=== PATIENT | male | born 1960 | race Caucasian/White ===

== ENCOUNTER 2016-06-24 17:09 | Emergency (ER) | payer MEDICARE ==
[2016-06-24 17:17] VITALS: RESP 18
[2016-06-24] MEDS ORDERED: cloNIDine HCL 0.2 MG TAB PO STA (17:20)
[2016-06-24] MEDS ORDERED: LISINOPRIL 10 MG TAB PO STA ×2 (17:20→17:54)
[2016-06-24] MEDS ORDERED: METOPROLOL TARTRATE 50 MG TAB PO STA (17:33)
[2016-06-24 18:19] LABS: Basophils % (A) 0 %; CH 30.4; CHCM 34.5; Eosinophils # (A) 0.1 k/uL (0-0.7); Eosinophils % (A) 1 %; HCT 41.1 % (39.0-53.0); HDW 2.84; HGB 14.2 gm/dL (13.0-17.5); Luc # (Auto) 0.14; Luc % (Auto) 2; Lymphocytes # (A) 1.2 k/uL (1.0-4.8); Lymphocytes % (A) 13 %; MCH 30.5 pg (25.0-35.0); MCHC 34.5 g/dL (31.0-37.0); MCV 88.6 fL (80.0-100.0); Mean Platelet Volume 7.1; Monocytes # (A) 0.6 k/uL (0-1.0); Monocytes % (A) 7 %; Neutrophils # (A) 7.4 k/uL (1.3-7.7); Neutrophils % (A) 78 %; RBC 4.64 m/uL (4.30-5.90); RDW 13.6 % (11.5-15.5); WBC 9.4 k/uL (3.8-10.6); WBC (Perox) 9.45
[2016-06-24 18:38] LABS: Anion Gap 10 mmol/L; Blood Urea Nitrogen 15 mg/dL (9-20); Calcium 9.8 mg/dL (8.4-10.2); Carbon Dioxide 28 mmol/L (22-30); Chloride 98 mmol/L (98-107); Glucose 95 mg/dL (74-99); Non-African American GFR(MDRD) >60 (>60 ml/min/1.73 sqM); Potassium 4.6 mmol/L (3.5-5.1); Sodium 136 mmol/L (137-145)
[2016-06-24] MEDS ORDERED: ENALAPRILAT 1.25 MG/ML 1 ML VIAL IVP STA (19:04)
[2016-06-24 20:36] VITALS: PULSE 41
--- NOTE | 2016-06-24 20:39 | ED ---
General Adult HPI - General Chief complaint: Recheck/Abnormal Lab/Rx Stated complaint: high blood pressure-sent by Time Seen by Provider: 06/24/16 17:20 Source: patient Mode of arrival: ambulatory Limitations: no limitations - History of Present Illness Initial comments: This patient is a 55-year-old man who comes over from Dr. Umaña's office. He was seen there today for an office visit and it was found that his blood pressure was quite elevated. The patient states that his blood pressure had been trending high. He is denying any symptoms related to this. He states that he feels well. Patient denies headache, neurologic symptoms, chest pain, dyspnea, diaphoresis. He has not had abdominal pain. The patient does take antihypertensives and states that he has for the most part been compliant with his dosing. -: hour(s) Associated Symptoms: denies other symptoms - Related Data Home Medications Medication Instructions Recorded Confirmed Aspirin EC [Ecotrin Low Dose] 81 mg PO DAILY 06/24/16 06/28/16 Levothyroxine Sodium [Synthroid] 50 mcg PO QAM 06/24/16 06/28/16 Metoprolol Tartrate [Lopressor] 100 mg PO QAM 06/24/16 06/28/16 Pravastatin Sodium [Pravachol] 10 mg PO HS 06/24/16 06/28/16 Benazepril [Lotensin] 10 mg PO QAM 06/28/16 06/28/16 Previous Rx's Medication Instructions Recorded amLODIPine BESYLATE/BENAZEPRIL 1 cap PO DAILY #7 cap 06/28/16 [Lotrel 5-40 mg Capsule] Allergies Allergy/AdvReac Type Severity Reaction Status Date / Time No Known Allergies Allergy Verified 06/28/16 17:02 Review of Systems ROS Statement: Those systems with pertinent positive or pertinent negative responses have been documented in the HPI. ROS Other: All systems not noted in ROS Statement are negative. Constitutional: Denies: fever Eyes: Denies: vision change Respiratory: Denies: cough, dyspnea Cardiovascular: Denies: chest pain, palpitations, edema Gastrointestinal: Denies: abdominal pain, vomiting, diarrhea Musculoskeletal: Denies: back pain Neurological: Denies: headache, weakness, numbness, paresthesias Past Medical History Past Medical History: Cancer, Hypertension, Thyroid Disorder Additional Past Medical History / Comment(s): neck ca History of Any Multi-Drug Resistant Organisms: None Reported Past Surgical History: Orthopedic Surgery Additional Past Surgical History / Comment(s): neck Past Psychological History: No Psychological Hx Reported Smoking Status: Current every day smoker Past Alcohol Use History: None Reported Past Drug Use History: Marijuana General Exam Limitations: no limitations General appearance: alert, in no apparent distress Eye exam: Present: normal appearance ENT exam: Present: normal oropharynx Respiratory exam: Present: normal lung sounds bilaterally. Absent: respiratory distress, wheezes, rales, rhonchi, stridor Cardiovascular Exam: Present: regular rate, normal rhythm, normal heart sounds. Absent: systolic murmur, diastolic murmur, rubs, gallop GI/Abdominal exam: Present: soft. Absent: distended, tenderness, guarding, rebound, rigid Extremities exam: Present: normal inspection, normal capillary refill. Absent: pedal edema, calf tenderness Neurological exam: Present: alert, normal gait Skin exam: Present: warm, dry, intact, normal color. Absent: rash Course Vital Signs 06/24/16 06/24/16 06/24/16 17:13 17:48 19:04 Temperature 97.2 F L Pulse Rate 52 L 48 L 51 L Respiratory 18 18 18 Rate Blood Pressure 256/131 231/115 241/116 O2 Sat by Pulse 100 98 94 L Oximetry 06/24/16 06/24/16 06/24/16 19:14 19:21 19:24 Temperature Pulse Rate 52 L 47 L 47 L Respiratory 18 18 18 Rate Blood Pressure 223/109 190/100 187/101 O2 Sat by Pulse 98 99 Oximetry 06/24/16 06/24/16 06/24/16 20:11 20:28 20:35 Temperature Pulse Rate 52 L 43 L 41 L Respiratory 18 18 18 Rate Blood Pressure 201/102 168/86 145/82 O2 Sat by Pulse 99 Oximetry 06/24/16 20:49 Temperature 98.0 F Pulse Rate 41 L Respiratory 18 Rate Blood Pressure 112/62 O2 Sat by Pulse 98 Oximetry EKG Findings - EKG Comments: EKG Findings:: There is possible left atrial enlargement. - EKG Results: EKG: interpreted by ABBYD, sinus rhythm (Rate 50 bpm), normal axis, normal QRS, normal ST/T Medical Decision Making - Medical Decision Making Patient is 55-year-old man presenting with hypertension. He is asymptomatic. His blood pressure did decrease following administration of oral antihypertensives here and he remains asymptomatic. Patient will follow-up with his physician. Will be given prescription for additional oral antihypertensive. - Lab Data Result diagrams: 06/24/16 18:02 06/24/16 18:02 Lab Results 06/24/16 06/24/16 Range/Units 18:02 18:02 WBC 9.4 (3.8-10.6) k/uL RBC 4.64 (4.30-5.90) m/uL Hgb 14.2 (13.0-17.5) gm/dL Hct 41.1 (39.0-53.0) % MCV 88.6 (80.0-100.0) fL MCH 30.5 (25.0-35.0) pg MCHC 34.5 (31.0-37.0) g/dL RDW 13.6 (11.5-15.5) % Plt Count 361 (150-450) k/uL Neutrophils % 78 % Lymphocytes % 13 % Monocytes % 7 % Eosinophils % 1 % Basophils % 0 % Neutrophils # 7.4 (1.3-7.7) k/uL Lymphocytes # 1.2 (1.0-4.8) k/uL Monocytes # 0.6 (0-1.0) k/uL Eosinophils # 0.1 (0-0.7) k/uL Basophils # 0.0 (0-0.2) k/uL Sodium 136 L (137-145) mmol/L Potassium 4.6 (3.5-5.1) mmol/L Chloride 98 (98-107) mmol/L Carbon Dioxide 28 (22-30) mmol/L Anion Gap 10 mmol/L BUN 15 (9-20) mg/dL Creatinine 1.00 (0.66-1.25) mg/dL Est GFR (MDRD) Af Amer >60 (>60 ml/min/1.73 sqM) Est GFR (MDRD) Non-Af >60 (>60 ml/min/1.73 sqM) Glucose 95 (74-99) mg/dL Calcium 9.8 (8.4-10.2) mg/dL TSH 5.420 H (0.465-4.680) mIU/L Free T4 1.18 (0.78-2.19) ng/dL Disposition Clinical Impression: Hypertension Disposition: HOME SELF-CARE Condition: Fair Instructions: Hypertension (ED) Referrals: Quique Umaña MD [Primary Care Provider] - 1-2 days
[2016-06-24 20:51] VITALS: BP 112/62; TEMP 98
== END 2016-06-24 20:56 | disposition home or self-care (01) ==
LOC: EC 17:09
DX: I10 Essential (primary) hypertension (principal); E07.9 Disorder of thyroid, unspecified; F17.200 Nicotine dependence, unspecified, uncomplicated; Z85.89 Personal history of malignant neoplasm of other organs and systems; Z79.82 Long term (current) use of aspirin; Z79.899 Other long term (current) drug therapy
CPT/HCPCS: 36415; 80048; 84439; 84443; 85025; 93005; 96374; 99283

== ENCOUNTER 2016-06-28 16:33 | Emergency (ER) | payer MEDICARE ==
[2016-06-28] MEDS ORDERED: ASPIRIN 81 MG CHEW PO STA (17:05)
[2016-06-28] MEDS ORDERED: NITROGLYCERIN SL TABS 0.4 MG TAB SUBLINGUAL STA (17:05)
[2016-06-28] MEDS ORDERED: MORPHINE SULFATE 2 MG/ML SYRINGE IVP STA (17:05)
[2016-06-28] MEDS ORDERED: SODIUM CHLORIDE 0.9% 500 ML IV STA (17:05)
--- NOTE | 2016-06-28 17:14 | ED ---
Headache HPI - General Source: RN notes reviewed Mode of arrival: ambulatory Limitations: no limitations <Amanda Mcgowan - Last Filed: 06/28/16 17:33> <Bashir Tillman - Last Filed: 06/28/16 23:12> - General Chief Complaint: Headache Stated Complaint: HBP Time Seen by Provider: 06/28/16 17:00 - History of Present Illness Initial Comments: 55 yo male presents to the ER with cc of hypertension. Patient states that he is having high blood pressure. Patient states he does have a history of high blood pressure. Patient states that he has noticed this over the last few weeks however today became increasingly high that he started to develop a headache. Patient states he did take his medications for high blood pressure. Patient states he hasn't had any fever chills cough cold runny nose. Patient did have shortness of breath earlier but he states he has no more shortness of breath. Patient states that he was concerned due to his continued blood pressures headaches. She is reevaluated. Patient denies any history of LA. Patient denies any recent fever, chills, chest pain, back pain, abdominal pain, nausea vomiting, numbness or tingling, dysuria or hematuria, constipation or diarrhea, headaches or visual changes, or any other current symptoms. (Amanda Mcgowan) - Related Data Home Medications Medication Instructions Recorded Confirmed Aspirin EC [Ecotrin Low Dose] 81 mg PO DAILY 06/24/16 06/28/16 Levothyroxine Sodium [Synthroid] 50 mcg PO QAM 06/24/16 06/28/16 Metoprolol Tartrate [Lopressor] 100 mg PO QAM 06/24/16 06/28/16 Pravastatin Sodium [Pravachol] 10 mg PO HS 06/24/16 06/28/16 Benazepril [Lotensin] 10 mg PO QAM 06/28/16 06/28/16 Previous Rx's Medication Instructions Recorded amLODIPine BESYLATE/BENAZEPRIL 1 cap PO DAILY #7 cap 06/28/16 [Lotrel 5-40 mg Capsule] Allergies Allergy/AdvReac Type Severity Reaction Status Date / Time No Known Allergies Allergy Verified 06/28/16 17:02 Review of Systems ROS Other: All systems not noted in ROS Statement are negative. <Amanda Mcgowan - Last Filed: 06/28/16 17:33> ROS Other: All systems not noted in ROS Statement are negative. <Bashir Tillman - Last Filed: 06/28/16 23:12> ROS Statement: Those systems with pertinent positive or pertinent negative responses have been documented in the HPI. Past Medical History Past Medical History: Cancer, Hypertension, Thyroid Disorder Additional Past Medical History / Comment(s): neck ca History of Any Multi-Drug Resistant Organisms: None Reported Past Surgical History: Orthopedic Surgery Additional Past Surgical History / Comment(s): neck Past Psychological History: No Psychological Hx Reported Smoking Status: Current every day smoker Past Alcohol Use History: None Reported Past Drug Use History: Marijuana <Amanda Mcgowan - Last Filed: 06/28/16 17:33> General Exam Limitations: no limitations <Amanda Mcgowan - Last Filed: 06/28/16 17:33> <Bashir Tillman - Last Filed: 06/28/16 23:12> - General Exam Comments Initial Comments: General: The patient is awake and alert, in no distress, and does not appear acutely ill. Eye: Pupils are equal, round and reactive to light, extra-ocular movements are intact; there is normal conjunctiva bilaterally. No signs of icterus. Ears, nose, mouth and throat: There are moist mucous membranes. Neck: The neck is supple, there is no tenderness. Cardiovascular: There is a regular rate and rhythm. No murmur, rub or gallop is appreciated. Respiratory: Lungs are clear to auscultation, respirations are non-labored, breath sounds are equal. No wheezes, stridor, rales, or rhonchi. Gastrointestinal: Soft, non-distended, non-tender abdomen without masses or organomegaly noted. There is no rebound or guarding present. No CVA tenderness. Bowel sounds are unremarkable. Back: There is no tenderness to palpation in the midline. There is no obvious deformity. No rashes noted. Musculoskeletal: Normal ROM, no tenderness, There is no pedal edema. There is no calf tenderness or swelling. Sensation intact. Pulses equal bilaterally 2+. Neurological: CN II-XII intact, There are no obvious motor or sensory deficits. Coordination appears grossly intact. Speech is normal. Skin: Skin is warm and dry and no rashes or lesions are noted. Psychiatric: Cooperative, appropriate mood & affect, normal judgment. (Amanda Mcgowan) Course <Amanda Mcgowan - Last Filed: 06/28/16 17:33> <Bashir Tillman - Last Filed: 06/28/16 23:12> Vital Signs 06/28/16 06/28/16 06/28/16 16:36 16:58 17:25 Temperature 98.1 F Pulse Rate 71 60 Pulse Rate [ 56 L Bilateral Sitting Radial] Respiratory 20 18 Rate Blood Pressure 245/115 257/125 O2 Sat by Pulse 98 99 Oximetry 06/28/16 06/28/16 06/28/16 17:33 17:50 18:55 Temperature 98.3 F Pulse Rate 56 L 55 L 53 L Pulse Rate [ Bilateral Sitting Radial] Respiratory 16 18 Rate Blood Pressure 131/75 249/129 217/114 O2 Sat by Pulse 98 100 Oximetry 06/28/16 06/28/16 06/28/16 19:41 20:27 22:49 Temperature Pulse Rate 52 L 50 L 52 L Pulse Rate [ Bilateral Sitting Radial] Respiratory 16 16 16 Rate Blood Pressure 202/106 177/92 182/96 O2 Sat by Pulse 98 98 100 Oximetry - Reevaluation(s) Reevaluation #1: 06/28/16 17:33 This case will be signed out to Dr. Tillman. (Amanda Mcgowan) 06/28/16 19:13 Case was discussed with Dr. Umaña including symptoms and lab results, specifically EKG and troponin. Blood pressure at this time was 183/98. He states patient can be discharged unless blood pressure goes up again. He requests Lotrel 5/40 prescription instead of just Benzapril and follow-up Thursday. 06/28/16 23:10 Case again discussed with Dr. Umaña who still does want patient discharged. Blood pressure has improved. Patient reexamined and updated. Patient is comfortable with discharge. Patient still denies ever having chest discomfort. (Bashir Tillman) Medical Decision Making - Lab Data Result diagrams: 06/28/16 17:12 <Amanda Mcgowan - Last Filed: 06/28/16 17:33> - Lab Data Result diagrams: 06/28/16 17:12 06/28/16 17:12 <Bashir Tillman - Last Filed: 06/28/16 23:12> - Medical Decision Making 55-year-old male presents to the emergency department with a chief complaint of headache and hypertension. (Amanda Mcgowan) - Lab Data Lab Results 06/28/16 06/28/16 06/28/16 Range/Units 17:12 17:12 17:12 WBC 13.1 H (3.8-10.6) k/uL RBC 4.93 (4.30-5.90) m/uL Hgb 14.9 (13.0-17.5) gm/dL Hct 44.0 (39.0-53.0) % MCV 89.3 (80.0-100.0) fL MCH 30.3 (25.0-35.0) pg MCHC 33.9 (31.0-37.0) g/dL RDW 13.9 (11.5-15.5) % Plt Count 378 (150-450) k/uL Neutrophils % 86 % Lymphocytes % 8 % Monocytes % 4 % Eosinophils % 1 % Basophils % 1 % Neutrophils # 11.2 H (1.3-7.7) k/uL Lymphocytes # 1.1 (1.0-4.8) k/uL Monocytes # 0.5 (0-1.0) k/uL Eosinophils # 0.1 (0-0.7) k/uL Basophils # 0.1 (0-0.2) k/uL PT (9.0-12.0) sec INR (<1.1) APTT (22.0-30.0) sec Sodium 137 (137-145) mmol/L Potassium 4.9 (3.5-5.1) mmol/L Chloride 98 (98-107) mmol/L Carbon Dioxide 28 (22-30) mmol/L Anion Gap 11 mmol/L BUN 16 (9-20) mg/dL Creatinine 0.90 (0.66-1.25) mg/dL Est GFR (MDRD) Af Amer >60 (>60 ml/min/1.73 sqM) Est GFR (MDRD) Non-Af >60 (>60 ml/min/1.73 sqM) Glucose 122 H (74-99) mg/dL Calcium 10.3 H (8.4-10.2) mg/dL Magnesium 2.3 (1.6-2.3) mg/dL Total Bilirubin 0.7 (0.2-1.3) mg/dL AST 37 (17-59) U/L ALT 24 (21-72) U/L Alkaline Phosphatase 75 (38-126) U/L Total Creatine Kinase 109 (55-170) U/L CK-MB (CK-2) 9.7 H* (0.0-2.4) ng/mL CK-MB (CK-2) Rel Index 8.9 Troponin I 0.066 H* (0.000-0.034) ng/mL Total Protein 8.5 H (6.3-8.2) g/dL Albumin 4.8 (3.5-5.0) g/dL Amylase 59 (30-110) U/L Lipase 136 (23-300) U/L 06/28/16 Range/Units 17:12 WBC (3.8-10.6) k/uL RBC (4.30-5.90) m/uL Hgb (13.0-17.5) gm/dL Hct (39.0-53.0) % MCV (80.0-100.0) fL MCH (25.0-35.0) pg MCHC (31.0-37.0) g/dL RDW (11.5-15.5) % Plt Count (150-450) k/uL Neutrophils % % Lymphocytes % % Monocytes % % Eosinophils % % Basophils % % Neutrophils # (1.3-7.7) k/uL Lymphocytes # (1.0-4.8) k/uL Monocytes # (0-1.0) k/uL Eosinophils # (0-0.7) k/uL Basophils # (0-0.2) k/uL PT 10.9 (9.0-12.0) sec INR 1.1 (<1.1) APTT 29.7 (22.0-30.0) sec Sodium (137-145) mmol/L Potassium (3.5-5.1) mmol/L Chloride (98-107) mmol/L Carbon Dioxide (22-30) mmol/L Anion Gap mmol/L BUN (9-20) mg/dL Creatinine (0.66-1.25) mg/dL Est GFR (MDRD) Af Amer (>60 ml/min/1.73 sqM) Est GFR (MDRD) Non-Af (>60 ml/min/1.73 sqM) Glucose (74-99) mg/dL Calcium (8.4-10.2) mg/dL Magnesium (1.6-2.3) mg/dL Total Bilirubin (0.2-1.3) mg/dL AST (17-59) U/L ALT (21-72) U/L Alkaline Phosphatase (38-126) U/L Total Creatine Kinase (55-170) U/L CK-MB (CK-2) (0.0-2.4) ng/mL CK-MB (CK-2) Rel Index Troponin I (0.000-0.034) ng/mL Total Protein (6.3-8.2) g/dL Albumin (3.5-5.0) g/dL Amylase (30-110) U/L Lipase (23-300) U/L 06/28/16 17:13 Sinus bradycardia, possible left atrial enlargement, left ventricular hypertrophy, patient does appear to have changes to V2 with minimal elevation that is new compared to previous EKG from 28 Oct 2015 (Amanda Mcgowan) Critical Care Time Critical Care Time: Yes Total Critical Care Time: 33 <Bashir Tillman - Last Filed: 06/28/16 23:12> Disposition <Amanda Mcgowan - Last Filed: 06/28/16 17:33> <Bashir Tillman - Last Filed: 06/28/16 23:12> Clinical Impression: Hypertensive urgency Disposition: HOME SELF-CARE Instructions: Hypertension (ED), Hypertensive Crisis (ED) Additional Instructions: Please follow-up Thursday morning with Dr. Umaña. Return for chest pain or difficulty in breathing, weakness or confusion, uncontrolled blood pressure, worsening symptoms or any other concerns. Prescriptions: amLODIPine BESYLATE/BENAZEPRIL [Lotrel 5-40 mg Capsule] 1 cap PO DAILY #7 cap Referrals: Quique Umaña MD [Primary Care Provider] - 1-2 days
[2016-06-28 17:21] LABS: Basophils # (A) 0.1 k/uL (0-0.2); Basophils % (A) 1 %; CH 30.3; CHCM 34.1; Eosinophils # (A) 0.1 k/uL (0-0.7); Eosinophils % (A) 1 %; HDW 2.67; HGB 14.9 gm/dL (13.0-17.5); Luc # (Auto) 0.12; Luc % (Auto) 1; Lymphocytes # (A) 1.1 k/uL (1.0-4.8); Lymphocytes % (A) 8 %; MCH 30.3 pg (25.0-35.0); MCHC 33.9 g/dL (31.0-37.0); MCV 89.3 fL (80.0-100.0); Mean Platelet Volume 6.4; Monocytes # (A) 0.5 k/uL (0-1.0); Monocytes % (A) 4 %; Neutrophils # (A) 11.2 k/uL (1.3-7.7); Neutrophils % (A) 86 %; RBC 4.93 m/uL (4.30-5.90); RDW 13.9 % (11.5-15.5); WBC 13.1 k/uL (3.8-10.6); WBC (Perox) 13.09
[2016-06-28] MEDS: ENALAPRILAT 1.25 MG/ML 1 ML VIAL IVP STA ×2 (17:24→18:23)
[2016-06-28 17:31] LABS: INR 1.1 (<1.1); Partial Thromboplastin Time 29.7 sec (22.0-30.0); Prothrombin Time 10.9 sec (9.0-12.0)
[2016-06-28 17:36] LABS: ALT 24 U/L (21-72); AST 37 U/L (17-59); Alkaline Phosphatase 75 U/L (38-126); Amylase 59 U/L (30-110); Anion Gap 11 mmol/L; Blood Urea Nitrogen 16 mg/dL (9-20); Calcium 10.3 mg/dL (8.4-10.2); Carbon Dioxide 28 mmol/L (22-30); Chloride 98 mmol/L (98-107); Glucose 122 mg/dL (74-99); Magnesium 2.3 mg/dL (1.6-2.3); Non-African American GFR(MDRD) >60 (>60 ml/min/1.73 sqM); Potassium 4.9 mmol/L (3.5-5.1); Sodium 137 mmol/L (137-145); Total Bilirubin 0.7 mg/dL (0.2-1.3); Total Protein 8.5 g/dL (6.3-8.2)
[2016-06-28 17:58] LABS: Creatine Kinase MB 9.7 ng/mL (0.0-2.4); Troponin I 0.066 ng/mL (0.000-0.034)
--- NOTE | 2016-06-28 18:07 | XR ---
EXAMINATION TYPE: XR chest 2V DATE OF EXAM: 06/28/2016 5:50 PM COMPARISON: Prior chest x-ray October 28, 2015 HISTORY: Chest pain. TECHNIQUE: Frontal and lateral views of the chest are obtained. FINDINGS: There is no focal air space opacity, pleural effusion, or pneumothorax seen. The cardiac silhouette size is within normal limits. The osseous structures are intact. IMPRESSION: No acute cardiopulmonary process currently.
--- NOTE | 2016-06-28 18:08 | CT ---
EXAMINATION TYPE: CT brain wo con DATE OF EXAM: 06/28/2016 5:50 PM HISTORY: Headache and dizziness. CT DLP: 1054.2 mGycm. Automated Exposure Control for Dose Reduction was Utilized. TECHNIQUE: CT scan of the head is performed without contrast. COMPARISON: None. FINDINGS: There is no acute intracranial hemorrhage or midline shift identified. Ventricles and sul ci are within normal limits in size. 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 There is some lobulated mucosal polyps or retention cysts in the right maxillary sinus posterior lateral a spect otherwise paranasal sinuses are clear. The globes are intact bilaterally. IMPRESSION: No acute intracranial hemorrhage or midline shift.
[2016-06-28 18:57] VITALS: TEMP 98.3
[2016-06-28] MEDS ORDERED: amLODIPine 5 MG TAB PO STA (19:13)
[2016-06-28] MEDS ORDERED: LISINOPRIL 20 MG TAB PO STA (19:16)
[2016-06-28 19:46] VITALS: RESP 16
[2016-06-28 23:34] VITALS: BP 184/96; PULSE 53
== END 2016-06-28 23:32 | disposition home or self-care (01) ==
LOC: EC 16:33
DX: I16.0 Hypertensive urgency (principal); R00.1 Bradycardia, unspecified; F17.200 Nicotine dependence, unspecified, uncomplicated; I10 Essential (primary) hypertension; E07.9 Disorder of thyroid, unspecified; Z79.899 Other long term (current) drug therapy; Z79.82 Long term (current) use of aspirin; Z85.89 Personal history of malignant neoplasm of other organs and systems; Z98.890 Other specified postprocedural states
CPT/HCPCS: 36415; 80053; 93005; 82150; 82550; 82553; 83690; 83735; 84484; 85025; 85610; 85730; 71020; 70450; 99285; 96374; 96376; 96375; 96361; J2270

== ENCOUNTER → 2016-07-21 | Outpatient (CLI) | payer MEDICARE ==
--- NOTE | 2016-07-25 16:31 | US ---
EXAMINATION TYPE: US kidneys/renal and bladder DATE OF EXAM: 07/21/2016 4:32 PM COMPARISON: NONE CLINICAL HISTORY: I10 hypertension. HTN, pt has no other complaints at this time EXAM MEASUREMENTS: Right Kidney: 10.4 x 3.7 x 4.8 cm Left Kidney: 9.8 x 4.6 x 4.9 cm Right Kidney: Cyst upper pole= 1.3 x 1.1 x 1.4 cm/ No evidence of hydro Left Kidney: wnl Bladder: wnl Bilateral Jets seen: Yes There is no evidence for hydronephrosis at this point in time. No nephrolithiasis is seen. No zuleyma s are identified. The urinary bladder is anechoic. Bilateral ureteral jets are seen. IMPRESSION: Simple cyst upper pole right kidney.
== END | disposition home or self-care (01) ==
LOC: RADUSWWP 16:12
PROVIDERS: ATTEND Family Medicine
DX: Z53.9 Procedure and treatment not carried out, unspecified reason (principal)
CPT/HCPCS: 76770

== ENCOUNTER → 2016-08-07 | Outpatient (CLI) | payer MEDICARE ==
--- NOTE | 2016-08-07 11:02 | US ---
EXAMINATION TYPE: US renal artery duplex complete DATE OF EXAM: 08/07/2016 COMPARISON: Prior renal ultrasound July 21, 2016 CLINICAL HISTORY: I10 hypertension. Controlled HTN MEASUREMENTS: RENAL SIZE: Rt Kidney: 10.1 x 3.9 x 5.2cm Lt Kidney: 10.3 x 4.9 x 4.5cm RESISTANCE INDEX Right: 2.1 Left: 2.2 RA/AO RATIO (< 3.5 ) Right: 0.63 Left: 0.66 RA VELOCITY ( < 180 cm/s) Right: 137.3 cm/s Left: 140.9 cm/s Cystic area upper pole right kidney = 1.0 x 1.2 x 0.9cm. Cystic area lower pole left kidney = 0.9 x 0 .7 x 0.9cm. No evidence of renal artery stenosis at this time. Low resistive waveforms noted througho ut. There is diffuse septal defect change and visualized abdominal aorta. A few simple appearing cysts re demonstrated scattered throughout both kidneys. Renal artery measurements show satisfactory phasicity without abnormal suspicious increased velocities bilaterally. IMPRESSION: No convincing ultrasound evidence for focal renal artery stenosis.
== END | disposition home or self-care (01) ==
LOC: RADUSMAIN 08:53
PROVIDERS: ATTEND Family Medicine
DX: I10 Essential (primary) hypertension (principal)
CPT/HCPCS: 93975

== ENCOUNTER 2020-03-02 13:08 | Emergency (ER) | payer MEDICARE ==
[2020-03-02 13:14] VITALS: TEMP 98.4
[2020-03-02] MEDS: cloNIDine HCL 0.1 MG TAB PO STA (13:39)
--- NOTE | 2020-03-02 13:45 | ED ---
General Adult HPI - General Chief complaint: Skin/Abscess/Foreign Body Stated complaint: Left ear cyst Time Seen by Provider: 03/02/20 13:17 Source: patient, RN notes reviewed, old records reviewed Mode of arrival: ambulatory Limitations: no limitations - History of Present Illness Initial comments: 59-year-old presenting for evaluation of pain and swelling behind his left year. Patient had a previous sebaceous cyst which has been present for greater than 10 years. He has remote history of head and neck cancer, he does follow with his oncologist who has evaluated this cyst in the past and was not felt to be cancerous. Denies fever or constitutional symptoms. He has a history of hypertension and he is on amlodipine and clonidine. Triage heart rate and blood pressure are significantly elevated. - Related Data Home Medications Medication Instructions Recorded Confirmed Aspirin EC [Ecotrin Low Dose] 81 mg PO DAILY 06/24/16 06/28/16 Levothyroxine Sodium [Synthroid] 50 mcg PO QAM 06/24/16 06/28/16 Metoprolol Tartrate [Lopressor] 100 mg PO QAM 06/24/16 06/28/16 Pravastatin Sodium [Pravachol] 10 mg PO HS 06/24/16 06/28/16 Benazepril [Lotensin] 10 mg PO QAM 06/28/16 06/28/16 Previous Rx's Medication Instructions Recorded amLODIPine BESYLATE/BENAZEPRIL 1 cap PO DAILY #7 cap 06/28/16 [Lotrel 5-40 mg Capsule] Cephalexin [Keflex] 500 mg PO Q6HR 10 Days #40 cap 03/02/20 Sulfamethox-Tmp 800-160Mg [Bactrim 1 tab PO Q12HR #28 tab 03/02/20 DS 800-160 mg] Allergies Allergy/AdvReac Type Severity Reaction Status Date / Time No Known Allergies Allergy Verified 03/02/20 13:14 Review of Systems ROS Statement: Those systems with pertinent positive or pertinent negative responses have been documented in the HPI. ROS Other: All systems not noted in ROS Statement are negative. Past Medical History Past Medical History: Cancer, Hypertension, Thyroid Disorder Additional Past Medical History / Comment(s): neck ca History of Any Multi-Drug Resistant Organisms: None Reported Past Surgical History: Orthopedic Surgery Additional Past Surgical History / Comment(s): neck Past Psychological History: No Psychological Hx Reported Smoking Status: Current every day smoker Past Alcohol Use History: None Reported Past Drug Use History: Marijuana General Exam Limitations: no limitations General appearance: alert, in no apparent distress Head exam: Present: atraumatic, normocephalic Eye exam: Present: normal appearance, PERRL ENT exam: Present: mucous membranes moist, other ( has what appears to be an infected sebaceous cyst just behind the left earlobe with some cellulitis progressing onto the parotid. There is central fluctuance and site of previous drainage.) Neck exam: Present: other (woody indurated neck. ) Respiratory exam: Present: decreased breath sounds. Absent: respiratory distress Cardiovascular Exam: Present: normal rhythm, tachycardia GI/Abdominal exam: Present: soft. Absent: distended, tenderness Neurological exam: Present: alert, oriented X3. Absent: motor sensory deficit Course Vital Signs 03/02/20 03/02/20 13:10 14:02 Temperature 98.4 F Pulse Rate 125 H 64 Respiratory 20 18 Rate Blood Pressure 215/137 176/113 O2 Sat by Pulse 96 100 Oximetry - Reevaluation(s) Reevaluation #1: 03/02/20 13:35 Patient is on amlodipine 10 mg and clonidine patch history of hypertension and states his blood pressure has been trending up over the past weeks. He does admit to daily smoking. Reevaluation #2: 03/02/20 14:05 Blood pressure significantly improved with 1 dose of oral clonidine. Procedures - Incision & Drainage Consent Obtained: verbal consent Site: face I&D Cleaning Method: Chloroprep Sterile Field Used?: Yes Scalpel Used: #11 Needle Aspiration Performed?: Yes Irrigation Performed?: No I&D Drainage Obtained: Pus, Blood Culture Obtained?: Yes Patient Tolerated Procedure: well Medical Decision Making - Medical Decision Making 59-year-old male with pain and swelling behind the left earlobe previous sebaceous cyst, likely infected sebaceous cyst, there is purulence and some surrounding cellulitis. I was able to incise the cyst and obtained approximately 3 mL appear ill material which was sent for culture. Regarding the patient's uncontrolled hypertension, he states that his blood pressure does go up when he is in a medical environment. I discussed this with his primary care physician Dr. Umaña who will evaluate the patient within the next 48 hours for both his elevated blood pressure as well as this infection given his previous history. Disposition Clinical Impression: Sebaceous cyst of ear, Infected sebaceous cyst, Hypertension Disposition: HOME SELF-CARE Condition: Fair Instructions (If sedation given, give patient instructions): Cellulitis (ED), Hypertension (ED), Cyst (ED), Abscess Incision and Drainage (DC) Prescriptions: Sulfamethox-Tmp 800-160Mg [Bactrim DS 800-160 mg] 1 tab PO Q12HR #28 tab Cephalexin [Keflex] 500 mg PO Q6HR 10 Days #40 cap Is patient prescribed a controlled substance at d/c from ED?: No Referrals: Quique Umaña MD [Primary Care Provider] - 1-2 days Time of Disposition: 13:44
[2020-03-02 14:05] VITALS: BP 176/113; PULSE 64; RESP 18
== END 2020-03-02 14:09 | disposition home or self-care (01) ==
LOC: EC 13:08
DX: L72.3 Sebaceous cyst (principal); L08.9 Local infection of the skin and subcutaneous tissue, unspecified; R00.0 Tachycardia, unspecified; I10 Essential (primary) hypertension; E07.9 Disorder of thyroid, unspecified; F17.200 Nicotine dependence, unspecified, uncomplicated; Z79.890 Hormone replacement therapy; Z79.899 Other long term (current) drug therapy; Z85.828 Personal history of other malignant neoplasm of skin
CPT/HCPCS: 10060; 87070; 87205; 99284

== ENCOUNTER 2021-05-07 17:50 | Inpatient (IN) | payer MEDICARE ==
[2021-05-07] MEDS ORDERED: SODIUM CHLORIDE 0.9% 1,000 ML IV STA (22:03)
[2021-05-07] MEDS ORDERED: DEXAMETHASONE SOD PHOSPHATE 10 MG/ML 1 ML VIAL IV STA (22:04)
[2021-05-07] MEDS ORDERED: IPRATROPIUM-ALBUTEROL 3 ML NEB INHALATION STA (22:04)
--- NOTE | 2021-05-07 22:06 | ED ---
General Adult HPI - General Chief complaint: Upper Respiratory Infection Stated complaint: Chest Pain,Cough Time Seen by Provider: 05/07/21 21:49 Source: patient Mode of arrival: ambulatory Limitations: no limitations - History of Present Illness Initial comments: Dictation was produced using [employer] dictation software. please excuse any grammatical, word or spelling errors. Chief Complaint: 60-year-old male presents to the emergency department for 2 weeks of cough History of Present Illness: Is a 60-year-old male who has past medical history of neck cancer, hypertension and thyroid disease. Presents to the emergency department for 2 weeks of cough. Patient states his cough is productive of green sputum. He does also have left anterior chest pain is worse with deep inspiration. States when he takes deep breath it feels dull and rated status left arm. Patient is from a shortness of breath. He hasn't been formally diag nosed with COPD however he is a one pack-a-day smoker for several years. She denies any constitutional symptoms. The ROS documented in this emergency department record has been reviewed and confirmed by me. Those systems with pertinent positive or negative responses have been documented in the HPI. All other systems are other negative and/or noncontributory. PHYSICAL EXAM: General Impression: Alert and oriented x3, not in acute distress, coughing HEENT: Normocephalic atraumatic, extra-ocular movements intact, pupils equal and reactive to light bilaterally, mucous membranes moist. Cardiovascular: Heart regular rate and rhythm Chest: Able to complete full sentences, no retractions, no tachypnea, diffuse lung rhonchi Abdomen: abdomen soft, non-tender, non-distended, no organomegaly Musculoskeletal: Pulses present and equal in all extremities, no peripheral edema Motor: no focal deficits noted Neurological: CN II-XII grossly intact, no focal motor or sensory deficits noted Skin: Intact with no visualized rashes Psych: Normal affect and mood ED course: 60-year-old male presents emergency department for cough. He has associated chest pain. Patient is high risk given his extensive smoking history. Vital signs upon arrival are within acceptable limits. Chest x-ray shows left lower lobe pneumonia. This appears to be new compared to an old exam.Lab evaluation obtained. No leukocytosis. Metabolic panel shows hyponatremia with 08/30/1929. Rest metabolic panel unremarkable. For panel viral PCR is negative. Given degree of his symptoms and lack of improvement over the last several days believe patient would benefit from short hospital admission. Patient be admitted for COPD exacerbation with [facility] pneumonia. Patient given azithromycin and ceftriaxone. Patient is agreeable to plan. EKG interpretation: Ventricular rate 84, sinus rhythm, FL interval 184, first 91, QTc 387. No FL prolongation, no QTC prolongation, no ST or T-wave changes noted. EKG compared to 06/28/2016 showing no changes. Overall, this EKG is unremarkable - Related Data Home Medications Medication Instructions Recorded Confirmed Lansoprazole [Prevacid] 30 mg PO DAILY PRN 05/07/21 05/07/21 Levothyroxine Sodium [Synthroid] 75 mcg PO DAILY 05/07/21 05/07/21 amLODIPine [Norvasc] 10 mg PO HS 05/07/21 05/07/21 cloNIDine 0.3 MG/24HR PATCH 1 patch TRANSDERM CAMERON 05/07/21 05/07/21 [Catapres-Tts 0.3MG Patch] Allergies Allergy/AdvReac Type Severity Reaction Status Date / Time No Known Allergies Allergy Verified 05/07/21 22:56 Review of Systems ROS Statement: Those systems with pertinent positive or pertinent negative responses have been documented in the HPI. ROS Other: All systems not noted in ROS Statement are negative. Past Medical History Past Medical History: Cancer, Hypertension, Thyroid Disorder Additional Past Medical History / Comment(s): neck ca History of Any Multi-Drug Resistant Organisms: None Reported Past Surgical History: Orthopedic Surgery Additional Past Surgical History / Comment(s): neck Past Psychological History: No Psychological Hx Reported Smoking Status: Current every day smoker Past Alcohol Use History: None Reported Past Drug Use History: Marijuana General Exam Limitations: no limitations Course Vital Signs 05/07/21 05/07/21 05/07/21 18:35 23:09 23:19 Temperature 97.9 F Pulse Rate 81 64 62 Respiratory 18 Rate Blood Pressure 123/88 O2 Sat by Pulse 95 Oximetry 05/08/21 01:00 Temperature Pulse Rate 72 Respiratory 18 Rate Blood Pressure 139/87 O2 Sat by Pulse 94 L Oximetry Medical Decision Making - Lab Data Result diagrams: 05/09/21 10:45 05/09/21 10:45 Lab Results 05/07/21 05/07/21 05/07/21 Range/Units 22:19 22:19 22:19 WBC 7.8 (3.8-10.6) k/uL RBC 4.72 (4.30-5.90) m/uL Hgb 12.7 L (13.0-17.5) gm/dL Hct 39.8 (39.0-53.0) % MCV 84.2 (80.0-100.0) fL MCH 27.0 (25.0-35.0) pg MCHC 32.0 (31.0-37.0) g/dL RDW 15.8 H (11.5-15.5) % Plt Count 563 H (150-450) k/uL MPV 7.1 Neutrophils % 81 % Lymphocytes % 11 % Monocytes % 6 % Eosinophils % 0 % Basophils % 0 % Neutrophils # 6.4 (1.3-7.7) k/uL Lymphocytes # 0.8 L (1.0-4.8) k/uL Monocytes # 0.5 (0-1.0) k/uL Eosinophils # 0.0 (0-0.7) k/uL Basophils # 0.0 (0-0.2) k/uL Sodium 130 L (137-145) mmol/L Potassium 4.4 (3.5-5.1) mmol/L Chloride 94 L (98-107) mmol/L Carbon Dioxide 28 (22-30) mmol/L Anion Gap 8 mmol/L BUN 11 (9-20) mg/dL Creatinine 0.77 (0.66-1.25) mg/dL Est GFR (CKD-EPI)AfAm >90 (>60 ml/min/1.73 sqM) Est GFR (CKD-EPI)NonAf >90 (>60 ml/min/1.73 sqM) Glucose 110 H (74-99) mg/dL Plasma Lactic Acid Amador (0.7-2.0) mmol/L Calcium 9.1 (8.4-10.2) mg/dL Magnesium 2.0 (1.6-2.3) mg/dL Troponin I (0.000-0.034) ng/mL Influenza Type A (PCR) Not Detected (Not Detectd) Influenza Type B (PCR) Not Detected (Not Detectd) RSV (PCR) Not Detected (Not Detectd) SARS-CoV-2 (PCR) Not Detected (Not Detectd) 05/07/21 05/07/21 05/09/21 Range/Units 22:19 22:19 10:45 WBC 7.6 (3.8-10.6) k/uL RBC 4.78 (4.30-5.90) m/uL Hgb 12.8 L (13.0-17.5) gm/dL Hct 39.9 (39.0-53.0) % MCV 83.5 (80.0-100.0) fL MCH 26.8 (25.0-35.0) pg MCHC 32.1 (31.0-37.0) g/dL RDW 15.8 H (11.5-15.5) % Plt Count 606 H (150-450) k/uL MPV 7.0 Neutrophils % % Lymphocytes % % Monocytes % % Eosinophils % % Basophils % % Neutrophils # (1.3-7.7) k/uL Lymphocytes # (1.0-4.8) k/uL Monocytes # (0-1.0) k/uL Eosinophils # (0-0.7) k/uL Basophils # (0-0.2) k/uL Sodium (137-145) mmol/L Potassium (3.5-5.1) mmol/L Chloride (98-107) mmol/L Carbon Dioxide (22-30) mmol/L Anion Gap mmol/L BUN (9-20) mg/dL Creatinine (0.66-1.25) mg/dL Est GFR (CKD-EPI)AfAm (>60 ml/min/1.73 sqM) Est GFR (CKD-EPI)NonAf (>60 ml/min/1.73 sqM) Glucose (74-99) mg/dL Plasma Lactic Acid Amador 0.9 (0.7-2.0) mmol/L Calcium (8.4-10.2) mg/dL Magnesium (1.6-2.3) mg/dL Troponin I <0.012 (0.000-0.034) ng/mL Influenza Type A (PCR) (Not Detectd) Influenza Type B (PCR) (Not Detectd) RSV (PCR) (Not Detectd) SARS-CoV-2 (PCR) (Not Detectd) 05/09/21 Range/Units 10:45 WBC (3.8-10.6) k/uL RBC (4.30-5.90) m/uL Hgb (13.0-17.5) gm/dL Hct (39.0-53.0) % MCV (80.0-100.0) fL MCH (25.0-35.0) pg MCHC (31.0-37.0) g/dL RDW (11.5-15.5) % Plt Count (150-450) k/uL MPV Neutrophils % % Lymphocytes % % Monocytes % % Eosinophils % % Basophils % % Neutrophils # (1.3-7.7) k/uL Lymphocytes # (1.0-4.8) k/uL Monocytes # (0-1.0) k/uL Eosinophils # (0-0.7) k/uL Basophils # (0-0.2) k/uL Sodium 131 L (137-145) mmol/L Potassium 4.9 (3.5-5.1) mmol/L Chloride 90 L (98-107) mmol/L Carbon Dioxide 33 H (22-30) mmol/L Anion Gap 8 mmol/L BUN 17 (9-20) mg/dL Creatinine 0.79 (0.66-1.25) mg/dL Est GFR (CKD-EPI)AfAm >90 (>60 ml/min/1.73 sqM) Est GFR (CKD-EPI)NonAf >90 (>60 ml/min/1.73 sqM) Glucose 73 L (74-99) mg/dL Plasma Lactic Acid Amador (0.7-2.0) mmol/L Calcium 9.3 (8.4-10.2) mg/dL Magnesium (1.6-2.3) mg/dL Troponin I (0.000-0.034) ng/mL Influenza Type A (PCR) (Not Detectd) Influenza Type B (PCR) (Not Detectd) RSV (PCR) (Not Detectd) SARS-CoV-2 (PCR) (Not Detectd) Disposition Clinical Impression: Pneumonia, COPD exacerbation Disposition: ADMITTED IP TO THIS HOSP Condition: Fair
--- NOTE | 2021-05-07 22:48 | XR ---
EXAMINATION TYPE: XR chest 2V DATE OF EXAM: 05/07/2021 COMPARISON: 06/28/2016 HISTORY: Cough TECHNIQUE: 2 views FINDINGS: There is some patchy airspace consolidation left lower lobe. The other lung gomez are fair ly clear. Heart size is normal. There is no pleural effusion. Bony thorax is intact. IMPRESSION: Left lower lobe pneumonia. This appears essentially new compared to old exam. Normal hear t.
[2021-05-07 22:50] LABS: African American GFR (CKD) >90 (>60 ml/min/1.73 sqM); Anion Gap 8 mmol/L; Blood Urea Nitrogen 11 mg/dL (9-20); Calcium 9.1 mg/dL (8.4-10.2); Carbon Dioxide 28 mmol/L (22-30); Chloride 94 mmol/L (98-107); Glucose 110 mg/dL (74-99); Non-African American GFR(CKD) >90 (>60 ml/min/1.73 sqM); Potassium 4.4 mmol/L (3.5-5.1); Sodium 130 mmol/L (137-145)
[2021-05-07 22:52] LABS: Basophils % (A) 0 %; Eosinophils % (A) 0 %; HCT 39.8 % (39.0-53.0); HGB 12.7 gm/dL (13.0-17.5); Lymphocytes # (A) 0.8 k/uL (1.0-4.8); Lymphocytes % (A) 11 %; MCV 84.2 fL (80.0-100.0); Mean Platelet Volume 7.1; Monocytes # (A) 0.5 k/uL (0-1.0); Monocytes % (A) 6 %; Neutrophils # (A) 6.4 k/uL (1.3-7.7); Neutrophils % (A) 81 %; Platelet Count 563 k/uL (150-450); RBC 4.72 m/uL (4.30-5.90); RDW 15.8 % (11.5-15.5); WBC 7.8 k/uL (3.8-10.6)
[2021-05-07] MEDS ORDERED: cefTRIAXone IN SWFI 1,000 MG/10 ML SYRINGE IVP STA (22:52)
[2021-05-07] MEDS: AZITHROMYCIN 500 MG TAB PO SCH (23:46)
[2021-05-08] MEDS ORDERED: amLODIPine 10 MG TAB PO STA (01:00)
[2021-05-08 01:05] LABS: Influenza A Not Detected (Not Detectd); Influenza B Not Detected (Not Detectd)
[2021-05-08] MEDS ORDERED: PANTOPRAZOLE 40 MG TABLET PO PRN (03:12)
[2021-05-08] MEDS: traMADol 50 MG TAB PO PRN ×3 (03:26→20:05)
[2021-05-08] MEDS: LEVOTHYROXINE 75 MCG TAB PO SCH (06:13)
[2021-05-08] MEDS: IPRATROPIUM-ALBUTEROL 3 ML NEB INHALATION SCH ×4 (07:30→20:36)
[2021-05-08] MEDS ORDERED: IPRATROPIUM-ALBUTEROL 3 ML NEB INHALATION PRN (07:55)
[2021-05-08] MEDS: AZITHROMYCIN 500 MG TAB PO SCH (10:12)
[2021-05-08] MEDS: SYMBICORT 80-4.5 MCG INHALER INHALATION SCH ×2 (11:15→20:36)
--- NOTE | 2021-05-08 12:26 | P.CNPUL ---
History of Present Illness Consult date: 05/08/21 Requesting physician: Quique Umaña Reason for consult: dyspnea, abnormal CXR/CT Chief complaint: Shortness of breath, cough, congestion History of present illness: This is a pleasant 60-year-old male patient who appears older than stated age. He follows with Dr. Umaña as his primary care provider. He has a history of neck cancer, hypertension, gastroesophageal reflux disease, hypothyroidism. He also has a history of chronic and ongoing tobacco dependence of greater than 30 years, occasional marijuana use. He had not been on inhalers in the past. He has not been on home oxygen. He had not been diagnosed with COPD. He presented to the emergency room yesterday with complaints of redness of breath, cough, congestion. He's had a productive cough with yellow sputum. Currently denies any fever, chills or night sweats. His chest x-ray does reveal some left midlung infiltrate. He's had some left-sided posterior chest wall pain as well. CoVID screen was negative. He's not vaccinated. White count 7.8. Hemoglobin 12.7. Platelets 563. Sodium 1:30. Potassium 4.4. Bicarb 28. A BUN 11. Creatinine 0.77. Lactic acid 0.9. Troponin negative 1. Influenza screen, RSV and CoVID by PCR all negative. He's been initiated on ceftriaxone and azithromycin along with Symbicort and DuoNeb inhalations. He is currently seen in consultation on the regular medical floor. He sitting in bed. Awake and alert in no acute distress. Continues with a productive cough. He's been afebrile. Hemodynamically stable. Review of Systems REVIEW OF SYSTEMS: CONSTITUTIONAL: Denies any recent significant weight loss or weight gain. EYES: Denies change in vision. EARS, NOSE, MOUTH, THROAT: Denies headaches, denies sore throat. CARDIOVASCULAR: Left-sided posterior chest wall pain, no palpitations or syncopal episodes. RESPIRATORY: Positive for shortness of breath, cough, congestion no hemoptysis. GASTROINTESTINAL: Denies change in appetite, denies abdominal pain GENITOURINARY: Denies hematuria, denies infections. MUSKULOSKELETAL: Denies pain, denies swelling. INTEGUMENTARY: Denies rash, denies eczema. NEUROLOGICAL: Denies recent memory loss, no recent seizure activity. PSYCHIATRIC: Denies anxiety, denies depression. HEMATOLOGIC/LYMPHATIC: Denies anemia, denies enlarged lymph nodes. Past Medical History Past Medical History: Cancer, Hypertension, Thyroid Disorder Additional Past Medical History / Comment(s): neck ca History of Any Multi-Drug Resistant Organisms: None Reported Past Surgical History: Orthopedic Surgery Additional Past Surgical History / Comment(s): neck Past Psychological History: No Psychological Hx Reported Smoking Status: Current every day smoker Past Alcohol Use History: None Reported Past Drug Use History: Marijuana Medications and Allergies Home Medications Medication Instructions Recorded Confirmed Type Lansoprazole [Prevacid] 30 mg PO DAILY PRN 05/07/21 05/07/21 History Levothyroxine Sodium [Synthroid] 75 mcg PO DAILY 05/07/21 05/07/21 History amLODIPine [Norvasc] 10 mg PO HS 05/07/21 05/07/21 History cloNIDine 0.3 MG/24HR PATCH 1 patch TRANSDERM CAMERON 05/07/21 05/07/21 History [Catapres-Tts 0.3MG Patch] Allergies Allergy/AdvReac Type Severity Reaction Status Date / Time No Known Allergies Allergy Verified 05/07/21 22:56 Physical Exam Vitals: Vital Signs Temp Pulse Pulse Resp BP BP BP 05/08/21 11:27 68 05/08/21 11:15 68 05/08/21 10:03 18 05/08/21 07:45 67 05/08/21 07:30 66 05/08/21 07:00 97.4 F L 83 18 153/77 05/08/21 02:19 97.9 F 65 18 149/98 05/08/21 01:35 97.2 F L 80 18 140/87 05/08/21 01:00 72 18 139/87 05/07/21 23:19 62 05/07/21 23:09 64 05/07/21 18:35 97.9 F 81 18 123/88 Pulse Ox 05/08/21 11:27 05/08/21 11:15 05/08/21 10:03 05/08/21 07:45 05/08/21 07:30 05/08/21 07:00 99 05/08/21 02:19 95 05/08/21 01:35 05/08/21 01:00 94 L 05/07/21 23:19 05/07/21 23:09 05/07/21 18:35 95 Intake and Output 05/07/21 05/08/21 05/08/21 22:59 06:59 14:59 Intake Total 60 118 Balance 60 118 Intake: Oral 60 118 Other: Voiding Method Urinal # Voids 0 Weight 54.885 kg 54.885 kg GENERAL EXAM: Alert, pleasant 60-year-old male patient, appears older than stated age, on room air, comfortable in no apparent distress. HEAD: Normocephalic. EYES: Normal reaction of pupils, equal size. NOSE: Clear with pink turbinates. THROAT: Edentulous. No erythema or exudates. NECK: No masses, no JVD. CHEST: No chest wall deformity. LUNGS: Equal air entry with scattered rhonchi in the left lung. CVS: S1 and S2 normal with no audible murmur, regular rhythm. ABDOMEN: No hepatosplenomegaly, normal bowel sounds, no guarding or rigidity. SPINE: No scoliosis or deformity SKIN: No rashes CENTRAL NERVOUS SYSTEM: No focal deficits, tone is normal in all 4 extremities. EXTREMITIES: There is no peripheral edema. No clubbing, no cyanosis. Peripheral pulses are intact. Results - Laboratory Findings CBC and BMP: 05/07/21 22:19 05/07/21 22:19 Abnormal lab findings: Abnormal Labs 05/07/21 05/07/21 22:19 22:19 Hgb 12.7 L RDW 15.8 H Plt Count 563 H Lymphocytes # 0.8 L Sodium 130 L Chloride 94 L Glucose 110 H - Diagnostic Findings Chest x-ray: image reviewed Assessment and Plan Assessment: 1 Acute community-acquired pneumonia the left mid lung, lower lobe. Influenza screen, CoVID screen, RSV screen all negative. Initiated on ceftriaxone and azithromycin 2 Chronic and ongoing tobacco dependence of greater than 30 years 3 Hypothyroidism 4 Gastroesophageal reflux disease 5 Hypertension 6 Marijuana use. Plan: The patient was seen and evaluated Chest x-ray and labs reviewed Continue antibiotics Continue bronchodilators Follow-up chest x-ray in the a.m. Educated regarding the importance of complete smoking cessation NicoDerm patch will be offered We will continue to follow and make further recommendations based on his clinical status I have personally seen and examined the patient, performed the documentation and the assessment and plan as written. Number of minutes spent on the visit: 20.
--- NOTE | 2021-05-08 14:23 | P.HPIM ---
History of Present Illness H&P Date: 05/08/21 Chief Complaint: Persistent productive cough, shortness of breath This is 60-year-old gentleman with past medical history of COPD, ongoing nicotine dependence, marijuana use, neck cancer, hypertension, hypothyroidism, admitted with persistent productive cough, green sputum, shortness of breath of 2 weeks. Afebrile, normal WBC, hemoglobin 12.7, platelets 563, sodium 1:30, potassium 4.4, chloride 94, bicarb 28, BUN 11, creatinine 0.77, lactic acid 0.9.Influenza A, B, RSV,Covid not detected. EKG reporting sinus rhythm, troponins negative 1.Chest x-ray reporting left low er lobe pneumonia. Maintaining O2 sats in the 90s on room air. Sputum and blood cultures obtained. Nebulized bronchodilators and IV antibiotics of Rocephin and Zithromax initiated in the ER. Pulmonary consulted. Review of Systems ROS Statement: Those systems with pertinent positive or pertinent negative responses have been documented in the HPI. ROS Other: All systems not noted in ROS Statement are negative. Past Medical History Past Medical History: Cancer, Hypertension, Thyroid Disorder Additional Past Medical History / Comment(s): neck ca History of Any Multi-Drug Resistant Organisms: None Reported Past Surgical History: Orthopedic Surgery Additional Past Surgical History / Comment(s): neck Past Psychological History: No Psychological Hx Reported Smoking Status: Current every day smoker Past Alcohol Use History: None Reported Past Drug Use History: Marijuana Medications and Allergies Home Medications Medication Instructions Recorded Confirmed Type Lansoprazole [Prevacid] 30 mg PO DAILY PRN 05/07/21 05/07/21 History Levothyroxine Sodium [Synthroid] 75 mcg PO DAILY 05/07/21 05/07/21 History amLODIPine [Norvasc] 10 mg PO HS 05/07/21 05/07/21 History cloNIDine 0.3 MG/24HR PATCH 1 patch TRANSDERM CAMERON 05/07/21 05/07/21 History [Catapres-Tts 0.3MG Patch] Allergies Allergy/AdvReac Type Severity Reaction Status Date / Time No Known Allergies Allergy Verified 05/07/21 22:56 Physical Exam Vitals: Vital Signs Temp Pulse Pulse Resp BP BP BP 05/08/21 07:45 67 05/08/21 07:30 66 05/08/21 07:00 97.4 F L 83 18 153/77 05/08/21 02:19 97.9 F 65 18 149/98 05/08/21 01:35 97.2 F L 80 18 140/87 05/08/21 01:00 72 18 139/87 05/07/21 23:19 62 05/07/21 23:09 64 05/07/21 18:35 97.9 F 81 18 123/88 Pulse Ox 05/08/21 07:45 05/08/21 07:30 05/08/21 07:00 99 05/08/21 02:19 95 05/08/21 01:35 05/08/21 01:00 94 L 05/07/21 23:19 05/07/21 23:09 05/07/21 18:35 95 Intake and Output 05/07/21 05/08/21 05/08/21 22:59 06:59 14:59 Intake Total 60 118 Balance 60 118 Intake: Oral 60 118 Other: # Voids 0 Weight 54.885 kg 54.885 kg PHYSICAL EXAM: VITAL SIGNS: As above GENERAL: Cachexic,Sitting up in bed, no acute distress HEENT: Conjunctivae normal. eyes normal. NECK: No JVD. No thyroid enlargement. No LNs CARDIOVASCULAR: S1, S2 regular. No murmur RESPIRATION: Breath sounds diminished in the bases. ABDOMEN: Soft, nontender . No guarding. no masses palpable. No ascites, No hepatosplenomegaly.Bowel sounds heard. LEGS: No edema. no swelling PSYCHIATRY: Alert and oriented X3, mood and affect normal. NERVOUS SYSTEM: Cranial N 2-12 grossly normal. No focal deficits. Strength and sensation grossly intact. Skin: Warm and dry, no rash Results CBC & Chem 7: 05/07/21 22:19 05/07/21 22:19 Labs: Abnormal Lab Results - Last 24 Hours (Table) 05/07/21 05/07/21 Range/Units 22:19 22:19 Hgb 12.7 L (13.0-17.5) gm/dL RDW 15.8 H (11.5-15.5) % Plt Count 563 H (150-450) k/uL Lymphocytes # 0.8 L (1.0-4.8) k/uL Sodium 130 L (137-145) mmol/L Chloride 94 L (98-107) mmol/L Glucose 110 H (74-99) mg/dL Thrombosis Risk Factor Assmnt - Choose All That Apply Each Factor Represents 1 point: Abnormal pulmonary function (COPD), Age 41-60 years Thrombosis Risk Factor Assessment Total Risk Factor Score: 2 Thrombosis Risk Factor Assessment Level: Low Risk Assessment and Plan Assessment: Acute left mid and lower lobe pneumonia, community-acquired COPD Hyponatremia, mild Hypertension Hypothyroidism Neck cancer, history of Ongoing nicotine dependence Marijuana use Plan: Continue on current medication regime, monitoring and symptomatic treatment. Nebulized bronchodilators, antibiotics, Symbicort and symptomatic regimen. PPI for GI prophylaxis. Smoking cessation reinforced. Pulmonary consult in place, recommendations pending. The impression and plan of care has been dictated as directed. : I performed a history and examination of this patient, discussed the same with the dictator. I agree with the dictator's note ,documented as a scribe. Any additional findings or plans will be noted.
[2021-05-08 14:47] VITALS: BMI 16.9
[2021-05-08] MEDS: amLODIPine 10 MG TAB PO SCH (20:05)
[2021-05-09] MEDS: traMADol 50 MG TAB PO PRN ×3 (05:34→19:48)
[2021-05-09] MEDS: LEVOTHYROXINE 75 MCG TAB PO SCH (05:35)
[2021-05-09] MEDS: AZITHROMYCIN 500 MG TAB PO SCH (07:44)
--- NOTE | 2021-05-09 08:23 | XR ---
EXAMINATION TYPE: XR chest 1V portable DATE OF EXAM: 05/09/2021 COMPARISON: Chest x-ray 05/07/2021 HISTORY: Left lower lobe pneumonia TECHNIQUE: Single frontal view of the chest is obtained. FINDINGS: Prominent lung volumes suggest underlying COPD. There is retrocardiac density again noted. There is no evident pneumothorax. Difficult to exclude small effusion. Cardiac mediastinal silhouett e is unchanged. IMPRESSION: Findings consistent with left lower lobe pneumonia, follow-up to resolution.
[2021-05-09] MEDS: SYMBICORT 80-4.5 MCG INHALER INHALATION SCH ×3 (08:43→21:21)
[2021-05-09] MEDS: IPRATROPIUM-ALBUTEROL 3 ML NEB INHALATION SCH ×4 (08:43→21:21)
[2021-05-09] MEDS ORDERED: ONDANSETRON 4 MG/2 ML VIAL IVP PRN (10:50)
[2021-05-09 11:15] LABS: HCT 39.9 % (39.0-53.0); HGB 12.8 gm/dL (13.0-17.5); MCH 26.8 pg (25.0-35.0); MCHC 32.1 g/dL (31.0-37.0); MCV 83.5 fL (80.0-100.0); Platelet Count 606 k/uL (150-450); RBC 4.78 m/uL (4.30-5.90); RDW 15.8 % (11.5-15.5); WBC 7.6 k/uL (3.8-10.6)
[2021-05-09 11:23] LABS: African American GFR (CKD) >90 (>60 ml/min/1.73 sqM); Anion Gap 8 mmol/L; Blood Urea Nitrogen 17 mg/dL (9-20); Calcium 9.3 mg/dL (8.4-10.2); Carbon Dioxide 33 mmol/L (22-30); Chloride 90 mmol/L (98-107); Glucose 73 mg/dL (74-99); Non-African American GFR(CKD) >90 (>60 ml/min/1.73 sqM); Potassium 4.9 mmol/L (3.5-5.1); Sodium 131 mmol/L (137-145)
[2021-05-09] MEDS: PIPERACILLIN-TAZOBACTAM 3.375 GM in SODIUM CHLORIDE 0.9% 100 ML IVPB SCH ×2 (11:28→19:49)
--- NOTE | 2021-05-09 12:04 | P.PN ---
Subjective Progress Note Date: 05/09/21 This is a pleasant 60-year-old male patient who appears older than stated age. He follows with Dr. Umaña as his primary care provider. He has a history of neck cancer, hypertension, gastroesophageal reflux disease, hypothyroidism. He also has a history of chronic and ongoing tobacco dependence of greater than 30 years, occasional marijuana use. He had not been on inhalers in the past. He has not been on home oxygen. He had not been diagnosed with COPD. He presented to the emergency room yesterday with complaints of redness of breath, cough, congestion. He's had a productive cough with yellow sputum. Currently denies any fever, chills or night sweats. His chest x-ray does reveal some left midlung infiltrate. He's had some left-sided posterior chest wall pain as well. CoVID screen was negative. He's not vaccinated. White count 7.8. Hemoglobin 12.7. Platelets 563. Sodium 1:30. Potassium 4.4. Bicarb 28. A BUN 11. Creatinine 0.77. Lactic acid 0.9. Troponin negative 1. Influenza screen, RSV and CoVID by PCR all negative. He's been initiated on ceftriaxone and azithr omycin along with Symbicort and DuoNeb inhalations. He is currently seen in consultation on the regular medical floor. He sitting in bed. Awake and alert in no acute distress. Continues with a productive cough. He's been afebrile. Hemodynamically stable. The patient is seen today 05/09/2021 in follow-up on the regular medical floor. He is currently resting comfortably in bed. Awake and alert in no acute distress. Chest x-ray shows consistent left lower lobe pneumonia. He denies any worsening shortness of breath. He continues to have a significant amount of yellow sputum. He is also having possible aspiration and possible esophageal strictures. The plan was for EGD and dilatation however the patient's history of radiation therapy may require him to be seen back at [facility]. He is maintaining good O2 saturations in the 90s on room air. He's been afebrile. Hemodynamically stable. Blood cultures reveal no growth to date. Sputum culture is pending. White count 7.6. Hemoglobin 12.8. Platelets 606. Sodium 131. Potassium 4.9. BUN 17. Creatinine 0.79. He remains on Zosyn and bronchodilators. Objective - Vital Signs Vital signs: Vital Signs Temp 97.5 F L 05/09/21 07:00 Pulse 72 05/09/21 11:31 Resp 17 05/09/21 08:00 BP 157/82 05/09/21 07:00 Pulse Ox 97 05/09/21 07:00 Intake & Output 05/08/21 05/09/21 05/09/21 18:59 06:59 18:59 Intake Total 651 300 Output Total 100 670 Balance 551 -670 300 Weight 54.885 kg Intake: Oral 651 300 Output: Urine 100 670 Other: Voiding Method Urinal Urinal Urinal - Exam GENERAL EXAM: Alert, pleasant 60-year-old male patient, appears older than stated age, on room air, comfortable in no apparent distress. HEAD: Normocephalic. EYES: Normal reaction of pupils, equal size. NOSE: Clear with pink turbinates. THROAT: Edentulous. No erythema or exudates. NECK: No masses, no JVD. CHEST: No chest wall deformity. LUNGS: Equal air entry with scattered rhonchi in the left lung. CVS: S1 and S2 normal with no audible murmur, regular rhythm. ABDOMEN: No hepatosplenomegaly, normal bowel sounds, no guarding or rigidity. SPINE: No scoliosis or deformity SKIN: No rashes CENTRAL NERVOUS SYSTEM: No focal deficits, tone is normal in all 4 extremities. EXTREMITIES: There is no peripheral edema. No clubbing, no cyanosis. Peripheral pulses are intact. - Labs CBC & Chem 7: 05/09/21 10:45 05/09/21 10:45 Labs: Abnormal Lab Results - Last 24 Hours (Table) 05/09/21 05/09/21 Range/Units 10:45 10:45 Hgb 12.8 L (13.0-17.5) gm/dL RDW 15.8 H (11.5-15.5) % Plt Count 606 H (150-450) k/uL Sodium 131 L (137-145) mmol/L Chloride 90 L (98-107) mmol/L Carbon Dioxide 33 H (22-30) mmol/L Glucose 73 L (74-99) mg/dL Microbiology - Last 24 Hours (Table) 05/07/21 23:23 Gram Stain - Preliminary Sputum Sputum Culture - Preliminary 05/07/21 23:30 Blood Culture - Preliminary Blood No Growth after 24 hours 05/07/21 23:15 Blood Culture - Preliminary Blood No Growth after 24 hours Assessment and Plan Assessment: 1 Acute community-acquired pneumonia the left mid lung, lower lobe. Influenza screen, CoVID screen, RSV screen all negative. Initiated on ceftriaxone and azithromycin 2 Chronic and ongoing tobacco dependence of greater than 30 years 3 Hypothyroidism 4 Gastroesophageal reflux disease 5 Hypertension 6 Marijuana use. 7 History of neck cancer 8 History of esophageal strictures with pending esophageal dilatation, reportedly to be planned at [facility]. Plan: The patient was seen and evaluated Chest x-ray and labs reviewed Continue antibiotics Continue bronchodilators Stable and on room air The plan may be for transfer to [facility] for possible esophageal dilatation I have personally seen and examined the patient, performed the documentation and the assessment and plan as written. Number of minutes spent on the visit: 10.
--- NOTE | 2021-05-09 13:03 | P.PN ---
Subjective Progress Note Date: 05/09/21 This is 60-year-old gentleman with past medical history of COPD, ongoing nicotine dependence, marijuana use, neck cancer, hypertension, hypothyroidism, admitted with persistent productive cough, green sputum, shortness of breath of 2 weeks. Afebrile, normal WBC, hemoglobin 12.7, platelets 563, sodium 1:30, potassium 4.4, chloride 94, bicarb 28, BUN 11, creatinine 0.77, lactic acid 0.9.Influenza A, B, RSV,Covid not detected. EKG reporting sinus rhythm, troponins negative 1.Chest x-ray reporting left l ower lobe pneumonia. Maintaining O2 sats in the 90s on room air. Sputum and blood cultures obtained. Nebulized bronchodilators and IV antibiotics of Rocephin and Zithromax initiated in the ER. Pulmonary consulted. Patient also disclosed that he is pending an esophageal dilation at [facility]. Procedure actually was delayed over the last couple years secondary to Covid. Evaluated by Speech therapy, recommending an esophageal dilation prior to proceeding with [facility]. No GI services at this site this week. Patient is scheduled for EGD and dilatation with general surgery tomorrow. Afebrile, sputum culture pending, preliminary blood cultures report no growth. Continues to have significant pale green/yellow sputum.Antibiotics converted to Zosyn secondary to suspected silent aspiration. Patient has been changed to nothing by mouth with the exception of water. Maintaining O2 sats in the 90s on room air. Sodium 131, renal function stable. Objective - Vital Signs Vital signs: Vital Signs Temp 97.5 F L 05/09/21 07:00 Pulse 57 L 05/09/21 07:00 Resp 17 05/09/21 07:00 BP 157/82 05/09/21 07:00 Pulse Ox 97 05/09/21 07:00 Intake & Output 05/08/21 05/09/21 05/09/21 18:59 06:59 18:59 Intake Total 651 300 Output Total 100 670 Balance 551 -670 300 Weight 54.885 kg Intake: Oral 651 300 Output: Urine 100 670 Other: Voiding Method Urinal Urinal - Exam PHYSICAL EXAM: VITAL SIGNS: As above GENERAL: Alert and oriented 3 ,Cachexic,emaciated,sitting up in bed, tired appearing ,no acute distress HEENT: Conjunctivae normal. eyes normal.poor dentition. NECK: No JVD. No thyroid enlargement. No LNs CARDIOVASCULAR: S1, S2 regular. No murmur RESPIRATION: Breath sounds diminished in the bases. Scattered rhonchi. ABDOMEN: Soft, nontender . No guarding. no masses palpable. No hepatosplenomegaly.Bowel sounds heard. LEGS: No edema. no swelling PSYCHIATRY: Alert and oriented X3, mood and affect normal. NERVOUS SYSTEM: Cranial N 2-12 grossly normal. No focal deficits. Strength and sensation grossly intact. Skin: Warm and dry, no rash - Labs CBC & Chem 7: 05/09/21 10:45 05/09/21 10:45 Labs: Microbiology - Last 24 Hours (Table) 05/07/21 23:23 Gram Stain - Preliminary Sputum Sputum Culture - Preliminary 05/07/21 23:30 Blood Culture - Preliminary Blood No Growth after 24 hours 05/07/21 23:15 Blood Culture - Preliminary Blood No Growth after 24 hours Assessment and Plan Assessment: Acute left mid and lower lobe pneumonia, community-acquired, suspect silent aspiration Neck cancer, history of with esophageal strictures, pending an esophageal dilation at [facility]. Procedure actually was delayed over the last couple years secondary to Covid. COPD Hyponatremia, mild Hypertension Hypothyroidism Ongoing nicotine dependence Marijuana use Moderate protein calorie malnutrition, BMI 16.9 Plan: Continue on current medication regime, monitoring and symptomatic treatment. EGD/dilation with general surgery tomorrow.maintain aggressive pulmonary toileting with Nebulized bronchodilators, antibiotics, Symbicort, Incentive spirometer ordered. The impression and plan of care has been dictated as directed. : I performed a history and examination of this patient, discussed the same with the dictator. I agree with the dictator's note ,documented as a scribe. Any additional findings or plans will be noted.
--- NOTE | 2021-05-09 14:26 | P.GSCN ---
<Elmira Jarrett - Last Filed: 05/09/21 14:18> History of Present Illness Consult date: 05/09/21 Reason for Consult: Dysphagia History of present illness: CHIEF COMPLAINT: Cough, chest pain HISTORY OF PRESENT ILLNESS: This is 60-year-old male who had presented to the emergency department with complaints of 2 weeks of cough. 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 He underwent radiation and chemotherapy 199902/01/2013. Since his radiation therapy and surgeries he has had difficulty with swallowing especially solid foods. He is not able to eat solid foods such as chicken or beef however states that he is able to eat meals such as ground beef, spaghetti, potatoes and liquids without any difficulty. He does have a history of stricture related to scar tissue and has been dilated in the past. He states that was approximately 2 years ago. On this admission he was diagnosed with pneumonia. SPEECH pathologist did see patient in about a possible silent aspiration was noted. Gen. surgery was consulted for EGD with possible dilation. PAST MEDICAL HISTORY: See list. PAST SURGICAL HISTORY: See list. MEDICATIONS: See list. ALLERGIES: See list. SOCIAL HISTORY: No illicit drug use. REVIEW OF SYSTEMS: CONSTITUTIONAL: Denies fever or chills. HEENT: Denies blurred vision, vision changes, or eye pain. Denies hemoptysis CARDIOVASCULAR: Denies chest pain or pressure. RESPIRATORY: No shortness of breath. GASTROINTESTINAL: See HPI for pertinent findings HEMATOLOGIC: Denies bleeding disorders. GENITOURINARY: Denies any blood in urine or increased urinary frequency. SKIN: Denies pruitis. Denies rash. PHYSICAL EXAM: VITAL SIGNS: Reviewed GENERAL: Well-developed in no acute distress. HEENT: No sclera icterus. Extraocular movements grossly intact. Moist buccal mucosa. Head is atraumatic, normocephalic. No nasal drainage. ABDOMEN: Soft. Obese. Nondistended. Tenderness with palpation to right lower quadrant. NEUROLOGIC: Alert and oriented. Cranial nerves II through XII grossly intact. LABORATORY DATA: WBC 7.6 hemoglobin 12.8 hematocrit 39 platelet count 606,000 Sodium 131 potassium 4.9 BUN 17 creatinine 0.79 IMAGING: Chest x-ray reports findings consistent with left lower lobe pneumonia, follow- up to resolution ASSESSMENT: 1. Dysphagia 2. Suspected silent aspiration 3. History of head and neck cancer status post surgery and radiation treatment PLAN: 1. Keep nothing by mouth 2. Plan to proceed with EGD with possible biopsy, possible dilation today 3. Protonix GI prophylaxis 4. Continue with recommendations from speech pathology Thank you for this consultation, we will continue to follow. The impression and plan of care has been dictated as directed. Dr. Serna I performed a history and examination of this patient, discussed the same with the dictator. I agree with the dictator's note ,documented as a scribe. Any additional findings or plans will be noted. Past Medical History Past Medical History: Cancer, Hypertension, Thyroid Disorder Additional Past Medical History / Comment(s): neck ca History of Any Multi-Drug Resistant Organisms: None Reported Past Surgical History: Orthopedic Surgery Additional Past Surgical History / Comment(s): neck Past Psychological History: No Psychological Hx Reported Smoking Status: Current every day smoker Past Alcohol Use History: None Reported Past Drug Use History: Marijuana Medications and Allergies Home Medications Medication Instructions Recorded Confirmed Type Lansoprazole [Prevacid] 30 mg PO DAILY PRN 05/07/21 05/07/21 History Levothyroxine Sodium [Synthroid] 75 mcg PO DAILY 05/07/21 05/07/21 History amLODIPine [Norvasc] 10 mg PO HS 05/07/21 05/07/21 History cloNIDine 0.3 MG/24HR PATCH 1 patch TRANSDERM CAMERON 05/07/21 05/07/21 History [Catapres-Tts 0.3MG Patch] Allergies Allergy/AdvReac Type Severity Reaction Status Date / Time No Known Allergies Allergy Verified 05/07/21 22:56 Surgical - Exam Vital Signs Temp Pulse Resp BP Pulse Ox 97.9 F 81 18 123/88 95 05/07/21 18:35 05/07/21 18:35 05/07/21 18:35 05/07/21 18:35 05/07/21 18:35 Results - Labs 05/09/21 10:45 05/09/21 10:45 Abnormal Lab Results - Last 24 Hours (Table) 05/09/21 05/09/21 Range/Units 10:45 10:45 Hgb 12.8 L (13.0-17.5) gm/dL RDW 15.8 H (11.5-15.5) % Plt Count 606 H (150-450) k/uL Sodium 131 L (137-145) mmol/L Chloride 90 L (98-107) mmol/L Carbon Dioxide 33 H (22-30) mmol/L Glucose 73 L (74-99) mg/dL Microbiology - Last 24 Hours (Table) 05/07/21 23:23 Gram Stain - Preliminary Sputum Sputum Culture - Preliminary 05/07/21 23:30 Blood Culture - Preliminary Blood No Growth after 24 hours 05/07/21 23:15 Blood Culture - Preliminary Blood No Growth after 24 hours Diabetes panel 05/09/21 Range/Units 10:45 Sodium 131 L (137-145) mmol/L Potassium 4.9 (3.5-5.1) mmol/L Chloride 90 L (98-107) mmol/L Carbon Dioxide 33 H (22-30) mmol/L BUN 17 (9-20) mg/dL Creatinine 0.79 (0.66-1.25) mg/dL Glucose 73 L (74-99) mg/dL Calcium 9.3 (8.4-10.2) mg/dL Calcium panel 05/09/21 Range/Units 10:45 Calcium 9.3 (8.4-10.2) mg/dL Pituitary panel 05/09/21 Range/Units 10:45 Sodium 131 L (137-145) mmol/L Potassium 4.9 (3.5-5.1) mmol/L Chloride 90 L (98-107) mmol/L Carbon Dioxide 33 H (22-30) mmol/L BUN 17 (9-20) mg/dL Creatinine 0.79 (0.66-1.25) mg/dL Glucose 73 L (74-99) mg/dL Calcium 9.3 (8.4-10.2) mg/dL Adrenal panel 05/09/21 Range/Units 10:45 Sodium 131 L (137-145) mmol/L Potassium 4.9 (3.5-5.1) mmol/L Chloride 90 L (98-107) mmol/L Carbon Dioxide 33 H (22-30) mmol/L BUN 17 (9-20) mg/dL Creatinine 0.79 (0.66-1.25) mg/dL Glucose 73 L (74-99) mg/dL Calcium 9.3 (8.4-10.2) mg/dL <Christian Serna - Last Filed: 05/09/21 17:50> History of Present Illness History of present illness: I have personally seen and examined the patient, reviewed the PROGRAM MANAGER SLP /PAs history, exam and MDM and agree with the assessment and plan as written. Based on total visit time, I have performed more than 50% of the visit. As above: Patient was taken down to the endoscopy suite for an EGD. While the patient and I were talking his blood pressure was noted to be significantly elevated. For that reason anesthesia canceled the case. The patient will be rescheduled for EGD with possible balloon dilation tomorrow. Risks of bleeding and perforation were reviewed. Patient understands and wishes to proceed. Surgical - Exam Vital Signs Temp Pulse Resp BP Pulse Ox 97.9 F 81 18 123/88 95 05/07/21 18:35 05/07/21 18:35 05/07/21 18:35 05/07/21 18:35 05/07/21 18:35 Results - Labs 05/09/21 10:45 05/09/21 10:45 Abnormal Lab Results - Last 24 Hours (Table) 05/09/21 05/09/21 Range/Units 10:45 10:45 Hgb 12.8 L (13.0-17.5) gm/dL RDW 15.8 H (11.5-15.5) % Plt Count 606 H (150-450) k/uL Sodium 131 L (137-145) mmol/L Chloride 90 L (98-107) mmol/L Carbon Dioxide 33 H (22-30) mmol/L Glucose 73 L (74-99) mg/dL Microbiology - Last 24 Hours (Table) 05/07/21 23:23 Gram Stain - Preliminary Sputum Sputum Culture - Preliminary Gram Neg Bacilli 05/07/21 23:30 Blood Culture - Preliminary Blood No Growth after 24 hours 05/07/21 23:15 Blood Culture - Preliminary Blood No Growth after 24 hours Diabetes panel 05/09/21 Range/Units 10:45 Sodium 131 L (137-145) mmol/L Potassium 4.9 (3.5-5.1) mmol/L Chloride 90 L (98-107) mmol/L Carbon Dioxide 33 H (22-30) mmol/L BUN 17 (9-20) mg/dL Creatinine 0.79 (0.66-1.25) mg/dL Glucose 73 L (74-99) mg/dL Calcium 9.3 (8.4-10.2) mg/dL Calcium panel 05/09/21 Range/Units 10:45 Calcium 9.3 (8.4-10.2) mg/dL Pituitary panel 05/09/21 Range/Units 10:45 Sodium 131 L (137-145) mmol/L Potassium 4.9 (3.5-5.1) mmol/L Chloride 90 L (98-107) mmol/L Carbon Dioxide 33 H (22-30) mmol/L BUN 17 (9-20) mg/dL Creatinine 0.79 (0.66-1.25) mg/dL Glucose 73 L (74-99) mg/dL Calcium 9.3 (8.4-10.2) mg/dL Adrenal panel 05/09/21 Range/Units 10:45 Sodium 131 L (137-145) mmol/L Potassium 4.9 (3.5-5.1) mmol/L Chloride 90 L (98-107) mmol/L Carbon Dioxide 33 H (22-30) mmol/L BUN 17 (9-20) mg/dL Creatinine 0.79 (0.66-1.25) mg/dL Glucose 73 L (74-99) mg/dL Calcium 9.3 (8.4-10.2) mg/dL
[2021-05-09] MEDS ORDERED: IV FLUID CONTINUATION 1,000 ML IV ONE (17:35)
[2021-05-09] MEDS: amLODIPine 10 MG TAB PO SCH (19:48)
[2021-05-10] MEDS: PIPERACILLIN-TAZOBACTAM 3.375 GM in SODIUM CHLORIDE 0.9% 100 ML IVPB SCH ×3 (03:27→19:42)
[2021-05-10] MEDS: traMADol 50 MG TAB PO PRN ×2 (05:14→19:42)
[2021-05-10] MEDS: LEVOTHYROXINE 75 MCG TAB PO SCH (05:14)
[2021-05-10] MEDS: SYMBICORT 80-4.5 MCG INHALER INHALATION SCH ×2 (08:31→20:12)
[2021-05-10] MEDS: IPRATROPIUM-ALBUTEROL 3 ML NEB INHALATION SCH ×4 (08:31→20:12)
[2021-05-10 11:50] LABS: Basophils # (A) 0.04 X 10*3/uL (0.00-0.10); Basophils % (A) 0.6 %; Eosinophils # (A) 0.03 X 10*3/uL (0.04-0.35); Eosinophils % (A) 0.4 %; HCT 36.7 % (39.6-50.0); HGB 11.4 g/dL (13.0-17.0); Immature Grans, Automated 0.6 %; Lymphocytes # (A) 1.31 X 10*3/uL (0.90-5.00); Lymphocytes % (A) 19.6 %; MCH 25.7 pg (27.0-32.0); MCHC 31.1 g/dL (32.0-37.0); MCV 82.8 fL (80.0-97.0); Mean Platelet Volume 8.7 fL (9.5-12.2); Monocytes # (A) 0.71 X 10*3/uL (0.20-1.00); Monocytes % (A) 10.6 %; NRBC Per 100 WBC 0 /100 WBCS (0.0-0.0); Neutrophils # (A) 4.54 X 10*3/uL (1.80-7.70); Neutrophils % (A) 68.2 %; Platelet Count 493 X 10*3/uL (140-440); RBC 4.43 X 10*6/uL (4.40-5.60); RDW 15.9 % (11.5-14.5); WBC 6.67 X 10*3/uL (4.50-10.00)
[2021-05-10 12:07] LABS: African American GFR (CKD) 112.5 (60.0-200.0); Anion Gap 11.4 mmol/L (10.00-18.00); BUN/Creat Ratio 15.38 Ratio (12.00-20.00); Blood Urea Nitrogen 12.3 mg/dL (9.0-27.0); Calcium 9.3 mg/dL (8.7-10.3); Carbon Dioxide 27.6 mmol/L (20.0-27.5); Non-African American GFR(CKD) 97.1 (60.0-200.0); Potassium 4.9 mmol/L (3.5-5.5)
--- NOTE | 2021-05-10 12:16 | P.PN ---
Subjective Progress Note Date: 05/10/21 This is a pleasant 60-year-old male patient who appears older than stated age. He follows with Dr. Umaña as his primary care provider. He has a history of neck cancer, hypertension, gastroesophageal reflux disease, hypothyroidism. He also has a history of chronic and ongoing tobacco dependence of greater than 30 years, occasional marijuana use. He had not been on inhalers in the past. He has not been on home oxygen. He had not been diagnosed with COPD. He presented to the emergency room yesterday with complaints of redness of breath, cough, congestion. He's had a productive cough with yellow sputum. Currently denies any fever, chills or night sweats. His chest x-ray does reveal some left midlung infiltrate. He's had some left-sided posterior chest wall pain as well. CoVID screen was negative. He's not vaccinated. White count 7.8. Hemoglobin 12.7. Platelets 563. Sodium 1:30. Potassium 4.4. Bicarb 28. A BUN 11. Creatinine 0.77. Lactic acid 0.9. Troponin negative 1. Influenza screen, RSV and CoVID by PCR all negative. He's been initiated on ceftriaxone and azithr omycin along with Symbicort and DuoNeb inhalations. He is currently seen in consultation on the regular medical floor. He sitting in bed. Awake and alert in no acute distress. Continues with a productive cough. He's been afebrile. Hemodynamically stable. The patient is seen today 05/09/2021 in follow-up on the regular medical floor. He is currently resting comfortably in bed. Awake and alert in no acute distress. Chest x-ray shows consistent left lower lobe pneumonia. He denies any worsening shortness of breath. He continues to have a significant amount of yellow sputum. He is also having possible aspiration and possible esophageal strictures. The plan was for EGD and dilatation however the patient's history of radiation therapy may require him to be seen back at [facility]. He is maintaining good O2 saturations in the 90s on room air. He's been afebrile. Hemodynamically stable. Blood cultures reveal no growth to date. Sputum culture is pending. White count 7.6. Hemoglobin 12.8. Platelets 606. Sodium 131. Potassium 4.9. BUN 17. Creatinine 0.79. He remains on Zosyn and bronchodilators. The patient is seen today 05/10/2021 in follow-up on the regular medical floor. He is currently resting quite comfortably in bed. Awake and alert in no acute distress. Denies any worsening shortness of breath, cough or congestion. He remains on Symbicort, DuoNeb inhalations, antibiotics in the form of Zosyn. He is continuing to have ongoing issues with difficulty in swallowing and possible microaspiration. Especially with solid foods. He had been seen and evaluated by general surgery and the plan is for EGD and possible dilation today. He remains nothing by mouth currently. Sputum culture was positive for Serratia marcescens. Blood culture revealing no growth. White count 6.6. Hemoglobin 11.4. Platelet count 493. Sodium 1:30. Potassium 4.9. BUN 12. Creatinine 0.8. Objective - Vital Signs Vital signs: Vital Signs Temp 97.8 F 05/10/21 07:30 Pulse 72 05/10/21 12:03 Resp 16 05/10/21 08:00 BP 146/78 05/10/21 07:30 Pulse Ox 96 05/10/21 07:30 Intake & Output 05/09/21 05/10/21 05/10/21 18:59 06:59 18:59 Intake Total 300 Output Total 900 200 Balance -600 -200 Intake: IV 0 Oral 300 Output: Urine 900 200 Other: Voiding Method Urinal Urinal Urinal - Exam GENERAL EXAM: Alert, pleasant 60-year-old male patient, appears older than stated age, on room air, comfortable in no apparent distress. HEAD: Normocephalic. EYES: Normal reaction of pupils, equal size. NOSE: Clear with pink turbinates. THROAT: Edentulous. No erythema or exudates. NECK: No masses, no JVD. CHEST: No chest wall deformity. LUNGS: Equal air entry with scattered rhonchi in the left lung. CVS: S1 and S2 normal with no audible murmur, regular rhythm. ABDOMEN: No hepatosplenomegaly, normal bowel sounds, no guarding or rigidity. SPINE: No scoliosis or deformity SKIN: No rashes CENTRAL NERVOUS SYSTEM: No focal deficits, tone is normal in all 4 extremities. EXTREMITIES: There is no peripheral edema. No clubbing, no cyanosis. Peripheral pulses are intact. - Labs CBC & Chem 7: 05/10/21 06:32 05/10/21 06:32 Labs: Abnormal Lab Results - Last 24 Hours (Table) 05/10/21 05/10/21 Range/Units 06:32 06:32 Hgb 11.4 L (13.0-17.0) g/dL Hct 36.7 L (39.6-50.0) % MCH 25.7 L (27.0-32.0) pg MCHC 31.1 L (32.0-37.0) g/dL RDW 15.9 H (11.5-14.5) % Plt Count 493 H (140-440) X 10*3/uL MPV 8.7 L (9.5-12.2) fL Eosinophils # 0.03 L (0.04-0.35) X 10*3/uL Sodium 130 L (135-145) mmol/L Chloride 91 L (96-109) mmol/L Carbon Dioxide 27.6 H (20.0-27.5) mmol/L Microbiology - Last 24 Hours (Table) 05/07/21 23:23 Gram Stain - Final Sputum Sputum Culture - Final Serratia marcescens 05/07/21 23:30 Blood Culture - Preliminary Blood No Growth after 48 hours 05/07/21 23:15 Blood Culture - Preliminary Blood No Growth after 48 hours Assessment and Plan Assessment: 1 Acute community-acquired pneumonia the left mid lung, lower lobe. Influenza screen, CoVID screen, RSV screen all negative. Sputum positive for Serratia marcescens. Continued on Zosyn. 2 Chronic and ongoing tobacco dependence of greater than 30 years 3 Hypothyroidism 4 Gastroesophageal reflux disease 5 Hypertension 6 Marijuana use. 7 History of neck cancer 8 History of esophageal strictures with pending esophageal dilatation today with general surgery. Plan: The patient was seen and evaluated Sputum culture was intubated for Serratia marcescens Continued on Zosyn, bronchodilators Stable and on room air Follow-up chest x-ray in a.m. Plan is for EGD and possible dilatation was general surgery today We will continue to follow I have personally seen and examined the patient, performed the documentation and the assessment and plan as written. Number of minutes spent on the visit: 10.
[2021-05-10] MEDS ORDERED: IV FLUID CONTINUATION 700 ML IV ONE (12:41)
--- NOTE | 2021-05-10 13:07 | P.PCN ---
Date of Procedure: 05/10/21 Procedure(s) Performed: Preoperative Dx: Dysphagia Postoperative Dx: Mild gastritis Procedure: EGD with Bx Anesthesia: Sedation Endoscopist: Dr. Serna Specimens: Antrum Endoscopic Procedure: The patient was on the endoscopy table in the left decubitus position. The Olympus gastroscope was inserted into the oropharynx and passed under direct visualization to the region of the third portion of the duodenum. From that point the scope was slowly withdrawn inspecting all surfaces carefully. There were no neoplastic inflammatory or polypoid lesions throughout the duodenum. The pylorus was widely patent. The stomach was carefully inspected. There was mild gastritis present. A biopsy of the antrum took place to rule out H. pylori. Retroflexion revealed a normal hiatus. The esophagus was then carefully examined. There were no neoplastic inflammatory or polypoid lesions throughout the visualized esophagus. At the pharyngoesophageal junction there did appear to be slight scarring from previous radiation. There was no significant stricture identified at this location and the scope was able to pass through that area without difficulties. No mucosal abnormalities were seen. No dilation took place. The patient was then taken to the recovery room in stable condition per anesthesia guidelines. Recommendations: Begin a dysphagia diet. Follow-up with ENT and speech pathology. No further plans from our point of view. We'll sign off. Please call if needed.
[2021-05-10 13:33] VITALS: RESP 16
--- NOTE | 2021-05-10 14:07 | P.PN ---
Subjective This is 60-year-old gentleman with past medical history of COPD, ongoing nicotine dependence, marijuana use, neck cancer, hypertension, hypothyroidism, admitted with persistent productive cough, green sputum, shortness of breath of 2 weeks. Afebrile, normal WBC, hemoglobin 12.7, platelets 563, sodium 1:30, potassium 4.4, chloride 94, bicarb 28, BUN 11, creatinine 0.77, lactic acid 0.9.Influenza A, B, RSV,Covid not detected. EKG reporting sinus rhythm, troponins negative 1.Chest x-ray reporting left lower lobe pneumonia. Maintaining O2 sats in the 90s on room air. Sputum and blood cultures obtained. Nebulized bronchodilators and IV antibiotics of Rocephin and Zithromax initiated in the ER. Pulmonary consulted. Patient also disclosed that he is pending an esophageal dilation at [facility]. Procedure actually was delayed over the last couple years secondary to Covid. Evaluated by Speech therapy, recommending an esophageal dilation prior to proceeding with MBS. No GI services at this site this week. Patient is scheduled for EGD and dilatation with general surgery tomorrow. Afebrile, sputum culture pending, preliminary blood cultures report no growth. Continues to have significant pale green/yellow sputum.Antibiotics converted to Zosyn secondary to suspected silent aspiration. Patient has been changed to nothing by mouth with the exception of water. Maintaining O2 sats in the 90s on room air. Sodium 131, renal function stable. May 10 2021: patient is in his room pending EGD with Dr. Ramos for the dysphasia. Denies any significant complaints he remains on oxygen All right [facility] powered pressure control. Pulse ox 94% on room air CBC normal Hb 11.4, chemistries with low sodium 130. Sputum + Serratia, Suscepti ble to Zosyn. The patient is on this anabiotic He remains on amlodipine clonidine for hypertension tramadol for pain, pantoprazole for Gerd Zofran for nausea levothyroxine for hypothyroidism, duoneb updrafts and Symbicort for COPD. Objective - Vital Signs Vital signs: Vital Signs Temp 97.8 F 05/10/21 07:30 Pulse 57 L 05/10/21 13:49 Resp 16 05/10/21 13:49 BP 110/65 05/10/21 13:49 Pulse Ox 94 L 05/10/21 13:49 Intake & Output 05/09/21 05/10/21 05/10/21 18:59 06:59 18:59 Intake Total 300 650 Output Total 900 200 Balance -600 -200 650 Weight 54.885 kg Intake: IV 0 650 Oral 300 Output: Urine 900 200 Other: Voiding Method Urinal Urinal Urinal - Exam GENERAL: Alert and oriented 3 ,Cachexic,emaciated,sitting up in bed, tired appearing ,no acute distress NECK: No JVD. No thyroid enlargement. No LNs CARDIOVASCULAR: S1, S2 regular. No murmur RESPIRATION: Breath sounds diminished in the bases. Scattered rhonchi. ABDOMEN: Soft, nontender . No guarding. no masses palpable. No hepatosplenomegaly.Bowel sounds heard. LEGS: No edema. no swelling PSYCHIATRY: Alert and oriented X3, mood and affect normal. NERVOUS SYSTEM: Cranial N 2-12 grossly normal. No focal deficits. Strength and sensation grossly intact. Skin: Warm and dry, no rash - Labs CBC & Chem 7: 05/10/21 06:32 05/10/21 06:32 Labs: Abnormal Lab Results - Last 24 Hours (Table) 05/10/21 05/10/21 Range/Units 06:32 06:32 Hgb 11.4 L (13.0-17.0) g/dL Hct 36.7 L (39.6-50.0) % MCH 25.7 L (27.0-32.0) pg MCHC 31.1 L (32.0-37.0) g/dL RDW 15.9 H (11.5-14.5) % Plt Count 493 H (140-440) X 10*3/uL MPV 8.7 L (9.5-12.2) fL Eosinophils # 0.03 L (0.04-0.35) X 10*3/uL Sodium 130 L (135-145) mmol/L Chloride 91 L (96-109) mmol/L Carbon Dioxide 27.6 H (20.0-27.5) mmol/L Microbiology - Last 24 Hours (Table) 05/07/21 23:23 Gram Stain - Final Sputum Sputum Culture - Final Serratia marcescens 05/07/21 23:30 Blood Culture - Preliminary Blood No Growth after 48 hours 05/07/21 23:15 Blood Culture - Preliminary Blood No Growth after 48 hours Assessment and Plan Plan: Acute left mid and lower lobe pneumonia, community-acquired, suspect silent aspiration Neck cancer, history of with esophageal strictures, pending an esophageal dilation at [facility]. Procedure actually was delayed over the last couple years secondary to Covid. COPD Hyponatremia, mild Hypertension Hypothyroidism Ongoing nicotine dependence Marijuana use Moderate protein calorie malnutrition, BMI 16.9 Plan: Continue on current medication regime, monitoring and symptomatic treatment. EGD/dilation with general surgery tomorrow.maintain aggressive pul monary toileting with Nebulized bronchodilators, antibiotics, Symbicort, Incentive spirometer ordered. wait oin system consultant recommendations repeat labs in am reevaluate in 24 hours
[2021-05-10] MEDS: amLODIPine 10 MG TAB PO SCH (19:42)
[2021-05-11] MEDS: PIPERACILLIN-TAZOBACTAM 3.375 GM in SODIUM CHLORIDE 0.9% 100 ML IVPB SCH (04:09)
[2021-05-11] MEDS: LEVOTHYROXINE 75 MCG TAB PO SCH (05:32)
--- NOTE | 2021-05-11 06:56 | XR ---
EXAMINATION TYPE: XR chest 1V portable DATE OF EXAM: 05/11/2021 COMPARISON: 05/09/2021 HISTORY: Left lower lobe pneumonia TECHNIQUE: Single frontal view of the chest is obtained. FINDINGS: The retrocardiac opacity is unchanged compared to previous. There is hyperinflation of liana gs consistent with COPD. The heart size is normal and the pulmonary vasculature is not congested. There is no pneumothorax or significant pleural effusion although small left excluded. The osseous structures are intact. IMPRESSION: Acute cardiopulmonary disease with a retrocardiac opacity unchanged compared to previous .
[2021-05-11] MEDS: IPRATROPIUM-ALBUTEROL 3 ML NEB INHALATION SCH ×2 (07:19→11:10)
[2021-05-11] MEDS: SYMBICORT 80-4.5 MCG INHALER INHALATION SCH (07:20)
[2021-05-11 07:59] VITALS: BP 159/83; TEMP 97.7
[2021-05-11 08:51] LABS: African American GFR (CKD) 112.5 (60.0-200.0); Anion Gap 9.8 mmol/L (10.00-18.00); BUN/Creat Ratio 13.25 Ratio (12.00-20.00); Blood Urea Nitrogen 10.6 mg/dL (9.0-27.0); Calcium 9.6 mg/dL (8.7-10.3); Carbon Dioxide 28.2 mmol/L (20.0-27.5); Magnesium 2.4 mg/dL (1.5-2.4); Non-African American GFR(CKD) 97.1 (60.0-200.0); Potassium 4.7 mmol/L (3.5-5.5)
--- NOTE | 2021-05-11 11:00 | P.DS ---
Providers Date of admission: 05/09/21 11:38 Expected date of discharge: 05/11/21 Attending physician: Quique Umaña Consults: 05/07/21 22:46 Consult Physician Routine Consulting Provider: Vladimir Murillo Consult Reason/Comments: copd Do you want consulting provider notified?: Yes 05/09/21 11:45 Consult Physician Routine Consulting Provider: Christian Serna Consult Reason/Comments: esoph dilation, s/p radiation & chemo Do you want consulting provider notified?: Yes Primary care physician: [facility] Course: This is 60-year-old gentleman with past medical history of COPD, ongoing nicotine dependence, marijuana use, neck cancer, hypertension, hypothyroidism, admitted with persistent productive cough, green sputum, shortness of breath of 2 weeks. Afebrile, normal WBC, hemoglobin 12.7, platelets 563, sodium 1:30, potassium 4.4, chloride 94, bicarb 28, BUN 11, creatinine 0.77, lactic acid 0.9.Influenza A, B, RSV,Covid not detected. EKG reporting sinus rhythm, troponins negative 1.Chest x-ray reporting left lower lobe pneumonia. Maintaining O2 sats in the 90s on room air. Sputum and blood cultures obtained. Nebulized bronchodilators and IV antibiotics of Rocephin and Zithromax initiated in the ER. Pulmonary consulted. Patient also disclosed that he is pending an esophageal dilation at [facility]. Procedure actually was delayed over the last couple years secondary to Covid. Evaluated by Speech therapy, recommending an esophageal dilation prior to proceeding with MBS. No GI services at this site this week. Patient is scheduled for EGD and dilatation with general surgery tomorrow. Afebrile, sputum culture pending, preliminary blood cultures report no growth. Continues to have significant pale green/yellow sputum.Antibiotics converted to Zosyn secondary to suspected silent aspiration. Patient has been changed to nothing by mouth with the exception of water. Maintaining O2 sats in the 90s on room air. Sodium 131, renal function stable. May 10 2021: patient is in his room pending EGD with Dr. SERNA for the dysphasia. Denies any significant complaints he remains on oxygen All right [employer] powered pressure control. Pulse ox 94% on room air CBC normal Hb 11.4, chemistries with low sodium 130. Sputum + Serratia, Susceptible to Zosyn. The patient is on this anabiotic He remains on amlodipine clonidine for hypertension tramadol for pain, pantoprazole for Gerd Zofran for nausea levothyroxine for hypothyroidism, duoneb updrafts and Symbicort for COPD. 05/11/2021: Patient is stable on room air. His EGD showed minimal scarring in the esophagus but no significant stricture dilatation. He was noted to have some mild gastritis and biopsies pending. Vital signs remained stable on room air. Blood pressure is labile most likely due to his clonidine patch use. He remains slightly hyponatremic at 129 and CO2 slightly elevated at 20.2. Other labs remained stable. Patient is feeling well but complaining neck getting any sleep. Planning on discharging him home with a ENT follow-up, dysphagia diet and trying to arrange for him to see oncology here in [place]. He was previously scheduled evident dilatation back in April 2019, but due to Covid this was rescheduled multiple times. Indicates very difficult for him to get down there and after Dr. Botello evaluated him, he may just need to see the medical oncologist at this time. Patient Condition at Discharge: Fair Plan - Discharge Summary New Discharge Prescriptions: New Umeclidinium Brm/Vilanterol Tr [Anoro Ellipta 62.5-25 Mcg INH] 1 puff INHALATION DAILY 30 Days #1 each Albuterol Sulfate [Albuterol Sulfate Hfa] 2 puff PO Q6H PRN 30 Days #1 dispenser PRN Reason: Shortness Of Breath Or Wheezing guaiFENesin [guaiFENesin Oral Solution] 2 tsp PO Q4HR PRN 7 Days #150 ml PRN Reason: Cough Levofloxacin [Levaquin] 500 mg PO DAILY 5 Days #5 tab Continue Levothyroxine Sodium [Synthroid] 75 mcg PO DAILY Lansoprazole [Prevacid] 30 mg PO DAILY PRN PRN Reason: Gi Upset cloNIDine 0.3 MG/24HR PATCH [Catapres-TTS] 1 patch TRANSDERM CAMERON amLODIPine [Norvasc] 10 mg PO HS Discharge Medication List Lansoprazole [Prevacid] 30 mg PO DAILY PRN 05/07/21 [History] Levothyroxine Sodium [Synthroid] 75 mcg PO DAILY 05/07/21 [History] amLODIPine [Norvasc] 10 mg PO HS 05/07/21 [History] cloNIDine 0.3 MG/24HR PATCH [Catapres-TTS] 1 patch TRANSDERM CAMERON 05/07/21 [History] Albuterol Sulfate [Albuterol Sulfate Hfa] 2 puff PO Q6H PRN 30 Days #1 dispenser 05/11/21 [Rx] Levofloxacin [Levaquin] 500 mg PO DAILY 5 Days #5 tab 05/11/21 [Rx] Umeclidinium Brm/Vilanterol Tr [Anoro Ellipta 62.5-25 Mcg INH] 1 puff INHALATION DAILY 30 Days #1 each 05/11/21 [Rx] guaiFENesin [guaiFENesin Oral Solution] 2 tsp PO Q4HR PRN 7 Days #150 ml 05/11/21 [Rx] Follow up Appointment(s)/Referral(s): Atul Agustin MD [STAFF PHYSICIAN] - 1 Week Quique Umaña MD [Primary Care Provider] - 1 Week () Patient Instructions/Handouts: Level 3 National Dysphagia Diet (GEN) Discharge/Stand Alone Forms: Community Resources, Personal Chief Investigator Discharge Disposition: HOME SELF-CARE
[2021-05-11 11:12] VITALS: PULSE 73
--- NOTE | 2021-05-11 14:11 | P.PN ---
Subjective Progress Note Date: 05/11/21 This is a pleasant 60-year-old male patient who appears older than stated age. He follows with Dr. Umaña as his primary care provider. He has a history of neck cancer, hypertension, gastroesophageal reflux disease, hypothyroidism. He also has a history of chronic and ongoing tobacco dependence of greater than 30 years, occasional marijuana use. He had not been on inhalers in the past. He has not been on home oxygen. He had not been diagnosed with COPD. He presented to the emergency room yesterday with complaints of redness of breath, cough, congestion. He's had a productive cough with yellow sputum. Currently denies any fever, chills or night sweats. His chest x-ray does reveal some left midlung infiltrate. He's had some left-sided posterior chest wall pain as well. CoVID screen was negative. He's not vaccinated. White count 7.8. Hemoglobin 12.7. Platelets 563. Sodium 1:30. Potassium 4.4. Bicarb 28. A BUN 11. Creatinine 0.77. Lactic acid 0.9. Troponin negative 1. Influenza screen, RSV and CoVID by PCR all negative. He's been initiated on ceftriaxone and azithr omycin along with Symbicort and DuoNeb inhalations. He is currently seen in consultation on the regular medical floor. He sitting in bed. Awake and alert in no acute distress. Continues with a productive cough. He's been afebrile. Hemodynamically stable. The patient is seen today 05/09/2021 in follow-up on the regular medical floor. He is currently resting comfortably in bed. Awake and alert in no acute distress. Chest x-ray shows consistent left lower lobe pneumonia. He denies any worsening shortness of breath. He continues to have a significant amount of yellow sputum. He is also having possible aspiration and possible esophageal strictures. The plan was for EGD and dilatation however the patient's history of radiation therapy may require him to be seen back at [facility]. He is maintaining good O2 saturations in the 90s on room air. He's been afebrile. Hemodynamically stable. Blood cultures reveal no growth to date. Sputum culture is pending. White count 7.6. Hemoglobin 12.8. Platelets 606. Sodium 131. Potassium 4.9. BUN 17. Creatinine 0.79. He remains on Zosyn and bronchodilators. The patient is seen today 05/10/2021 in follow-up on the regular medical floor. He is currently resting quite comfortably in bed. Awake and alert in no acute distress. Denies any worsening shortness of breath, cough or congestion. He remains on Symbicort, DuoNeb inhalations, antibiotics in the form of Zosyn. He is continuing to have ongoing issues with difficulty in swallowing and possible microaspiration. Especially with solid foods. He had been seen and evaluated by general surgery and the plan is for EGD and possible dilation today. He remains nothing by mouth currently. Sputum culture was positive for Serratia marcescens. Blood culture revealing no growth. White count 6.6. Hemoglobin 11.4. Platelet count 493. Sodium 1:30. Potassium 4.9. BUN 12. Creatinine 0.8. The patient is seen today May 11 2021 in follow-up on the regular medical f jensen. He's been up ambulating in the room. Awake and alert in no acute distress. He did undergo EGD yesterday but did not require any dilatation. Esophagus was reported as normal findings. Sputum culture was positive for Serratia marcescens. Blood cultures reveal no growth. Sodium 129. Potassium 4.7. BUN 10. Creatinine 0.8. He was continued on antibiotics in the form of Levaquin. Objective - Vital Signs Vital signs: Vital Signs Temp 97.7 F 05/11/21 07:58 Pulse 73 05/11/21 11:24 Resp 16 05/11/21 07:58 BP 159/83 05/11/21 07:58 Pulse Ox 91 L 05/11/21 07:58 Intake & Output 05/10/21 05/11/21 05/11/21 18:59 06:59 18:59 Intake Total 830 592 Output Total 1000 500 Balance -170 -500 592 Weight 54.885 kg Intake: IV 650 Oral 180 592 Output: Urine 1000 500 Other: Voiding Method Urinal Urinal Urinal # Voids 2 - Exam GENERAL EXAM: Alert, pleasant 60-year-old cachectic male patient, appears older than stated age, on room air, comfortable in no apparent distress. HEAD: Normocephalic. EYES: Normal reaction of pupils, equal size. NOSE: Clear with pink turbinates. THROAT: Edentulous. No erythema or exudates. NECK: No masses, no JVD. CHEST: No chest wall deformity. LUNGS: Equal air entry with scattered rhonchi in the left lung. CVS: S1 and S2 normal with no audible murmur, regular rhythm. ABDOMEN: No hepatosplenomegaly, normal bowel sounds, no guarding or rigidity. SPINE: No scoliosis or deformity SKIN: No rashes CENTRAL NERVOUS SYSTEM: No focal deficits, tone is normal in all 4 extremities. EXTREMITIES: There is no peripheral edema. No clubbing, no cyanosis. Peripheral pulses are intact. - Labs CBC & Chem 7: 05/10/21 06:32 05/11/21 06:18 Labs: Abnormal Lab Results - Last 24 Hours (Table) 05/11/21 Range/Units 06:18 Sodium 129 L (135-145) mmol/L Chloride 91 L (96-109) mmol/L Carbon Dioxide 28.2 H (20.0-27.5) mmol/L Anion Gap 9.80 L (10.00-18.00) mmol/L Microbiology - Last 24 Hours (Table) 05/07/21 23:30 Blood Culture - Preliminary Blood No Growth after 72 hours 05/07/21 23:15 Blood Culture - Preliminary Blood No Growth after 72 hours 05/07/21 23:23 Gram Stain - Final Sputum Sputum Culture - Final Serratia marcescens Assessment and Plan Assessment: 1 Acute community-acquired pneumonia the left mid lung, lower lobe. Influenza screen, CoVID screen, RSV screen all negative. Sputum positive for Serratia marcescens. Continued on Zosyn. 2 Chronic and ongoing tobacco dependence of greater than 30 years 3 Hypothyroidism 4 Gastroesophageal reflux disease 5 Hypertension 6 Marijuana use. 7 History of neck cancer 8 History of esophageal strictures with pending esophageal dilatation today with general surgery. Plan: The patient was seen and evaluated Stable and on room air Sputum culture was intubated for Serratia marcescens Cleared for discharge from pulmonary standpoint Discharge home on Levaquin, continue Anoro and albuterol Follow up with Dr. Murillo in the office in 1-2 weeks' I have personally seen and examined the patient, performed the documentation and the assessment and plan as written. Number of minutes spent on the visit: 10.
[2021-05-12] MEDS ORDERED: cloNIDine 0.3 MG/24HR PATCH TRANSDERM SCH (09:00)
== END 2021-05-11 11:50 | disposition home or self-care (01) | DRG 190 ==
LOC: EC 17:50 → 6NMEDSUR 22:31 → OBSVTOIN 05-09 11:38
PROVIDERS: ADMIT Family Medicine; ATTEND Family Medicine
PROC: 0DD78ZX Extraction of Stomach, Pylorus, Via Natural or Artificial Opening Endoscopic, Diagnostic (ICD-10-PCS; principal; 2021-05-10 07:30)
DX: J44.0 Chronic obstructive pulmonary disease with (acute) lower respiratory infection (principal); J15.6 Pneumonia due to other Gram-negative bacteria; J69.0 Pneumonitis due to inhalation of food and vomit; E44.0 Moderate protein-calorie malnutrition; E87.1 Hypo-osmolality and hyponatremia; Z20.822 Contact with and (suspected) exposure to COVID-19; Z68.1 Body mass index [BMI] 19.9 or less, adult; C76.0 Malignant neoplasm of head, face and neck; J44.1 Chronic obstructive pulmonary disease with (acute) exacerbation; K21.9 Gastro-esophageal reflux disease without esophagitis; E03.9 Hypothyroidism, unspecified; Z79.890 Hormone replacement therapy; F17.210 Nicotine dependence, cigarettes, uncomplicated; I10 Essential (primary) hypertension; K29.70 Gastritis, unspecified, without bleeding; R13.10 Dysphagia, unspecified; Z85.89 Personal history of malignant neoplasm of other organs and systems; Z92.3 Personal history of irradiation; Y95 Nosocomial condition
CPT/HCPCS: 36415; 43239; 71045; 71046; 80048; 83605; 83735; 84484; 85025; 85027; 87040; 87070; 87077; 87186; 87205; 87636; 88305; 93005; 94640; 96361; 96374; 96375; 99285

== ENCOUNTER 2021-07-03 13:56 | Emergency (ER) | payer MEDICARE ==
[2021-07-03 14:07] VITALS: TEMP 97.9
--- NOTE | 2021-07-03 14:58 | XR ---
EXAMINATION TYPE: XR chest 2V DATE OF EXAM: 07/03/2021 COMPARISON: 05/11/2021 TECHNIQUE: PA and lateral views submitted. HISTORY: cough FINDINGS: There is left lower lobe infiltrate. Hyperinflation compatible COPD. Atherosclerotic change aorta. He art size normal. No pleural effusion or pneumothorax. Hypertrophic change of the AC joints. Degenerat torres change of the spine. Biapical pleural thickening. IMPRESSION: 1. COPD with left lower lobe infiltrate correlate for pneumonia.
[2021-07-03] MEDS ORDERED: SODIUM CHLORIDE 0.9% 500 ML 500 ML IV STA (15:16)
[2021-07-03] MEDS ORDERED: AZITHROMYCIN 500 MG in SODIUM CHLORIDE 0.9% 250 ML IVPB STA (15:17)
[2021-07-03 15:51] LABS: African American GFR (CKD) >90 (>60 ml/min/1.73 sqM); Anion Gap 8 mmol/L; Blood Urea Nitrogen 16 mg/dL (9-20); Calcium 9.5 mg/dL (8.4-10.2); Carbon Dioxide 29 mmol/L (22-30); Chloride 98 mmol/L (98-107); Glucose 88 mg/dL (74-99); Non-African American GFR(CKD) >90 (>60 ml/min/1.73 sqM); Potassium 4.6 mmol/L (3.5-5.1); Sodium 135 mmol/L (137-145)
[2021-07-03 16:02] LABS: Anisocytosis Slight; Basophils % (A) 0 %; Eosinophils # (A) 0.1 k/uL (0-0.7); Eosinophils % (A) 0 %; HCT 39.4 % (39.0-53.0); HGB 12.9 gm/dL (13.0-17.5); Lymphocytes # (A) 1.4 k/uL (1.0-4.8); Lymphocytes % (A) 12 %; MCH 28.5 pg (25.0-35.0); MCHC 32.6 g/dL (31.0-37.0); MCV 87.4 fL (80.0-100.0); Mean Platelet Volume 6.9; Monocytes # (A) 0.7 k/uL (0-1.0); Monocytes % (A) 6 %; Neutrophils # (A) 9.2 k/uL (1.3-7.7); Neutrophils % (A) 80 %; Platelet Count 486 k/uL (150-450); RBC 4.51 m/uL (4.30-5.90); RDW 17.5 % (11.5-15.5); WBC 11.5 k/uL (3.8-10.6)
[2021-07-03 17:05] VITALS: BP 120/75; PULSE 52; RESP 16
--- NOTE | 2021-07-03 17:35 | ED ---
URI HPI - General Chief Complaint: Upper Respiratory Infection Stated Complaint: Chest Pain SOB Numb Time Seen by Provider: 07/03/21 14:55 Source: patient Mode of arrival: wheelchair Limitations: no limitations - History of Present Illness Initial Comments: Patient complains of a cough. Nothing makes it better or worse. He has no chest pain or belly pain or back pain. He has no nausea or vomiting. He tolerates oral intake. He has no lightheadedness or dizziness. He has no focal weakness. - Related Data Home Medications Medication Instructions Recorded Confirmed Lansoprazole [Prevacid] 30 mg PO DAILY PRN 05/07/21 05/07/21 Levothyroxine Sodium [Synthroid] 75 mcg PO DAILY 05/07/21 05/07/21 amLODIPine [Norvasc] 10 mg PO HS 05/07/21 05/07/21 cloNIDine 0.3 MG/24HR PATCH 1 patch TRANSDERM CAMERON 05/07/21 05/07/21 [Catapres-TTS] Previous Rx's Medication Instructions Recorded Albuterol Sulfate [Albuterol 2 puff PO Q6H PRN 30 Days #1 05/11/21 Sulfate Hfa] dispenser Levofloxacin [Levaquin] 500 mg PO DAILY 5 Days #5 tab 05/11/21 Umeclidinium Brm/Vilanterol Tr 1 puff INHALATION DAILY 30 Days #1 05/11/21 [Anoro Ellipta 62.5-25 Mcg INH] each guaiFENesin [guaiFENesin Oral 2 tsp PO Q4HR PRN 7 Days #150 ml 05/11/21 Solution] Moxifloxacin HCl 400 mg PO DAILY 7 Days #7 tab 07/03/21 Allergies Allergy/AdvReac Type Severity Reaction Status Date / Time No Known Allergies Allergy Verified 07/03/21 14:07 Review of Systems ROS Statement: Those systems with pertinent positive or pertinent negative responses have been documented in the HPI. ROS Other: All systems not noted in ROS Statement are negative. Past Medical History Past Medical History: Cancer, Hypertension, Thyroid Disorder Additional Past Medical History / Comment(s): neck ca History of Any Multi-Drug Resistant Organisms: None Reported Past Surgical History: Orthopedic Surgery Additional Past Surgical History / Comment(s): neck Past Psychological History: No Psychological Hx Reported Smoking Status: Current every day smoker Past Alcohol Use History: None Reported Past Drug Use History: Marijuana General Exam Limitations: no limitations General appearance: alert, in no apparent distress Head exam: Present: atraumatic, normocephalic, normal inspection Eye exam: Present: normal appearance, PERRL, EOMI. Absent: scleral icterus, conjunctival injection, periorbital swelling ENT exam: Present: normal exam, mucous membranes moist Neck exam: Present: normal inspection. Absent: tenderness, meningismus, lymphadenopathy Respiratory exam: Present: normal lung sounds bilaterally, wheezes. Absent: respiratory distress, rales, rhonchi, stridor Cardiovascular Exam: Present: regular rate, normal rhythm, normal heart sounds. Absent: systolic murmur, diastolic murmur, rubs, gallop, clicks GI/Abdominal exam: Present: soft, normal bowel sounds. Absent: distended, tenderness, guarding, rebound, rigid Extremities exam: Present: normal inspection, full ROM, normal capillary refill. Absent: tenderness, pedal edema, joint swelling, calf tenderness Back exam: Present: normal inspection Neurological exam: Present: alert, oriented X3, CN II-XII intact Psychiatric exam: Present: normal affect, normal mood Skin exam: Present: warm, dry, intact, normal color. Absent: rash Course Vital Signs 07/03/21 07/03/21 14:05 17:02 Temperature 97.9 F Pulse Rate 57 L 52 L Respiratory 18 16 Rate Blood Pressure 161/88 120/75 O2 Sat by Pulse 97 97 Oximetry Medical Decision Making - Medical Decision Making Patient has a cough. His laboratory studies are within acceptable limits. He has a small area of pneumonia. I gave him IV antibiotics in the ER. He is tolerating oral intake. He feels much better. I will prescribe him antibiotics to go home on. - Lab Data Result diagrams: 07/03/21 15:23 07/03/21 15:23 Lab Results 07/03/21 07/03/21 07/03/21 Range/Units 14:09 14:09 15:23 WBC 11.5 H (3.8-10.6) k/uL RBC 4.51 (4.30-5.90) m/uL Hgb 12.9 L (13.0-17.5) gm/dL Hct 39.4 (39.0-53.0) % MCV 87.4 (80.0-100.0) fL MCH 28.5 (25.0-35.0) pg MCHC 32.6 (31.0-37.0) g/dL RDW 17.5 H (11.5-15.5) % Plt Count 486 H (150-450) k/uL MPV 6.9 Neutrophils % 80 % Lymphocytes % 12 % Monocytes % 6 % Eosinophils % 0 % Basophils % 0 % Neutrophils # 9.2 H (1.3-7.7) k/uL Lymphocytes # 1.4 (1.0-4.8) k/uL Monocytes # 0.7 (0-1.0) k/uL Eosinophils # 0.1 (0-0.7) k/uL Basophils # 0.0 (0-0.2) k/uL Anisocytosis Slight Sodium (137-145) mmol/L Potassium (3.5-5.1) mmol/L Chloride (98-107) mmol/L Carbon Dioxide (22-30) mmol/L Anion Gap mmol/L BUN (9-20) mg/dL Creatinine (0.66-1.25) mg/dL Est GFR (CKD-EPI)AfAm (>60 ml/min/1.73 sqM) Est GFR (CKD-EPI)NonAf (>60 ml/min/1.73 sqM) Glucose (74-99) mg/dL Plasma Lactic Acid Amador (0.7-2.0) mmol/L Calcium (8.4-10.2) mg/dL Coronavirus (PCR) Not Detected (Not Detectd) Influenza Type A RNA Not Detected (Not Detectd) Influenza Type B (PCR) Not Detected (Not Detectd) 07/03/21 07/03/21 Range/Units 15:23 15:23 WBC (3.8-10.6) k/uL RBC (4.30-5.90) m/uL Hgb (13.0-17.5) gm/dL Hct (39.0-53.0) % MCV (80.0-100.0) fL MCH (25.0-35.0) pg MCHC (31.0-37.0) g/dL RDW (11.5-15.5) % Plt Count (150-450) k/uL MPV Neutrophils % % Lymphocytes % % Monocytes % % Eosinophils % % Basophils % % Neutrophils # (1.3-7.7) k/uL Lymphocytes # (1.0-4.8) k/uL Monocytes # (0-1.0) k/uL Eosinophils # (0-0.7) k/uL Basophils # (0-0.2) k/uL Anisocytosis Sodium 135 L (137-145) mmol/L Potassium 4.6 (3.5-5.1) mmol/L Chloride 98 (98-107) mmol/L Carbon Dioxide 29 (22-30) mmol/L Anion Gap 8 mmol/L BUN 16 (9-20) mg/dL Creatinine 0.74 (0.66-1.25) mg/dL Est GFR (CKD-EPI)AfAm >90 (>60 ml/min/1.73 sqM) Est GFR (CKD-EPI)NonAf >90 (>60 ml/min/1.73 sqM) Glucose 88 (74-99) mg/dL Plasma Lactic Acid Amador 0.6 L (0.7-2.0) mmol/L Calcium 9.5 (8.4-10.2) mg/dL Coronavirus (PCR) (Not Detectd) Influenza Type A RNA (Not Detectd) Influenza Type B (PCR) (Not Detectd) 07/03/21 17:32 Twelve-lead EKG shows ventricular rate 111 bpm, normal TN interval and QRS complexes, no ST elevation or depression, interpreted by me as sinus tach ycardia. Disposition Clinical Impression: Pneumonia Disposition: HOME SELF-CARE Condition: Good Instructions (If sedation given, give patient instructions): Bacterial Pneumonia (DC) Prescriptions: Moxifloxacin HCl 400 mg PO DAILY 7 Days #7 tab Is patient prescribed a controlled substance at d/c from ED?: No Referrals: Quique Umaña MD [Primary Care Provider] - 1-2 days
== END 2021-07-03 17:49 | disposition home or self-care (01) ==
LOC: EC 13:56
DX: J18.9 Pneumonia, unspecified organism (principal); F17.200 Nicotine dependence, unspecified, uncomplicated; I10 Essential (primary) hypertension; E07.9 Disorder of thyroid, unspecified; Z79.899 Other long term (current) drug therapy; Z79.890 Hormone replacement therapy; Z20.822 Contact with and (suspected) exposure to COVID-19
CPT/HCPCS: 36415; 93005; 80048; 83605; 85025; 87040; 87502; 87635; 71046; 99285; 96365; 96367; J0456; J0696

== ENCOUNTER 2021-09-07 16:27 | Emergency (ER) | payer MEDICARE ==
[2021-09-07 16:39] VITALS: TEMP 98.1
--- NOTE | 2021-09-07 16:43 | ED ---
General Adult HPI - General Chief complaint: Upper Respiratory Infection Stated complaint: On a feeding tube, Sore Throat, Fatigue, Congestio Time Seen by Provider: 09/07/21 16:39 Source: patient Mode of arrival: ambulatory Limitations: no limitations - History of Present Illness Initial comments: Patient presents to the ED with his daughter for evaluation. Patient states that he has had a cough, headache, sore throat and congestion since yesterday. Patient states that he is not vaccinated against Covid. Patient also denies influenza vaccination. Patient states that he is uncertain of fever, but he denies chills. Patient states that he has been coughing up yellowish colored phlegm. Patient denies trauma or injury, sudden onset of headache, LOC, neck pain or stiffness, focal numbness/weakness/neuro deficit, visual changes, otalgia, chest pain or pressure, dyspnea, hemoptysis, palpitations, dizziness, abdominal pain, nausea/vomiting/diarrhea, dysuria or urinary symptoms, leg or calf swelling or pain, or any other symptoms or complaints. - Related Data Home Medications Medication Instructions Recorded Confirmed Lansoprazole [Prevacid] 30 mg PO DAILY PRN 05/07/21 09/07/21 Levothyroxine Sodium [Synthroid] 75 mcg PO DAILY 05/07/21 09/07/21 amLODIPine [Norvasc] 10 mg PO HS 05/07/21 09/07/21 cloNIDine 0.3 MG/24HR PATCH 1 patch TRANSDERM CAMERON 05/07/21 09/07/21 [Catapres-TTS] Albuterol Nebulized [Ventolin 2.5 mg INHALATION RT-Q6H PRN 07/03/21 09/07/21 Nebulized] Albuterol Sulfate [Albuterol 2 puff INHALATION RT-Q6H PRN 07/03/21 09/07/21 Sulfate Hfa] Previous Rx's Medication Instructions Recorded Moxifloxacin HCl [Avelox] 400 mg PO DAILY 7 Days #7 tab 07/03/21 HYDROcodone/APAP 5-325MG [[place] 1 tab PO Q6HR PRN 3 Days #10 tab 07/09/21 5-325] Allergies Allergy/AdvReac Type Severity Reaction Status Date / Time No Known Allergies Allergy Verified 09/07/21 17:35 Review of Systems ROS Statement: Those systems with pertinent positive or pertinent negative responses have been documented in the HPI. ROS Other: All systems not noted in ROS Statement are negative. Past Medical History Past Medical History: Cancer, Hypertension, Thyroid Disorder Additional Past Medical History / Comment(s): neck ca History of Any Multi-Drug Resistant Organisms: None Reported Past Surgical History: Tonsillectomy Additional Past Surgical History / Comment(s): lymph node removal and thyroidectomy and radical tonsil dissection 2011 at [facility]. chemo and radiation 2011. Past Anesthesia/Blood Transfusion Reactions: No Reported Reaction Past Psychological History: Anxiety Smoking Status: Former smoker Past Alcohol Use History: None Reported Past Drug Use History: Marijuana - Past Family History Mother Family Medical History: Cancer, Pneumonia Additional Family Medical History / Comment(s): - lung CA and pneumonia Father Family Medical History: Prostate Disorder Additional Family Medical History / Comment(s): prostatectomy r/t CA Sister(s) Family Medical History: Cancer Additional Family Medical History / Comment(s): breast CA General Exam Limitations: no limitations General appearance: alert, in no apparent distress Head exam: Present: atraumatic, normocephalic Eye exam: Present: normal appearance, EOMI ENT exam: Present: normal oropharynx, mucous membranes moist Neck exam: Present: other (Trachea is in midline). Absent: tenderness, meningismus Respiratory exam: Present: normal lung sounds bilaterally. Absent: respiratory distress, wheezes, rales, rhonchi, stridor Cardiovascular Exam: Present: regular rate, normal rhythm, normal heart sounds, other (Normal radial pulses bilaterally) GI/Abdominal exam: Present: soft, other (+ feeding tube). Absent: distended, tenderness, guarding Extremities exam: Absent: tenderness, pedal edema, calf tenderness Neurological exam: Present: alert, oriented X3, CN II-XII intact. Absent: motor sensory deficit Psychiatric exam: Present: normal affect, normal mood Skin exam: Present: warm, dry, intact, normal color Course Vital Signs 09/07/21 16:37 Temperature 98.1 F Pulse Rate 77 Respiratory 20 Rate Blood Pressure 130/93 O2 Sat by Pulse 97 Oximetry - Reevaluation(s) Reevaluation #1: 09/07/21 19:30 Patient denies development of any new symptoms while in the ED. Patient remains alert and breathing comfortably with a normal room air oxygen saturation. Patient and daughter are with the patient's test results, and patient feels comfortable going home with his daughter at this time. Patient was counseled about upper respiratory infections, and he was clearly explained return and follow-up instructions. Patient was instructed to follow up closely with his primary care provider. Patient feels comfortable with this plan. Medical Decision Making - Medical Decision Making Patient is breathing comfortably in the ED with a normal room air oxygen saturation. Patient is afebrile and without leukocytosis. Patient's viral studies are all negative. Patient's chest x-ray is negative for pneumonia or acute cardiopulmonary process. I suspect that the patient's symptoms are likely secondary to a viral upper respiratory infection, and I do not suspect an emergent medical condition at this time. Will discharge patient home with his daughter at this time. - Lab Data Result diagrams: 09/07/21 17:12 09/07/21 17:12 Lab Results 09/07/21 09/07/21 09/07/21 Range/Units 17:12 17:12 17:12 WBC 9.1 (3.8-10.6) k/uL RBC 4.48 (4.30-5.90) m/uL Hgb 13.1 (13.0-17.5) gm/dL Hct 39.9 (39.0-53.0) % MCV 89.0 (80.0-100.0) fL MCH 29.2 (25.0-35.0) pg MCHC 32.8 (31.0-37.0) g/dL RDW 15.9 H (11.5-15.5) % Plt Count 363 (150-450) k/uL MPV 7.4 Neutrophils % 73 % Lymphocytes % 16 % Monocytes % 7 % Eosinophils % 1 % Basophils % 1 % Neutrophils # 6.7 (1.3-7.7) k/uL Lymphocytes # 1.4 (1.0-4.8) k/uL Monocytes # 0.7 (0-1.0) k/uL Eosinophils # 0.1 (0-0.7) k/uL Basophils # 0.1 (0-0.2) k/uL Sodium 136 L (137-145) mmol/L Potassium 4.3 (3.5-5.1) mmol/L Chloride 95 L (98-107) mmol/L Carbon Dioxide 32 H (22-30) mmol/L Anion Gap 9 mmol/L BUN 24 H (9-20) mg/dL Creatinine 0.66 (0.66-1.25) mg/dL Est GFR (CKD-EPI)AfAm >90 (>60 ml/min/1.73 sqM) Est GFR (CKD-EPI)NonAf >90 (>60 ml/min/1.73 sqM) Glucose 92 (74-99) mg/dL Calcium 9.9 (8.4-10.2) mg/dL Total Bilirubin 0.3 (0.2-1.3) mg/dL AST 25 (17-59) U/L ALT 19 (4-49) U/L Alkaline Phosphatase 79 (38-126) U/L Total Protein 8.5 H (6.3-8.2) g/dL Albumin 4.8 (3.5-5.0) g/dL Influenza Type A (PCR) Not Detected (Not Detectd) Influenza Type B (PCR) Not Detected (Not Detectd) RSV (PCR) Not Detected (Not Detectd) SARS-CoV-2 (PCR) Not Detected (Not Detectd) - Radiology Data Chest x-ray: No active cardiopulmonary disease. Normal heart. There is clearing of the left lower lobe pneumonia compared to old exam. Disposition Clinical Impression: Upper respiratory tract infection Disposition: HOME SELF-CARE Condition: Stable Instructions (If sedation given, give patient instructions): Upper Respiratory Infection (ED) Additional Instructions: Return to the ER immediately should you develop new or worsening pain, a high fever, shortness of breath, feeling dizzy or faint, or new or worsening symptoms. Follow up closely with your primary care provider. Is patient prescribed a controlled substance at d/c from ED?: No Referrals: Quique mUaña MD [Primary Care Provider] - 1-2 days Decision Time: 19:42
--- NOTE | 2021-09-07 17:16 | XR ---
EXAMINATION TYPE: XR chest 2V DATE OF EXAM: 09/07/2021 COMPARISON: 07/08/2021 HISTORY: Cough TECHNIQUE: FINDINGS: The heart is normal. Lungs are clear of consolidation. There are no hilar masses. Costophre mikael angles are clear. Bony thorax is intact. IMPRESSION: No active cardiopulmonary disease. Normal heart. There is clearing of the left lower lobe pneumonia compared to old exam.
[2021-09-07 17:30] LABS: Basophils # (A) 0.1 k/uL (0-0.2); Basophils % (A) 1 %; Eosinophils # (A) 0.1 k/uL (0-0.7); Eosinophils % (A) 1 %; HCT 39.9 % (39.0-53.0); HGB 13.1 gm/dL (13.0-17.5); Lymphocytes # (A) 1.4 k/uL (1.0-4.8); Lymphocytes % (A) 16 %; MCH 29.2 pg (25.0-35.0); MCHC 32.8 g/dL (31.0-37.0); Mean Platelet Volume 7.4; Monocytes # (A) 0.7 k/uL (0-1.0); Monocytes % (A) 7 %; Neutrophils # (A) 6.7 k/uL (1.3-7.7); Neutrophils % (A) 73 %; Platelet Count 363 k/uL (150-450); RBC 4.48 m/uL (4.30-5.90); RDW 15.9 % (11.5-15.5); WBC 9.1 k/uL (3.8-10.6)
[2021-09-07 17:46] LABS: ALT 19 U/L (4-49); AST 25 U/L (17-59); African American GFR (CKD) >90 (>60 ml/min/1.73 sqM); Albumin 4.8 g/dL (3.5-5.0); Alkaline Phosphatase 79 U/L (38-126); Anion Gap 9 mmol/L; Blood Urea Nitrogen 24 mg/dL (9-20); Calcium 9.9 mg/dL (8.4-10.2); Carbon Dioxide 32 mmol/L (22-30); Chloride 95 mmol/L (98-107); Glucose 92 mg/dL (74-99); Non-African American GFR(CKD) >90 (>60 ml/min/1.73 sqM); Potassium 4.3 mmol/L (3.5-5.1); Sodium 136 mmol/L (137-145); Total Bilirubin 0.3 mg/dL (0.2-1.3); Total Protein 8.5 g/dL (6.3-8.2)
[2021-09-07 20:42] VITALS: BP 149/109; PULSE 58; RESP 18
== END 2021-09-07 20:44 | disposition home or self-care (01) ==
LOC: EC 16:27
DX: J06.9 Acute upper respiratory infection, unspecified (principal); Z20.822 Contact with and (suspected) exposure to COVID-19; I10 Essential (primary) hypertension; E07.9 Disorder of thyroid, unspecified; F41.9 Anxiety disorder, unspecified; F12.90 Cannabis use, unspecified, uncomplicated; Z87.891 Personal history of nicotine dependence; Z79.890 Hormone replacement therapy; Z79.51 Long term (current) use of inhaled steroids; Z79.899 Other long term (current) drug therapy
CPT/HCPCS: 36415; 71046; 80053; 85025; 87636; 99284

== ENCOUNTER 2021-10-26 20:30 | Emergency (ER) | payer MEDICARE ==
[2021-10-26 20:45] VITALS: TEMP 97.8
[2021-10-26] MEDS ORDERED: ONDANSETRON 4 MG/2 ML VIAL IVP STA (21:18)
[2021-10-26] MEDS ORDERED: SODIUM CHLORIDE 0.9% 500 ML 500 ML IV STA (21:18)
--- NOTE | 2021-10-26 21:25 | ED ---
General Adult HPI - General Chief complaint: ENT Stated complaint: Choking Time Seen by Provider: 10/26/21 21:09 Source: patient Mode of arrival: ambulatory Limitations: no limitations - History of Present Illness Initial comments: Patient is a 61-year-old man presents with complaint that he has had worsening of cough going back for weeks but worse for a number of days. He is having frequent coughing and cannot swallow his own sputum now. Patient states that he was told that he needs to get in for an esophageal dilation with Dr. Escoto but that they were not able to schedule him yet. 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 He had resection, chemotherapy and radiation at that time and there has not been any recurrence or metastases found. Patient states also for the past couple days he's been feeling hot and cold and has body aches. The patient states that he takes most of his nutrition through a gastric tube and that he has actually had weight gain this month no weight loss. -: week(s) Location: neck Quality: aching Consistency: constant Improves with: none Worsens with: none Associated Symptoms: cough, nausea/vomiting - Related Data Home Medications Medication Instructions Recorded Confirmed Lansoprazole [Prevacid] 30 mg PO DAILY PRN 05/07/21 09/07/21 Levothyroxine Sodium [Synthroid] 75 mcg PO DAILY 05/07/21 09/07/21 amLODIPine [Norvasc] 10 mg PO HS 05/07/21 09/07/21 cloNIDine 0.3 MG/24HR PATCH 1 patch TRANSDERM CAMERON 05/07/21 09/07/21 [Catapres-TTS] Albuterol Nebulized [Ventolin 2.5 mg INHALATION RT-Q6H PRN 07/03/21 09/07/21 Nebulized] Albuterol Sulfate [Albuterol 2 puff INHALATION RT-Q6H PRN 07/03/21 09/07/21 Sulfate Hfa] Previous Rx's Medication Instructions Recorded Moxifloxacin HCl [Avelox] 400 mg PO DAILY 7 Days #7 tab 07/03/21 HYDROcodone/APAP 5-325MG [[place] 1 tab PO Q6HR PRN 3 Days #10 tab 07/09/21 5-325] Allergies Allergy/AdvReac Type Severity Reaction Status Date / Time No Known Allergies Allergy Verified 09/07/21 17:35 Review of Systems ROS Statement: Those systems with pertinent positive or pertinent negative responses have been documented in the HPI. ROS Other: All systems not noted in ROS Statement are negative. Constitutional: Reports: as per HPI, fever, chills ENT: Reports: throat pain Respiratory: Reports: cough. Denies: dyspnea, wheezes, hemoptysis Cardiovascular: Denies: chest pain Gastrointestinal: Reports: nausea, vomiting. Denies: abdominal pain, diarrhea, constipation Genitourinary: Denies: dysuria, hematuria Musculoskeletal: Reports: myalgia. Denies: back pain Skin: Denies: rash Neurological: Denies: headache Past Medical History Past Medical History: Cancer, Hypertension, Thyroid Disorder Additional Past Medical History / Comment(s): neck ca History of Any Multi-Drug Resistant Organisms: None Reported Past Surgical History: Tonsillectomy Additional Past Surgical History / Comment(s): lymph node removal and thyroidectomy and radical tonsil dissection 2011 at [facility]. chemo and radiation 2010. Past Anesthesia/Blood Transfusion Reactions: No Reported Reaction Past Psychological History: Anxiety Smoking Status: Former smoker Past Alcohol Use History: None Reported Past Drug Use History: Marijuana - Past Family History Mother Family Medical History: Cancer, Pneumonia Additional Family Medical History / Comment(s): - lung CA and pneumonia Father Family Medical History: Prostate Disorder Additional Family Medical History / Comment(s): prostatectomy r/t CA Sister(s) Family Medical History: Cancer Additional Family Medical History / Comment(s): breast CA General Exam Limitations: no limitations General appearance: alert, in no apparent distress Head exam: Present: atraumatic, normocephalic Eye exam: Present: normal appearance. Absent: scleral icterus, conjunctival injection ENT exam: Present: normal oropharynx Neck exam: Present: other (Chronic postsurgical change). Absent: lymphadenopa thy Respiratory exam: Present: wheezes. Absent: respiratory distress, rales, rhonchi, stridor, accessory muscle use Cardiovascular Exam: Present: normal rhythm, tachycardia, normal heart sounds. Absent: systolic murmur, diastolic murmur, rubs, gallop GI/Abdominal exam: Present: soft. Absent: distended, tenderness, guarding, rebound, rigid, mass Extremities exam: Present: normal inspection, normal capillary refill. Absent: pedal edema, calf tenderness Back exam: Present: normal inspection. Absent: CVA tenderness (R), CVA tenderness (L) Neurological exam: Present: alert Skin exam: Present: warm, dry, intact, normal color. Absent: rash Course Vital Signs 10/26/21 20:42 Temperature 97.8 F Pulse Rate 119 H Respiratory 20 Rate Blood Pressure 184/109 O2 Sat by Pulse 95 Oximetry Medical Decision Making - Lab Data Result diagrams: 10/26/21 21:52 10/26/21 21:52 Lab Results 10/26/21 10/26/21 10/26/21 Range/Units 21:52 21:52 21:52 WBC 15.1 H (3.8-10.6) k/uL RBC 4.40 (4.30-5.90) m/uL Hgb 12.9 L (13.0-17.5) gm/dL Hct 40.0 (39.0-53.0) % MCV 90.8 (80.0-100.0) fL MCH 29.2 (25.0-35.0) pg MCHC 32.2 (31.0-37.0) g/dL RDW 14.1 (11.5-15.5) % Plt Count 299 (150-450) k/uL MPV 8.2 Neutrophils % 89 % Lymphocytes % 2 % Monocytes % 8 % Eosinophils % 0 % Basophils % 1 % Neutrophils # 13.4 H (1.3-7.7) k/uL Lymphocytes # 0.3 L (1.0-4.8) k/uL Monocytes # 1.2 H (0-1.0) k/uL Eosinophils # 0.1 (0-0.7) k/uL Basophils # 0.2 (0-0.2) k/uL Sodium 136 L (137-145) mmol/L Potassium 4.4 (3.5-5.1) mmol/L Chloride 95 L (98-107) mmol/L Carbon Dioxide 25 (22-30) mmol/L Anion Gap 16 mmol/L BUN 22 H (9-20) mg/dL Creatinine 0.80 (0.66-1.25) mg/dL Est GFR (CKD-EPI)AfAm >90 (>60 ml/min/1.73 sqM) Est GFR (CKD-EPI)NonAf >90 (>60 ml/min/1.73 sqM) Glucose 125 H (74-99) mg/dL Calcium 10.0 (8.4-10.2) mg/dL Total Bilirubin 0.3 (0.2-1.3) mg/dL AST 28 (17-59) U/L ALT 17 (4-49) U/L Alkaline Phosphatase 109 (38-126) U/L Total Protein 8.5 H (6.3-8.2) g/dL Albumin 5.0 (3.5-5.0) g/dL Coronavirus (PCR) Detected A (Not Detectd) Disposition Clinical Impression: COVID-19 Disposition: HOME SELF-CARE Condition: Good Instructions (If sedation given, give patient instructions): COVID-19 (Coronavirus Disease 2019) (ED) Is patient prescribed a controlled substance at d/c from ED?: No Referrals: Quique Umaña MD [Primary Care Provider] - 1-2 days
--- NOTE | 2021-10-26 22:24 | XR ---
EXAMINATION TYPE: XR chest 2V DATE OF EXAM: 10/26/2021 COMPARISON: 09/07/2021 HISTORY: Cough TECHNIQUE: FINDINGS: There is no heart failure nor confluent pneumonic infiltrate. The surrounding angles are cl ear. There are no hilar masses. Bony thorax is intact. No pleural effusion. IMPRESSION: No active cardiopulmonary disease. No change.
[2021-10-26 22:36] LABS: Basophils # (A) 0.2 k/uL (0-0.2); Basophils % (A) 1 %; Eosinophils # (A) 0.1 k/uL (0-0.7); Eosinophils % (A) 0 %; HGB 12.9 gm/dL (13.0-17.5); Lymphocytes # (A) 0.3 k/uL (1.0-4.8); Lymphocytes % (A) 2 %; MCH 29.2 pg (25.0-35.0); MCHC 32.2 g/dL (31.0-37.0); MCV 90.8 fL (80.0-100.0); Mean Platelet Volume 8.2; Monocytes # (A) 1.2 k/uL (0-1.0); Monocytes % (A) 8 %; Neutrophils # (A) 13.4 k/uL (1.3-7.7); Neutrophils % (A) 89 %; Platelet Count 299 k/uL (150-450); RDW 14.1 % (11.5-15.5); WBC 15.1 k/uL (3.8-10.6)
[2021-10-26 22:50] LABS: ALT 17 U/L (4-49); AST 28 U/L (17-59); African American GFR (CKD) >90 (>60 ml/min/1.73 sqM); Alkaline Phosphatase 109 U/L (38-126); Anion Gap 16 mmol/L; Blood Urea Nitrogen 22 mg/dL (9-20); Carbon Dioxide 25 mmol/L (22-30); Chloride 95 mmol/L (98-107); Glucose 125 mg/dL (74-99); Non-African American GFR(CKD) >90 (>60 ml/min/1.73 sqM); Potassium 4.4 mmol/L (3.5-5.1); Sodium 136 mmol/L (137-145); Total Bilirubin 0.3 mg/dL (0.2-1.3); Total Protein 8.5 g/dL (6.3-8.2)
[2021-10-26] MEDS ORDERED: FAMOTIDINE 20 MG/2 ML VIAL IV STA (23:06)
[2021-10-26] MEDS ORDERED: HYDROmorphone 0.5 MG/0.5 ML SYRINGE IVP STA (23:06)
[2021-10-26] MEDS ORDERED: SODIUM CHLORIDE 0.9% 1,000 ML IV ONE (23:07)
[2021-10-27 01:33] VITALS: BP 117/72; PULSE 74; RESP 18
== END 2021-10-27 02:51 | disposition home or self-care (01) ==
LOC: EC 20:30
DX: U07.1 COVID-19 (principal); F12.90 Cannabis use, unspecified, uncomplicated; F41.9 Anxiety disorder, unspecified; I10 Essential (primary) hypertension; E07.9 Disorder of thyroid, unspecified; Z79.891 Long term (current) use of opiate analgesic; Z79.890 Hormone replacement therapy
CPT/HCPCS: 99283; 96374; 96375 ×2; 96361 ×3; 36415; 80053; 85025; 87635; 71046; J2405; J1170; 99284

== ENCOUNTER → 2022-02-04 | Outpatient (CLI) | payer MEDICARE ==
--- NOTE | 2022-02-05 07:22 | US ---
EXAMINATION TYPE: US thyroid st tissue head/neck DATE OF EXAM: 02/04/2022 COMPARISON: CT CLINICAL HISTORY: E04.1 Thyroid Nodule. Thyroid nodule per order. Limited history from patient. Fidelia nt states he had thyroid cancer and the entire thyroid gland removed due to cancer in 2010. However, there does appear to be thyroid tissue on today's scan. GLAND SIZE: Right Lobe: 5.3 x 2.0 x 1.6 cm Overall Parenchyma: heterogenous Left Lobe: 4.0 x 1.5 x 1.4 cm Overall Parenchyma: heterogeneous Isthmus Thickness: 0.19 cm NODULES RIGHT: # of nodules measured on right: 0 LEFT: # of nodules measured on left: 1 1. 1.2 X 1.0 x 1.0 cm, mid Prior size: No prior TIRADS Score: 4 TIRADS Category 4: Moderately Suspicious Composition: Solid or almost completely solid (2 points). Echogenicity: Hyperechoic or isoechoic (1 point). Shape: Wider than tall (0 points). Margin: Smooth (0 points). Echogenic foci: Macrocalcifications (1 point) Recommendation: If >1.5cm: FNA; If >1cm: Follow up at 1,3,5 years ISTHMUS: # of nodules measured in the isthmus: 0 Bilateral neck scanned, no evidence of lymphadenopathy. Gland appears to be positioned very anterior within the neck-slightly difficult scan. IMPRESSION: Left thyroid nodule that meet criteria for follow-up. 2017 ACR TI-RADS LEVEL: TR-RADS 4 - Moderately Suspicious: Follow if > 1 cm, FNA if > 1.5 cm *Highest TI-RADS level nodule reported
== END | disposition home or self-care (01) ==
LOC: RADUSWWP 16:13
PROVIDERS: ATTEND Otolaryngology
DX: E04.1 Nontoxic single thyroid nodule (principal); C73 Malignant neoplasm of thyroid gland
CPT/HCPCS: 76536

== ENCOUNTER 2022-03-10 12:45 | Day surgery (SDC) | payer MEDICARE ==
[2022-03-10 13:32] VITALS: TEMP 98.2
[2022-03-10 14:25] VITALS: BP 120/66; PULSE 60; RESP 14
--- NOTE | 2022-03-10 14:54 | US ---
ULTRASOUND GUIDED FNA THYROID BIOPSY: CLINICAL HISTORY: Left thyroid nodule FINDINGS: The procedure was explained to the patient. The risks, complications, benefits and alternatives were discussed and any questions were answered. Informed consent was obtained. Patient was placed supin e on the ultrasound table and prepped and draped in the usual sterile fashion. Utilizing a 25 gauge needle, five passes were made into the requested left thyroid nodule. Patient was stable throughout the procedure. Pathology is pending. All elements of maximal barrier technique were utilized. IMPRESSION: 1. Successful ultrasound guided FNA thyroid biopsy.
== END 2022-03-10 14:20 | disposition home or self-care (01) ==
LOC: RADPROMAIN 12:45
PROVIDERS: ATTEND Otolaryngology
DX: E04.1 Nontoxic single thyroid nodule (principal); Z85.818 Personal history of malignant neoplasm of other sites of lip, oral cavity, and pharynx; Z92.3 Personal history of irradiation; Z92.21 Personal history of antineoplastic chemotherapy
CPT/HCPCS: 10005; 88173; 88305

== ENCOUNTER 2022-07-22 11:44 | Day surgery (SDC) | payer MEDICARE ==
[2022-07-21 09:49] VITALS: BMI 14.9
[~2022-07-22 11:44] MED LIST: LIDOCAINE 1% (10MG/ML) FOR IV START INTRADERMA PRN
[2022-07-22] MEDS: LACTATED RINGERS 1,000 ML IV SCH ×2 (12:27→12:39)
[2022-07-22 12:39] VITALS: RESP 16; TEMP 98.3
[2022-07-22] MEDS ORDERED: LIDOCAINE 2% INJ 20 MG/ML (2 ML VIAL) ONE (12:53)
[2022-07-22] MEDS ORDERED: PROPOFOL 10 MG/ML 20 ML VIAL IV ONE (12:53)
--- NOTE | 2022-07-22 12:59 | P.GSHP ---
History of Present Illness H&P Date: 07/22/22 Chief Complaint: Dysphagia, malnutrition 62-year-old male here for PEG tube replacement. Catheter is not working well for him. No pain. Past Medical History Past Medical History: Cancer, Hypertension, Thyroid Disorder Additional Past Medical History / Comment(s): Hx neck cancer in 2010, had surgery, chemo and radiation. History of Any Multi-Drug Resistant Organisms: None Reported Past Surgical History: Tonsillectomy Additional Past Surgical History / Comment(s): Lymph node removal, thyroidectomy, radical tonsil dissection. Past Anesthesia/Blood Transfusion Reactions: No Reported Reaction Past Psychological History: Anxiety Smoking Status: Former smoker Past Alcohol Use History: None Reported Additional Past Alcohol Use History / Comment(s): Quit smoking April 2021. Past Drug Use History: Marijuana Additional Drug Use History / Comment(s): Smokes 2-3 joints of Marijuana daily, aware no use 24 hrs prior to procedure. - Past Family History Mother Family Medical History: Cancer, Pneumonia Additional Family Medical History / Comment(s): from lung cancer and pneumonia. Father Family Medical History: Prostate Disorder Additional Family Medical History / Comment(s): Prostatectomy due to Prostate Cancer. Sister(s) Family Medical History: Cancer Additional Family Medical History / Comment(s): Breast Cancer. Medications and Allergies Home Medications Medication Instructions Recorded Confirmed Type Lansoprazole [Prevacid] 30 mg PO DAILY PRN 05/07/21 07/22/22 History Levothyroxine Sodium [Synthroid] 75 mcg PO DAILY 05/07/21 07/22/22 History amLODIPine [Norvasc] 10 mg PO DAILY 05/07/21 07/22/22 History cloNIDine 0.3 MG/24HR PATCH 1 patch TRANSDERM CAMERON 05/07/21 07/22/22 History [Catapres-TTS] Albuterol Nebulized [Ventolin 2.5 mg INHALATION Q6H PRN 07/03/21 07/22/22 History Nebulized] Albuterol Sulfate [Albuterol 2 puff INHALATION Q6H PRN 07/03/21 07/22/22 History Sulfate Hfa] LORazepam 0.5 mg PO Q8H PRN 07/01/22 07/22/22 History Ondansetron [Zofran] 4 mg PO Q8HR PRN 07/01/22 07/22/22 History Allergies Allergy/AdvReac Type Severity Reaction Status Date / Time No Known Allergies Allergy Verified 07/22/22 12:28 Surgical - Exam Vital Signs Temp Pulse Resp BP Pulse Ox 98.3 F 69 16 159/101 98 07/22/22 12:38 07/22/22 12:38 07/22/22 12:38 07/22/22 12:38 07/22/22 12:38 Physical exam: General: Well-developed, well-nourished HEENT: Normocephalic, sclerae nonicteric Abdomen: Nontender, nondistended Extremities: No edema Neuro: Alert and oriented Assessment and Plan (1) Aspiration pneumonia Narrative/Plan: Will proceed with EGD and PEG tube replacement Current Visit: No Status: Acute Code(s): J69.0 - PNEUMONITIS DUE TO INHALATION OF FOOD AND VOMIT SNOMED Code(s): 321238500
--- NOTE | 2022-07-22 13:10 | P.PCN ---
Date of Procedure: 07/22/22 Procedure(s) Performed: PREOPERATIVE DIAGNOSIS: Malnutrition POSTOPERATIVE DIAGNOSIS: Same PROCEDURE: EGD with PEG tube replacement SURGEON: Daphne EBL: Minimal ANESTHESIA: Sedation COMPLICATIONS: None OPERATIVE PROCEDURE: The patient was placed in the supine position on the endoscopy table. The patient was sedated per anesthesia that time. The Olympus gastroscope was inserted into the oropharynx and passed under direct visualization to the region of the duodenum. No obstruction was seen. The pylorus was widely patent. The stomach was carefully inspected. The stomach was fully insufflated with air. The abdominal wall was inspected. The previous PEG tube was present in the left upper quadrant. This was able to removed in one piece with anterior traction. The new 20-[place] non-balloon monarch style catheter was advanced without difficulty. This was seated appropriately. No other abnormalities were noted. DISPOSITION: Stable to recovery room
[2022-07-22] MEDS ORDERED: KETOROLAC 15 MG/ML 1 ML VIAL ONE (13:29)
[2022-07-22] MEDS ORDERED: KETOROLAC 15 MG/ML 1 ML VIAL IVP ONE (13:30)
[2022-07-22 13:36] VITALS: BP 160/94; PULSE 84
== END 2022-07-22 14:11 | disposition home or self-care (01) ==
LOC: ORWHC2ENDO 11:44
PROVIDERS: ATTEND Surgery
DX: K94.23 Gastrostomy malfunction (principal); E46 Unspecified protein-calorie malnutrition; Z68.1 Body mass index [BMI] 19.9 or less, adult; I10 Essential (primary) hypertension; E03.9 Hypothyroidism, unspecified; Z85.89 Personal history of malignant neoplasm of other organs and systems; Z92.21 Personal history of antineoplastic chemotherapy; Z92.3 Personal history of irradiation; F41.9 Anxiety disorder, unspecified; Z87.891 Personal history of nicotine dependence; F12.90 Cannabis use, unspecified, uncomplicated; Z79.899 Other long term (current) drug therapy; Z79.890 Hormone replacement therapy
CPT/HCPCS: 43246; J1885; J2704; J2001; B4087; 43239

== ENCOUNTER 2022-08-02 12:12 | Emergency (ER) | payer MEDICARE ==
[2022-08-02 12:20] VITALS: TEMP 98.1
--- NOTE | 2022-08-02 12:40 | ED ---
General Adult HPI - General Chief complaint: Recheck/Abnormal Lab/Rx Stated complaint: Abd Pain Time Seen by Provider: 08/02/22 12:31 Source: patient, RN notes reviewed, old records reviewed Mode of arrival: ambulatory Limitations: no limitations - History of Present Illness Initial comments: 62-year-old male presenting for evaluation of bleeding around his PEG tube. Patient had PEG tube insertion performed 10 days ago. He's had a small amount of bleeding at the site since this time. The tube has been functioning properly without any issues. Patient is on Tylenol and Motrin for pain. He denies any other antiplatelet or anticoagulants. - Related Data Home Medications Medication Instructions Recorded Confirmed Lansoprazole [Prevacid] 30 mg PO DAILY PRN 05/07/21 07/22/22 Levothyroxine Sodium [Synthroid] 75 mcg PO DAILY 05/07/21 07/22/22 amLODIPine [Norvasc] 10 mg PO DAILY 05/07/21 07/22/22 cloNIDine 0.3 MG/24HR PATCH 1 patch TRANSDERM CAMERON 05/07/21 07/22/22 [Catapres-TTS] Albuterol Nebulized [Ventolin 2.5 mg INHALATION Q6H PRN 07/03/21 07/22/22 Nebulized] Albuterol Sulfate [Albuterol 2 puff INHALATION Q6H PRN 07/03/21 07/22/22 Sulfate Hfa] LORazepam 0.5 mg PO Q8H PRN 07/01/22 07/22/22 Ondansetron [Zofran] 4 mg PO Q8HR PRN 07/01/22 07/22/22 Allergies Allergy/AdvReac Type Severity Reaction Status Date / Time No Known Allergies Allergy Verified 08/02/22 12:20 Review of Systems ROS Statement: Those systems with pertinent positive or pertinent negative responses have been documented in the HPI. ROS Other: All systems not noted in ROS Statement are negative. Past Medical History Past Medical History: Cancer, COPD, Hypertension, Pneumonia, Thyroid Disorder Additional Past Medical History / Comment(s): Hx neck cancer in 2010, had surgery, chemo and radiation. History of Any Multi-Drug Resistant Organisms: None Reported Past Surgical History: Tonsillectomy Additional Past Surgical History / Comment(s): Lymph node removal, thyroidectomy, radical tonsil dissection. Past Anesthesia/Blood Transfusion Reactions: No Reported Reaction Past Psychological History: Anxiety Smoking Status: Former smoker Past Alcohol Use History: None Reported Past Drug Use History: Marijuana - Past Family History Mother Family Medical History: Cancer, Pneumonia Additional Family Medical History / Comment(s): from lung cancer and pneumonia. Father Family Medical History: Prostate Disorder Additional Family Medical History / Comment(s): Prostatectomy due to Prostate Cancer. Sister(s) Family Medical History: Cancer Additional Family Medical History / Comment(s): Breast Cancer. General Exam Limitations: no limitations General appearance: alert, cachectic Head exam: Present: atraumatic, normocephalic Eye exam: Present: normal appearance, PERRL ENT exam: Present: normal exam Neck exam: Present: normal inspection. Absent: tenderness Respiratory exam: Present: normal lung sounds bilaterally. Absent: respiratory distress, wheezes Cardiovascular Exam: Present: regular rate, normal rhythm GI/Abdominal exam: Present: soft, other (PEG tube with a small amount of dried blood on the drain sponge, no surrounding erythema). Absent: distended, tenderness Neurological exam: Present: alert. Absent: motor sensory deficit Psychiatric exam: Present: normal affect, normal mood Skin exam: Present: warm, dry Course Vital Signs 08/02/22 12:17 Temperature 98.1 F Pulse Rate 97 Respiratory 20 Rate Blood Pressure 125/83 O2 Sat by Pulse 97 Oximetry Medical Decision Making - Medical Decision Making Was pt. sent in by a medical professional or institution ([facility], HOSE TENDER, urgent care, hospital, or penitentiary...) When possible be specific @ -[No] Did you speak to anyone other than the patient for history (EMS, parent, family, police, friend...)? What history was obtained from this source @ -[No] Did you review nursing and triage notes (agree or disagree)? Why? @ -[I reviewed and agree with nursing and triage notes] Were old charts reviewed (outside hosp., previous admission, EMS record, old EKG, old radiological studies, urgent care reports/EKG's, penitentiary records)? Report findings @ Surgical documentation Differential Diagnosis (chest pain, altered mental status, abdominal pain women, abdominal pain men, vaginal bleeding, weakness, fever, dyspnea, syncope, headache, dizziness, GI bleed, back pain, seizure, CVA, palpatations, mental health, musculoskeletal)? @ Bleeding PEG tube site EKG interpreted by me (3pts min.). @ -[As above] X-rays interpreted by me (1pt min.). @ -[None done] CT interpreted by me (1pt min.). @ -[None done] U/S interpreted by me (1pt. min.). @ -[None done] What testing was considered but not performed or refused? (CT, X-rays, U/S, labs)? Why? @ -[None] What meds were considered but not given or refused? Why? @ -[None] Did you discuss the management of the patient with other professionals (brian st i.e. , PA, HOSE TENDER, lab, RT, psych nurse, bilingual social worker, dowel machine operator, teacher, emergency communications officer, caser)? Give summary @ -Dr. Blanchard, recommends discontinuing Motrin Was smoking cessation discussed for >3mins.? @ -[No] Was critical care preformed (if so, how long)? @ -[No] Were there social determinants of health that impacted care today? How? (Homelessness, low income, unemployed, alcoholism, drug addiction, transportation, low edu. Level, literacy, decrease access to med. care, fdc, rehab)? @ -[No] Was there de-escalation of care discussed even if they declined (Discuss DNR or withdrawal of care, Hospice)? DNR status @ -[No] What co-morbidities impacted this encounter? (DM, HTN, Smoking, COPD, CAD, Cancer, CVA, ARF, Chemo, Hep., AIDS, mental health diagnosis, sleep apnea, morbid obesity)? @ -[None] Was patient admitted / discharged? Hospital course, mention meds given and route, prescriptions, significant lab abnormalities, going to OR and other per tinent info. @ 62-year-old male with minimal bleeding at recent PEG tube site. No active bleeding at the time my evaluation. The PEG tube is tightened and the patient is instructed to discontinue Motrin. Return parameters discussed. Undiagnosed new problem with uncertain prognosis? @ -[No] Drug Therapy requiring intensive monitoring for toxicity (Heparin, Nitro, Insulin, Cardizem)? @ -[No] Were any procedures done? @ -[No] Diagnosis/symptom? @ Bleeding at the PEG tube site Acute, or Chronic, or Acute on Chronic? @ -Acute Uncomplicated (without systemic symptoms) or Complicated (systemic symptoms)? @ -[default] Side effects of treatment? @ -[No] Exacerbation, Progression, or Severe Exacerbation? @ -[No] Poses a threat to life or bodily function? How? (Chest pain, [place], [place], pneumonia, PE, COPD, DKA, ARF, appy, cholecystitis, CVA, Diverticulitis, Homicidal, Suicidal, threat to staff... and all critical care pts) @ -Low-risk Disposition Clinical Impression: Status post insertion of percutaneous endoscopic gastrostomy (PEG) tube Disposition: HOME SELF-CARE Condition: Fair Instructions (If sedation given, give patient instructions): How to Use and Care for Your PEG Tube (ED) Additional Instructions: Please discontinue Motrin. Please follow-up with your surgeon on Thursday. Is patient prescribed a controlled substance at d/c from ED?: No Referrals: Quique Umaña MD [Primary Care Provider] - 1-2 days Time of Disposition: 12:51
[2022-08-02 13:24] VITALS: BP 138/96; PULSE 80; RESP 18
== END 2022-08-02 13:29 | disposition home or self-care (01) ==
LOC: EC 12:12
DX: Z93.1 Gastrostomy status (principal); J44.9 Chronic obstructive pulmonary disease, unspecified; I10 Essential (primary) hypertension; E07.9 Disorder of thyroid, unspecified; F41.9 Anxiety disorder, unspecified; F12.90 Cannabis use, unspecified, uncomplicated; Z79.899 Other long term (current) drug therapy; Z87.891 Personal history of nicotine dependence
CPT/HCPCS: 99284

== ENCOUNTER → 2023-04-03 | Outpatient (CLI) | payer MEDICARE ==
--- NOTE | 2023-04-03 16:16 | CT ---
EXAMINATION TYPE: CT brain wo con DATE OF EXAM: 04/03/2023 COMPARISON: 06/28/2016 HISTORY: 62-year-old male memory changes, dizziness TECHNIQUE: Examination was done in axial plane without intravenous contrast. Coronal and sagittal r econstructions performed. CT DLP: 1171 mGycm Automated exposure control for dose reduction was used. FINDINGS: There is no evidence of acute intracranial hemorrhage, acute ischemic changes, mass, mass-effect, or extra-axial fluid collection. There is no effacement of cerebral sulci or basal subarachnoid cister ns. There is no hydrocephalus. There is no midline shift. Ferrer-white matter distinction is preserv ed. Mild patchy white matter hypodensity. Paranasal sinuses and mastoid air cells well pneumatized. Orbits and globes are intact. IMPRESSION: Mild patchy burden of chronic small vessel ischemic disease. No acute intracranial abnormality seen.
== END | disposition home or self-care (01) ==
LOC: RADCTMAIN 15:30
PROVIDERS: ATTEND Family Medicine
DX: I67.82 Cerebral ischemia (principal); R41.3 Other amnesia; R42 Dizziness and giddiness; Z85.89 Personal history of malignant neoplasm of other organs and systems
CPT/HCPCS: 70450

== ENCOUNTER 2023-08-27 12:38 | Inpatient (IN) | payer MEDICARE ==
--- NOTE | 2023-08-27 13:08 | ED ---
General Adult HPI - General Chief complaint: Altered Mental Status Stated complaint: post op recheck Time Seen by Provider: 08/27/23 12:51 Source: EMS Mode of arrival: EMS Limitations: no limitations - History of Present Illness Initial comments: Dictation was produced using Meebler dictation software. please excuse any grammatical, word or spelling errors. Chief Complaint: 63-year-old male presents to the emergency department for lethargy History of Present Illness: Patient 63-year-old male was brought in by EMS from home. He has multiple comorbidities. Patient lethargic not a reliable historian. HPI mostly obtained from EMS states that they [facility]. He was recently hospitalized for feeding tube placement. Patient has extensive history of cancer. He is at [facility] where he started to be lethargic and minimally responsive. Initial blood pressure per EMS was 90 systolic. En route he his blood pressure started to drop. Patient denies any pain complaints. States that he feels cold. Denies any cough. No urinary symptoms The ROS documented in this emergency department record has been reviewed and confirmed by me. Those systems with pertinent positive or negative responses have been documented in the HPI. All other systems are other negative and/or noncontributory. - Related Data Home Medications Medication Instructions Recorded Confirmed Levothyroxine Sodium [Synthroid] 75 mcg PEG/G-TUBE DAILY 05/07/21 08/27/23 amLODIPine [Norvasc] 10 mg PEG/G-TUBE DAILY 05/07/21 08/27/23 Ondansetron [Zofran] 4 mg PEG/G-TUBE Q6H PRN 07/01/22 08/27/23 Acetaminophen Tab [Tylenol] 650 mg PEG/G-TUBE Q6H PRN 08/27/23 08/27/23 Ipratropium-Albuterol Nebulize 3 ml INHALATION RT-Q6H PRN 08/27/23 08/27/23 [Duoneb 0.5 mg-3 mg/3 ml Soln] Menthol-Zinc Oxide Oint 1 applic TOPICAL Q1H PRN 08/27/23 08/27/23 [Calmoseptine Ointment] Omeprazole [PriLOSEC] 20 mg PEG/G-TUBE DAILY 08/27/23 08/27/23 carvediloL [Coreg] 6.25 mg PEG/G-TUBE BID@0800,1700 08/27/23 08/27/23 cloNIDine HCL [Catapres] 0.2 mg PEG/G-TUBE 08/27/23 08/27/23 TID@0800,1200,1800 hydrOXYzine pamoate [Vistaril] 25 mg PEG/G-TUBE HS 08/27/23 08/27/23 lisinopriL [Zestril] 2.5 mg PEG/G-TUBE BID 08/27/23 08/27/23 Allergies Allergy/AdvReac Type Severity Reaction Status Date / Time No Known Allergies Allergy Verified 08/27/23 14:45 Review of Systems ROS Statement: Those systems with pertinent positive or pertinent negative responses have been documented in the HPI. ROS Other: All systems not noted in ROS Statement are negative. Past Medical History Past Medical History: Cancer, COPD, Hypertension, Pneumonia, Thyroid Disorder Additional Past Medical History / Comment(s): Hx neck cancer in 2010, had surgery, chemo and radiation. History of Any Multi-Drug Resistant Organisms: None Reported Past Surgical History: Tonsillectomy Additional Past Surgical History / Comment(s): Lymph node removal, thyroidect jocelin, radical tonsil dissection. Past Anesthesia/Blood Transfusion Reactions: No Reported Reaction Past Psychological History: Anxiety Smoking Status: Former smoker Past Alcohol Use History: None Reported Past Drug Use History: Marijuana - Past Family History Mother Family Medical History: Cancer, Pneumonia Additional Family Medical History / Comment(s): from lung cancer and pneumonia. Father Family Medical History: Prostate Disorder Additional Family Medical History / Comment(s): Prostatectomy due to Prostate Cancer. Sister(s) Family Medical History: Cancer Additional Family Medical History / Comment(s): Breast Cancer. General Exam - General Exam Comments Initial Comments: PHYSICAL EXAM: General Impression: Lethargic, arousable HEENT: Normocephalic atraumatic, extra-ocular movements intact, pupils equal and reactive to light bilaterally, dry mucous membranes, cachectic Cardiovascular: Heart regular rate and rhythm Chest: Able to complete full sentences, no retractions, no tachypnea Abdomen: abdomen soft, non-tender, non-distended, no organomegaly Musculoskeletal: Pulses present and equal in all extremities, no peripheral edema Motor: no focal deficits noted Neurological: CN II-XII grossly intact, no focal motor or sensory deficits noted Skin: Intact with no visualized rashes Limitations: no limitations Course Vital Signs 08/27/23 08/27/23 08/27/23 12:39 12:47 13:00 Temperature 98.6 F Pulse Rate 44 L 45 L 47 L Respiratory 18 18 Rate Blood Pressure 58/41 58/41 76/56 O2 Sat by Pulse 100 100 Oximetry 08/27/23 08/27/23 08/27/23 13:15 13:30 13:45 Temperature Pulse Rate 46 L 45 L 44 L Respiratory 18 18 18 Rate Blood Pressure 111/84 89/57 72/48 O2 Sat by Pulse 100 99 98 Oximetry 08/27/23 08/27/23 08/27/23 13:56 14:00 14:15 Temperature Pulse Rate 44 L 44 L 43 L Respiratory 16 18 18 Rate Blood Pressure 56/40 56/40 54/34 O2 Sat by Pulse 95 97 98 Oximetry 08/27/23 08/27/23 08/27/23 14:30 14:45 15:00 Temperature Pulse Rate 44 L 44 L 45 L Respiratory 19 17 18 Rate Blood Pressure 61/45 74/54 O2 Sat by Pulse 97 93 L 98 Oximetry - Reevaluation(s) Reevaluation #1: 08/27/23 13:08 Patient seen and evaluated initially in trauma bay #3. I was notified by the nurse that patient's blood pressure was 50s over 30s. Immediately at the bedside Central venous catheter was placed in the right [place]. Patient tolerated procedure well started on vasopressin and medications. Patient lethargic but arousable. Prior to arrival in the emergency department patient received a liter and a half of IV fluids. EKG Findings - EKG Comments: EKG Findings:: My EKG interpretation: Ventricular rate 45, sinus bradycardia,. 194, cures 90, QTc 423. No AR prolongation, no QTC prolongation, no ST or T-wave changes noted. Procedures - Central Line Placement Right Femoral Consent Obtained: verbal consent, emergent situation Patient Placed on Monitor/Pulse Ox: Yes MD Prep: mask, gown, gloves Central Line Prep: Chlorhexidine scrub Local Anesthesia Used: Lidocaine 2%, with Epi Ultrasound Used for Placement: Yes Central Line Lumen Inserted: triple Bloods Obtained for Lab: Yes Central Line Position: good blood return, all ports aspirated, flushed, capped, sutured in place with 3-0 nylon Dressing Applied: Tegaderm Post Procedure X-Ray: tip of catheter in good position Patient Tolerated Procedure: well Complications: none Medical Decision Making - Medical Decision Making Was pt. sent in by a medical professional or institution (, PA, WEB MARKETING ASSISTANT, urgent care, hospital, or jail...) When possible be specific @ -retirement Did you speak to anyone other than the patient for history (EMS, parent, family, police, friend...)? What history was obtained from this source @ -Case discussed with EMS as described above and also daughter at the bedside Did you review nursing and triage notes (agree or disagree)? Why? @ -[I reviewed and agree with nursing and triage notes] Were old charts reviewed (outside hosp., previous admission, EMS record, old EKG, old radiological studies, urgent care reports/EKG's, jail records)? Report findings @ -[No old charts were reviewed] Differential Diagnosis (chest pain, altered mental status, abdominal pain women, abdominal pain men, vaginal bleeding, musculoskeletal, weakness, fever, dyspnea, syncope, headache, dizziness, GI bleed, back pain, seizure, CVA, palpatations, mental health)? @ -Differential Weakness: Hypoglycemia, shock, sepsis, hyponatremia, anemia, infection, SC, ETOH, adverse medicine reaction, overdose, stroke, this is not meant to be an all-inclusive list. EKG interpreted by me (3pts min.). @ -See above X-rays interpreted by me (1pt min.). @ -Acute abdominal series and chest x-ray shows no acute processes CT interpreted by me (1pt min.). @ -[None done] U/S interpreted by me (1pt. min.). @ -[None done] What testing was considered but not performed or refused? (CT, X-rays, U/S, labs)? Why? @ -[None] What meds were considered but not given or refused? Why? @ -[None] Was smoking cessation discussed for >3mins.? @ -[No] Were there social determinants of health that impacted care today? How? (Homelessness, low income, unemployed, alcoholism, drug addiction, transportati on, low edu. Level, literacy, decrease access to med. care, fdc, rehab)? @ -[No] Was there de-escalation of care discussed even if they declined (Discuss DNR or withdrawal of care, Hospice)? DNR status @ -[No] What co-morbidities impacted this encounter? (DM, HTN, Smoking, COPD, CAD, Cancer, CVA, ARF, Chemo, Hep., AIDS, mental health diagnosis, sleep apnea, morbid obesity)? @ -Debility, cachexia Was patient admitted / discharged? Hospital course, mention meds given and route, prescriptions, significant lab abnormalities, going to OR and other pertinent info. @ -63-year-old male with multiple comorbidities presents to the ER for lethargy and hypotension. Vital signs upon arrival shows blood pressure of 58/41. Right femoral venous central catheter line was placed using ultrasound guidance. Patient initially started on IV pressors after having had already a liter and a half of IV fluids with persistent hypotension. Laboratory evaluation obtained. No leukocytosis. Hemoglobin of 9.6. Coag panel within acceptable limits. Metabolic panel shows no LISA. Patient given IV fluids. Stool gallbladder is negative. Imaging studies are negative. Patient evaluated at bedside states that he feels cold. Blood cultures urine cultures obtained pending results. Patient started on broad-spectrum antibiotics for concerns of possible sepsis. Patient will be admitted to the intensive care unit for further care. Case discussed with hospitalist for admission. Did you discuss the management of the patient with other professionals (professionals i.e. , PA, WEB MARKETING ASSISTANT, lab, RT, psych nurse, web content & social media manager, plumber's assistant, teacher, nuclear medicine officer, returned case inspector)? Give summary @ -See above Was critical care preformed (if so, how long)? @ -Yes, 73 minutes Undiagnosed new problem with uncertain prognosis? @ -[No] Drug Therapy requiring intensive monitoring for toxicity (Heparin, Nitro, Insulin, Cardizem)? @ -[No] Were any procedures done? @ -[No] Diagnosis/symptom? Acute, or Chronic, or Acute on Chronic? Uncomplicated (without systemic symptoms) or Complicated (systemic symptoms)? @ -Hypotension, generalized weakness Side effects of treatment? @ -[No] Exacerbation, Progression, or Severe Exacerbation? @ -[No] Poses a threat to life or bodily function? How? (Chest pain, USA, SC, pneumonia, PE, COPD, DKA, ARF, appy, cholecystitis, CVA, Diverticulitis, Homicidal, Suicidal, threat to staff... and all critical care pts) @ -Yes - Lab Data Result diagrams: 08/27/23 13:02 08/27/23 13:02 Lab Results 08/27/23 08/27/23 08/27/23 Range/Units 13:02 13:02 13:02 WBC 6.0 (3.8-10.6) k/uL RBC 3.58 L (4.30-5.90) m/uL Hgb 9.6 L (13.0-17.5) gm/dL Hct 31.4 L (39.0-53.0) % MCV 87.6 (80.0-100.0) fL MCH 26.8 (25.0-35.0) pg MCHC 30.6 L (31.0-37.0) g/dL RDW 16.1 H (11.5-15.5) % Plt Count 328 (150-450) k/uL MPV 8.6 Neutrophils % 68 % Lymphocytes % 16 % Monocytes % 12 % Eosinophils % 1 % Basophils % 1 % Neutrophils # 4.1 (1.3-7.7) k/uL Lymphocytes # 0.9 L (1.0-4.8) k/uL Monocytes # 0.7 (0-1.0) k/uL Eosinophils # 0.1 (0-0.7) k/uL Basophils # 0.0 (0-0.2) k/uL Hypochromasia Slight Anisocytosis Slight PT (10.0-12.5) sec INR (<1.2) APTT (22.0-30.0) sec Sodium 132 L (137-145) mmol/L Potassium 4.7 (3.5-5.1) mmol/L Chloride 101 (98-107) mmol/L Carbon Dioxide 26 (22-30) mmol/L Anion Gap 5 mmol/L BUN 60 H (9-20) mg/dL Creatinine 2.02 H (0.66-1.25) mg/dL Est GFR (CKD-EPI)AfAm 39 (>60 ml/min/1.73 sqM) Est GFR (CKD-EPI)NonAf 34 (>60 ml/min/1.73 sqM) Glucose 77 (74-99) mg/dL Plasma Lactic Acid Amador (0.7-2.0) mmol/L Calcium 7.9 L (8.4-10.2) mg/dL Ionized Calcium Reynaldo 4.7 (4.5-5.3) mg/dL Magnesium 2.2 (1.6-2.3) mg/dL Total Bilirubin 0.3 (0.2-1.3) mg/dL AST 15 L (17-59) U/L ALT 7 (4-49) U/L Alkaline Phosphatase 58 (38-126) U/L Troponin I (0.000-0.034) ng/mL Total Protein 5.7 L (6.3-8.2) g/dL Albumin 2.9 L (3.5-5.0) g/dL Stool Occult Blood (Negative) Blood Type O Positive Blood Type Confirm Blood Type Recheck No Previous Record Bld Type Recheck Status CABO Indicated Antibody Screen NEGATIVE Spec Expiration Date 08/30/2023 - 230108/27/23 08/27/23 08/27/23 Range/Units 13:03 13:03 13:03 WBC (3.8-10.6) k/uL RBC (4.30-5.90) m/uL Hgb (13.0-17.5) gm/dL Hct (39.0-53.0) % MCV (80.0-100.0) fL MCH (25.0-35.0) pg MCHC (31.0-37.0) g/dL RDW (11.5-15.5) % Plt Count (150-450) k/uL MPV Neutrophils % % Lymphocytes % % Monocytes % % Eosinophils % % Basophils % % Neutrophils # (1.3-7.7) k/uL Lymphocytes # (1.0-4.8) k/uL Monocytes # (0-1.0) k/uL Eosinophils # (0-0.7) k/uL Basophils # (0-0.2) k/uL Hypochromasia Anisocytosis PT 11.8 (10.0-12.5) sec INR 1.1 (<1.2) APTT 28.1 (22.0-30.0) sec Sodium (137-145) mmol/L Potassium (3.5-5.1) mmol/L Chloride (98-107) mmol/L Carbon Dioxide (22-30) mmol/L Anion Gap mmol/L BUN (9-20) mg/dL Creatinine (0.66-1.25) mg/dL Est GFR (CKD-EPI)AfAm (>60 ml/min/1.73 sqM) Est GFR (CKD-EPI)NonAf (>60 ml/min/1.73 sqM) Glucose (74-99) mg/dL Plasma Lactic Acid Amador 0.9 (0.7-2.0) mmol/L Calcium (8.4-10.2) mg/dL Ionized Calcium Reynaldo (4.5-5.3) mg/dL Magnesium (1.6-2.3) mg/dL Total Bilirubin (0.2-1.3) mg/dL AST (17-59) U/L ALT (4-49) U/L Alkaline Phosphatase (38-126) U/L Troponin I <0.012 (0.000-0.034) ng/mL Total Protein (6.3-8.2) g/dL Albumin (3.5-5.0) g/dL Stool Occult Blood (Negative) Blood Type Blood Type Confirm Blood Type Recheck Bld Type Recheck Status Antibody Screen Spec Expiration Date 08/27/23 08/27/23 Range/Units 13:07 13:20 WBC (3.8-10.6) k/uL RBC (4.30-5.90) m/uL Hgb (13.0-17.5) gm/dL Hct (39.0-53.0) % MCV (80.0-100.0) fL MCH (25.0-35.0) pg MCHC (31.0-37.0) g/dL RDW (11.5-15.5) % Plt Count (150-450) k/uL MPV Neutrophils % % Lymphocytes % % Monocytes % % Eosinophils % % Basophils % % Neutrophils # (1.3-7.7) k/uL Lymphocytes # (1.0-4.8) k/uL Monocytes # (0-1.0) k/uL Eosinophils # (0-0.7) k/uL Basophils # (0-0.2) k/uL Hypochromasia Anisocytosis PT (10.0-12.5) sec INR (<1.2) APTT (22.0-30.0) sec Sodium (137-145) mmol/L Potassium (3.5-5.1) mmol/L Chloride (98-107) mmol/L Carbon Dioxide (22-30) mmol/L Anion Gap mmol/L BUN (9-20) mg/dL Creatinine (0.66-1.25) mg/dL Est GFR (CKD-EPI)AfAm (>60 ml/min/1.73 sqM) Est GFR (CKD-EPI)NonAf (>60 ml/min/1.73 sqM) Glucose (74-99) mg/dL Plasma Lactic Acid Amador (0.7-2.0) mmol/L Calcium (8.4-10.2) mg/dL Ionized Calcium Reynaldo (4.5-5.3) mg/dL Magnesium (1.6-2.3) mg/dL Total Bilirubin (0.2-1.3) mg/dL AST (17-59) U/L ALT (4-49) U/L Alkaline Phosphatase (38-126) U/L Troponin I (0.000-0.034) ng/mL Total Protein (6.3-8.2) g/dL Albumin (3.5-5.0) g/dL Stool Occult Blood Negative (Negative) Blood Type Blood Type Confirm O Positive Blood Type Recheck Bld Type Recheck Status Antibody Screen Spec Expiration Date Disposition Clinical Impression: Hypotension Disposition: ADMITTED IP TO THIS [facility] Condition: Critical Referrals: Suman Ortiz Jr, DO [Doctor of Osteopathic Medicine] - 1-2 days Decision Time: 15:36
[2023-08-27] MEDS: NOREPINEPHRINE 4 MG in SODIUM CHLORIDE 0.9% 250 ML IV ONE (13:16)
[2023-08-27] MEDS: SODIUM CHLORIDE 0.9% 1,000 ML IV STA ×2 (13:17→15:34)
[2023-08-27 13:36] LABS: Anisocytosis Slight; Basophils % (A) 1 %; Eosinophils # (A) 0.1 k/uL (0-0.7); Eosinophils % (A) 1 %; HCT 31.4 % (39.0-53.0); HGB 9.6 gm/dL (13.0-17.5); Hypochromasia Slight; Lymphocytes # (A) 0.9 k/uL (1.0-4.8); Lymphocytes % (A) 16 %; MCH 26.8 pg (25.0-35.0); MCHC 30.6 g/dL (31.0-37.0); MCV 87.6 fL (80.0-100.0); Mean Platelet Volume 8.6; Monocytes # (A) 0.7 k/uL (0-1.0); Monocytes % (A) 12 %; Neutrophils # (A) 4.1 k/uL (1.3-7.7); Neutrophils % (A) 68 %; Platelet Count 328 k/uL (150-450); RBC 3.58 m/uL (4.30-5.90); RDW 16.1 % (11.5-15.5)
[2023-08-27 13:39] LABS: Ionized Calcium 4.7 mg/dL (4.5-5.3)
[2023-08-27 13:49] LABS: INR 1.1 (<1.2); Partial Thromboplastin Time 28.1 sec (22.0-30.0); Prothrombin Time 11.8 sec (10.0-12.5)
[2023-08-27] MEDS: NOREPINEPHRINE 32 MG in SODIUM CHLORIDE 0.9% 218 ML IV ONE (13:50)
[2023-08-27] MEDS: ATROPINE SULFATE 0.4 MG/ML 1 ML VIAL IV STA (13:51)
[2023-08-27 13:52] LABS: ALT 7 U/L (4-49); AST 15 U/L (17-59); African American GFR (CKD) 39 (>60 ml/min/1.73 sqM); Albumin 2.9 g/dL (3.5-5.0); Alkaline Phosphatase 58 U/L (38-126); Anion Gap 5 mmol/L; Blood Urea Nitrogen 60 mg/dL (9-20); Calcium 7.9 mg/dL (8.4-10.2); Carbon Dioxide 26 mmol/L (22-30); Chloride 101 mmol/L (98-107); Glucose 77 mg/dL (74-99); Magnesium 2.2 mg/dL (1.6-2.3); Non-African American GFR(CKD) 34 (>60 ml/min/1.73 sqM); Potassium 4.7 mmol/L (3.5-5.1); Sodium 132 mmol/L (137-145); Total Bilirubin 0.3 mg/dL (0.2-1.3); Total Protein 5.7 g/dL (6.3-8.2)
--- NOTE | 2023-08-27 15:04 | XR ---
EXAMINATION TYPE: XR abdomen acute w cxr DATE OF EXAM: 08/27/2023 3:00 PM CLINICAL INDICATION:Male, 63 years old with history of hypotension; [facility] COMPARISON: None. TECHNIQUE: Two radiographic views of the abdomen (upright and supine) and a frontal chest radiograph were obtained. FINDINGS CHEST: Lungs/Pleura: The lungs are clear. There is no evidence of pleural effusion, focal consolidation or p neumothorax. Mediastinum: Unremarkable. Vasculature: Normal. Heart: Normal in size. Musculoskeletal: The osseous structures are intact. Other findings: No significant. FINDINGS ABDOMEN: Bowel gas pattern: Normal without dilated loops of small or large bowel. Fecal material and gas are d emonstrated throughout the colon and rectum. Abnormal calcifications: None. Musculoskeletal: Normal. Other: None. IMPRESSION: 1. No radiographic evidence for acute abdominal process. 2. No acute cardiopulmonary process
[2023-08-27] MEDS ORDERED: NALOXONE 0.4 MG/ML 1 ML VIAL IV PRN (15:31)
[2023-08-27] MEDS: PIPERACILLIN-TAZOBACTAM 3.375 GM in SODIUM CHLORIDE 0.9% 100 ML IVPB SCH (15:33)
[2023-08-27] MEDS ORDERED: IPRATROPIUM-ALBUTEROL 3 ML NEB INHALATION PRN (15:36)
[2023-08-27] MEDS: SODIUM CHLORIDE 0.9% 1,000 ML IV SCH (18:10)
[2023-08-27 18:31] LABS: T4, Free (Free Thyroxine) 1.11 ng/dL (0.78-2.19)
[2023-08-27] MEDS: LIDOCAINE 2% URO-JET JELLY 5 ML KIT URETHRAL ONE (20:14)
[2023-08-27 21:28] LABS: Appearance,Urine Clear (Clear); Bilirubin,Urine Negative (Negative); Blood,Urine Negative (Negative); Color,Urine Colorless; Glucose,Urine (UA) Negative (Negative); Ketones,Urine Negative (Negative); Leukocyte Esterase,Urine Negative (Negative); Nitrite,Urine Negative (Negative); PH, Urine 5.5 (5.0-8.0); Protein,Urine Trace (Negative); Specific Gravity,Urine 1.014 (1.001-1.035); Urobilinogen,Urine <2.0 mg/dL (<2.0)
[2023-08-28] MEDS ORDERED: LEVOTHYROXINE 75 MCG TAB PEG/G-TUBE SCH (09:00)
[2023-08-28] MEDS: HYDROCORTISONE 10 MG TAB PO SCH ×2 (09:03→20:49)
[2023-08-28] MEDS: LEVOTHYROXINE 100 MCG TAB PEG/G-TUBE SCH (09:03)
[2023-08-28] MEDS ORDERED: ACETAMINOPHEN IV (For NPO) 1,000 MG in EMPTY BAG 1 BAG IVPB PRN (11:09)
[2023-08-28] MEDS: ACETAMINOPHEN IV (For NPO) 1,000 MG in EMPTY BAG 1 BAG IVPB STA (12:07)
--- NOTE | 2023-08-28 12:24 | P.CNPUL ---
History of Present Illness Consult date: 08/28/23 Requesting physician: Suman Ortiz Jr Reason for consult: dyspnea Chief complaint: Lethargy, minimally responsive, hypotension History of present illness: This is a 63-year-old male patient with a history of multiple comorbidities including head and neck cancer in 2010, status post PEG tube insertion, thyroid cancer status post thyroidectomy, chronic obstructive pulmonary disease, hypertension who resides in a local [facility]. He was brought into the emergency department yesterday by EMS after the patient was found to be very weak and lethargic and minimally responsive. Blood pressures in the 90s systolic. X-ray revealed no acute process. Abdominal x-ray revealed no acute process. White count 6.0. Hemoglobin 9.6. Platelets 328. Sodium 132. Potassium 4.7. Bicarb 26. BUN 60. Creatinine 2.0. Troponin negative x 1. Procalcitonin 0.12. TSH 8.53. Cortisol level 15.2. Urinalysis clean. Stool for occult blood negative. He is seen today in consultation in the emergency department. He is currently sitting up on a stretcher. Awake and alert in no acute distress. His main c omplaint is of left shoulder and back pain. No worsening shortness of breath, cough or congestion. He is maintaining good O2 saturations in the 90s on 5 L/min per nasal cannula. He is requiring norepinephrine at 0.1 mcg/kg/min. Review of Systems REVIEW OF SYSTEMS: CONSTITUTIONAL: Denies any recent significant weight loss or weight gain. EYES: Denies change in vision. EARS, NOSE, MOUTH, THROAT: Denies headaches, denies sore throat. CARDIOVASCULAR: Denies chest pain, palpitations or syncopal episodes. RESPIRATORY: Positive for minimal shortness of breath, cough, congestion no hemoptysis. GASTROINTESTINAL: Denies change in appetite, denies abdominal pain GENITOURINARY: Denies hematuria, denies infections. MUSKULOSKELETAL: Positive for left shoulder and back pain, denies swelling. INTEGUMENTARY: Denies rash, denies eczema. NEUROLOGICAL: Denies recent memory loss, no recent seizure activity. PSYCHIATRIC: Denies anxiety, denies depression. HEMATOLOGIC/LYMPHATIC: Denies anemia, denies enlarged lymph nodes. Past Medical History Past Medical History: Cancer, COPD, Hypertension, Pneumonia, Thyroid Disorder Additional Past Medical History / Comment(s): Hx neck cancer in 2010, had surgery, chemo and radiation. History of Any Multi-Drug Resistant Organisms: None Reported Past Surgical History: Tonsillectomy Additional Past Surgical History / Comment(s): Lymph node removal, thyroidectomy, radical tonsil dissection. Past Anesthesia/Blood Transfusion Reactions: No Reported Reaction Past Psychological History: Anxiety Smoking Status: Former smoker Past Alcohol Use History: None Reported Past Drug Use History: Marijuana - Past Family History Mother Family Medical History: Cancer, Pneumonia Additional Family Medical History / Comment(s): from lung cancer and pneumonia. Father Family Medical History: Prostate Disorder Additional Family Medical History / Comment(s): Prostatectomy due to Prostate Cancer. Sister(s) Family Medical History: Cancer Additional Family Medical History / Comment(s): Breast Cancer. Medications and Allergies Home Medications Medication Instructions Recorded Confirmed Type Levothyroxine Sodium [Synthroid] 75 mcg PEG/G-TUBE DAILY 05/07/21 08/27/23 History amLODIPine [Norvasc] 10 mg PEG/G-TUBE DAILY 05/07/21 08/27/23 History Ondansetron [Zofran] 4 mg PEG/G-TUBE Q6H PRN 07/01/22 08/27/23 History Acetaminophen Tab [Tylenol] 650 mg PEG/G-TUBE Q6H PRN 08/27/23 08/27/23 History Ipratropium-Albuterol Nebulize 3 ml INHALATION RT-Q6H PRN 08/27/23 08/27/23 History [Duoneb 0.5 mg-3 mg/3 ml Soln] Menthol-Zinc Oxide Oint 1 applic TOPICAL Q1H PRN 08/27/23 08/27/23 History [Calmoseptine Ointment] Omeprazole [PriLOSEC] 20 mg PEG/G-TUBE DAILY 08/27/23 08/27/23 History carvediloL [Coreg] 6.25 mg PEG/G-TUBE BID@0800,1700 08/27/23 08/27/23 History cloNIDine HCL [Catapres] 0.2 mg PEG/G-TUBE 08/27/23 08/27/23 History TID@0800,1200,1800 hydrOXYzine pamoate [Vistaril] 25 mg PEG/G-TUBE HS 08/27/23 08/27/23 History lisinopriL [Zestril] 2.5 mg PEG/G-TUBE BID 08/27/23 08/27/23 History Allergies Allergy/AdvReac Type Severity Reaction Status Date / Time No Known Allergies Allergy Verified 08/27/23 14:45 Physical Exam Vitals: Vital Signs Temp Pulse Resp BP Pulse Ox 08/28/23 10:00 60 18 119/74 98 08/28/23 09:00 60 17 124/81 98 08/28/23 08:42 98 08/28/23 06:00 54 L 14 123/79 97 08/28/23 05:00 56 L 15 182/107 97 08/28/23 04:00 54 L 16 144/80 98 08/28/23 03:30 56 L 18 115/81 98 08/28/23 00:00 53 L 22 112/77 97 08/27/23 23:31 52 L 22 104/73 96 08/27/23 23:00 53 L 16 135/83 98 08/27/23 22:24 54 L 18 115/79 96 08/27/23 22:00 49 L 15 123/81 97 08/27/23 21:38 53 L 18 111/78 97 08/27/23 21:29 52 L 15 98 08/27/23 21:00 48 L 16 100/69 96 08/27/23 20:45 49 L 19 67/45 97 08/27/23 20:30 52 L 23 95/60 96 08/27/23 20:15 50 L 20 100/62 95 08/27/23 20:00 49 L 16 102/67 95 08/27/23 19:45 49 L 16 81/60 94 L 08/27/23 19:30 47 L 17 93/60 94 L 08/27/23 19:15 48 L 15 87/58 96 08/27/23 19:00 47 L 17 91/62 96 08/27/23 18:45 47 L 12 90/62 98 08/27/23 18:30 48 L 15 83/59 97 08/27/23 18:15 47 L 21 57/42 97 08/27/23 18:00 44 L 18 73/58 97 08/27/23 17:45 44 L 19 79/56 98 08/27/23 17:30 45 L 15 80/57 98 08/27/23 17:15 44 L 18 93/63 99 08/27/23 17:00 44 L 17 94/59 99 08/27/23 16:45 44 L 18 94/63 99 08/27/23 16:30 45 L 18 76/56 98 08/27/23 16:15 44 L 17 81/58 98 08/27/23 16:00 44 L 17 82/64 100 08/27/23 15:45 45 L 19 69/52 93 L 08/27/23 15:30 43 L 18 67/49 95 08/27/23 15:15 47 L 18 70/51 91 L 08/27/23 15:00 45 L 18 74/54 98 08/27/23 14:45 44 L 17 61/45 93 L 08/27/23 14:30 44 L 19 97 08/27/23 14:15 43 L 18 54/34 98 08/27/23 14:00 44 L 18 56/40 97 08/27/23 13:56 44 L 16 56/40 95 08/27/23 13:45 44 L 18 72/48 98 08/27/23 13:30 45 L 18 89/57 99 08/27/23 13:15 46 L 18 111/84 100 08/27/23 13:00 47 L 18 76/56 100 08/27/23 12:47 45 L 18 58/41 100 08/27/23 12:39 98.6 F 44 L 58/41 Intake and Output 08/27/23 08/28/23 08/28/23 22:59 06:59 14:59 Intake Total 11. 43.296 Balance 43.296 Intake: Intake, IV Titration 11.049 43.296 Amount Norepinephrine 32 mg In . 43.296 Sodium Chloride 0.9% 218 ml @ 0.03 MCG/KG/MIN 0. 765 mls/hr IV .Q24H ONE Rx#:[id number] GENERAL EXAM: Alert, thin 63-year-old male patient on 5 L nasal cannula, fairly comfortable in no apparent distress. HEAD: Normocephalic. EYES: Normal reaction of pupils, equal size. NOSE: Clear with pink turbinates. THROAT: No erythema or exudates. NECK: No masses, no JVD. CHEST: No chest wall deformity. LUNGS: Equal air entry with no crackles, wheeze, rhonchi or dullness. CVS: S1 and S2 normal with no audible murmur, regular rhythm. ABDOMEN: PEG tube exit site clean and dry. No hepatosplenomegaly, normal bowel sounds, no guarding or rigidity. SPINE: No scoliosis or deformity SKIN: No rashes CENTRAL NERVOUS SYSTEM: No focal deficits, tone is normal in all 4 extremities. EXTREMITIES: There is no peripheral edema. No clubbing, no cyanosis. Peripheral pulses are intact. Results - Laboratory Findings CBC and BMP: 08/27/23 13:02 08/27/23 13:02 PT/INR, D-dimer PT 11.8 sec (10.0-12.5) 08/27/23 13:03 INR 1.1 (<1.2) 08/27/23 13:03 Abnormal lab findings: Abnormal Labs 08/27/23 08/27/23 08/27/23 13:02 13:02 16:54 RBC 3.58 L Hgb 9.6 L Hct 31.4 L MCHC 30.6 L RDW 16.1 H Lymphocytes # 0.9 L Sodium 132 L BUN 60 H Creatinine 2.02 H Calcium 7.9 L AST 15 L Total Protein 5.7 L Albumin 2.9 L Procalcitonin TSH 8.530 H Urine Protein 08/27/23 08/27/23 16:54 21:19 RBC Hgb Hct MCHC RDW Lymphocytes # Sodium BUN Creatinine Calcium AST Total Protein Albumin Procalcitonin 0.12 H TSH Urine Protein Trace H Assessment and Plan Assessment: Altered mental status of unclear etiology, possibly related to hypotension Hypotension requiring pressor support Acute kidney injury secondary to hypotension Hypothyroidism, status post previous thyroidectomy History of head and neck cancer in 2010 History of hypertension History of chronic obstructive pulmonary disease Former smoker Plan: The patient was seen and evaluated Labs and medications reviewed Continues to require pressor support Will be transferred to the intensive care unit Titrate down the FiO2 as tolerated Check a procalcitonin Continue Zosyn for now Continue bronchodilators Increase his Synthroid to 100 mcg daily Add Cortef 10 mg in the a.m. and 5 mg in the p.m. Continue saline at 130 MLS per hour We will continue to follow and make further recommendations based on his clinical status I have personally seen and examined the patient, performed the documentation and the assessment and plan as written. Number of minutes spent on the visit: 20.
[2023-08-28 13:50] LABS: Glucose,Whole Blood 94 mg/dL (70-110)
--- NOTE | 2023-08-28 13:56 | P.GSCN ---
History of Present Illness Consult date: 08/28/23 Reason for Consult: PEG tube malfunction History of present illness: 63-year-old male known to our service. Underwent PEG tube placement 2 years ago. Has had the PEG tube replaced numerous times. Was recently replaced at [facility]. There is a 16 [place] balloon catheter in place. Tolerating tube feeds. Some drainage of the tube feeds around the catheter entrance site. Tube looks slightly loose in the skin opening. Able to advance the balloon without difficulty. Seems to be appropriately positioned. Abdominal x-ray shows no abnormality. No catheter gram or CAT scan was obtained. In the ICU because of lethargy. More alert today. Complaining of shoulder and body aches. Review of Systems The patient denies any acute changes in vision or hearing, no dysphagia or odynophagia, no chest pain or shortness of breath, no dysuria or hematuria, no headache, no runny nose, no rectal bleeding or melena, no unexplained weight loss Past Medical History Past Medical History: Cancer, COPD, Hypertension, Pneumonia, Thyroid Disorder Additional Past Medical History / Comment(s): Hx neck cancer in 2010, had surgery, chemo and radiation. History of Any Multi-Drug Resistant Organisms: None Reported Past Surgical History: Tonsillectomy Additional Past Surgical History / Comment(s): Lymph node removal, thyroidectomy, radical tonsil dissection. Past Anesthesia/Blood Transfusion Reactions: No Reported Reaction Past Psychological History: Anxiety Smoking Status: Former smoker Past Alcohol Use History: None Reported Past Drug Use History: Marijuana - Past Family History Mother Family Medical History: Cancer, Pneumonia Additional Family Medical History / Comment(s): from lung cancer and pneumonia. Father Family Medical History: Prostate Disorder Additional Family Medical History / Comment(s): Prostatectomy due to Prostate Cancer. Sister(s) Family Medical History: Cancer Additional Family Medical History / Comment(s): Breast Cancer. Medications and Allergies Home Medications Medication Instructions Recorded Confirmed Type Levothyroxine Sodium [Synthroid] 75 mcg PEG/G-TUBE DAILY 05/07/21 08/27/23 History amLODIPine [Norvasc] 10 mg PEG/G-TUBE DAILY 05/07/21 08/27/23 History Ondansetron [Zofran] 4 mg PEG/G-TUBE Q6H PRN 07/01/22 08/27/23 History Acetaminophen Tab [Tylenol] 650 mg PEG/G-TUBE Q6H PRN 08/27/23 08/27/23 History Ipratropium-Albuterol Nebulize 3 ml INHALATION RT-Q6H PRN 08/27/23 08/27/23 History [Duoneb 0.5 mg-3 mg/3 ml Soln] Menthol-Zinc Oxide Oint 1 applic TOPICAL Q1H PRN 08/27/23 08/27/23 History [Calmoseptine Ointment] Omeprazole [PriLOSEC] 20 mg PEG/G-TUBE DAILY 08/27/23 08/27/23 History carvediloL [Coreg] 6.25 mg PEG/G-TUBE BID@0800,1700 08/27/23 08/27/23 History cloNIDine HCL [Catapres] 0.2 mg PEG/G-TUBE 08/27/23 08/27/23 History TID@0800,1200,1800 hydrOXYzine pamoate [Vistaril] 25 mg PEG/G-TUBE HS 08/27/23 08/27/23 History lisinopriL [Zestril] 2.5 mg PEG/G-TUBE BID 08/27/23 08/27/23 History Allergies Allergy/AdvReac Type Severity Reaction Status Date / Time No Known Allergies Allergy Verified 08/27/23 14:45 Surgical - Exam Vital Signs Temp Pulse BP 98.6 F 44 L 58/41 08/27/23 12:39 08/27/23 12:39 08/27/23 12:39 Physical exam: General: Very male nourished appearing elderly male in no distress, seems to be having pain and says it is from his shoulder HEENT: Normocephalic, sclerae nonicteric Abdomen: Nontender, nondistended, catheter in place with small amount of bloody drainage around, no erythema Extremities: No edema Neuro: Alert and oriented Results - Labs 08/27/23 13:02 08/27/23 13:02 Abnormal Lab Results - Last 24 Hours (Table) 08/27/23 08/27/23 08/27/23 Range/Units 16:54 16:54 21:19 Procalcitonin 0.12 H (0.02-0.09) ng/mL TSH 8.530 H (0.465-4.680) mIU/L Urine Protein Trace H (Negative) Thyroid panel 08/27/23 Range/Units 16:54 TSH 8.530 H (0.465-4.680) mIU/L Pituitary panel 08/27/23 Range/Units 16:54 TSH 8.530 H (0.465-4.680) mIU/L Assessment and Plan (1) PEG tube malfunction Narrative/Plan: 63-year-old male with some leakage of tube feeds around the catheter exit site. This likely is related to the fact that it is a 16 Panamanian catheter where before he had a [address] Would not recommend replacing since the catheter seems to be working fine otherwise. No evidence of infection. No intervention planned. Will sign off. Please reconsult if needed. Current Visit: Yes Status: Acute Code(s): K94.23 - GASTROSTOMY MALFUNCTION SNOMED Code(s): 662876732
[2023-08-28] MEDS: HYDROcodone/APAP 5-325MG 1 EACH TAB PEG/G-TUBE PRN (14:33)
[2023-08-28] MEDS: amLODIPine 10 MG TAB PEG/G-TUBE SCH (18:21)
[2023-08-28] MEDS: NOREPINEPHRINE 8 MG in SODIUM CHLORIDE 0.9% 250 ML IV SCH (18:21)
--- NOTE | 2023-08-28 19:09 | P.HPIM ---
History of Present Illness H&P Date: 08/28/23 This is a 63-year-old gentleman with past medical history significant for head and neck cancer 2011, PEG tube with replacement multiple times ,thyroid cancer status post thyroidectomy, prior nicotine dependence, COPD, hypertension and multiple other medical issues. Patient reports he was at [facility] last week for about 4 days for congestive heart failure and was discharged to [facility] yesterday, felt weak. Vague historian. Patient transferred to the ER via EMS related to increased lethargy, decreased responsiveness and hypotension. EMS reported a systolic blood pressure of 90 and pressure continued to drop while and route to the ER. On arrival blood pressure 58/41. Denies chest pain, palpitations. Complains of back and left shoulder pain on ER stretcher. Currently maintaining O2 sats of mid 90s on 5 L nasal cannula, continues on Levophed drip. Afebrile, normal WBC. Hemoglobin 9.6, platelets 328, coagulation panel unremarkable, sodium 132, potassium 4.7, bicarb 26, BUN 60, creatinine 2.02, glucose 77, lactic acid 0.9, magnesium 2.2, troponins negative x 1 , procalcitonin 0.12, TSH 8.530, free T41.11, cortisol 15.2 .UA negative with trace of protein, stool for occult blood negative chest and abdominal x-ray reported no acute process. Review of Systems ROS Statement: Those systems with pertinent positive or pertinent negative responses have been documented in the HPI. ROS Other: All systems not noted in ROS Statement are negative. Past Medical History Past Medical History: Cancer, COPD, Hypertension, Pneumonia, Thyroid Disorder Additional Past Medical History / Comment(s): Hx neck cancer in 2010, had surgery, chemo and radiation. History of Any Multi-Drug Resistant Organisms: None Reported Past Surgical History: Tonsillectomy Additional Past Surgical History / Comment(s): Lymph node removal, thyroidectomy, radical tonsil dissection. Past Anesthesia/Blood Transfusion Reactions: No Reported Reaction Past Psychological History: Anxiety Smoking Status: Former smoker Past Alcohol Use History: None Reported Past Drug Use History: Marijuana - Past Family History Mother Family Medical History: Cancer, Pneumonia Additional Family Medical History / Comment(s): from lung cancer and pneumonia. Father Family Medical History: Prostate Disorder Additional Family Medical History / Comment(s): Prostatectomy due to Prostate Cancer. Sister(s) Family Medical History: Cancer Additional Family Medical History / Comment(s): Breast Cancer. Medications and Allergies Home Medications Medication Instructions Recorded Confirmed Type Levothyroxine Sodium [Synthroid] 75 mcg PEG/G-TUBE DAILY 05/07/21 08/27/23 History amLODIPine [Norvasc] 10 mg PEG/G-TUBE DAILY 05/07/21 08/27/23 History Ondansetron [Zofran] 4 mg PEG/G-TUBE Q6H PRN 07/01/22 08/27/23 History Acetaminophen Tab [Tylenol] 650 mg PEG/G-TUBE Q6H PRN 08/27/23 08/27/23 History Ipratropium-Albuterol Nebulize 3 ml INHALATION RT-Q6H PRN 08/27/23 08/27/23 History [Duoneb 0.5 mg-3 mg/3 ml Soln] Menthol-Zinc Oxide Oint 1 applic TOPICAL Q1H PRN 08/27/23 08/27/23 History [Calmoseptine Ointment] Omeprazole [PriLOSEC] 20 mg PEG/G-TUBE DAILY 08/27/23 08/27/23 History carvediloL [Coreg] 6.25 mg PEG/G-TUBE BID@0800,1700 08/27/23 08/27/23 History cloNIDine HCL [Catapres] 0.2 mg PEG/G-TUBE 08/27/23 08/27/23 History TID@0800,1200,1800 hydrOXYzine pamoate [Vistaril] 25 mg PEG/G-TUBE HS 08/27/23 08/27/23 History lisinopriL [Zestril] 2.5 mg PEG/G-TUBE BID 08/27/23 08/27/23 History Allergies Allergy/AdvReac Type Severity Reaction Status Date / Time No Known Allergies Allergy Verified 08/27/23 14:45 Physical Exam Vitals: Vital Signs Temp Pulse Resp BP Pulse Ox 08/28/23 12:00 99.1 F 65 23 132/91 95 08/28/23 10:00 60 18 119/74 98 08/28/23 09:00 60 17 124/81 98 08/28/23 08:42 98 08/28/23 06:00 54 L 14 123/79 97 08/28/23 05:00 56 L 15 182/107 97 08/28/23 04:00 54 L 16 144/80 98 08/28/23 03:30 56 L 18 115/81 98 08/28/23 00:00 53 L 22 112/77 97 08/27/23 23:31 52 L 22 104/73 96 08/27/23 23:00 53 L 16 135/83 98 08/27/23 22:24 54 L 18 115/79 96 08/27/23 22:00 49 L 15 123/81 97 08/27/23 21:38 53 L 18 111/78 97 08/27/23 21:29 52 L 15 98 08/27/23 21:00 48 L 16 100/69 96 08/27/23 20:45 49 L 19 67/45 97 08/27/23 20:30 52 L 23 95/60 96 08/27/23 20:15 50 L 20 100/62 95 08/27/23 20:00 49 L 16 102/67 95 08/27/23 19:45 49 L 16 81/60 94 L 08/27/23 19:30 47 L 17 93/60 94 L 08/27/23 19:15 48 L 15 87/58 96 08/27/23 19:00 47 L 17 91/62 96 08/27/23 18:45 47 L 12 90/62 98 08/27/23 18:30 48 L 15 83/59 97 08/27/23 18:15 47 L 21 57/42 97 08/27/23 18:00 44 L 18 73/58 97 08/27/23 17:45 44 L 19 79/56 98 08/27/23 17:30 45 L 15 80/57 98 08/27/23 17:15 44 L 18 93/63 99 08/27/23 17:00 44 L 17 94/59 99 08/27/23 16:45 44 L 18 94/63 99 08/27/23 16:30 45 L 18 76/56 98 08/27/23 16:15 44 L 17 81/58 98 08/27/23 16:00 44 L 17 82/64 100 08/27/23 15:45 45 L 19 69/52 93 L 08/27/23 15:30 43 L 18 67/49 95 08/27/23 15:15 47 L 18 70/51 91 L 08/27/23 15:00 45 L 18 74/54 98 08/27/23 14:45 44 L 17 61/45 93 L 08/27/23 14:30 44 L 19 97 08/27/23 14:15 43 L 18 54/34 98 08/27/23 14:00 44 L 18 56/40 97 08/27/23 13:56 44 L 16 56/40 95 08/27/23 13:45 44 L 18 72/48 98 08/27/23 13:30 45 L 18 89/57 99 08/27/23 13:15 46 L 18 111/84 100 08/27/23 13:00 47 L 18 76/56 100 08/27/23 12:47 45 L 18 58/41 100 08/27/23 12:39 98.6 F 44 L 58/41 Intake and Output 08/27/23 08/28/23 08/28/23 22:59 06:59 14:59 Intake Total 11.049 46.528 Balance .049 46.528 Intake: Intake, IV Titration .049 46.528 Amount Norepinephrine 32 mg In . 46.528 Sodium Chloride 0.9% 218 ml @ 0.03 MCG/KG/MIN 0. 765 mls/hr IV .Q24H ONE Rx#:[id number] GENERAL: Cachexic male,Sitting up in bed, no acute distress HEENT: Normocephalic, normal pupils NECK: Supple, no JVD. No thyroid enlargement. No LNs CARDIOVASCULAR: S1, S2 regular. No murmur RESPIRATION: Unlabored, equal air entry, breath sounds diminished in the bases. ABDOMEN: Soft, nontender, nondistended. No guarding. no masses palpable. Bowel sounds heard. PEG tube present with brownish/ bloody drainage around PEG tube site LEGS: No edema. no swelling PSYCHIATRY: Alert and oriented X3, mood and affect normal. NERVOUS SYSTEM: Cranial N 2-12 grossly normal. No focal deficits. Skin: Warm and dry Results CBC & Chem 7: 08/27/23 13:02 08/27/23 13:02 Labs: Abnormal Lab Results - Last 24 Hours (Table) 08/27/23 08/27/23 08/27/23 Range/Units 13:02 13:02 16:54 RBC 3.58 L (4.30-5.90) m/uL Hgb 9.6 L (13.0-17.5) gm/dL Hct 31.4 L (39.0-53.0) % MCHC 30.6 L (31.0-37.0) g/dL RDW 16.1 H (11.5-15.5) % Lymphocytes # 0.9 L (1.0-4.8) k/uL Sodium 132 L (137-145) mmol/L BUN 60 H (9-20) mg/dL Creatinine 2.02 H (0.66-1.25) mg/dL Calcium 7.9 L (8.4-10.2) mg/dL AST 15 L (17-59) U/L Total Protein 5.7 L (6.3-8.2) g/dL Albumin 2.9 L (3.5-5.0) g/dL Procalcitonin (0.02-0.09) ng/mL TSH 8.530 H (0.465-4.680) mIU/L Urine Protein (Negative) 08/27/23 08/27/23 Range/Units 16:54 21:19 RBC (4.30-5.90) m/uL Hgb (13.0-17.5) gm/dL Hct (39.0-53.0) % MCHC (31.0-37.0) g/dL RDW (11.5-15.5) % Lymphocytes # (1.0-4.8) k/uL Sodium (137-145) mmol/L BUN (9-20) mg/dL Creatinine (0.66-1.25) mg/dL Calcium (8.4-10.2) mg/dL AST (17-59) U/L Total Protein (6.3-8.2) g/dL Albumin (3.5-5.0) g/dL Procalcitonin 0.12 H (0.02-0.09) ng/mL TSH (0.465-4.680) mIU/L Urine Protein Trace H (Negative) Assessment and Plan Assessment: Altered mental status, acute metabolic encephalopathy, suspect related to hypotension Hypotension, pressor dependent Acute renal failure secondary to the above Hypothyroidism status post thyroidectomy, TSH elevated, levothyroxine increased History of head, neck cancer PEG tube History of hypertension COPD, history of Prior nicotine dependence Moderate protein calorie malnutrition, BMI 17 Plan: Continue on current medication resume ,monitoring and symptomatic treatment. IV fluid resuscitation, pressor dependent, awaiting ICU bed. Aggressive pulmonary toileting with nebulized bronchodilators and Zosyn. General surgery consulted to evaluate PEG tube; patient has history of multiple replacements. Dietitian consulted regarding tube feeds pending general surgery clearance to use PEG tube. Records of [facility] visit at [facility]. prognosis guarded given multiple complex medical issues. The impression and plan of care has been dictated as directed. : I performed a history and examination of this patient, discussed the same with the dictator. I agree with the dictator's note ,documented as a scribe. Any additional findings or plans will be noted.
[2023-08-29 03:53] LABS: HCT 34.2 % (39.0-53.0); HGB 10.6 gm/dL (13.0-17.5); Hypochromasia Slight; MCH 27.1 pg (25.0-35.0); MCHC 31.1 g/dL (31.0-37.0); MCV 87.2 fL (80.0-100.0); Mean Platelet Volume 8.2; Platelet Count 303 k/uL (150-450); RBC 3.92 m/uL (4.30-5.90); RDW 15.9 % (11.5-15.5); WBC 5.7 k/uL (3.8-10.6)
[2023-08-29 04:09] LABS: African American GFR (CKD) 71 (>60 ml/min/1.73 sqM); Anion Gap 3 mmol/L; Blood Urea Nitrogen 29 mg/dL (9-20); Calcium 8.4 mg/dL (8.4-10.2); Carbon Dioxide 26 mmol/L (22-30); Chloride 104 mmol/L (98-107); Glucose 92 mg/dL (74-99); Non-African American GFR(CKD) 61 (>60 ml/min/1.73 sqM); Potassium 4.4 mmol/L (3.5-5.1); Sodium 133 mmol/L (137-145)
--- NOTE | 2023-08-29 10:48 | P.PN ---
Subjective Progress Note Date: 08/29/23 This is a 63-year-old male patient with a history of multiple comorbidities including head and neck cancer in 2010, status post PEG tube insertion, thyroid cancer status post thyroidectomy, chronic obstructive pulmonary disease, hypertension who resides in a local [facility]. [facility] after the patient was found to be very weak and lethargic and minimally responsive. Blood pressures in the 90s systolic. X-ray revealed no acute process. Abdominal x-ray revealed no acute process. White count 6.0. Hemoglobin 9.6. Platelets 328. Sodium 132. Potassium 4.7. Bicarb 26. BUN 60. Creatinine 2.0. Troponin negative x 1. Procalcitonin 0.12. TSH 8.53. Cortisol level 15.2. Urinalysis clean. Stool for occult blood negative. He is seen today in consultation in the emergency department. He is currently sitting up on a stretcher. Awake and alert in no acute distress. His main complaint is of left shoulder and back pain. No worsening shortness of breath, cough or congestion. He is maintaining good O2 saturations in the 90s on 5 L/min per nasal cannula. He is requiring norepinephrine at 0.1 mcg/kg/min. The patient is seen today August 29, 2023 in follow-up in the intensive care unit. He is currently sitting up in bed. Awake and alert in no acute distress. He has oxygen at 2 L/min per nasal cannula with O2 saturations in the 90s. He is currently on normal saline at 130 MLS per hour. His norepinephrine has been off since yesterday. He is being nourished with Jevity at 40 MLS per hour. PEG tube exit site is clean and dry. Procalcitonin was 0.08. Zosyn will be discontinued. He remains on Cortef 10 mg in the morning and 5 mg in the evening. Current mean arterial pressure 84. He is afebrile. Hemodynamically stable. White count 5.7. Hemoglobin 10.6. Platelets 303. Sodium 133. Potassium 4.4. Bicarb 26. BUN 29. Creatinine 1.25. Objective - Vital Signs Vital signs: Vital Signs Temp 97.8 F 08/29/23 08:00 Pulse 59 L 08/29/23 09:00 Resp 13 08/29/23 09:00 BP 105/72 08/29/23 09:00 Pulse Ox 96 08/29/23 09:00 FiO2 Intake & Output 08/28/23 08/29/23 08/29/23 18:59 06:59 18:59 Intake Total 1056.720 640 470 Output Total 815 1695 300 Balance 241.720 -1055 170 Weight 55 kg Intake: IV 360 0.9 260 Piperacillin-Tazobactam 3 100 .375 gm In Sodium Chloride 0.9% 100 ml @ 25 mls/hr IVPB Q8HR [facility] Rx# :[id number] Intake, IV Titration 1056.720 130 Amount ACETAMINOPHEN IV (For NPO 100 ) 1,000 mg In Empty Bag 1 bag @ 400 mls/hr IVPB Q6HR PRN Rx#:[id number] Norepinephrine 32 mg In 46.720 Sodium Chloride 0.9% 218 ml @ 0.03 MCG/KG/MIN 0. 765 mls/hr IV .Q24H [facility] Rx#:[id number] Sodium Chloride 0.9% 1, 910 130 000 ml @ 75 mls/hr IV . [id number] [facility] Rx#:[id number] Tube Feeding 420 80 Other 90 30 Output: Urine 815 1695 300 Other: Voiding Method Indwelling Catheter Indwelling Catheter Indwelling Catheter - Exam GENERAL EXAM: Alert, thin, 63-year-old male, on 3 L nasal cannula, comfortable i n no apparent distress. HEAD: Normocephalic. EYES: Normal reaction of pupils, equal size. NOSE: Clear with pink turbinates. THROAT: No erythema or exudates. NECK: No masses, no JVD. CHEST: No chest wall deformity. LUNGS: Equal air entry with no crackles, wheeze, rhonchi or dullness. CVS: S1 and S2 normal with no audible murmur, regular rhythm. ABDOMEN: PEG tube exit site clean and dry. No hepatosplenomegaly, normal bowel sounds, no guarding or rigidity. SPINE: No scoliosis or deformity SKIN: No rashes CENTRAL NERVOUS SYSTEM: No focal deficits, tone is normal in all 4 extremities. EXTREMITIES: There is no peripheral edema. No clubbing, no cyanosis. Peripheral pulses are intact. - Labs CBC & Chem 7: 08/29/23 03:06 08/29/23 03:06 Labs: Abnormal Lab Results - Last 24 Hours (Table) 08/29/23 08/29/23 Range/Units 03:06 03:06 RBC 3.92 L (4.30-5.90) m/uL Hgb 10.6 L (13.0-17.5) gm/dL Hct 34.2 L (39.0-53.0) % RDW 15.9 H (11.5-15.5) % Sodium 133 L (137-145) mmol/L BUN 29 H (9-20) mg/dL Microbiology - Last 24 Hours (Table) 08/27/23 13:03 Blood Culture - Preliminary Blood Assessment and Plan Assessment: Altered mental status of unclear etiology, possibly related to hypotension, improved Hypotension requiring pressor support, recovered Acute kidney injury secondary to hypotension, improved Hypothyroidism, status post previous thyroidectomy History of head and neck cancer in 2010 History of hypertension History of chronic obstructive pulmonary disease Former smoker Plan: The patient was seen and evaluated Labs and medications reviewed Procalcitonin within normal limits Discontinue Zosyn Titrate down the FiO2 as tolerated Continue bronchodilators Decrease saline to 75 MLS per hour Transfer to the regular medical floor I have personally seen and examined the patient, performed the documentation and the assessment and plan as written. Number of minutes spent on the visit: 10.
--- NOTE | 2023-08-30 10:01 | P.PN ---
Subjective Progress Note Date: 08/30/23 This is a 63-year-old male patient with a history of multiple comorbidities including head and neck cancer in 2010, status post PEG tube insertion, thyroid cancer status post thyroidectomy, chronic obstructive pulmonary disease, hypertension who resides in a local [facility]. [facility] after the patient was found to be very weak and lethargic and minimally responsive. Blood pressures in the 90s systolic. X-ray revealed no acute process. Abdominal x-ray revealed no acute process. White count 6.0. Hemoglobin 9.6. Platelets 328. Sodium 132. Potassium 4.7. Bicarb 26. BUN 60. Creatinine 2.0. Troponin negative x 1. Procalcitonin 0.12. TSH 8.53. Cortisol level 15.2. Urinalysis clean. Stool for occult blood negative. He is seen today in consultation in the emergency department. He is currently sitting up on a stretcher. Awake and alert in no acute distress. His main complaint is of left shoulder and back pain. No worsening shortness of breath, cough or congestion. He is maintaining good O2 saturations in the 90s on 5 L/min per nasal cannula. He is requiring norepinephrine at 0.1 mcg/kg/min. The patient is seen today August 29, 2023 in follow-up in the intensive care unit. He is currently sitting up in bed. Awake and alert in no acute distress. He has oxygen at 2 L/min per nasal cannula with O2 saturations in the 90s. He is currently on normal saline at 130 MLS per hour. His norepinephrine has been off since yesterday. He is being nourished with Jevity at 40 MLS per hour. PEG tube exit site is clean and dry. Procalcitonin was 0.08. Zosyn will be discontinued. He remains on Cortef 10 mg in the morning and 5 mg in the evening. Current mean arterial pressure 84. He is afebrile. Hemodynamically stable. White count 5.7. Hemoglobin 10.6. Platelets 303. Sodium 133. Potassium 4.4. Bicarb 26. BUN 29. Creatinine 1.25. The patient is seen today August 30, 2023 in follow-up on the regular medical floor. He is currently awake and alert in no acute distress. He is receiving 0.9 normal saline at 75 MLS per hour. Being nourished with Jevity at 65 MLS per hour per his PEG tube. He remains on bronchodilators. Remains on hydrocortisone. He is maintaining good O2 saturations in the 90s on 2 L/min per nasal cannula. He remains afebrile. Hemodynamically stable. Objective - Vital Signs Vital signs: Vital Signs Temp 97.7 F 08/30/23 07:37 Pulse 69 08/30/23 08:30 Resp 16 08/30/23 08:30 BP 125/79 08/30/23 07:37 Pulse Ox 94 L 08/30/23 08:10 FiO2 Intake & Output 08/29/23 08/30/23 08/30/23 18:59 06:59 18:59 Intake Total 710 590 Output Total 750 1000 300 Balance -40 -410 -300 Weight 48.5 kg Intake: IV 360 0.9 260 Piperacillin-Tazobactam 3 100 .375 gm In Sodium Chloride 0.9% 100 ml @ 25 mls/hr IVPB Q8HR [facility] Rx# :[id number] Oral 0 590 Tube Feeding 320 Other 30 Output: Urine 750 1000 300 Other: Voiding Method Indwelling Catheter Indwelling Catheter Urinal - Exam GENERAL EXAM: Alert, thin, 63-year-old male, resting in bed, on 2 L nasal cannula, in no apparent distress. HEAD: Normocephalic. EYES: Normal reaction of pupils, equal size. NOSE: Clear with pink turbinates. THROAT: No erythema or exudates. NECK: No masses, no JVD. CHEST: No chest wall deformity. LUNGS: Equal air entry with no crackles, wheeze, rhonchi or dullness. CVS: S1 and S2 normal with no audible murmur, regular rhythm. ABDOMEN: PEG tube exit site clean and dry. No hepatosplenomegaly, normal bowel sounds, no guarding or rigidity. SPINE: No scoliosis or deformity SKIN: No rashes CENTRAL NERVOUS SYSTEM: No focal deficits, tone is normal in all 4 extremities. EXTREMITIES: There is no peripheral edema. No clubbing, no cyanosis. Peripheral pulses are intact. - Labs CBC & Chem 7: 08/29/23 03:06 08/29/23 03:06 Labs: Microbiology - Last 24 Hours (Table) 08/27/23 13:03 Blood Culture - Preliminary Blood 08/27/23 13:15 Blood Culture Gram Stain - Preliminary Blood Blood Culture - Preliminary Molecular ID Assessment and Plan Assessment: Altered mental status of unclear etiology, possibly related to hypotension, improved Hypotension requiring pressor support, recovered Acute kidney injury secondary to hypotension, improved Hypothyroidism, status post previous thyroidectomy History of head and neck cancer in 2010 History of hypertension History of chronic obstructive pulmonary disease Former smoker Plan: The patient was seen and evaluated Medications reviewed Titrate down the FiO2 as tolerated Continue bronchodilators, Cortef Continue saline to 75 MLS per hour We will continue to follow I have personally seen and examined the patient, performed the documentation and the assessment and plan as written. Number of minutes spent on the visit: 10.
--- NOTE | 2023-08-30 13:10 | P.PN ---
Subjective Progress Note Date: 08/30/23 Principal diagnosis: dyspnea, hypoxia fall possible sepsis initial hypotension likely septic shock patient was transferred from the ICU to general medical floor is doing quite wel l so his oxygen nasal cannula O2 sats are normalized on 2 L nasal cannula patient is an obligate inferior secondary to old history of in the cell carcinoma of the neck with subsequent commando procedure of the neck, he is then able to guard his airway and has a long-standing history of noncompliance and drinks coffee and aspirates the same currently doing quite well stable Objective - Vital Signs Vital signs: Vital Signs Temp 97.7 F 08/30/23 07:37 Pulse 69 08/30/23 08:30 Resp 16 08/30/23 08:30 BP 125/79 08/30/23 07:37 Pulse Ox 94 L 08/30/23 08:10 FiO2 Intake & Output 08/29/23 08/30/23 08/30/23 18:59 06:59 18:59 Intake Total 710 590 Output Total 750 1000 300 Balance -40 -410 -300 Weight 48.5 kg Intake: IV 360 0.9 260 Piperacillin-Tazobactam 3 100 .375 gm In Sodium Chloride 0.9% 100 ml @ 25 mls/hr IVPB Q8HR [facility] Rx# :[id number] Oral 0 590 Tube Feeding 320 Other 30 Output: Urine 750 1000 300 Other: Voiding Method Indwelling Catheter Indwelling Catheter Urinal - Exam General: [Patient awake, alert and oriented times 3. Patient in no acute distr ess. patient is cachectic HEENT: [PERRL. EOMI. No pharyngeal erythema or exudate.] Neck: [No adenopathy.] Cardiac: [Heart regular in rate and rhythm. No S3. No S4. No clicks, rubs. No murmur.] Lungs: [Clear to auscultation bilaterally.] Abdomen: [No mass. No organomegaly. Bowel sounds presnt and normoactive in all 4 quadrants.] Extremes: [No edema no cyanosis no claudication normal pulses] : normal male genitalia Musculoskeletal: [No joint erythema, edema or tenderness.] Skin: [No rash.] Neurologic: [No lateralizing deficits. CN II - XII grossly intact.] Lymphatic: [No adenopathy.] - Labs CBC & Chem 7: 08/29/23 03:06 08/29/23 03:06 Labs: Microbiology - Last 24 Hours (Table) 08/27/23 13:03 Blood Culture - Preliminary Blood 08/27/23 13:15 Blood Culture Gram Stain - Preliminary Blood Blood Culture - Preliminary Molecular ID Assessment and Plan (1) Hypotension Current Visit: Yes Status: Acute Code(s): I95.9 - HYPOTENSION, UNSPECIFIED SNOMED Code(s): 74904982 (2) PEG tube malfunction Current Visit: Yes Status: Acute Code(s): K94.23 - GASTROSTOMY MALFUNCTION SNOMED Code(s): 788194091 (3) Anemia Current Visit: No Status: Acute Code(s): D64.9 - ANEMIA, UNSPECIFIED SNOMED Code(s): 860352404 (4) Aspiration pneumonia Current Visit: No Status: Acute Code(s): J69.0 - PNEUMONITIS DUE TO INHALATION OF FOOD AND VOMIT SNOMED Code(s): 550043909 (5) COPD (chronic obstructive pulmonary disease) Current Visit: No Status: Acute Code(s): J44.9 - CHRONIC OBSTRUCTIVE PULMONARY DISEASE, UNSPECIFIED SNOMED Code(s): 66959718 (6) Dysphagia Current Visit: No Status: Acute Code(s): R13.10 - DYSPHAGIA, UNSPECIFIED SNOMED Code(s): 32166925 (7) Essential (primary) hypertension Current Visit: No Status: Acute Code(s): I10 - ESSENTIAL (PRIMARY) HYPERTENSION SNOMED Code(s): 08933993 (8) H/O malignant neoplasm of head and neck Current Visit: No Status: Acute Code(s): Z85.89 - PERSONAL HISTORY OF MALIGNANT NEOPLASM OF ORGANS AND SYSTEMS SNOMED Code(s): 019548675 Plan: sepsis resolved Patient doing well on O2 per nasal cannula Anticipate discharge home next 24-48 hours Time with Patient: Greater than 30
--- NOTE | 2023-08-31 11:31 | P.DS ---
Providers Date of admission: 08/27/23 15:32 Expected date of discharge: 08/31/23 Attending physician: Suman Ortiz Consults: 08/27/23 15:31 Consult Physician Stat Consulting Provider: Vladimir Murillo Reason/Comments: icu admission Do you want consulting provider notified?: Already Contacted Primary care physician: Quique Umaña [facility] Course: Final Diagnoses: Sepsis with altered mental status, acute metabolic encephalopathy, etiology unclear, suspect hypotension. Initially suspected aspiration pneumonia though chest x-ray reported no acute process, initially treated with IV antibiotics Zosyn and ruled out as per pulmonary. procalcitonin has normalized. Hypotension, pressor dependent, recovered Acute renal failure secondary to the above, improved Hypothyroidism status post thyroidectomy, TSH elevated, levothyroxine increased History of head, neck cancer PEG tube History of hypertension COPD, history of Prior nicotine dependence Moderate protein calorie malnutrition, BMI 17 Hospital course: This is a 63-year-old gentleman with past medical history significant for head and neck cancer 2010, PEG tube with replacement multiple times ,thyroid cancer status post thyroidectomy, prior nicotine dependence, COPD, hypertension and multiple other medical issues. Patient reports he was at [facility] last week for about 4 days for congestive heart failure and was discharged to [facility] yesterday, felt weak. Vague historian. Patient transferred to the ER via EMS related to increased lethargy, decreased responsiveness and hypotension. EMS reported a systolic blood pressure of 90 and pressure continued to drop while and route to the ER. On arrival blood pressure 58/41. Denies chest pain, palpitations. Complains of back and left shoulder pain on ER stretcher. Currently maintaining O2 sats of mid 90s on 5 L nasal cannula, continues on Levophed drip. Afebrile, normal WBC. Hemoglobin 9.6, platelets 328, coagulation panel unremarkable, sodium 132, potassium 4.7, bicarb 26, BUN 60, creatinine 2.02, glucose 77, lactic acid 0.9, magnesium 2.2, troponins negative x 1 , procalcitonin 0.12, TSH 8.530, free T41.11, cortisol 15.2 .UA negative with trace of protein, stool for occult blood negative chest and abdominal x-ray reported no acute process. IV fluid resuscitation, pressor dependent, awaiting ICU bed. Aggressive pulmonary toileting with nebulized bronchodilators and Zosyn. General surgery consulted to evaluate PEG tube; patient has history of multiple replacements. Dietitian consulted regarding tube feeds pending general surgery clearance to use PEG tube. Records of recent visit at [facility] requested. prognosis guarded given multiple complex medical issues. 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 Procalcitonin within normal limits, antibiotics have been discontinued. preliminary repeat blood culture reporting no growth after 24-hours. Maintained on nebulized bronchodilators. Hemodynamically stable, denies chest pain, palpitations or shortness of breath. Patient will be discharged/return to [facility] subacute rehab today in a stable condition with guarded prognosis, pending final DC recommendations and clearance per pulmonary. The impression and plan of care has been dictated as directed. : I performed a history and examination of this patient, discussed the same with the dictator. I agree with the dictator's note ,documented as a scribe. Any additional findings or plans will be noted. Patient Condition at Discharge: Stable Plan - Discharge Summary Discharge Rx Participant: Yes New Discharge Prescriptions: New Levothyroxine Sodium [Synthroid] 100 mcg PEG/G-TUBE DAILY tab Continue Menthol-Zinc Oxide Oint [Calmoseptine Ointment] 1 applic TOPICAL Q1H PRN PRN Reason: SORENESS Acetaminophen Tab [Tylenol] 650 mg PEG/G-TUBE Q6H PRN PRN Reason: Pain amLODIPine [Norvasc] 10 mg PEG/G-TUBE DAILY Ondansetron [Zofran] 4 mg PEG/G-TUBE Q6H PRN PRN Reason: Nausea And Vomiting lisinopriL [Zestril] 2.5 mg PEG/G-TUBE BID hydrOXYzine pamoate [Vistaril] 25 mg PEG/G-TUBE HS Omeprazole [PriLOSEC] 20 mg PEG/G-TUBE DAILY Ipratropium-Albuterol Nebulize [Duoneb 0.5 mg-3 mg/3 ml Soln] 3 ml INHALATION RT-Q6H PRN PRN Reason: Shortness Of Breath Or Wheezing Discontinued Levothyroxine Sodium [Synthroid] 75 mcg PEG/G-TUBE DAILY carvediloL [Coreg] 6.25 mg PEG/G-TUBE BID@0800,1700 cloNIDine HCL [Catapres] 0.2 mg PEG/G-TUBE TID@0800,1200,1800 Discharge Medication List amLODIPine [Norvasc] 10 mg PEG/G-TUBE DAILY 05/07/21 [History] Ondansetron [Zofran] 4 mg PEG/G-TUBE Q6H PRN 07/01/22 [History] Acetaminophen Tab [Tylenol] 650 mg PEG/G-TUBE Q6H PRN 08/27/23 [History] Ipratropium-Albuterol Nebulize [Duoneb 0.5 mg-3 mg/3 ml Soln] 3 ml INHALATION RT-Q6H PRN 08/27/23 [History] Menthol-Zinc Oxide Oint [Calmoseptine Ointment] 1 applic TOPICAL Q1H PRN 08/27/23 [History] Omeprazole [PriLOSEC] 20 mg PEG/G-TUBE DAILY 08/27/23 [History] hydrOXYzine pamoate [Vistaril] 25 mg PEG/G-TUBE HS 08/27/23 [History] lisinopriL [Zestril] 2.5 mg PEG/G-TUBE BID 08/27/23 [History] Levothyroxine Sodium [Synthroid] 100 mcg PEG/G-TUBE DAILY tab 08/31/23 [Rx] Follow up Appointment(s)/Referral(s): [facility], [NON-STAFF] - As Needed [facility], [REFERRING] - As Needed Suman Ortiz Jr, [Doctor of Osteopathic Medicine] - 1 Week (After discharge from subacute rehab) Activity/Diet/Wound Care/Special Instructions: Peg Tube Feedings: Jevity 1.5 Continuous @ 65ml/hr Fluid bolus 30ml Q4 hours In total 1,560ml daily Discharge Disposition: TRANSFER TO SNF/ECF
--- NOTE | 2023-08-31 17:09 | P.PN ---
Subjective Progress Note Date: 08/31/23 08/31/2023, the patient is being seen for a follow-up. The patient is resting comfortably in bed. No specific complaints. Sepsis has resolved. Procalcitonin level is normal. Most recent labs from 08/28/2022 was reviewed. BUN is 29 with a creatinine of 1.25 and the patient's acute kidney injury has been improving. Potassium is at 4.4. UA is negative. Blood culture is polymicrobial without any subsequent growth on repeat culture that was obtained on 08/29/2023. The patient is currently on 2 L of O2 nasal cannula with a pulse ox of 95%. Objective - Vital Signs Vital signs: Vital Signs Temp 97.8 F 08/31/23 11:51 Pulse 64 08/31/23 11:51 Resp 16 08/31/23 11:51 BP 118/76 08/31/23 11:51 Pulse Ox 95 08/31/23 11:51 FiO2 Intake & Output 08/30/23 08/31/23 08/31/23 18:59 06:59 18:59 Intake Total 650 Output Total 1400 1550 250 Balance -750 -1550 -250 Weight 48.5 kg 48.5 kg Intake: Oral 0 Tube Feeding 650 Output: Urine 1400 1550 250 Other: Voiding Method Urinal Urinal Urinal - Exam GENERAL EXAM: Alert, thin, 63-year-old male, resting in bed, on 2 L nasal cannula, in no apparent distress. HEAD: Normocephalic. EYES: Normal reaction of pupils, equal size. NOSE: Clear with pink turbinates. THROAT: No erythema or exudates. NECK: No masses, no JVD. CHEST: No chest wall deformity. LUNGS: Equal air entry with no crackles, wheeze, rhonchi or dullness. CVS: S1 and S2 normal with no audible murmur, regular rhythm. ABDOMEN: PEG tube exit site clean and dry. No hepatosplenomegaly, normal bowel sounds, no guarding or rigidity. SPINE: No scoliosis or deformity SKIN: No rashes CENTRAL NERVOUS SYSTEM: No focal deficits, tone is normal in all 4 extremities. EXTREMITIES: There is no peripheral edema. No clubbing, no cyanosis. Peripheral pulses are intact. - Labs CBC & Chem 7: 08/29/23 03:06 08/29/23 03:06 Labs: Microbiology - Last 24 Hours (Table) 08/27/23 13:15 Blood Culture Gram Stain - Final Blood Blood Culture - Final Tanika lusitaniae Staphylococcus epidermidis Molecular ID 08/29/23 14:42 Blood Culture - Preliminary Blood 08/27/23 13:03 Blood Culture - Preliminary Blood Assessment and Plan Plan: Altered mental status of unclear etiology, possibly related to hypotension, improved, back to baseline Hypotension requiring pressor support, recovered Acute kidney injury secondary to hypotension, improved Hypothyroidism, status post previous thyroidectomy History of head and neck cancer in 2010 History of hypertension History of chronic obstructive pulmonary disease Former smoker Plan: Titrate down the FiO2 as tolerated Continue bronchodilators, Cortef Continue saline to 75 MLS per hour We will continue to follow Cultures are negative Discharge planning is in progress
[2023-09-01 13:44] LABS: HCT 32.7 % (39.0-53.0); HGB 10.4 gm/dL (13.0-17.5); Hypochromasia Moderate; MCH 27.3 pg (25.0-35.0); MCHC 31.8 g/dL (31.0-37.0); MCV 85.9 fL (80.0-100.0); Mean Platelet Volume 8.4; Platelet Count 282 k/uL (150-450); RBC 3.81 m/uL (4.30-5.90); RDW 15.7 % (11.5-15.5); WBC 7.4 k/uL (3.8-10.6)
--- NOTE | 2023-09-01 15:20 | P.PN ---
Subjective Progress Note Date: 09/01/23 Principal diagnosis: Malfunctioning PEG tube We were called by the nursing staff today that he was having bleeding from his PEG site. Denies pain there. Tolerating tube feeds. Hemoglobin stable at 10.4. Objective - Vital Signs Vital signs: Vital Signs Temp 98.0 F 09/01/23 14:17 Pulse 67 09/01/23 14:17 Resp 17 09/01/23 14:17 BP 107/64 09/01/23 14:17 Pulse Ox 97 09/01/23 14:17 FiO2 Intake & Output 08/31/23 09/01/23 09/01/23 18:59 06:59 18:59 Intake Total 195 Output Total 1050 875 Balance -1050 -680 Weight 48.5 kg 49.5 kg Intake: Tube Feeding 195 Output: Urine 1050 875 Other: Voiding Method Urinal Urinal # Voids 1 - Exam Abdomen: Soft, nondistended, nontender, bolster loose at 4 cm, [address], no active bleeding noted at this time. Some granulation tissue at 8-9 o'clock likely the source of bleeding, bolster tightened - Labs CBC & Chem 7: 09/01/23 13:05 08/29/23 03:06 Labs: Abnormal Lab Results - Last 24 Hours (Table) 09/01/23 Range/Units 13:05 RBC 3.81 L (4.30-5.90) m/uL Hgb 10.4 L (13.0-17.5) gm/dL Hct 32.7 L (39.0-53.0) % RDW 15.7 H (11.5-15.5) % Microbiology - Last 24 Hours (Table) 08/29/23 14:42 Blood Culture - Preliminary Blood 08/27/23 13:03 Blood Culture Gram Stain - Preliminary Blood Blood Culture - Preliminary Assessment and Plan (1) PEG tube malfunction Narrative/Plan: Patient with bleeding from the gastrostomy site. Likely related to the granulation tissue. Bolster was tightened with no further bleeding. Will treat the granulation tissue with silver nitrate sticks. Current Visit: Yes Status: Acute Code(s): K94.23 - GASTROSTOMY MALFUNCTION SNOMED Code(s): 386944044
--- NOTE | 2023-09-01 18:46 | P.PN ---
Subjective Progress Note Date: 09/01/23 08/31/2023, the patient is being seen for a follow-up. The patient is resting comfortably in bed. No specific complaints. Sepsis has resolved. Procalcitonin level is normal. Most recent labs from 08/28/2022 was reviewed. BUN is 29 with a creatinine of 1.25 and the patient's acute kidney injury has been improving. Potassium is at 4.4. UA is negative. Blood culture is polymicrobial without any subsequent growth on repeat culture that was obtained on 08/29/2023. The patient is currently on 2 L of O2 nasal cannula with a pulse ox of 95%. On 09/01/2023, the patient has no specific complaints. The patient was encountering some bleeding from the PEG tube site and the fact he was evaluated by general surgery. No active bleeding at this point in time. The bolster was tightened with no further bleeding. The patient is currently on enteral feeding for nutritional support. The white cell count is 7.4, hemoglobin 10.4 and the platelet is currently at 282. The patient remains on 2 L of oxygen by nasal cannula with a pulse ox of 97%. The patient is asymptomatic and clinically stable. Remains on IV fluids at a rate of 75 cc an hour normal saline. Objective - Vital Signs Vital signs: Vital Signs Temp 97.6 F 09/01/23 07:21 Pulse 65 09/01/23 10:15 Resp 17 09/01/23 07:21 BP 137/79 09/01/23 10:15 Pulse Ox 96 09/01/23 08:04 FiO2 Intake & Output 08/31/23 09/01/23 09/01/23 18:59 06:59 18:59 Intake Total 195 Output Total 1050 875 Balance -1050 -680 Weight 48.5 kg 49.5 kg Intake: Tube Feeding 195 Output: Urine 1050 875 Other: Voiding Method Urinal Urinal # Voids 1 - Exam GENERAL EXAM: Alert, thin, 63-year-old male, resting in bed, on 2 L nasal cannula, in no apparent distress. HEAD: Normocephalic. EYES: Normal reaction of pupils, equal size. NOSE: Clear with pink turbinates. THROAT: No erythema or exudates. NECK: No masses, no JVD. CHEST: No chest wall deformity. LUNGS: Equal air entry with no crackles, wheeze, rhonchi or dullness. CVS: S1 and S2 normal with no audible murmur, regular rhythm. ABDOMEN: PEG tube exit site clean and dry. No hepatosplenomegaly, normal bowel sounds, no guarding or rigidity. SPINE: No scoliosis or deformity SKIN: No rashes CENTRAL NERVOUS SYSTEM: No focal deficits, tone is normal in all 4 extremities. EXTREMITIES: There is no peripheral edema. No clubbing, no cyanosis. Peripheral pulses are intact. - Labs CBC & Chem 7: 09/01/23 13:05 08/29/23 03:06 Labs: Microbiology - Last 24 Hours (Table) 08/29/23 14:42 Blood Culture - Preliminary Blood 08/27/23 13:03 Blood Culture Gram Stain - Preliminary Blood Blood Culture - Preliminary 08/27/23 13:15 Blood Culture Gram Stain - Final Blood Blood Culture - Final Tanika lusitaniae Staphylococcus epidermidis Molecular ID Assessment and Plan Plan: Altered mental status of unclear etiology, possibly related to hypotension, improved, back to baseline Hypotension requiring pressor support, recovered Acute kidney injury secondary to hypotension, improved Hypothyroidism, status post previous thyroidectomy History of head and neck cancer in 2010 History of hypertension History of chronic obstructive pulmonary disease Former smoker Plan: Continue enteral feeding for nutritional support and the patient has PEG tube feeding. Active malfunctioning and this was then attended by the general surgeon and the bolster was tightened. No active bleeding for now. Titrate down the FiO2 as tolerated Continue bronchodilators, Cortef Continue saline to 75 MLS per hour We will continue to follow Cultures are negative Discharge planning is in progress
[2023-09-01] MEDS: ONDANSETRON 4 MG/2 ML VIAL IVP PRN (18:53)
[2023-09-02] MEDS: SILVER NITRATE APPLICATOR 1 EACH STICK..EA. TOPICAL ONE (12:44)
--- NOTE | 2023-09-02 14:16 | P.PN ---
Subjective Progress Note Date: 09/02/23 CHIEF COMPLAINT: Malfunctioning PEG tube HISTORY OF PRESENT ILLNESS: Yesterday patient was having bleeding from around PEG tube site. He denies any abdominal pain. Tolerating tube feeds. Dr. Serna tighten the bolster yesterday. Hgb stable at 10.4 PHYSICAL EXAM: VITAL SIGNS: Reviewed. GENERAL: no acute distress. ABDOMEN: Soft. Nondistended. Nontender. Peg tube no active bleeding at this time. Granulation tissue at 8-9 o'clock position likely the source of bleeding ASSESSMENT: 1. Malfunctioning PEG tube. Bleeding likely related to the granulation tissue. No active bleeding at this time PLAN: -Dr. Serna treated the granulation tissue with silver nitrate sticks -Patient can be discharged from surgical standpoint Physician Thermometer Production Worker note has been reviewed by physician. Signing provider agrees with the documented findings, assessment, and plan of care. Objective - Vital Signs Vital signs: Vital Signs Temp 97.5 F L 09/02/23 12:47 Pulse 79 09/02/23 12:47 Resp 16 09/02/23 12:47 BP 164/86 09/02/23 12:47 Pulse Ox 94 L 09/02/23 12:47 FiO2 Intake & Output 09/01/23 09/02/23 09/02/23 18:59 06:59 18:59 Output Total 1550 550 500 Balance -1550 -550 -500 Weight 48 kg Output: Urine 1550 550 500 Other: Voiding Method Urinal # Voids 1 - Labs CBC & Chem 7: 09/01/23 13:05 08/29/23 03:06 Labs: Microbiology - Last 24 Hours (Table) 08/29/23 14:42 Blood Culture - Preliminary Blood
--- NOTE | 2023-09-02 19:04 | P.PN ---
Subjective Progress Note Date: 09/02/23 08/31/2023, the patient is being seen for a follow-up. The patient is resting comfortably in bed. No specific complaints. Sepsis has resolved. Procalcitonin level is normal. Most recent labs from 08/28/2022 was reviewed. BUN is 29 with a creatinine of 1.25 and the patient's acute kidney injury has been improving. Potassium is at 4.4. UA is negative. Blood culture is polymicrobial without any subsequent growth on repeat culture that was obtained on 08/29/2023. The patient is currently on 2 L of O2 nasal cannula with a pulse ox of 95%. On 09/01/2023, the patient has no specific complaints. The patient was encountering some bleeding from the PEG tube site and the fact he was evaluated by general surgery. No active bleeding at this point in time. The bolster was tightened with no further bleeding. The patient is currently on enteral feeding for nutritional support. The white cell count is 7.4, hemoglobin 10.4 and the platelet is currently at 282. The patient remains on 2 L of oxygen by nasal cannula with a pulse ox of 97%. The patient is asymptomatic and clinically stable. Remains on IV fluids at a rate of 75 cc an hour normal saline. On today's evaluation of 2023, the patient is stable and the patient is currently on 2 L of oxygen by nasal cannula with a pulse ox of 94%. Clinically stable. Hemodynamic stable. No new labs are available from today. Continues to receive enteral feeding for incision support and the patient has a functional PEG tube in place. No other specific complaints for now. No bleeding from the PEG tube site. No nausea. No vomiting. No emesis. No signs of any aspiration. Objective - Vital Signs Vital signs: Vital Signs Temp 97.5 F L 09/02/23 12:47 Pulse 79 09/02/23 12:47 Resp 16 09/02/23 12:47 BP 164/86 09/02/23 12:47 Pulse Ox 94 L 09/02/23 12:47 FiO2 Intake & Output 09/01/23 09/02/23 09/02/23 18:59 06:59 18:59 Output Total 1550 550 500 Balance -1550 -550 -500 Weight 48 kg Output: Urine 1550 550 500 Other: Voiding Method Urinal # Voids 1 - Exam GENERAL EXAM: Alert, thin, 63-year-old male, resting in bed, on 2 L nasal cannula, in no apparent distress. HEAD: Normocephalic. EYES: Normal reaction of pupils, equal size. NOSE: Clear with pink turbinates. THROAT: No erythema or exudates. NECK: No masses, no JVD. CHEST: No chest wall deformity. LUNGS: Equal air entry with no crackles, wheeze, rhonchi or dullness. CVS: S1 and S2 normal with no audible murmur, regular rhythm. ABDOMEN: PEG tube exit site clean and dry. No hepatosplenomegaly, normal bowel sounds, no guarding or rigidity. SPINE: No scoliosis or deformity SKIN: No rashes CENTRAL NERVOUS SYSTEM: No focal deficits, tone is normal in all 4 extremities. EXTREMITIES: There is no peripheral edema. No clubbing, no cyanosis. Peripheral pulses are intact. - Labs CBC & Chem 7: 09/01/23 13:05 08/29/23 03:06 Labs: Microbiology - Last 24 Hours (Table) 08/29/23 14:42 Blood Culture - Preliminary Blood Assessment and Plan Plan: Altered mental status of unclear etiology, possibly related to hypotension, improved, back to baseline Hypotension requiring pressor support, recovered Acute kidney injury secondary to hypotension, improved Hypothyroidism, status post previous thyroidectomy History of head and neck cancer in 2010 History of hypertension History of chronic obstructive pulmonary disease Former smoker Plan: Clinically stable and the patient is tolerating enteral feeding and the patient will be able to discharge today. Continue enteral feeding for nutritional support and the patient has PEG tube feeding. PEG tube is functional and there is no active bleeding for now. Titrate down the FiO2 as tolerated, currently somewhere between room air and 2 L of oxygen by nasal cannula. Continue bronchodilators Discharge planning is in progress.
[2023-09-03 07:52] LABS: African American GFR (CKD) >90 (>60 ml/min/1.73 sqM); Anion Gap 4 mmol/L; Blood Urea Nitrogen 21 mg/dL (9-20); Carbon Dioxide 30 mmol/L (22-30); Chloride 101 mmol/L (98-107); Glucose 88 mg/dL (74-99); Non-African American GFR(CKD) >90 (>60 ml/min/1.73 sqM); Potassium 4.2 mmol/L (3.5-5.1); Sodium 135 mmol/L (137-145)
[2023-09-03 11:02] LABS: Basophils # (A) 0.03 X 10*3/uL (0.00-0.10); Basophils % (A) 0.5 %; Eosinophils % (A) 1.8 %; HCT 29.7 % (39.6-50.0); HGB 9.4 g/dL (13.0-17.0); Lymphocytes # (A) 1.05 X 10*3/uL (0.90-5.00); Lymphocytes % (A) 18.4 %; MCH 26.9 pg (27.0-32.0); MCHC 31.6 g/dL (32.0-37.0); MCV 85.1 FL (80.0-97.0); Mean Platelet Volume 10.3 FL (9.5-12.2); Monocytes # (A) 0.76 X 10*3/uL (0.20-1.00); Monocytes % (A) 13.3 %; NRBC Per 100 WBC 0 X 10*3/uL (0.00-0.01); Neutrophils # (A) 3.76 X 10*3/uL (1.80-7.70); Neutrophils % (A) 65.8 %; Platelet Count 259 X 10*3/uL (140-440); RBC 3.49 X 10*6/uL (4.40-5.60); RDW 15.8 % (11.5-14.5); WBC 5.71 X 10*3/uL (4.50-10.00)
--- NOTE | 2023-09-03 15:16 | P.PN ---
Subjective Progress Note Date: 09/03/23 CHIEF COMPLAINT: Drainage from PEG tube HISTORY OF PRESENT ILLNESS: The patient is a 63-year-old male who is n.p.o. He is underweight, BMI 15.2. Primary nutrition is via gastrostomy feeding tube. Per discussion with family and records, patient had bleeding from gastrostomy tube. Dressing has been present since yesterday demonstrated dried blood. Family member at bedside. He is on tube feeds 65 cc/h. Family reports he has intermittent nausea. ROS: No fevers or chills. No new chest pain. No productive sputum. History of neck cancer PHYSICAL EXAM: VITAL SIGNS: Reviewed CONSTITUTIONAL: Well developed and in no acute distress. EYES: Conjuctivae without sclera icterus. Extraocular movements grossly intact. HEAD, EARS, NOSE, THROAT: Moist buccal mucosa. Head is atraumatic, normoce phalic. Hears conversational speech. No nasal drainage. RESPIRATORY: Non-labored respirations and equal bilateral excursions. CARDIOVASCULAR: Palpable 2+ radial pulses. ABDOMEN: At bedside, dressing discontinued demonstrates recent fresh blood. Adapter for gastrostomy tube loose. Abdomen scaphoid. Skin was cleansed with antibacterial soap and water. New dressing placed. Adapter adjusted for more snug fit. No acute bleeding identified on exam. MUSCULOSKELETAL: No gross deformity of the lower extremities noted. No clubbing. No cyanosis. SKIN: Good skin turgor. Well perfused. NEUROLOGIC: Cranial nerves II through XII grossly intact. No focal or lateralizing signs. PSYCH: Appropriate affect. Alert and oriented to person, place and time. CLINICAL LABS: Reviewed. WBC normal. Hemoglobin 10.6 on 08/31/2023. Hemoglobin today 9.4, 09/03/2023. ASSESSMENT: 1. Gastrostomy tube leaking/malfunction 2. Severe protein malnutrition 3. Underweight, BMI 15.2 4. Anemia 5. History of neck cancer. 6. Nausea. PLAN: 1. Gastrostomy tube and adapter were adjusted. This should help with any leakage around the gastrostomy tube site. 2. Monitor hemoglobin. 3. All questions addressed at bedside. Objective - Vital Signs Vital signs: Vital Signs Temp 98.5 F 09/03/23 12:23 Pulse 69 09/03/23 12:23 Resp 16 09/03/23 12:23 BP 122/75 09/03/23 07:36 Pulse Ox 93 L 09/03/23 08:25 FiO2 Intake & Output 09/02/23 09/03/23 09/03/23 18:59 06:59 18:59 Output Total 1000 800 500 Balance -1000 -800 -500 Weight 49.5 kg Output: Urine 1000 800 500 Other: Voiding Method Toilet Toilet Urinal Urinal # Voids 1 - Labs CBC & Chem 7: 09/03/23 06:23 09/03/23 06:23 Labs: Abnormal Lab Results - Last 24 Hours (Table) 09/03/23 09/03/23 Range/Units 06:23 06:23 RBC 3.49 L (4.40-5.60) X 10*6/uL Hgb 9.4 L (13.0-17.0) g/dL Hct 29.7 L (39.6-50.0) % MCH 26.9 L (27.0-32.0) pg MCHC 31.6 L (32.0-37.0) g/dL RDW 15.8 H (11.5-14.5) % Sodium 135 L (137-145) mmol/L BUN 21 H (9-20) mg/dL
--- NOTE | 2023-09-04 08:07 | P.PN ---
Subjective Progress Note Date: 09/04/23 CHIEF COMPLAINT: Drainage from PEG tube HISTORY OF PRESENT ILLNESS: The patient is a 63-year-old male who is n.p.o. He is underweight, BMI 15.2. Primary nutrition is via gastrostomy feeding tube. Patient still have mild oozing along the gastrostomy tube site. Per discussion with nurse, patient had increased abdominal pain with tube feeds. Tube feeds on hold. ROS: No fevers or chills. No new chest pain. No productive sputum. History of neck cancer PHYSICAL EXAM: VITAL SIGNS: Reviewed CONSTITUTIONAL: Well developed and in no acute distress. EYES: Conjuctivae without sclera icterus. Extraocular movements grossly intact. HEAD, EARS, NOSE, THROAT: Moist buccal mucosa. Head is atraumatic, normocephalic. Hears conversational speech. No nasal drainage. RESPIRATORY: Non-labored respirations and equal bilateral excursions. CARDIOVASCULAR: Palpable 2+ radial pulses. ABDOMEN: Gastrostomy tube feeding on hold. No peritonitis. Drainage found along the gastrostomy tube dressing. MUSCULOSKELETAL: No gross deformity of the lower extremities noted. No clubbing. No cyanosis. SKIN: Good skin turgor. Well perfused. NEUROLOGIC: Cranial nerves II through XII grossly intact. No focal or lateralizing signs. PSYCH: Appropriate affect. Alert and oriented to person, place and time. CLINICAL LABS: Reviewed. WBC pending ASSESSMENT: 1. Gastrostomy tube leaking/malfunction 2. Severe protein malnutrition 3. Underweight, BMI 15.2 4. Anemia 5. History of neck cancer. 6. Nausea. PLAN: 1. Recommend CT of the abdomen pelvis due to increased pain and nausea with tube feeds. Will check position of feeding tube. 2. Hold tube feeds pending CT scan status. Objective - Vital Signs Vital signs: Vital Signs Temp 98 F 09/04/23 02:00 Pulse 67 09/04/23 02:00 Resp 16 09/04/23 02:00 BP 155/83 09/04/23 02:00 Pulse Ox 94 L 09/04/23 02:00 FiO2 Intake & Output 09/03/23 09/04/23 09/04/23 18:59 06:59 18:59 Output Total 1900 350 Balance -1900 -350 Output: Urine 1900 350 Other: Voiding Method Toilet Urinal # Bowel Movements 2 - Labs CBC & Chem 7: 07/04/24 06:23 09/03/23 06:23 Labs: Abnormal Lab Results - Last 24 Hours (Table) 09/03/23 Range/Units 06:23 RBC 3.49 L (4.40-5.60) X 10*6/uL Hgb 9.4 L (13.0-17.0) g/dL Hct 29.7 L (39.6-50.0) % MCH 26.9 L (27.0-32.0) pg MCHC 31.6 L (32.0-37.0) g/dL RDW 15.8 H (11.5-14.5) % Microbiology - Last 24 Hours (Table) 08/29/23 14:42 Blood Culture - Final Blood
--- NOTE | 2023-09-04 10:21 | P.PN ---
Subjective Progress Note Date: 09/03/23 Principal diagnosis: dyspnea, hypoxia fall possible sepsis initial hypotension likely septic shock patient was transferred from the ICU to general medical floor is doing quite wel l so his oxygen nasal cannula O2 sats are normalized on 2 L nasal cannula patient is an obligate inferior secondary to old history of in the cell carcinoma of the neck with subsequent commando procedure of the neck, he is then able to guard his airway and has a long-standing history of noncompliance and drinks coffee and aspirates the same currently doing quite well stable 09/03/2023 patient is awake alert oriented 3 vital signs appear to be stable currently using O2 per nasal cannula 3-4 L, otherwise hemodynamically stable Objective - Vital Signs Vital signs: Vital Signs Temp 98.2 F 09/04/23 07:44 Pulse 58 L 09/04/23 07:44 Resp 18 09/04/23 07:44 BP 95/50 09/04/23 07:44 Pulse Ox 93 L 09/04/23 07:44 FiO2 Intake & Output 09/03/23 09/04/23 09/04/23 18:59 06:59 18:59 Output Total 1900 350 410 Balance -1900 -350 -410 Output: Urine 1900 350 410 Other: Voiding Method Toilet Urinal # Bowel Movements 2 - Exam General: [Patient awake, alert and oriented times 3. Patient in no acute distress. 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 EOMI. No pharyngeal erythema or exudate.] Neck: [No adenopathy.] Cardiac: [Heart regular in rate and rhythm. No S3. No S4. No clicks, rubs. No murmur.] Lungs: [Clear to auscultation bilaterally.] Abdomen: [No mass. No organomegaly. Bowel sounds presnt and normoactive in all 4 quadrants.] Extremes: [No edema no cyanosis no claudication normal pulses] : normal male genitalia Musculoskeletal: [No joint erythema, edema or tenderness.] Skin: [No rash.] Neurologic: [No lateralizing deficits. CN II - XII grossly intact.] Lymphatic: [No adenopathy.] - Labs CBC & Chem 7: 09/03/23 06:23 09/03/23 06:23 Labs: Abnormal Lab Results - Last 24 Hours (Table) 09/03/23 Range/Units 06:23 RBC 3.49 L (4.40-5.60) X 10*6/uL Hgb 9.4 L (13.0-17.0) g/dL Hct 29.7 L (39.6-50.0) % MCH 26.9 L (27.0-32.0) pg MCHC 31.6 L (32.0-37.0) g/dL RDW 15.8 H (11.5-14.5) % Microbiology - Last 24 Hours (Table) 08/27/23 13:03 Blood Culture Gram Stain - Final Blood Blood Culture - Final Malassezia pachydermatis 08/29/23 14:42 Blood Culture - Final Blood Assessment and Plan (1) Hypotension Current Visit: Yes Status: Acute Code(s): I95.9 - HYPOTENSION, UNSPECIFIED SNOMED Code(s): 86515062 (2) PEG tube malfunction Current Visit: Yes Status: Acute Code(s): K94.23 - GASTROSTOMY MALFUNCTION SNOMED Code(s): 443867965 (3) Anemia Current Visit: No Status: Acute Code(s): D64.9 - ANEMIA, UNSPECIFIED SNOMED Code(s): 938272082 (4) Aspiration pneumonia Current Visit: No Status: Acute Code(s): J69.0 - PNEUMONITIS DUE TO INHALATION OF FOOD AND VOMIT SNOMED Code(s): 902496623 (5) COPD (chronic obstructive pulmonary disease) Current Visit: No Status: Acute Code(s): J44.9 - CHRONIC OBSTRUCTIVE PULMONARY DISEASE, UNSPECIFIED SNOMED Code(s): 38716331 (6) Dysphagia Current Visit: No Status: Acute Code(s): R13.10 - DYSPHAGIA, UNSPECIFIED SNOMED Code(s): 74506895 (7) Essential (primary) hypertension Current Visit: No Status: Acute Code(s): I10 - ESSENTIAL (PRIMARY) HYPERTENSION SNOMED Code(s): 94466098 (8) H/O malignant neoplasm of head and neck Current Visit: No Status: Acute Code(s): Z85.89 - PERSONAL HISTORY OF MALIGNANT NEOPLASM OF ORGANS AND SYSTEMS SNOMED Code(s): 392409421 Plan: sepsis resolved Patient doing well on O2 per nasal cannula Anticipate discharge subacute rehabilitation next 24-48 hours Time with Patient: Greater than 30
[2023-09-04] MEDS: IOPAMIDOL CONTRAST (ORAL USE) VIAL PO PRN (10:38)
[2023-09-04 11:46] LABS: Basophils # (A) 0.1 k/uL (0-0.2); Basophils % (A) 1 %; Eosinophils # (A) 0.1 k/uL (0-0.7); Eosinophils % (A) 2 %; HCT 30.7 % (39.0-53.0); HGB 9.7 gm/dL (13.0-17.5); Hypochromasia Slight; Lymphocytes # (A) 1.1 k/uL (1.0-4.8); Lymphocytes % (A) 22 %; MCH 26.5 pg (25.0-35.0); MCHC 31.5 g/dL (31.0-37.0); MCV 84.2 fL (80.0-100.0); Mean Platelet Volume 7.9; Monocytes # (A) 0.4 k/uL (0-1.0); Monocytes % (A) 8 %; Neutrophils # (A) 3.1 k/uL (1.3-7.7); Neutrophils % (A) 63 %; Platelet Count 279 k/uL (150-450); RBC 3.64 m/uL (4.30-5.90); RDW 15.9 % (11.5-15.5); WBC 4.9 k/uL (3.8-10.6)
--- NOTE | 2023-09-04 12:24 | P.PN ---
Subjective September 04, 2023: Enderle is stable. His tube feeds are on hold due to some bleeding around the tube feed site. Surgery is repeating CAT scan to evaluate for tube feed placement. Remains underweight. He is afebrile. Heart rate respiratory controlled, he remains on oxygen at 2 L via nasal cannula. Appears more debilitated today than he did on Thursday. He was denied by his insurance to ECF treatment. At this time he appears to need that again. Labs show hemoglobin stable. He denies any chest pains pressure shortness of breath this time. Objective - Vital Signs Vital signs: Vital Signs Temp 98.2 F 09/04/23 07:44 Pulse 58 L 09/04/23 07:44 Resp 18 09/04/23 07:44 BP 95/50 09/04/23 07:44 Pulse Ox 93 L 09/04/23 07:44 FiO2 Intake & Output 09/03/23 09/04/23 09/04/23 18:59 06:59 18:59 Output Total 1900 350 410 Balance -1900 -350 -410 Weight 46.3 kg Output: Urine 1900 350 410 Other: Voiding Method Toilet Urinal Urinal # Bowel Movements 2 - Exam General: Thin frail male who looks his stated age of 63. PEG tube is in place with no evident discharge at this time. Neck: The neck is supple, there is no thyromegaly, lymphadenopathy, tenderness or JVD. Cardiovascular: S1S2 is normal, There is a regular rate and rhythm. No murmur, rub or gallop is appreciated. Respiratory: Lungs are, coarse with decreased air exchange. He is using his nasal cannula oxygen Gastrointestinal: Soft, non-distended, non-tender abdomen without masses or organomegaly noted. There is no rebound or guarding present. Bowel sounds are unremarkable. Musculoskeletal: Thin frail with hard time moving. Neurological: CN II-XII intact, there are no obvious motor or sensory deficits. Coordination appears grossly intact. Speech is normal. Skin: Skin is warm and dry and no rashes or lesions are noted. - Labs CBC & Chem 7: 09/04/23 11:30 09/03/23 06:23 Labs: Abnormal Lab Results - Last 24 Hours (Table) 09/04/23 Range/Units 11:30 RBC 3.64 L (4.30-5.90) m/uL Hgb 9.7 L (13.0-17.5) gm/dL Hct 30.7 L (39.0-53.0) % RDW 15.9 H (11.5-15.5) % Microbiology - Last 24 Hours (Table) 08/27/23 13:03 Blood Culture Gram Stain - Final Blood Blood Culture - Final Malassezia pachydermatis 08/29/23 14:42 Blood Culture - Final Blood Assessment and Plan Plan: Altered mental status resolved he is at his baseline mentation Hypotension: Resolved, likely due to acute kidney failure Acute kidney injury secondary to hypotension, improved Hypothyroidism: History of thyroidectomy, remains on medications History of head and neck cancer in 2010: Stable but affects his ability to swallow, has had multiple episodes of aspiration pneumonia, he has a PEG tube in place now that is malfunctioning History of hypertension: He has amlodipine ordered and lisinopril, his blood pressure is once again elevated History of chronic obstructive pulmonary disease: He remains on oxygen at 2 L via nasal cannula. PEG tube malfunction: There is some bleeding around the PEG tube site, surgery is following, tube feeds are on hold, CAT scans pending for evaluation of placement. Will repeat labs in a.m., reevaluate next 24 hours, have him reevaluated for ECF at this point since he seems more debilitated. He had previously not needed a walker to ambulate but he is currently using one to get to the toilet.
--- NOTE | 2023-09-04 13:03 | CT ---
EXAMINATION TYPE: CT abdomen pelvis w con CT DLP: 256 mGycm, Automated exposure control for dose reduction was used. DATE OF EXAM: 09/04/2023 12:03 PM COMPARISON: 07/08/2021 CLINICAL INDICATION:Male, 63 years old with history of Abdominal pain; VOMITING/ABD PAIN TECHNIQUE: Axial CT abdomen pelvis w con;Sagittal and coronal reformats were created on a separate w orkstation. Contrast used:100 mL of Isovue 300 with IV Contrast, (none if empty) Oral contrast used: with Oral Contrast (none if empty) FINDINGS: LOWER CHEST: Partially visualized consolidation left lower lobe and airspace opacities in the right l ower lobe. ABDOMEN LIVER: Unremarkable GALLBLADDER AND BILE DUCTS: Unremarkable. PANCREAS: Unremarkable. SPLEEN: Unremarkable. ADRENAL GLANDS: Unremarkable. KIDNEYS AND URETERS: No evidence of hydronephrosis or renal calculus. The ureters are unremarkable. Bilateral simple appearing renal cysts. PELVIS BLADDER: Unremarkable REPRODUCTIVE: Unremarkable. ABDOMEN & PELVIS STOMACH AND BOWEL: PEG tube with balloon in the stomach lumen. The duodenum is unremarkable. No evide nce of bowel obstruction. PERITONEUM/RETROPERITONEUM: No evidence of pneumoperitoneum or free fluid. VASCULATURE: No evidence of aortic aneurysm. MUSCULOSKELETAL: No acute osseous abnormalities LYMPH NODES: No gross evidence for lymphadenopathy. SOFT TISSUE/ABDOMINAL WALL: Unremarkable IMPRESSION: 1. Consolidation and the left lower lobe and airspace opacities right lower lobe, correlate for aspi ration/pneumonia. 2. No evidence for bowel obstruction. 3. PEG tube in appropriate position.
[2023-09-05 09:22] LABS: Basophils # (A) 0.03 X 10*3/uL (0.00-0.10); Basophils % (A) 0.6 %; Eosinophils # (A) 0.07 X 10*3/uL (0.04-0.35); Eosinophils % (A) 1.3 %; HCT 28.7 % (39.6-50.0); HGB 9.2 g/dL (13.0-17.0); Lymphocytes # (A) 1.17 X 10*3/uL (0.90-5.00); Lymphocytes % (A) 21.9 %; MCH 26.8 pg (27.0-32.0); MCHC 32.1 g/dL (32.0-37.0); MCV 83.7 FL (80.0-97.0); Monocytes # (A) 0.77 X 10*3/uL (0.20-1.00); Monocytes % (A) 14.4 %; NRBC Per 100 WBC 0 X 10*3/uL (0.00-0.01); Neutrophils # (A) 3.29 X 10*3/uL (1.80-7.70); Neutrophils % (A) 61.4 %; Platelet Count 251 X 10*3/uL (140-440); RBC 3.43 X 10*6/uL (4.40-5.60); RDW 15.6 % (11.5-14.5); WBC 5.35 X 10*3/uL (4.50-10.00)
[2023-09-05 09:33] LABS: Blood Urea Nitrogen 22.4 mg/dL (9.0-27.0); Calcium 8.9 mg/dL (8.7-10.3); Carbon Dioxide 29.6 mmol/L (21.6-31.8); Chloride 98 mmol/L (96-109); Glucose 118 mg/dL (70-110); Potassium 4.5 mmol/L (3.5-5.5); Sodium 137 mmol/L (135-145)
--- NOTE | 2023-09-05 14:44 | P.PN ---
Subjective September 04, 2023: Enderle is stable. His tube feeds are on hold due to some bleeding around the tube feed site. Surgery is repeating CAT scan to evaluate for tube feed placement. Remains underweight. He is afebrile. Heart rate respiratory controlled, he remains on oxygen at 2 L via nasal cannula. Appears more debilitated today than he did on Thursday. He was denied by his insurance to ECF treatment. At this time he appears to need that again. Labs show hemoglobin stable. He denies any chest pains pressure shortness of breath this time. August: The patient remained stable. His CT scan of the abdomen pelvis showed his PEG tube is in place. He tolerated feedings up until about an hour ago when he felt very full. Nursing has held them at this point. He remains on oxygen via nasal cannula 2 L/min. He remains debilitated. He is afebrile, vital signs are stable at this time. Hemoglobin is slightly less at 9.2 today with an MCV of 83.7. Chemistries are essentially normal. He denies any chest pains pressures or shortness of breath this time. He has his chronic cough. Objective - Vital Signs Vital signs: Vital Signs Temp 98.0 F 09/05/23 07:42 Pulse 68 09/05/23 07:42 Resp 18 09/05/23 07:42 BP 171/97 09/05/23 07:42 Pulse Ox 99 09/05/23 08:28 FiO2 Intake & Output 09/04/23 09/05/23 09/05/23 18:59 06:59 18:59 Output Total 860 500 Balance -860 -500 Output: Urine 860 500 Other: Voiding Method Urinal Urinal Urinal - Exam General: Thin frail male who looks his stated age of 63. PEG tube is in place with no evident discharge at this time. Minimal dried blood around the PEG tube, same as 1 day ago Neck: The neck is supple, there is no thyromegaly, lymphadenopathy, tenderness or JVD. Cardiovascular: S1S2 is normal, There is a regular rate and rhythm. No murmur, rub or gallop is appreciated. Respiratory: Lungs are, coarse with decreased air exchange. He is using his nasal cannula oxygen Gastrointestinal: Soft, non-distended, non-tender abdomen without masses or organomegaly noted. There is no rebound or guarding present. Bowel sounds are unremarkable. Musculoskeletal: Thin frail with hard time moving. Neurological: CN II-XII intact, there are no obvious motor or sensory deficits. Coordination appears grossly intact. Speech is normal. Skin: Skin is warm and dry and no rashes or lesions are noted. - Labs CBC & Chem 7: 09/05/23 06:18 09/05/23 06:18 Labs: Abnormal Lab Results - Last 24 Hours (Table) 09/05/23 09/05/23 Range/Units 06:18 06:18 RBC 3.43 L (4.40-5.60) X 10*6/uL Hgb 9.2 L (13.0-17.0) g/dL Hct 28.7 L (39.6-50.0) % MCH 26.8 L (27.0-32.0) pg RDW 15.6 H (11.5-14.5) % BUN/Creatinine Ratio 28.00 H (12.00-20.00) Ratio Glucose 118 H (70-110) mg/dL Assessment and Plan Plan: Altered mental status resolved he is at his baseline mentation Hypotension: Resolved, likely due to acute kidney failure Acute kidney injury secondary to hypotension, improved Hypothyroidism: History of thyroidectomy, remains on medications History of head and neck cancer in 2010: Stable but affects his ability to swallow, has had multiple episodes of aspiration pneumonia, he has a PEG tube in place now that is malfunctioning History of hypertension: He has amlodipine ordered and lisinopril, his blood pressure is once again elevated History of chronic obstructive pulmonary disease: He remains on oxygen at 2 L via nasal cannula. PEG tube malfunction: CT was negative, PEG tube feeds worse tolerated up until little while ago. History of recurrent aspiration pneumonia: Currently stable Debility: He will most likely need significant physical therapy, possible long- term placement after that. Will repeat labs in a.m., reevaluate next 24 hours, will reapply for ECF at this point since he seems more debilitated.
--- NOTE | 2023-09-05 18:17 | P.PN ---
Progress Note - Text Progress Note Date: 09/05/23 CHIEF COMPLAINT: Drainage from PEG tube HISTORY OF PRESENT ILLNESS: NAEO ROS: No fevers or chills. No new chest pain. No productive sputum. History of neck cancer PHYSICAL EXAM: VITAL SIGNS: Reviewed CONSTITUTIONAL: Well developed and in no acute distress. EYES: Conjuctivae without sclera icterus. Extraocular movements grossly intact. HEAD, EARS, NOSE, THROAT: Moist buccal mucosa. Head is atraumatic, normocephalic. Hears conversational speech. No nasal drainage. RESPIRATORY: Non-labored respirations and equal bilateral excursions. CARDIOVASCULAR: Palpable 2+ radial pulses. ABDOMEN: Gastrostomy tube feeding on hold. No peritonitis. Drainage found along the gastrostomy tube dressing. MUSCULOSKELETAL: No gross deformity of the lower extremities noted. No clubbing. No cyanosis. SKIN: Good skin turgor. Well perfused. NEUROLOGIC: Cranial nerves II through XII grossly intact. No focal or lateralizing signs. PSYCH: Appropriate affect. Alert and oriented to person, place and time. CLINICAL LABS: Reviewed. WBC pending ASSESSMENT: 1. Gastrostomy tube leaking/malfunction 2. Severe protein malnutrition 3. Underweight, BMI 15.2 4. Anemia 5. History of neck cancer. 6. Nausea. PLAN: 1. CT-AP shows PEG tube in place. 2. Continue Tube Feeds.
[2023-09-06 02:05] VITALS: RESP 18
--- NOTE | 2023-09-06 12:50 | P.PN ---
Subjective September 04, 2023: Татьяна is stable. His tube feeds are on hold due to some bleeding around the tube feed site. Surgery is repeating CAT scan to evaluate for tube feed placement. Remains underweight. He is afebrile. Heart rate respiratory controlled, he remains on oxygen at 2 L via nasal cannula. Appears more debilitated today than he did on Thursday. He was denied by his insurance to ECF treatment. At this time he appears to need that again. Labs show hemoglobin stable. He denies any chest pains pressure shortness of breath this time. September 05 2023: The patient remained stable. His CT scan of the abdomen pelvis showed his PEG tube is in place. He tolerated feedings up until about an hour ago when he felt very full. Nursing has held them at this point. He remains on oxygen via nasal cannula 2 L/min. He remains debilitated. He is afebrile, vital signs are stable at this time. Hemoglobin is slightly less at 9.2 today with an MCV of 83.7. Chemistries are essentially normal. He denies any chest pains pressures or shortness of breath this time. He has his chronic cough. September 06, 2023: Patient is complaining of increased left shoulder posterior shoulder pain at the posterior. This been ongoing and affecting his ability to walk with a walker previously. Staff after using hot packs to the area and he also has [place] ordered for pain. He remains on his levothyroxine for hypothyroidism lisinopril for hypertension. Amlodipine for hypertension, he remains on hydrocortisone. Tube feeds are on hold once again as he is felt quite full. Will try adding some simethicone to see if this possibly gas pains. She is asleep but no arousable at this time. Objective - Vital Signs Vital signs: Vital Signs Temp 97.4 F L 09/06/23 07:04 Pulse 56 L 09/06/23 07:04 Resp 18 09/06/23 08:30 BP 100/61 09/06/23 07:04 Pulse Ox 98 09/06/23 07:04 FiO2 Intake & Output 09/05/23 09/06/23 09/06/23 18:59 06:59 18:59 Output Total 1300 Balance -1300 Weight 45.9 kg Output: Urine 1300 Other: Voiding Method Urinal Urinal Urinal # Voids 4 - Exam General: Thin frail male who looks his stated age of 63. PEG tube is in place with no evident discharge at this time. Minimal dried blood around the PEG tube, same Neck: The neck is supple, there is no thyromegaly, lymphadenopathy, tenderness or JVD. Cardiovascular: S1S2 is normal, There is a regular rate and rhythm. No murmur, rub or gallop is appreciated. Respiratory: Lungs are, coarse with decreased air exchange. He is using his nasal cannula oxygen Gastrointestinal: Soft, non-distended, non-tender abdomen without masses or organomegaly noted. There is no rebound or guarding present. Bowel sounds are unremarkable. Musculoskeletal: Thin frail with hard time moving. Neurological: CN II-XII intact, there are no obvious motor or sensory deficits. Coordination appears grossly intact. Speech is normal. Skin: Skin is warm and dry and no rashes or lesions are noted. - Labs CBC & Chem 7: 09/05/23 06:18 09/05/23 06:18 Assessment and Plan Plan: Altered mental status resolved he is at his baseline mentation Hypotension: Resolved, likely due to acute kidney failure Acute kidney injury secondary to hypotension, improved Hypothyroidism: History of thyroidectomy, remains on medications History of head and neck cancer in 2010: Stable but affects his ability to swallow, has had multiple episodes of aspiration pneumonia, he has a PEG tube in place now that is malfunctioning History of hypertension: He has amlodipine ordered and lisinopril, his blood pressure is once again elevated History of chronic obstructive pulmonary disease: He remains on oxygen at 2 L via nasal cannula. PEG tube malfunction: Again his tube feeds are on hold. Will have them restart that and add some simethicone to see if it will help with abdominal distention. There is no evident distention at this time. History of recurrent aspiration pneumonia: Currently stable Debility: He will most likely need significant physical therapy, possible long- term placement after that. Left shoulder pain at the scapula: Will obtain a left shoulder and scapular view. Continue hot packs. Will repeat labs in a.m., reevaluate next 24 hours, will reapply for ECF at this point since he seems more debilitated.
--- NOTE | 2023-09-06 13:37 | XR ---
EXAMINATION TYPE: XR shoulder complete LT DATE OF EXAM: 09/06/2023 1:28 PM CLINICAL INDICATION:Male, 63 years old with history of pain; PH[facility] COMPARISON: None TECHNIQUE: XR shoulder complete LT; examined in AP, internally rotated and scapular Y projections. FINDINGS: No evidence of acute osseous pathology, joint dislocation, or soft tissue swelling. The remaining po rtions of the visualized chest are unremarkable. Degeneration changes of the acromion, distal clavic le with osteophyte formation. There is osteophyte formation of the glenoid and humeral head. There is joint space narrowing of glenohumeral joint. IMPRESSION: 1. No acute osseous pathology. 2. Mild shoulder osteoarthrosis.
[2023-09-06] MEDS: SIMETHICONE 40 MG/0.6 ML DROPS 2,000 MG/30 ML BOTTLE PEG/G-TUBE SCH (14:46)
--- NOTE | 2023-09-06 14:47 | P.PN ---
Subjective Progress Note Date: 09/06/23 CHIEF COMPLAINT: Drainage from PEG tube HISTORY OF PRESENT ILLNESS: The patient is a 63-year-old male who is n.p.o. He is underweight, BMI 15.2. Primary nutrition is via gastrostomy feeding tube. He has decreased drainage around his feeding tube. Per discussion with nursing, patient at home usually does bolus feeds. He has intermittent abdominal cramping due to continuous tube feeds. Otherwise reports doing better now that he has been in the last couple days. ROS: No fevers or chills. No new chest pain. No productive sputum. History of neck cancer PHYSICAL EXAM: VITAL SIGNS: Reviewed CONSTITUTIONAL: Well developed and in no acute distress. EYES: Conjuctivae without sclera icterus. Extraocular movements grossly intact. HEAD, EARS, NOSE, THROAT: Moist buccal mucosa. Head is atraumatic, normocephalic. Hears conversational speech. No nasal drainage. RESPIRATORY: Non-labored respirations and equal bilateral excursions. CARDIOVASCULAR: Palpable 2+ radial pulses. ABDOMEN: Gastrostomy tube dressing clean dry and intact. MUSCULOSKELETAL: No gross deformity of the lower extremities noted. No clubbing. No cyanosis. SKIN: Good skin turgor. Well perfused. NEUROLOGIC: Cranial nerves II through XII grossly intact. No focal or lateralizing signs. PSYCH: Appropriate affect. Alert and oriented to person, place and time. CLINICAL LABS: Reviewed. Hemoglobin stable 9.2-9.5. STUDIES: CT of the abdomen pelvis independently reviewed demonstrates gastrostomy tube within the gastric lumen. No free air or bowel obstruction. This is my independent interpretation. ASSESSMENT: 1. Gastrostomy tube leaking/malfunction 2. Severe protein malnutrition 3. Underweight, BMI 15.2 4. Anemia 5. History of neck cancer. 6. Nausea. PLAN: 1. Continue tube feeds. 2. Medications for nausea as needed. 3. Adjustment of tube feeds per dietary for nutritional goals Objective - Vital Signs Vital signs: Vital Signs Temp 97.9 F 09/06/23 13:36 Pulse 58 L 09/06/23 13:36 Resp 18 09/06/23 13:36 BP 129/83 09/06/23 13:36 Pulse Ox 98 09/06/23 13:36 FiO2 Intake & Output 09/05/23 09/06/23 09/06/23 18:59 06:59 18:59 Output Total 1300 Balance -1300 Weight 45.9 kg Output: Urine 1300 Other: Voiding Method Urinal Urinal Urinal # Voids 4 - Labs CBC & Chem 7: 09/05/23 06:18 09/05/23 06:18
[2023-09-06] MEDS: LIDOCAINE 4% PATCH TOPICAL SCH (15:50)
[2023-09-07 13:20] VITALS: BMI 14.3
--- NOTE | 2023-09-07 13:45 | P.PN ---
Subjective Progress Note Date: 09/07/23 Principal diagnosis: Malfunctioning PEG tube Patient doing well today. Tolerating tube feeds. No bleeding from the gastrostomy site. CAT scan performed the other day shows tube appropriately positioned. Plans for transfer to rehab today. Objective - Vital Signs Vital signs: Vital Signs Temp 97.8 F 09/07/23 07:13 Pulse 60 09/07/23 07:13 Resp 18 09/07/23 07:13 BP 114/69 09/07/23 07:13 Pulse Ox 98 09/07/23 07:13 FiO2 Intake & Output 09/06/23 09/07/23 09/07/23 18:59 06:59 18:59 Intake Total 1560 Output Total 900 1100 300 Balance -900 -1100 1260 Weight 46.7 kg 46.7 kg Intake: Tube Feeding 1560 Output: Urine 900 1100 300 Other: Voiding Method Urinal Urinal Urinal # Voids 1 # Bowel Movements 0 - Exam Abdomen: Soft, nondistended, PEG tube in place, nontender - Labs CBC & Chem 7: 09/05/23 06:18 09/05/23 06:18 Assessment and Plan (1) PEG tube malfunction Narrative/Plan: 63-year-old male doing well at this time. Continue tube feeds at goal. No further plans. Will sign off. Please reconsult if needed. Current Visit: Yes Status: Acute Code(s): K94.23 - GASTROSTOMY MALFUNCTION SNOMED Code(s): 714671385
--- NOTE | 2023-09-07 14:16 | P.PN ---
Subjective Progress Note Date: 09/07/23 This is a 63-year-old male patient with a history of multiple comorbidities including head and neck cancer in 2010, status post PEG tube insertion, thyroid cancer status post thyroidectomy, chronic obstructive pulmonary disease, hypertension who resides in a local [facility]. [facility] after the patient was found to be very weak and lethargic and minimally responsive. Blood pressures in the 90s systolic. X-ray revealed no acute process. Abdominal x-ray revealed no acute process. White count 6.0. Hemoglobin 9.6. Platelets 328. Sodium 132. Potassium 4.7. Bicarb 26. BUN 60. Creatinine 2.0. Troponin negative x 1. Procalcitonin 0.12. TSH 8.53. Cortisol level 15.2. Urinalysis clean. Stool for occult blood negative. He is seen today in consultation in the emergency department. He is currently sitting up on a stretcher. Awake and alert in no acute distress. His main complaint is of left shoulder and back pain. No worsening shortness of breath, cough or congestion. He is maintaining good O2 saturations in the 90s on 5 L/min per nasal cannula. He is requiring norepinephrine at 0.1 mcg/kg/min. The patient is seen today August 29, 2023 in follow-up in the intensive care unit. He is currently sitting up in bed. Awake and alert in no acute distress. He has oxygen at 2 L/min per nasal cannula with O2 saturations in the 90s. He is currently on normal saline at 130 MLS per hour. His norepinephrine has been off since yesterday. He is being nourished with Jevity at 40 MLS per hour. PEG tube exit site is clean and dry. Procalcitonin was 0.08. Zosyn will be discontinued. He remains on Cortef 10 mg in the morning and 5 mg in the evening. Current mean arterial pressure 84. He is afebrile. Hemodynamically stable. White count 5.7. Hemoglobin 10.6. Platelets 303. Sodium 133. Potassium 4.4. Bicarb 26. BUN 29. Creatinine 1.25. The patient is seen today August 30, 2023 in follow-up on the regular medical floor. He is currently awake and alert in no acute distress. He is receiving 0.9 normal saline at 75 MLS per hour. Being nourished with Jevity at 65 MLS per hour per his PEG tube. He remains on bronchodilators. Remains on hydrocortisone. He is maintaining good O2 saturations in the 90s on 2 L/min per nasal cannula. He remains afebrile. Hemodynamically stable. 08/31/2023, the patient is being seen for a follow-up. The patient is resting comfortably in bed. No specific complaints. Sepsis has resolved. Procalcitonin level is normal. Most recent labs from 08/28/2022 was reviewed. BUN is 29 with a creatinine of 1.25 and the patient's acute kidney injury has been improving. Potassium is at 4.4. UA is negative. Blood culture is polymicrobial without any subsequent growth on repeat culture that was obtained on 08/29/2023. The patient is currently on 2 L of O2 nasal cannula with a pulse ox of 95%. On 09/01/2023, the patient has no specific complaints. The patient was encountering some bleeding from the PEG tube site and the fact he was evaluated by general surgery. No active bleeding at this point in time. The bolster was tightened with no further bleeding. The patient is currently on enteral feeding for nutritional support. The white cell count is 7.4, hemoglobin 10.4 and the platelet is currently at 282. The patient remains on 2 L of oxygen by nasal cannula with a pulse ox of 97%. The patient is asymptomatic and clinically stable. Remains on IV fluids at a rate of 75 cc an hour normal saline. On today's evaluation of 2023, the patient is stable and the patient is currently on 2 L of oxygen by nasal cannula with a pulse ox of 94%. Clinically stable. Hemodynamic stable. No new labs are available from today. Continues to receive enteral feeding for incision support and the patient has a functional PEG tube in place. No other specific complaints for now. No bleeding from the PEG tube site. No nausea. No vomiting. No emesis. No signs of any aspirati on. The patient is seen today September 07, 2023 in follow-up on the regular medical floor. He is currently resting in bed. He is maintaining O2 saturations in the 90s on 2 L/min per nasal cannula. He is receiving Jevity tube feedings at 30 MLS per hour. Follow-up blood cultures revealed no growth. He remains on bronchodilators. He denies any shortness of breath, cough or congestion. Objective - Vital Signs Vital signs: Vital Signs Temp 97.8 F 09/07/23 07:13 Pulse 60 09/07/23 07:13 Resp 18 09/07/23 07:13 BP 114/69 09/07/23 07:13 Pulse Ox 98 09/07/23 07:13 FiO2 Intake & Output 09/06/23 09/07/23 09/07/23 18:59 06:59 18:59 Intake Total 1560 Output Total 900 1100 300 Balance -900 -1100 1260 Weight 46.7 kg 46.7 kg Intake: Tube Feeding 1560 Output: Urine 900 1100 300 Other: Voiding Method Urinal Urinal Urinal # Voids 1 # Bowel Movements 0 - Exam GENERAL EXAM: Alert, thin, 63-year-old male, resting in bed, on 2 L nasal cannula, in no apparent distress. HEAD: Normocephalic. EYES: Normal reaction of pupils, equal size. NOSE: Clear with pink turbinates. THROAT: No erythema or exudates. NECK: No masses, no JVD. CHEST: No chest wall deformity. LUNGS: Equal air entry with no crackles, wheeze, rhonchi or dullness. CVS: S1 and S2 normal with no audible murmur, regular rhythm. ABDOMEN: PEG tube exit site clean and dry. No hepatosplenomegaly, normal bowel sounds, no guarding or rigidity. SPINE: No scoliosis or deformity SKIN: No rashes CENTRAL NERVOUS SYSTEM: No focal deficits, tone is normal in all 4 extremities. EXTREMITIES: There is no peripheral edema. No clubbing, no cyanosis. Periphera l pulses are intact. - Labs CBC & Chem 7: 09/05/23 06:18 09/05/23 06:18 Assessment and Plan Assessment: Altered mental status of unclear etiology, possibly related to hypotension, improved Hypotension requiring pressor support, recovered Acute kidney injury secondary to hypotension, improved Hypothyroidism, status post previous thyroidectomy History of head and neck cancer in 2010 History of hypertension History of chronic obstructive pulmonary disease Former smoker Plan: The patient was seen and evaluated Medications reviewed Plan is for home with home care possibly today I have personally seen and examined the patient, performed the documentation and the assessment and plan as written. Number of minutes spent on the visit: 10.
[2023-09-07 14:20] VITALS: BP 102/60; PULSE 62; TEMP 98.3
--- NOTE | 2023-09-07 15:51 | P.DS ---
Providers Date of admission: 08/27/23 15:32 Expected date of discharge: 09/07/23 Attending physician: Suman Ortiz Consults: 08/27/23 15:31 Consult Physician Stat Consulting Provider: Vladimir Murillo Reason/Comments: icu admission Do you want consulting provider notified?: Already Contacted Primary care physician: Quique Umaña [facility] Course: Final Diagnoses: Sepsis with altered mental status, acute metabolic encephalopathy, etiology unclear, suspect hypotension. Initially suspected aspiration pneumonia though chest x-ray reported no acute process, initially treated with IV antibiotics Zosyn and ruled out as per pulmonary. procalcitonin has normalized. Altered mental status, improved; at baseline as per his PCP. Hypotension, pressor dependent, recovered Acute renal failure secondary to the above, improved Hypothyroidism status post thyroidectomy, TSH elevated, levothyroxine increased History of head, neck cancer 2011 PEG tube, general surgery following and cleared. CT scan reported tube in appropriate position. History of hypertension COPD, history of Prior nicotine dependence Moderate protein calorie malnutrition, BMI 17 Hospital course: This is a 63-year-old gentleman with past medical history significant for head and neck cancer 2010, PEG tube with replacement multiple times ,thyroid cancer status post thyroidectomy, prior nicotine dependence, COPD, hypertension and multiple other medical issues. Patient reports he was at [facility] last week for about 4 days for congestive heart failure and was discharged to [facility] yesterday, felt weak. Vague historian. Patient transferred to the ER via EMS related to increased lethargy, decreased responsiveness and hypotension. EMS reported a systolic blood pressure of 90 and pressure continued to drop while and route to the ER. On arrival blood pressure 58/41. Denies chest pain, palpitations. Complains of back and left shoulder pain on ER stretcher. Currently maintaining O2 sats of mid 90s on 5 L nasal cannula, continues on Levophed drip. Afebrile, normal WBC. Hemoglobin 9.6, platelets 328, coagulation panel unremarkable, sodium 132, potassium 4.7, bicarb 26, BUN 60, creatinine 2.02, glucose 77, lactic acid 0.9, magnesium 2.2, troponins negative x 1 , procalcitonin 0.12, TSH 8.530, free T41.11, cortisol 15.2 .UA negative with trace of protein, stool for occult blood negative chest and abdominal x-ray reported no acute process. IV fluid resuscitation, pressor dependent, awaiting ICU bed. Aggressive pulmonary toileting with nebulized bronchodilators and Zosyn. General surgery consulted to evaluate PEG tube; patient has history of multiple replacements. Dietitian consulted regarding tube feeds pending general surgery clearance to use PEG tube. Records of recent visit at [facility] requested. prognosis guarded given multiple complex medical issues. 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 Procalcitonin within normal limits, antibiotics have been discontinued. preliminary repeat blood culture reporting no growth after 24-hours. Maintained on nebulized bronchodilators. Hemodynamically stable, denies chest pain, palpitations or shortness of breath. Patient will be discharged/return to [facility] subacute rehab today in a stable condition with guarded prognosis, pending final DC recommendations and clearance per pulmonary. 09/01/2023 during rounds, discovered bleeding from around his PEG tube site, h emoglobin remained stable at 10.4. Abdomen is soft, nondistended, nontender. patient reports PEG tube site nontender, no pain. Currently no bleeding. reevaluation per general surgery in progress.-Treated with silver nitrate sticks. 09/02/2023 peer to peer review completed yesterday .per social work, updated prior Auth was denied and patient is appealing the insurance denial .no overnight events. PEG tube site uneventful with no further bleeding. Evaluated by surgery yesterday, bolster was loose-tightened with granulation tissue noted- suspected to be the source of bleeding and treated with nitrates sticks. Repeat hemoglobin yesterday afternoon remained stable. Denies chest pain, palpitations or shortness of breath. Maintaining O2 sats in the mid to high 90s on 2 L nasal cannula. Afebrile. Patient will be discharged return to [facility] ,in a stable condition with guarded prognosis. 09/07/2023 significant clinical improvement. Tolerating tube feeds at goal with minimal to no residuals. Denies bloating, denies abdominal pain. denies any chest pain, palpitations or shortness of breath.denies cough or congestion .continues on nebulized bronchodilators, maintaining O2 sats in the 90s on 2 L nasal cannula. Afebrile, repeat blood culture reported no growth. Patient verbalized understanding of reinforced strict n.p.o. status. Cleared by pulmonary, general surgery for discharge. Despite [id number] as well as appeal, patient's insurance denied subacute rehab. Patient reevaluated today by PT; patient was able to get in and out of bed independently,ambulated in the hallway 40 to 50 feet,cleared by PT for DC home with home care, recommending walker. Per RN , patient's family refused both nebulizer and walker .options/resources provided to family as per case management. Patient will be discharged home with home care ,with family today in a stable condition with guarded prognosis. The impression and plan of care has been dictated as directed. : I performed a history and examination of this patient, discussed the same with the dictator. I agree with the dictator's note ,documented as a scribe. Any additional findings or plans will be noted.. Patient Condition at Discharge: Stable Plan - Discharge Summary Discharge Rx Participant: Yes New Discharge Prescriptions: New Simethicone 40 mg/0.6 ml Drops [Mylicon Drops] 100 mg PEG/G-TUBE QID ml Levothyroxine Sodium 100 mcg PEG/G-TUBE DAILY #30 tab Ipratropium-Albuterol Nebulize [Duoneb 0.5 mg-3 mg/3 ml Soln] 3 ml INHALATION QID #120 each Lidocaine 4% Patch 1 patch TOPICAL DAILY #30 patch HYDROcodone/APAP 5-325MG [[place] 5-325] 1 each PEG/G-TUBE Q6HR PRN #12 tab PRN Reason: Pain Scale 6 To 10 Continue Menthol-Zinc Oxide Oint [Calmoseptine Ointment] 1 applic TOPICAL Q1H PRN PRN Reason: SORENESS Acetaminophen Tab [Tylenol] 650 mg PEG/G-TUBE Q6H PRN PRN Reason: Pain amLODIPine [Norvasc] 10 mg PEG/G-TUBE DAILY Ondansetron [Zofran] 4 mg PEG/G-TUBE Q6H PRN PRN Reason: Nausea And Vomiting lisinopriL [Zestril] 2.5 mg PEG/G-TUBE BID Omeprazole [PriLOSEC] 20 mg PEG/G-TUBE DAILY Discontinued Levothyroxine Sodium [Synthroid] 75 mcg PEG/G-TUBE DAILY carvediloL [Coreg] 6.25 mg PEG/G-TUBE BID@0800,1700 cloNIDine HCL [Catapres] 0.2 mg PEG/G-TUBE TID@0800,1200,1800 hydrOXYzine pamoate [Vistaril] 25 mg PEG/G-TUBE HS Ipratropium-Albuterol Nebulize [Duoneb 0.5 mg-3 mg/3 ml Soln] 3 ml INHALATION RT-Q6H PRN PRN Reason: Shortness Of Breath Or Wheezing Discharge Medication List amLODIPine [Norvasc] 10 mg PEG/G-TUBE DAILY 05/07/21 [History] Ondansetron [Zofran] 4 mg PEG/G-TUBE Q6H PRN 07/01/22 [History] Acetaminophen Tab [Tylenol] 650 mg PEG/G-TUBE Q6H PRN 08/27/23 [History] Menthol-Zinc Oxide Oint [Calmoseptine Ointment] 1 applic TOPICAL Q1H PRN 4 [History] Omeprazole [PriLOSEC] 20 mg PEG/G-TUBE DAILY 08/27/23 [History] lisinopriL [Zestril] 2.5 mg PEG/G-TUBE BID 08/27/23 [History] HYDROcodone/APAP 5-325MG [[place] 5-325] 1 each PEG/G-TUBE Q6HR PRN #12 tab 09/07/23 [Rx] Ipratropium-Albuterol Nebulize [Duoneb 0.5 mg-3 mg/3 ml Soln] 3 ml INHALATION QID #120 each 09/07/23 [Rx] Levothyroxine Sodium 100 mcg PEG/G-TUBE DAILY #30 tab 09/07/23 [Rx] Lidocaine 4% Patch 1 patch TOPICAL DAILY #30 patch 09/07/23 [Rx] Simethicone 40 mg/0.6 ml Drops [Mylicon Drops] 100 mg PEG/G-TUBE QID ml 09/07/23 [Rx] Follow up Appointment(s)/Referral(s): Suman Ortiz Jr, [Doctor of Osteopathic Medicine] - 09/11/23 1:00 pm () [facility], [NON-STAFF] - As Needed [facility], [REFERRING] - As Needed Ambulatory/Diagnostic Orders: Complete Blood Count w/diff [LAB.AMB] Time Frame: 3 Days, Location: None Selected Activity/Diet/Wound Care/Special Instructions: Peg Tube Feedings,resume as previously ordered. Strict aspiration precautions. cbc,bmp in 3 days Home with home care/dietitian-for adjustment of tube feeds to nutritional goals. Discharge/Stand Alone Forms: [facility] Shel[facility], Who Do I Call?, Adult Foster [facility] List, Assisted Living Facilities, Help In The Home Discharge Disposition: HOME WITH HOME HEALTH SERVICES
--- NOTE | 2023-09-09 12:48 | CDI ---
Documentation Clarification Form Date: 09/09/2023 From: Josi Parada Phone: [phone] Admit Date: 08/27/2023 03:32:00 PM Patient Name: Duc Knapp Visit Number: [id number] Discharge Date: 09/07/2023 04:31:00 PM ATTENTION: The Clinical Documentation Specialists (CDI) and [facility] Coding Staff appreciate your assistance in clarifying documentation. Please respond to the clarification below the line at the bottom and electronically sign. The CDI & [facility] Coding staff will review the response and follow-up if needed. Please note: Queries are made part of the Legal Health Record. If you have any questions, please contact the author of this message via ITS. Dr. Suman Ortiz: Sepsis is documented in the IM progress note 08/29 and in subsequent notes which may lack sufficient clinical evidence/support in the medical record. Additional clarification is requested. History/Risk Factors: 67-year-old male with a history of cancer, COPD, PNA, HTN who presents with lethargy and minimally responsive with blood pressure dropping en route. Clinical Indicators: 08/26 Triage VS: 58/41, 98.6, 44 08/26-09/06 Tmax: 99.1 08/27 08/29 IM PN, Assessment and Plan: "(4) Aspiration pneumonia." Plan: "sepsis resolved" 08/30 Discharge Summary, Final Diagnosis: "Sepsis with altered mental status, acute metabolic encephalopathy, etiology unclear, suspect hypotension. Initially suspected aspiration pneumonia though chest x-ray reported no acute process, initially treated with IV antibiotics Zosyn and ruled out as per pulmonary. procalcitonin has normalized." 08/26, 08/28, 08/31, 09/02-09/04 WBC: 6.0, 5.7, 7.4, 5.71, 4.9, 5.35 08/26, 08/27 Procalcitonin: 0.12, 0.08 08/26 Lactic Acid: 0.9 08/26 Blood Culture: Tanika lusitaniae, Staphylococcus epidermis 08/28 Blood Culture: No growth after 5 days 08/26 X Ray abdomen and chest, Impression: "1. No radiographic evidence for acute abdominal process. 2. No acute cardiopulmonary process." Treatment: Normal Saline 1000cc IV bolusx2 08/26then 75 cc/hour 08/26-09/06 Zosyn 3.375gram IV [id number] 08/26-08/28 Please clarify if Sepsis is a valid diagnosis? [x ] No, Sepsis is ruled out [ ] Yes, Sepsis is present as evidence by (additional clinical support): [ x] Other (please specify diagnosis) _hypotension secondary to dehydration [ ] Unable to determine MTDD
== END 2023-09-07 16:31 | disposition home health service (06) | DRG 640 ==
LOC: EC 12:38 → 2SICU 15:32 → 5NMEDONC 08-29 14:13 → 4SSUR 09-03 18:35
PROVIDERS: ADMIT Family Medicine; ATTEND Family Medicine
PROC: 02HV33Z Insertion of Infusion Device into Superior Vena Cava, Percutaneous Approach (ICD-10-PCS; principal; 2023-08-27)
PROC: 3E043XZ Introduction of Vasopressor into Central Vein, Percutaneous Approach (ICD-10-PCS; 2023-08-27)
DX: E86.0 Dehydration (principal); G93.41 Metabolic encephalopathy; E44.0 Moderate protein-calorie malnutrition; K94.23 Gastrostomy malfunction; N17.9 Acute kidney failure, unspecified; Z68.1 Body mass index [BMI] 19.9 or less, adult; D64.9 Anemia, unspecified; E89.0 Postprocedural hypothyroidism; F41.9 Anxiety disorder, unspecified; I50.9 Heart failure, unspecified; I11.0 Hypertensive heart disease with heart failure; J44.9 Chronic obstructive pulmonary disease, unspecified; K94.21 Gastrostomy hemorrhage; B95.8 Unspecified staphylococcus as the cause of diseases classified elsewhere; I95.9 Hypotension, unspecified; R09.02 Hypoxemia; R13.10 Dysphagia, unspecified; Z79.899 Other long term (current) drug therapy; Z80.1 Family history of malignant neoplasm of trachea, bronchus and lung; Z85.89 Personal history of malignant neoplasm of other organs and systems; Z91.199 Patient's noncompliance with other medical treatment and regimen due to unspecified reason; Z87.891 Personal history of nicotine dependence
CPT/HCPCS: 36415; 51702; 74022; 74177; 80048; 80053; 81003; 82272; 82330; 82533; 83605; 83735; 84145; 84439; 84443; 84484; 85025; 85027; 85610; 85730; 86850; 86900; 86901; 87040; 93005; 94760; 96365; 96367; 96375; 99291

== ENCOUNTER 2023-09-22 15:28 | Emergency (ER) | payer MEDICARE ==
[2023-09-22] MEDS: SODIUM CHLORIDE 0.9% 500 ML 500 ML IV STA (17:11)
[2023-09-22 17:18] LABS: Anisocytosis Slight; Basophils % (A) 1 %; Eosinophils % (A) 0 %; HCT 31.2 % (39.0-53.0); HGB 9.9 gm/dL (13.0-17.5); Hypochromasia Moderate; Lymphocytes # (A) 0.9 k/uL (1.0-4.8); Lymphocytes % (A) 12 %; MCH 26.9 pg (25.0-35.0); MCHC 31.6 g/dL (31.0-37.0); MCV 85.3 fL (80.0-100.0); Mean Platelet Volume 8.1; Monocytes # (A) 0.8 k/uL (0-1.0); Monocytes % (A) 12 %; Neutrophils # (A) 5.2 k/uL (1.3-7.7); Neutrophils % (A) 72 %; Platelet Count 542 k/uL (150-450); RBC 3.66 m/uL (4.30-5.90); WBC 7.2 k/uL (3.8-10.6)
[2023-09-22 17:35] LABS: ALT 13 U/L (4-49); AST 21 U/L (17-59); African American GFR (CKD) >90 (>60 ml/min/1.73 sqM); Albumin 4.5 g/dL (3.5-5.0); Alkaline Phosphatase 67 U/L (38-126); Anion Gap 10 mmol/L; Blood Urea Nitrogen 58 mg/dL (9-20); Calcium 9.6 mg/dL (8.4-10.2); Carbon Dioxide 29 mmol/L (22-30); Chloride 94 mmol/L (98-107); Glucose 77 mg/dL (74-99); Non-African American GFR(CKD) >90 (>60 ml/min/1.73 sqM); Potassium 5.2 mmol/L (3.5-5.1); Sodium 133 mmol/L (137-145); Total Bilirubin 0.3 mg/dL (0.2-1.3); Total Protein 8.2 g/dL (6.3-8.2)
[2023-09-22 17:40] LABS: NT-Pro-B-Type Natriuretic Pept 390 pg/mL
[2023-09-22 17:45] LABS: Appearance,Urine Clear (Clear); Bilirubin,Urine Negative (Negative); Blood,Urine Negative (Negative); Color,Urine Colorless; Glucose,Urine (UA) Negative (Negative); Ketones,Urine Negative (Negative); Leukocyte Esterase,Urine Negative (Negative); Nitrite,Urine Negative (Negative); Protein,Urine Negative (Negative); Specific Gravity,Urine 1.014 (1.001-1.035); Urobilinogen,Urine <2.0 mg/dL (<2.0)
--- NOTE | 2023-09-22 17:47 | ED ---
General Adult HPI - General Chief complaint: Dizziness Stated complaint: Dizziness Time Seen by Provider: 09/22/23 15:30 Source: patient, EMS Mode of arrival: EMS Limitations: no limitations - History of Present Illness Initial comments: 63-year-old male with past medical history of chronic respiratory insufficiency on oxygen, head and neck cancer with PEG tube, chronic kidney disease who presents emergency department with low blood pressure and high heart rate. It was reported that the patient's home care nurse was at the house today. They have had low blood pressures over the past couple of days. The patient states that he felt disoriented and therefore they did recommend ER evaluation. Pulverizer Feeder states that the patient has been off of both his blood pressure medications as they have been causing his blood pressure to be low. He is judith ating tube feeds. He denies any shortness of breath. No chest pain. Admits to general fatigue. No other alleviating, precipitating or modifying factors - Related Data Home Medications Medication Instructions Recorded Confirmed amLODIPine [Norvasc] 10 mg PEG/G-TUBE DAILY 05/07/21 09/22/23 Omeprazole [PriLOSEC] 20 mg PEG/G-TUBE DIRECTED 08/27/23 09/22/23 lisinopriL [Zestril] 2.5 mg PEG/G-TUBE HS 08/27/23 09/22/23 Clarithromycin [Biaxin] 250 mg PEG/G-TUBE BID 09/22/23 09/22/23 HYDROcodone/APAP 5-325MG [[place] 1 tab PEG/G-TUBE Q6HR PRN 09/22/23 09/22/23 5-325] Ipratropium-Albuterol Nebulize 3 ml INHALATION RT-Q4H PRN 09/22/23 09/22/23 [Duoneb 0.5 mg-3 mg/3 ml Soln] Lansoprazole 30 mg PEG/G-TUBE HS 09/22/23 09/22/23 Metoclopramide [Reglan] 10 mg PEG/G-TUBE AC-BID 09/22/23 09/22/23 Previous Rx's Medication Instructions Recorded Levothyroxine Sodium 100 mcg PEG/G-TUBE DAILY #30 tab 09/07/23 Allergies Allergy/AdvReac Type Severity Reaction Status Date / Time No Known Allergies Allergy Verified 09/22/23 17:46 Review of Systems ROS Statement: Those systems with pertinent positive or pertinent negative responses have been documented in the HPI. ROS Other: All systems not noted in ROS Statement are negative. Past Medical History Past Medical History: Cancer, COPD, Hypertension, Pneumonia, Thyroid Disorder Additional Past Medical History / Comment(s): Hx neck cancer in 2010, had surgery, chemo and radiation. History of Any Multi-Drug Resistant Organisms: None Reported Past Surgical History: Tonsillectomy Additional Past Surgical History / Comment(s): Lymph node removal, thyroidectomy, radical tonsil dissection. Past Anesthesia/Blood Transfusion Reactions: No Reported Reaction Past Psychological History: Anxiety Smoking Status: Former smoker Past Alcohol Use History: None Reported Past Drug Use History: Marijuana - Past Family History Mother Family Medical History: Cancer, Pneumonia Additional Family Medical History / Comment(s): from lung cancer and pneumonia. Father Family Medical History: Prostate Disorder Additional Family Medical History / Comment(s): Prostatectomy due to Prostate Cancer. Sister(s) Family Medical History: Cancer Additional Family Medical History / Comment(s): Breast Cancer. General Exam Limitations: no limitations General appearance: cachectic Head exam: Present: atraumatic, normocephalic, normal inspection Eye exam: Present: normal appearance, PERRL, EOMI. Absent: scleral icterus, conjunctival injection, periorbital swelling ENT exam: Present: mucous membranes dry Respiratory exam: Present: wheezes Cardiovascular Exam: Present: regular rate, normal rhythm, normal heart sounds. Absent: systolic murmur, diastolic murmur, rubs, gallop, clicks GI/Abdominal exam: Present: soft Course Vital Signs 09/22/23 09/22/23 09/22/23 15:29 16:23 18:00 Temperature 98.1 F Pulse Rate 91 76 79 Respiratory 19 16 20 Rate Blood Pressure 117/79 119/82 136/98 O2 Sat by Pulse 96 97 97 Oximetry 09/22/23 09/22/23 19:50 20:26 Temperature 98.2 F Pulse Rate 74 79 Respiratory 15 18 Rate Blood Pressure 134/86 147/90 O2 Sat by Pulse 99 99 Oximetry Medical Decision Making - Medical Decision Making Was pt. sent in by a medical professional or institution (, PA, LAB ANIMAL TECHNOLOGIST, urgent care, hospital, or care home...) When possible be specific @ -Patient was sent in by his home care nurse Did you speak to anyone other than the patient for history (EMS, parent, family, police, friend...)? What history was obtained from this source @ -Spoke with family and EMS Did you review nursing and triage notes (agree or disagree)? Why? @ -I reviewed and agree with nursing and triage notes Were old charts reviewed (outside hosp., previous admission, EMS record, old EKG, old radiological studies, urgent care reports/EKG's, care home records)? Report findings @ -No old charts were reviewed Differential Diagnosis (chest pain, altered mental status, abdominal pain women, abdominal pain men, vaginal bleeding, weakness, fever, dyspnea, syncope, headache, dizziness, GI bleed, back pain, seizure, CVA, palpatations, mental health, musculoskeletal)? @ -Differential Weakness: Hypoglycemia, shock, sepsis, hyponatremia, anemia, infection, NE, ETOH, adverse medicine reaction, overdose, stroke, this is not meant to be an all-inclusive list. EKG interpreted by me (3pts min.). @ -Yes and demonstrates sinus rhythm with a rate of 91. DE interval 185. QRS 86. QTc of 390. No acute ST segment elevations X-rays interpreted by me (1pt min.). @ -Yes and demonstrates questionable pneumonia. Patient has no fevers, chills or cough CT interpreted by me (1pt min.). @ -None done U/S interpreted by me (1pt. min.). @ -None done What testing was considered but not performed or refused? (CT, X-rays, U/S, labs)? Why? @ -None What meds were considered but not given or refused? Why? @ -None Did you discuss the management of the patient with other professionals (professionals i.e. , PA, LAB ANIMAL TECHNOLOGIST, lab, RT, psych nurse, social work msw, sleeping car porter, teacher, food safety officer, casework supervisor)? Give summary @ -I discussed the case with Dr. Caruso who will see the patient in office tomorrowey Was smoking cessation discussed for >3mins.? @ -No Was critical care preformed (if so, how long)? @ -No Were there social determinants of health that impacted care today? How? (Homelessness, low income, unemployed, alcoholism, drug addiction, transpo rtation, low edu. Level, literacy, decrease access to med. care, nursing home, rehab)? @ -No Was there de-escalation of care discussed even if they declined (Discuss DNR or withdrawal of care, Hospice)? DNR status @ -No What co-morbidities impacted this encounter? (DM, HTN, Smoking, COPD, CAD, Cancer, CVA, ARF, Chemo, Hep., AIDS, mental health diagnosis, sleep apnea, morbid obesity)? @ -Chronic kidney disease, chronic respiratory insufficiency on home O2, head and neck cancer with PEG tube Was patient admitted / discharged? Hospital course, mention meds given and route, prescriptions, significant lab abnormalities, going to OR and other pertinent info. @ -Upon arrival patient seen and evaluated in room 16. Thorough history and physical exam was performed. Vitals are stable. Laboratory studies are conducted. Chest x-ray was performed. Patient is reevaluated and continues to have stable vitals. Laboratory studies within normal limits. I did call and speak with Dr. Ortiz. Patient can be discharged home and will follow-up with him in office tomorrow. Patient was agreeable to discharge and he was discharged in stable condition with a very guarded prognosis Undiagnosed new problem with uncertain prognosis? @ -No Drug Therapy requiring intensive monitoring for toxicity (Heparin, Nitro, Insulin, Cardizem)? @ -No Were any procedures done? @ -No Diagnosis/symptom? @ -Near syncope, hypotension Acute, or Chronic, or Acute on Chronic? @ -Acute Uncomplicated (without systemic symptoms) or Complicated (systemic symptoms)? @ -Complicated Side effects of treatment? @ -No Exacerbation, Progression, or Severe Exacerbation? @ -No Poses a threat to life or bodily function? How? (Chest pain, [place], NE, pneumonia, PE, COPD, DKA, ARF, appy, cholecystitis, CVA, Diverticulitis, Homicidal, Suicidal, threat to staff... and all critical care pts) @ -No - Lab Data Result diagrams: 09/22/23 16:58 09/22/23 16:58 Lab Results 09/22/23 09/22/23 09/22/23 Range/Units 16:58 16:58 16:58 WBC 7.2 (3.8-10.6) k/uL RBC 3.66 L (4.30-5.90) m/uL Hgb 9.9 L (13.0-17.5) gm/dL Hct 31.2 L (39.0-53.0) % MCV 85.3 (80.0-100.0) fL MCH 26.9 (25.0-35.0) pg MCHC 31.6 (31.0-37.0) g/dL RDW 17.0 H (11.5-15.5) % Plt Count 542 H (150-450) k/uL MPV 8.1 Neutrophils % 72 % Lymphocytes % 12 % Monocytes % 12 % Eosinophils % 0 % Basophils % 1 % Neutrophils # 5.2 (1.3-7.7) k/uL Lymphocytes # 0.9 L (1.0-4.8) k/uL Monocytes # 0.8 (0-1.0) k/uL Eosinophils # 0.0 (0-0.7) k/uL Basophils # 0.0 (0-0.2) k/uL Hypochromasia Moderate Anisocytosis Slight Sodium 133 L (137-145) mmol/L Potassium 5.2 H (3.5-5.1) mmol/L Chloride 94 L (98-107) mmol/L Carbon Dioxide 29 (22-30) mmol/L Anion Gap 10 mmol/L BUN 58 H (9-20) mg/dL Creatinine 0.77 (0.66-1.25) mg/dL Est GFR (CKD-EPI)AfAm >90 (>60 ml/min/1.73 sqM) Est GFR (CKD-EPI)NonAf >90 (>60 ml/min/1.73 sqM) Glucose 77 (74-99) mg/dL Plasma Lactic Acid Amador 1.3 (0.7-2.0) mmol/L Calcium 9.6 (8.4-10.2) mg/dL Total Bilirubin 0.3 (0.2-1.3) mg/dL AST 21 (17-59) U/L ALT 13 (4-49) U/L Alkaline Phosphatase 67 (38-126) U/L NT-Pro-B Natriuret Pep 390 pg/mL Total Protein 8.2 (6.3-8.2) g/dL Albumin 4.5 (3.5-5.0) g/dL TSH 0.466 (0.465-4.680) mIU/L Urine Color Urine Appearance (Clear) Urine pH (5.0-8.0) Ur Specific [place] (1.001-1.035) Urine Protein (Negative) Urine Glucose (UA) (Negative) Urine Ketones (Negative) Urine Blood (Negative) Urine Nitrite (Negative) Urine Bilirubin (Negative) Urine Urobilinogen (<2.0) mg/dL Ur Leukocyte Esterase (Negative) 09/22/23 Range/Units 17:00 WBC (3.8-10.6) k/uL RBC (4.30-5.90) m/uL Hgb (13.0-17.5) gm/dL Hct (39.0-53.0) % MCV (80.0-100.0) fL MCH (25.0-35.0) pg MCHC (31.0-37.0) g/dL RDW (11.5-15.5) % Plt Count (150-450) k/uL MPV Neutrophils % % Lymphocytes % % Monocytes % % Eosinophils % % Basophils % % Neutrophils # (1.3-7.7) k/uL Lymphocytes # (1.0-4.8) k/uL Monocytes # (0-1.0) k/uL Eosinophils # (0-0.7) k/uL Basophils # (0-0.2) k/uL Hypochromasia Anisocytosis Sodium (137-145) mmol/L Potassium (3.5-5.1) mmol/L Chloride (98-107) mmol/L Carbon Dioxide (22-30) mmol/L Anion Gap mmol/L BUN (9-20) mg/dL Creatinine (0.66-1.25) mg/dL Est GFR (CKD-EPI)AfAm (>60 ml/min/1.73 sqM) Est GFR (CKD-EPI)NonAf (>60 ml/min/1.73 sqM) Glucose (74-99) mg/dL Plasma Lactic Acid Am[place] (0.7-2.0) mmol/L Calcium (8.4-10.2) mg/dL Total Bilirubin (0.2-1.3) mg/dL AST (17-59) U/L ALT (4-49) U/L Alkaline Phosphatase (38-126) U/L NT-Pro-B Natriuret Pep pg/mL Total Protein (6.3-8.2) g/dL Albumin (3.5-5.0) g/dL TSH (0.465-4.680) mIU/L Urine Color Colorless Urine Appearance Clear (Clear) Urine pH 7.0 (5.0-8.0) Ur Specific [place] 1.014 (1.001-1.035) Urine Protein Negative (Negative) Urine Glucose (UA) Negative (Negative) Urine Ketones Negative (Negative) Urine Blood Negative (Negative) Urine Nitrite Negative (Negative) Urine Bilirubin Negative (Negative) Urine Urobilinogen <2.0 (<2.0) mg/dL Ur Leukocyte Esterase Negative (Negative) Disposition Clinical Impression: Weakness, Near syncope Disposition: HOME SELF-CARE Condition: Stable Instructions (If sedation given, give patient instructions): Dizziness (ED) Additional Instructions: Continue to stay off of your blood pressure medications. See Dr. Ortiz in office tomorrow and return for any new or worsening symptoms Is patient prescribed a controlled substance at d/c from ED?: No Referrals: Quique Umaña MD [Primary Care Provider] - 1-2 days Time of Disposition: 20:15
--- NOTE | 2023-09-22 20:15 | XR ---
EXAMINATION TYPE: XR chest 2V DATE OF EXAM: 09/22/2023 COMPARISON: 10/26/2021 HISTORY: Shortness of breath TECHNIQUE: Frontal and lateral views of the chest are obtained. FINDINGS: Scattered senescent parenchymal changes noted. Hyperinflation compatible with COPD. Patchy density at the lung bases may reflect developing pneumonia. Correlate clinically. Heart size is stable. Mediastinal structures are stable and grossly unremarkable. No evidence for hilar prominence. Degenerative changes dorsal spine. IMPRESSION: 1. Patchy density at the lung bases may reflect developing pneumonia. Correlate clinically.
[2023-09-22 21:00] VITALS: BP 147/90; PULSE 79; RESP 18; TEMP 98.2
== END 2023-09-22 20:26 | disposition home or self-care (01) ==
LOC: EC 15:28
DX: R53.1 Weakness (principal); R55 Syncope and collapse; I12.9 Hypertensive chronic kidney disease with stage 1 through stage 4 chronic kidney disease, or unspecified chronic kidney disease; N18.9 Chronic kidney disease, unspecified; Z87.891 Personal history of nicotine dependence; Z85.89 Personal history of malignant neoplasm of other organs and systems
CPT/HCPCS: 36415; 71046; 80053; 81003; 83605; 83880; 84443; 85025; 93005; 99285

== ENCOUNTER 2023-09-29 15:00 | Inpatient (IN) | payer MEDICARE, OTHER ==
--- NOTE | 2023-09-29 17:18 | XR ---
EXAMINATION TYPE: XR chest 2V DATE OF EXAM: 09/29/2023 COMPARISON: 09/22/2023 HISTORY: Shortness of breath TECHNIQUE: Frontal and lateral views of the chest are obtained. FINDINGS: Scattered senescent parenchymal changes noted. Hyperinflation compatible with COPD. Basilar infiltrates difficult to exclude. Heart size is stable. Mediastinal structures are stable and grossly unremarkable. No evidence for hilar prominence. Degenerative changes dorsal spine. IMPRESSION: 1.Basilar infiltrates difficult to exclude.
[2023-09-29 17:23] LABS: Anisocytosis Slight; Basophils % (A) 1 %; Eosinophils # (A) 0.2 k/uL (0-0.7); Eosinophils % (A) 2 %; HCT 31.8 % (39.0-53.0); HGB 10.2 gm/dL (13.0-17.5); Hypochromasia Moderate; Lymphocytes # (A) 1.1 k/uL (1.0-4.8); Lymphocytes % (A) 12 %; MCH 27.1 pg (25.0-35.0); MCV 84.9 fL (80.0-100.0); Mean Platelet Volume 7.2; Monocytes # (A) 0.7 k/uL (0-1.0); Monocytes % (A) 8 %; Neutrophils # (A) 6.7 k/uL (1.3-7.7); Neutrophils % (A) 75 %; Platelet Count 470 k/uL (150-450); RBC 3.74 m/uL (4.30-5.90); RDW 17.1 % (11.5-15.5); WBC 8.9 k/uL (3.8-10.6)
--- NOTE | 2023-09-29 17:32 | ED ---
GI Bleed HPI - General Chief complaint: GI Bleed Stated complaint: Spitting up blood Time Seen by Provider: 09/29/23 16:00 Source: patient, family, RN notes reviewed Mode of arrival: wheelchair Limitations: no limitations - History of Present Illness Initial comments: 63-year-old male presenting to the ER with his medical advocate for hematemesis since this morning. States he had 4 episodes of vomiting bright red blood mixed with mucus. His medical advocate stated there were several clots in the blood as well. He has never had this before. Denies history of recent vomiting before this morning. He was recently admitted to the ICU 1 month ago for pneumonia and has been following up regularly. He finished his antibiotics 4 days ago. Denies history of alcoholism or liver failure. He does have a history of hypertension however he has been off his hypertension meds due to his blood pressure being very low since his admission to the hospital. Denies chest pain or shortness of breath. He also was recently diagnosed with CHF. - Related Data Home Medications Medication Instructions Recorded Confirmed amLODIPine [Norvasc] 10 mg PEG/G-TUBE DAILY 05/07/21 09/22/23 Omeprazole [PriLOSEC] 20 mg PEG/G-TUBE DIRECTED 08/27/23 09/22/23 lisinopriL [Zestril] 2.5 mg PEG/G-TUBE HS 08/27/23 09/22/23 Clarithromycin [Biaxin] 250 mg PEG/G-TUBE BID 09/22/23 09/22/23 HYDROcodone/APAP 5-325MG [[place] 1 tab PEG/G-TUBE Q6HR PRN 09/22/23 09/22/23 5-325] Ipratropium-Albuterol Nebulize 3 ml INHALATION RT-Q4H PRN 09/22/23 09/22/23 [Duoneb 0.5 mg-3 mg/3 ml Soln] Lansoprazole 30 mg PEG/G-TUBE HS 09/22/23 09/22/23 Metoclopramide [Reglan] 10 mg PEG/G-TUBE AC-BID 09/22/23 09/22/23 Previous Rx's Medication Instructions Recorded Levothyroxine Sodium 100 mcg PEG/G-TUBE DAILY #30 tab 09/07/23 Allergies Allergy/AdvReac Type Severity Reaction Status Date / Time No Known Allergies Allergy Verified 09/22/23 17:46 Review of Systems ROS Statement: Those systems with pertinent positive or pertinent negative responses have been documented in the HPI. ROS Other: All systems not noted in ROS Statement are negative. Past Medical History Past Medical History: Cancer, COPD, Hypertension, Pneumonia, Thyroid Disorder Additional Past Medical History / Comment(s): Hx neck cancer in 2010, had surgery, chemo and radiation. History of Any Multi-Drug Resistant Organisms: None Reported Past Surgical History: Tonsillectomy Additional Past Surgical History / Comment(s): Lymph node removal, thyroidectomy, radical tonsil dissection. Past Anesthesia/Blood Transfusion Reactions: No Reported Reaction Past Psychological History: Anxiety Smoking Status: Former smoker Past Alcohol Use History: None Reported Past Drug Use History: Marijuana - Past Family History Mother Family Medical History: Cancer, Pneumonia Additional Family Medical History / Comment(s): from lung cancer and pneumonia. Father Family Medical History: Prostate Disorder Additional Family Medical History / Comment(s): Prostatectomy due to Prostate Cancer. Sister(s) Family Medical History: Cancer Additional Family Medical History / Comment(s): Breast Cancer. General Exam Limitations: no limitations General appearance: alert, in no apparent distress Head exam: Present: atraumatic, normocephalic, normal inspection Respiratory exam: Present: wheezes (wheezing in all lung gomez b/l). Absent: normal lung sounds bilaterally, respiratory distress, rales, rhonchi, stridor Cardiovascular Exam: Present: regular rate, normal rhythm, normal heart sounds. Absent: systolic murmur, diastolic murmur, rubs, gallop, clicks GI/Abdominal exam: Present: soft, normal bowel sounds. Absent: distended, tenderness, guarding, rebound, rigid Extremities exam: Present: normal inspection, full ROM, normal capillary refill. Absent: tenderness, pedal edema, joint swelling, calf tenderness Neurological exam: Present: alert, oriented X3 Psychiatric exam: Present: normal affect, normal mood Skin exam: Present: warm, dry, intact, normal color. Absent: rash Course Vital Signs 09/29/23 09/29/23 09/29/23 15:04 15:49 17:51 Temperature 97.9 F 98.4 F Pulse Rate 93 72 Respiratory 16 16 16 Rate Blood Pressure 117/74 147/103 O2 Sat by Pulse 95 96 Oximetry 09/29/23 18:16 Temperature Pulse Rate 75 Respiratory 16 Rate Blood Pressure 162/102 O2 Sat by Pulse 96 Oximetry Medical Decision Making - Medical Decision Making Was pt. sent in by a medical professional or institution (LANG Costa, CYBER DEFENSE FORENSICS ANALYST, urgent care, hospital, or senior living...) When possible be specific @ -No Did you speak to anyone other than the patient for history (EMS, parent, family, police, friend...)? What history was obtained from this source @ -Patient's medical advocate supplemental history Did you review nursing and triage notes (agree or disagree)? Why? @ -I reviewed and agree with nursing and triage notes Were old charts reviewed (outside hosp., previous admission, EMS record, old EKG, old radiological studies, urgent care reports/EKG's, senior living records)? Report findings @ -[No previous lab work was reviewed and hemoglobin compared Differential Diagnosis (chest pain, altered mental status, abdominal pain women, abdominal pain men, vaginal bleeding, weakness, fever, dyspnea, syncope, headache, dizziness, GI bleed, back pain, seizure, CVA, palpatations, mental health, musculoskeletal)? @ - Differential GI Bleed: Esophageal varices, aortoenteric fistula, Diana-Devries, gastritis, peptic ulcer disease, diverticulosis, inflammatory bowel disease, hemorrhoids, fissure, colitis, malignancy, Meckels diverticulum, this is not meant to be an all- inclusive list. EKG interpreted by me (3pts min.). @ -As above X-rays interpreted by me (1pt min.). @ -Chest x-ray reveals possible basilar infiltrates CT interpreted by me (1pt min.). @ -None done U/S interpreted by me (1pt. min.). @ -None done What testing was considered but not performed or refused? (CT, X-rays, U/S, labs)? Why? @ -None What meds were considered but not given or refused? Why? @ -None Did you discuss the management of the patient with other professionals (professionals i.e. LANG Costa, CYBER DEFENSE FORENSICS ANALYST, lab, RT, psych nurse, oncology social worker, logistics system engineer, teacher, chief talent officer, manager of case)? Give summary @ -I spoke with Dr. Escoto who states patient can be admitted to medicine with GI consultation at this time as patient's vitals are stable and hemoglobin is stable at 10.2. Requests n.p.o. after midnight. I then spoke with Dr. Umaña who accepts admission at this time. He requests fluid drip began at 130 cc/h and patient to remain on telemetry monitoring Was smoking cessation discussed for >3mins.? @ -No Was critical care preformed (if so, how long)? @ -No Were there social determinants of health that impacted care today? How? (Homelessness, low income, unemployed, alcoholism, drug addiction, transportation, low edu. Level, literacy, decrease access to med. care, retirement, rehab)? @ -No Was there de-escalation of care discussed even if they declined (Discuss DNR or withdrawal of care, Hospice)? DNR status @ -No What co-morbidities impacted this encounter? (DM, HTN, Smoking, COPD, CAD, Cancer, CVA, ARF, Chemo, Hep., AIDS, mental health diagnosis, sleep apnea, morbid obesity)? @ -None Was patient admitted / discharged? Hospital course, mention meds given and route, prescriptions, significant lab abnormalities, going to OR and other pertinent info. @ -Patient was admitted. Patient was seen and evaluated for hematemesis since morning. Patient has had 4 episodes of vomiting bright red blood since this morning. Denies abdominal pain or chest pain. Denies alcohol use. Vital signs are within normal limits. Patient was given IV Protonix. Lab work including CBC, CMP, coagulations, lactic acid, troponin, leg base are significant for lipase of 3234. Hemoglobin is 10.2, compared to 7 days ago was 9.9. EKG reveals normal sinus rhythm with no ST changes. Chest x-ray reveals possible basilar infiltrates. I spoke with Dr. Escoto who states patient can be admitted to medicine with GI consultation at this time as patient's vitals are stable and hemoglobin is stable at 10.2. Request n.p.o. after midnight. I then spoke with Dr. Umaña who accepts admission at this time requesting fluid drip began at 130 cc/h and patient to remain on telemetry monitoring. Patient and medical advocate are agreeable to plan. Case was discussed with my ED attending Dr. Tillman. Undiagnosed new problem with uncertain prognosis? @ -No Drug Therapy requiring intensive monitoring for toxicity (Heparin, Nitro, Insulin, Cardizem)? @ -No Were any procedures done? @ -No Diagnosis/symptom? @ -Hematemesis Acute, or Chronic, or Acute on Chronic? @ -Acute Uncomplicated (without systemic symptoms) or Complicated (systemic symptoms)? @ -Uncomplicated Side effects of treatment? @ -No Exacerbation, Progression, or Severe Exacerbation? @ -No Poses a threat to life or bodily function? How? (Chest pain, [place], [place], pneumonia, PE, COPD, DKA, ARF, appy, cholecystitis, CVA, Diverticulitis, Homicidal, Suicidal, threat to staff... and all critical care pts) @ -Yes - Lab Data Result diagrams: 09/29/23 17:12 09/29/23 17:12 Lab Results 09/29/23 09/29/23 09/29/23 Range/Units 17:12 17:12 17:12 WBC 8.9 (3.8-10.6) k/uL RBC 3.74 L (4.30-5.90) m/uL Hgb 10.2 L (13.0-17.5) gm/dL Hct 31.8 L (39.0-53.0) % MCV 84.9 (80.0-100.0) fL MCH 27.1 (25.0-35.0) pg MCHC 32.0 (31.0-37.0) g/dL RDW 17.1 H (11.5-15.5) % Plt Count 470 H (150-450) k/uL MPV 7.2 Neutrophils % 75 % Lymphocytes % 12 % Monocytes % 8 % Eosinophils % 2 % Basophils % 1 % Neutrophils # 6.7 (1.3-7.7) k/uL Lymphocytes # 1.1 (1.0-4.8) k/uL Monocytes # 0.7 (0-1.0) k/uL Eosinophils # 0.2 (0-0.7) k/uL Basophils # 0.0 (0-0.2) k/uL Hypochromasia Moderate Anisocytosis Slight PT 10.6 (10.0-12.5) sec INR 1.0 (<1.2) APTT 28.3 (22.0-30.0) sec Sodium (137-145) mmol/L Potassium (3.5-5.1) mmol/L Chloride (98-107) mmol/L Carbon Dioxide (22-30) mmol/L Anion Gap mmol/L BUN (9-20) mg/dL Creatinine (0.66-1.25) mg/dL Est GFR (CKD-EPI)AfAm (>60 ml/min/1.73 sqM) Est GFR (CKD-EPI)NonAf (>60 ml/min/1.73 sqM) Glucose (74-99) mg/dL Plasma Lactic Acid Amador (0.7-2.0) mmol/L Calcium (8.4-10.2) mg/dL Total Bilirubin (0.2-1.3) mg/dL AST (17-59) U/L ALT (4-49) U/L Alkaline Phosphatase (38-126) U/L Troponin I (0.000-0.034) ng/mL Total Protein (6.3-8.2) g/dL Albumin (3.5-5.0) g/dL Lipase (23-300) U/L Blood Type O Positive Blood Type Recheck O Pos Bld Type Recheck Status No 09/29/23 09/29/23 09/29/23 Range/Units 17:12 17:12 17:12 WBC (3.8-10.6) k/uL RBC (4.30-5.90) m/uL Hgb (13.0-17.5) gm/dL Hct (39.0-53.0) % MCV (80.0-100.0) fL MCH (25.0-35.0) pg MCHC (31.0-37.0) g/dL RDW (11.5-15.5) % Plt Count (150-450) k/uL MPV Neutrophils % % Lymphocytes % % Monocytes % % Eosinophils % % Basophils % % Neutrophils # (1.3-7.7) k/uL Lymphocytes # (1.0-4.8) k/uL Monocytes # (0-1.0) k/uL Eosinophils # (0-0.7) k/uL Basophils # (0-0.2) k/uL Hypochromasia Anisocytosis PT (10.0-12.5) sec INR (<1.2) APTT (22.0-30.0) sec Sodium 135 L (137-145) mmol/L Potassium 4.6 (3.5-5.1) mmol/L Chloride 94 L (98-107) mmol/L Carbon Dioxide 36 H (22-30) mmol/L Anion Gap 5 mmol/L BUN 49 H (9-20) mg/dL Creatinine 0.64 L (0.66-1.25) mg/dL Est GFR (CKD-EPI)AfAm >90 (>60 ml/min/1.73 sqM) Est GFR (CKD-EPI)NonAf >90 (>60 ml/min/1.73 sqM) Glucose 83 (74-99) mg/dL Plasma Lactic Acid Amador 0.8 (0.7-2.0) mmol/L Calcium 9.8 (8.4-10.2) mg/dL Total Bilirubin 0.3 (0.2-1.3) mg/dL AST 22 (17-59) U/L ALT 13 (4-49) U/L Alkaline Phosphatase 77 (38-126) U/L Troponin I <0.012 (0.000-0.034) ng/mL Total Protein 8.1 (6.3-8.2) g/dL Albumin 4.4 (3.5-5.0) g/dL Lipase 3234 H (23-300) U/L Blood Type Blood Type Recheck Bld Type Recheck Status - EKG Data -: EKG Interpreted by Me EKG Comments: EKG reveals normal sinus rhythm with right atrial enlargement. Ventricular rate 88 bpm, IA interval 188, QRS duration 86, QT/QTc 345/391 Disposition Clinical Impression: Hematemesis Disposition: ADMITTED IP TO THIS [facility] Referrals: Quique Umaña MD [Primary Care Provider] - 1-2 days Time of Disposition: 18:41
[2023-09-29 17:34] LABS: ALT 13 U/L (4-49); AST 22 U/L (17-59); African American GFR (CKD) >90 (>60 ml/min/1.73 sqM); Albumin 4.4 g/dL (3.5-5.0); Alkaline Phosphatase 77 U/L (38-126); Anion Gap 5 mmol/L; Blood Urea Nitrogen 49 mg/dL (9-20); Calcium 9.8 mg/dL (8.4-10.2); Carbon Dioxide 36 mmol/L (22-30); Chloride 94 mmol/L (98-107); Glucose 83 mg/dL (74-99); Non-African American GFR(CKD) >90 (>60 ml/min/1.73 sqM); Potassium 4.6 mmol/L (3.5-5.1); Sodium 135 mmol/L (137-145); Total Bilirubin 0.3 mg/dL (0.2-1.3); Total Protein 8.1 g/dL (6.3-8.2)
[2023-09-29 17:40] LABS: Lipase 3234 U/L (23-300)
[2023-09-29 17:42] LABS: Partial Thromboplastin Time 28.3 sec (22.0-30.0); Prothrombin Time 10.6 sec (10.0-12.5)
[2023-09-29] MEDS: PANTOPRAZOLE 40 MG/10 ML VIAL IVP ONE (18:13)
[2023-09-29] MEDS ORDERED: Acetaminophen-Codeine 300-30mg TAB PO PRN (18:37)
[2023-09-29] MEDS ORDERED: NALOXONE 0.4 MG/ML 1 ML VIAL IV PRN (18:37)
[2023-09-29] MEDS: SODIUM CHLORIDE 0.9% 1,000 ML IV SCH (19:05)
[2023-09-29] MEDS: HYDROmorphone 1 MG/ML 1 ML SYRINGE IVP PRN (19:05)
[2023-09-29] MEDS: ONDANSETRON 4 MG/2 ML VIAL IVP PRN (19:10)
[2023-09-30] MEDS: PANTOPRAZOLE 40 MG/10 ML VIAL IV SCH (08:00)
[2023-09-30 10:52] LABS: ALT 14 U/L (4-49); AST 22 U/L (17-59); African American GFR (CKD) >90 (>60 ml/min/1.73 sqM); Albumin 4.4 g/dL (3.5-5.0); Albumin/Globulin Ratio 1.2; Alkaline Phosphatase 80 U/L (38-126); Anion Gap 9 mmol/L; Blood Urea Nitrogen 39 mg/dL (9-20); Calcium 9.7 mg/dL (8.4-10.2); Carbon Dioxide 28 mmol/L (22-30); Chloride 100 mmol/L (98-107); Globulin 3.7 g/dL; Glucose 94 mg/dL (74-99); Non-African American GFR(CKD) >90 (>60 ml/min/1.73 sqM); Potassium 4.6 mmol/L (3.5-5.1); Sodium 137 mmol/L (137-145); Total Bilirubin 0.4 mg/dL (0.2-1.3); Total Protein 8.1 g/dL (6.3-8.2)
[2023-09-30] MEDS ORDERED: IPRATROPIUM-ALBUTEROL 3 ML NEB INHALATION PRN (11:11)
[2023-09-30 11:14] LABS: Anisocytosis Slight; Basophils % (A) 0 %; Eosinophils # (A) 0.2 k/uL (0-0.7); Eosinophils % (A) 2 %; HCT 33.1 % (39.0-53.0); HGB 9.8 gm/dL (13.0-17.5); Hypochromasia Marked; Lymphocytes # (A) 1.1 k/uL (1.0-4.8); Lymphocytes % (A) 16 %; MCH 26.1 pg (25.0-35.0); MCHC 29.6 g/dL (31.0-37.0); MCV 88.2 fL (80.0-100.0); Mean Platelet Volume 9.3; Monocytes # (A) 0.8 k/uL (0-1.0); Monocytes % (A) 11 %; Neutrophils # (A) 4.9 k/uL (1.3-7.7); Neutrophils % (A) 70 %; Platelet Count 418 k/uL (150-450); RBC 3.76 m/uL (4.30-5.90); RDW 17.1 % (11.5-15.5); WBC 7.1 k/uL (3.8-10.6)
[2023-09-30 11:33] VITALS: BMI 14.3
--- NOTE | 2023-09-30 12:38 | P.CNPUL ---
History of Present Illness Consult date: 09/30/23 Requesting physician: Quique Umaña Reason for consult: other (Hemoptysis) Chief complaint: Coughing up blood History of present illness: This is a 63-year-old male patient with a history of multiple comorbidities including head and neck cancer in 2010, status post PEG tube insertion, thyroid cancer status post thyroidectomy, chronic obstructive pulmonary disease, hypertension anorexia cachexia syndrome, former smoker. He had been here earlier this month for hypotension and altered mental status, recovered and discharged on 09/07/2023. He was brought into the emergency room yesterday for what initially was thought to be hematemesis. Upon further evaluation there was concern for hemoptysis. He is seen today in consultation on the regular medical floor. He is sitting up in bed. Awake and alert in no acute distress. His caretakers at the bedside who provides most of the information. His basin does show some dark red blood that they believe he is coughing up now. He does have a PEG tube in place and was negative for blood upon withdrawal of stomach contents. White count 7.1. Hemoglobin 9.8. Platelets 418. Sodium 137. Potassium 4.6. Bicarb 28. BUN 39. Creatinine 0.69. Hyperinflation compatible with COPD possible basilar infiltrate/atelectasis. He is currently stable and maintaining good O2 saturations in the 90s on room air. He has been afebrile. Hemodynamically stable. He is currently on DuoNeb inhalations and Zosyn. Review of Systems REVIEW OF SYSTEMS: CONSTITUTIONAL: Positive for significant weight loss. EYES: Denies change in vision. EARS, NOSE, MOUTH, THROAT: Denies headaches, denies sore throat. CARDIOVASCULAR: Denies chest pain, palpitations or syncopal episodes. RESPIRATORY: Positive for cough, congestion and hemoptysis. GASTROINTESTINAL: Denies change in appetite, denies abdominal pain GENITOURINARY: Denies hematuria, denies infections. MUSKULOSKELETAL: Denies pain, denies swelling. INTEGUMENTARY: Denies rash, denies eczema. NEUROLOGICAL: Denies recent memory loss, no recent seizure activity. PSYCHIATRIC: Denies anxiety, denies depression. HEMATOLOGIC/LYMPHATIC: Denies anemia, denies enlarged lymph nodes. Past Medical History Past Medical History: Cancer, COPD, Hypertension, Pneumonia, Thyroid Disorder Additional Past Medical History / Comment(s): Hx neck cancer in 2010, had surgery, chemo and radiation. History of Any Multi-Drug Resistant Organisms: None Reported Past Surgical History: Tonsillectomy Additional Past Surgical History / Comment(s): Lymph node removal, thyroidectomy, radical tonsil dissection. Past Anesthesia/Blood Transfusion Reactions: No Reported Reaction Past Psychological History: Anxiety Smoking Status: Former smoker Past Alcohol Use History: None Reported Additional Past Alcohol Use History / Comment(s): Quit smoking April 2021. Past Drug Use History: Marijuana Additional Drug Use History / Comment(s): Smokes 2-3 joints of Marijuana daily - Past Family History Mother Family Medical History: Cancer, Pneumonia Additional Family Medical History / Comment(s): from lung cancer and pneumonia. Father Family Medical History: Prostate Disorder Additional Family Medical History / Comment(s): Prostatectomy due to Prostate Cancer. Sister(s) Family Medical History: Cancer Additional Family Medical History / Comment(s): Breast Cancer. Medications and Allergies Home Medications Medication Instructions Recorded Confirmed Type amLODIPine [Norvasc] 10 mg PEG/G-TUBE DIRECTED 05/07/21 09/29/23 History Omeprazole [PriLOSEC] 20 mg PEG/G-TUBE DAILY 08/27/23 09/29/23 History lisinopriL [Zestril] 2.5 mg PEG/G-TUBE DIRECTED 08/27/23 09/29/23 History Levothyroxine Sodium 100 mcg PEG/G-TUBE DAILY #30 tab 09/07/23 09/29/23 Rx Ipratropium-Albuterol Nebulize 3 ml INHALATION RT-TID PRN 09/22/23 09/29/23 History [Duoneb 0.5 mg-3 mg/3 ml Soln] Metoclopramide [Reglan] 10 mg PEG/G-TUBE AC-BID 09/22/23 09/29/23 History Ipratropium-Albuterol Nebulize 3 ml INHALATION RT-DAILY 09/29/23 09/29/23 Hi story [Duoneb 0.5 mg-3 mg/3 ml Soln] Allergies Allergy/AdvReac Type Severity Reaction Status Date / Time No Known Allergies Allergy Verified 09/29/23 19:24 Physical Exam Vitals: Vital Signs Temp Pulse Pulse Resp BP BP Pulse Ox 09/30/23 12:02 16 133/101 93 L 09/30/23 06:40 97.5 F L 89 17 109/73 99 09/30/23 02:04 98.4 F 86 17 128/81 95 09/29/23 20:42 98.2 F 61 18 114/77 96 09/29/23 20:12 63 16 109/70 98 09/29/23 18:16 75 16 162/102 96 09/29/23 17:51 98.4 F 72 16 147/103 96 09/29/23 15:49 16 09/29/23 15:04 97.9 F 93 16 117/74 95 Intake and Output 09/29/23 09/30/23 09/30/23 22:59 06:59 14:59 Output Total 1050 300 Balance -1050 -300 Output: Urine 1050 300 Other: Voiding Method Urinal Urinal Weight 70.307 kg 46.7 kg GENERAL EXAM: Alert, very frail, cachectic 63-year-old male, on room air, fairly comfortable in no apparent distress. HEAD: Normocephalic. Evidence of previous radiation to the left head and neck. EYES: Normal reaction of pupils, equal size. NOSE: Clear with pink turbinates. THROAT: No erythema or exudates. NECK: No masses, no JVD. CHEST: No chest wall deformity. LUNGS: Equal air entry with no crackles, wheeze, rhonchi or dullness. CVS: S1 and S2 normal with no audible murmur, regular rhythm. ABDOMEN: No hepatosplenomegaly, normal bowel sounds, no guarding or rigidity. SPINE: No scoliosis or deformity SKIN: No rashes CENTRAL NERVOUS SYSTEM: No focal deficits, tone is normal in all 4 extremities. EXTREMITIES: There is no peripheral edema. No clubbing, no cyanosis. Peripheral pulses are intact. Results - Laboratory Findings CBC and BMP: 09/30/23 05:10 09/30/23 05:10 PT/INR, D-dimer PT 10.6 sec (10.0-12.5) 09/29/23 17:12 INR 1.0 (<1.2) 09/29/23 17:12 D-Dimer 0.76 mg/L FEU (<0.60) H 09/30/23 05:10 Abnormal lab findings: Abnormal Labs 09/29/23 09/29/23 09/30/23 17:12 17:12 05:10 RBC 3.74 L Hgb 10.2 L Hct 31.8 L MCHC RDW 17.1 H Plt Count 470 H D-Dimer 0.76 H Sodium 135 L Chloride 94 L Carbon Dioxide 36 H BUN 49 H Creatinine 0.64 L Lipase 3234 H 09/30/23 09/30/23 05:10 05:10 RBC 3.76 L Hgb 9.8 L Hct 33.1 L MCHC 29.6 L RDW 17.1 H Plt Count D-Dimer Sodium Chloride Carbon Dioxide BUN 39 H Creatinine Lipase - Diagnostic Findings Chest x-ray: image reviewed Assessment and Plan Assessment: Hemoptysis of unclear etiology. No significant findings on chest x-ray. CT angiogram pending Recent discharge September 07, 2023 following an admission for hypotension and altered mental status History of head and neck cancer in 2010 graft chronic obstructive pulmonary disease Former smoker History of hypertension Hypothyroidism following previous thyroidectomy Plan: The patient was seen and evaluated Chest x-ray, labs and medications reviewed Will order CT angiogram of the chest May require further investigation including bronchoscopy Continue bronchodilators, Zosyn We will continue to follow and make further recommendations based on his cli nical status I have personally seen and examined the patient, performed the documentation and the assessment and plan as written. Number of minutes spent on the visit: 20.
[2023-09-30] MEDS: IPRATROPIUM-ALBUTEROL 3 ML NEB INHALATION SCH (12:39)
[2023-09-30] MEDS: LORazepam 2 MG/ML INJ IV STA (13:21)
[2023-09-30] MEDS: PIPERACILLIN-TAZOBACTAM 3.375 GM in SODIUM CHLORIDE 0.9% 100 ML IVPB SCH ×2 (13:43→22:42)
--- NOTE | 2023-09-30 14:12 | P.HPIM ---
History of Present Illness H&P Date: 09/30/23 Chief Complaint: Coughing up blood This is a 63-year-old gentleman, recently hospitalized with pneumonia, elevated D-dimer, CTA of chest in progress, admitted with complaints of coughing up blood with clots x 1 day accompanied by dizziness in a cachexic patient, with past med ical history significant for head and neck cancer 2010, PEG tube with replacement multiple times ,thyroid cancer status post thyroidectomy, prior nicotine dependence, COPD, hypertension and multiple other medical issues.No bleeding from PEG tube site. Denies rectal bleeding. Currently PEG tube capped ,n.p.o., receiving gentle IV fluid hydration afebrile, WBC 7.1. Maintaining O2 sats in the 90s on 3 L nasal cannula- which patient wears at home. Hemodynamically stable. hemoglobin 9.8, platelets 418, electrolytes within normal limits, bicarb 28, BUN 39, creatinine 0.69 chest x-ray reporting h yperinflation compatible with COPD,basilar infiltrates difficult to exclude. vague historian, questionable GI bleed, PPI in place. Review of Systems ROS Statement: Those systems with pertinent positive or pertinent negative responses have been documented in the HPI. ROS Other: All systems not noted in ROS Statement are negative. Past Medical History Past Medical History: Cancer, COPD, Hypertension, Pneumonia, Thyroid Disorder Additional Past Medical History / Comment(s): Hx neck cancer in 2010, had surgery, chemo and radiation. History of Any Multi-Drug Resistant Organisms: None Reported Past Surgical History: Tonsillectomy Additional Past Surgical History / Comment(s): Lymph node removal, thyroidectomy, radical tonsil dissection. Past Anesthesia/Blood Transfusion Reactions: No Reported Reaction Past Psychological History: Anxiety Smoking Status: Former smoker Past Alcohol Use History: None Reported Additional Past Alcohol Use History / Comment(s): Quit smoking April 2021. Past Drug Use History: Marijuana Additional Drug Use History / Comment(s): Smokes 2-3 joints of Marijuana daily - Past Family History Mother Family Medical History: Cancer, Pneumonia Additional Family Medical History / Comment(s): from lung cancer and pneumonia. Father Family Medical History: Prostate Disorder Additional Family Medical History / Comment(s): Prostatectomy due to Prostate Cancer. Sister(s) Family Medical History: Cancer Additional Family Medical History / Comment(s): Breast Cancer. Medications and Allergies Home Medications Medication Instructions Recorded Confirmed Type amLODIPine [Norvasc] 10 mg PEG/G-TUBE DIRECTED 05/07/21 09/29/23 History Omeprazole [PriLOSEC] 20 mg PEG/G-TUBE DAILY 08/27/23 09/29/23 History lisinopriL [Zestril] 2.5 mg PEG/G-TUBE DIRECTED 08/27/23 09/29/23 History Levothyroxine Sodium 100 mcg PEG/G-TUBE DAILY #30 tab 09/07/23 09/29/23 Rx Ipratropium-Albuterol Nebulize 3 ml INHALATION RT-TID PRN 09/22/23 09/29/23 History [Duoneb 0.5 mg-3 mg/3 ml Soln] Metoclopramide [Reglan] 10 mg PEG/G-TUBE AC-BID 09/22/23 09/29/23 History Ipratropium-Albuterol Nebulize 3 ml INHALATION RT-DAILY 09/29/23 09/29/23 History [Duoneb 0.5 mg-3 mg/3 ml Soln] Allergies Allergy/AdvReac Type Severity Reaction Status Date / Time No Known Allergies Allergy Verified 09/29/23 19:24 Physical Exam Vitals: Vital Signs Temp Pulse Pulse Resp BP BP Pulse Ox 09/30/23 06:40 97.5 F L 89 17 109/73 99 09/30/23 02:04 98.4 F 86 17 128/81 95 09/29/23 20:42 98.2 F 61 18 114/77 96 09/29/23 20:12 63 16 109/70 98 09/29/23 18:16 75 16 162/102 96 09/29/23 17:51 98.4 F 72 16 147/103 96 09/29/23 15:49 16 09/29/23 15:04 97.9 F 93 16 117/74 95 Intake and Output 09/29/23 09/30/23 09/30/23 22:59 06:59 14:59 Output Total 1050 300 Balance -1050 -300 Output: Urine 1050 300 Other: Voiding Method Urinal Urinal Weight 70.307 kg GENERAL: Cachexic male,Sitting up in bed, no acute distress HEENT: Normocephalic, normal pupils NECK: Supple, no JVD. No thyroid enlargement. No LNs. CARDIOVASCULAR: S1, S2 regular. No murmur RESPIRATION: Unlabored, equal air entry, coarse breath sounds,diminished in the bases. ABDOMEN: Soft, nontender, nondistended. No guarding. no masses palpable. Bowel sounds heard. PEG tube capped. LEGS: No edema. no swelling PSYCHIATRY: Alert and oriented X3, mood and affect normal. NERVOUS SYSTEM: Cranial N 2-12 grossly normal. No focal deficits. Skin: Warm and dry Results CBC & Chem 7: 09/30/23 05:10 09/30/23 05:10 Labs: Abnormal Lab Results - Last 24 Hours (Table) 09/29/23 09/29/23 09/30/23 Range/Units 17:12 17:12 05:10 RBC 3.74 L (4.30-5.90) m/uL Hgb 10.2 L (13.0-17.5) gm/dL Hct 31.8 L (39.0-53.0) % RDW 17.1 H (11.5-15.5) % Plt Count 470 H (150-450) k/uL D-Dimer 0.76 H (<0.60) mg/L FEU Sodium 135 L (137-145) mmol/L Chloride 94 L (98-107) mmol/L Carbon Dioxide 36 H (22-30) mmol/L BUN 49 H (9-20) mg/dL Creatinine 0.64 L (0.66-1.25) mg/dL Lipase 3234 H (23-300) U/L 09/30/23 Range/Units 05:10 RBC (4.30-5.90) m/uL Hgb (13.0-17.5) gm/dL Hct (39.0-53.0) % RDW (11.5-15.5) % Plt Count (150-450) k/uL D-Dimer (<0.60) mg/L FEU Sodium (137-145) mmol/L Chloride (98-107) mmol/L Carbon Dioxide (22-30) mmol/L BUN 39 H (9-20) mg/dL Creatinine (0.66-1.25) mg/dL Lipase (23-300) U/L Thrombosis Risk Factor Assmnt - Choose All That Apply Each Factor Represents 1 point: Abnormal pulmonary function (COPD) Each Risk Factor Represents 2 Points: Age 61-74 years Thrombosis Risk Factor Assessment Total Risk Factor Score: 3 Thrombosis Risk Factor Assessment Level: Moderate Risk Assessment and Plan Assessment: Hemoptysis, etiology unclear, CTA pending, in a patient recently discharged on 09/07/2023 with sepsis, altered mental status, suspected aspiration pneumonia, hypotension. Hypothyroidism status post thyroidectomy History of head, neck cancer 2010 PEG tube History of hypertension COPD, history of Prior nicotine dependence Moderate protein calorie malnutrition, BMI 14.4 Plan: Continue on current medication resume ,monitoring and symptomatic treatment. Questionable GI bleed, PPI ordered. aggressive pulmonary toileting with nebulized bronchodilators and Zosyn ordered. CTA pending. Further workup including potential EGD or possibly bronchoscopy. GI consult in place. The impression and plan of care has been dictated as directed. : I performed a history and examination of this patient, discussed the same with the dictator. I agree with the dictator's note ,documented as a scribe. Any additional findings or plans will be noted.
[2023-09-30] MEDS ORDERED: amLODIPine 10 MG TAB PEG/G-TUBE SCH (14:15)
--- NOTE | 2023-09-30 14:30 | CT ---
EXAMINATION TYPE: CT angio chest DATE OF EXAM: 09/30/2023 COMPARISON: Radiograph 09/29/[address] 07/18/2021 HISTORY: 63-year-old male Hemoptysis, dizziness TECHNIQUE: Contiguous axial scanning of the chest after the administration of 100 mL of Isovue 370. Coronal/sagittal MIP reconstructions performed. CT DLP: 163.50mGycm. Automatic exposure control utilized for a dose reduction. FINDINGS: Heart is upper limits of normal in size without pericardial effusion. No flattening of the interventr icular septum or reflux of contrast into the hepatic veins. LAD coronary artery calcifications are pr esent. Ectatic ascending aorta 3.7 cm. Ectatic upper descending thoracic aorta 3.4 cm. Mild atherosclerotic arch calcifications with conventional vessel branching anatomy. Post surgical change along the visualized lower neck similar compared to 2021. Prominent but nonenlarged mediastinal lymph nodes are unchanged. However, prominent bilateral hilar l ymph nodes measuring up to 1.9 cm The breast, probably reactive/post inflammatory. Prominent retained secretions/debris dependently within the mid and lower trachea extending into the right side bronchi. Septal lines identified opacities at the right mid and lower lung and some minima l scattered patchy groundglass change on both sides as well. Chronic volume loss, consolidation, and bronchiectasis involving the entire left lower lobe. Biapical pleural-parenchymal scarring. Minimal emphysematous change. Satisfactory opacification of the pulmonary arterial system without evidence for pulmonary embolus. In the visualized upper abdomen, either mixing artifact or a dissection flap of the proximal abdomina l aorta, refer to axial images 163 through 166 Bones: No osseous destructive process. IMPRESSION: 1. No evidence for pulmonary embolus. In the visualized upper abdomen, there is either mixing artifac t versus a dissection flap of the proximal abdominal aorta (axial image 163 through 166). 2. COPD with minimal emphysema. Prominent dependent secretions and debris with the trachea extending throughout the right-sided bronchial tree. Given the extensive tree-in-bud opacities throughout the r ight mid and lower lung, consider infectious bronchiolitis or aspiration. A few scattered groundglass foci bilaterally suggest additional infectious/inflammatory foci. 3. Chronic volume loss, consolidation, and bronchiectasis involving the entire left lower lobe.
--- NOTE | 2023-09-30 17:17 | P.CONS ---
History of Present Illness - Reason for Consult Consult date: 09/30/23 Hematemesis Requesting physician: Aparna Perdomo - Chief Complaint Coughing up blood, vomiting blood - History of Present Illness This is a pleasant 63-year-old male with a history of head and neck cancer status post radiation therapy in 2010, recent hospitalization with pneumonia and elevated D-dimer, PEG tube, thyroid cancer status post thyroidectomy, prior nicotine dependence, COPD, and hypertension. He was admitted with complaints of coughing up blood and clots x 1 day accompanied by dizziness and cachectic appearance. Apparently while he was in the emergency department he he reportedly vomited blood x 3. Gastroenterology was consulted for hematemesis. Patient is very poor historian and not giving much information. Daughter is at the bedside states that he is mostly coughing up the blood but patient did state that he did recall vomiting once yesterday at home. they reported as bright red small to moderate amounts. He denies any NSAID use, no anticoagulation. Hemoglobin on admission 10.2 with a repeat today of 9.8 and elevated BUN. Patient was also noted to have elevated lipase on admission of 30-34 with a repeat today of 384 with normal LFTs. Review of Systems REVIEW OF SYSTEMS: CARDIOPULMONARY: No chest pain or shortness of breath. Reported hemoptysis. Gastrointestinal: No abdominal pain. No nausea or vomiting. Reported hematemesis. No rectal bleeding, or melena. GENITOURINARY: No dysuria or hematuria. MUSCULOSKELETAL: Reports normal range of motion., Joint pain. SKIN: No rashes. No jaundice. ENDOCRINE: No chills, fevers. No excessive weight gain or loss. No polydipsia or polyuria. PSYCHIATRIC: Unremarkable. NEUROLOGY: No change in mental status. Denies dizziness, headache. ENT: Vision unremarkable. CONSTITUTIONAL: No recent weight loss. No fever, chills, night sweats. Past Medical History Past Medical History: Cancer, COPD, Hypertension, Pneumonia, Thyroid Disorder Additional Past Medical History / Comment(s): Hx neck cancer in 2010, had surgery, chemo and radiation. History of Any Multi-Drug Resistant Organisms: None Reported Past Surgical History: Tonsillectomy Additional Past Surgical History / Comment(s): Lymph node removal, thyroidec lamberto, radical tonsil dissection. Past Anesthesia/Blood Transfusion Reactions: No Reported Reaction Past Psychological History: Anxiety Smoking Status: Former smoker Past Alcohol Use History: None Reported Additional Past Alcohol Use History / Comment(s): Quit smoking April 2021. Past Drug Use History: Marijuana Additional Drug Use History / Comment(s): Smokes 2-3 joints of Marijuana daily - Past Family History Mother Family Medical History: Cancer, Pneumonia Additional Family Medical History / Comment(s): from lung cancer and pneumonia. Father Family Medical History: Prostate Disorder Additional Family Medical History / Comment(s): Prostatectomy due to Prostate Cancer. Sister(s) Family Medical History: Cancer Additional Family Medical History / Comment(s): Breast Cancer. Medications and Allergies Home Medications Medication Instructions Recorded Confirmed Type amLODIPine [Norvasc] 10 mg PEG/G-TUBE DIRECTED 05/07/21 09/29/23 History Omeprazole [PriLOSEC] 20 mg PEG/G-TUBE DAILY 08/27/23 09/29/23 History lisinopriL [Zestril] 2.5 mg PEG/G-TUBE DIRECTED 08/27/23 09/29/23 History Levothyroxine Sodium 100 mcg PEG/G-TUBE DAILY #30 tab 09/07/23 09/29/23 Rx Ipratropium-Albuterol Nebulize 3 ml INHALATION RT-TID PRN 09/22/23 09/29/23 History [Duoneb 0.5 mg-3 mg/3 ml Soln] Metoclopramide [Reglan] 10 mg PEG/G-TUBE AC-BID 09/22/23 09/29/23 History Ipratropium-Albuterol Nebulize 3 ml INHALATION RT-DAILY 09/29/23 09/29/23 History [Duoneb 0.5 mg-3 mg/3 ml Soln] Allergies Allergy/AdvReac Type Severity Reaction Status Date / Time No Known Allergies Allergy Verified 09/29/23 19:24 Physical Exam Vitals: Vital Signs Temp Pulse Pulse Resp BP BP Pulse Ox 09/30/23 06:40 97.5 F L 89 17 109/73 99 09/30/23 02:04 98.4 F 86 17 128/81 95 09/29/23 20:42 98.2 F 61 18 114/77 96 09/29/23 20:12 63 16 109/70 98 09/29/23 18:16 75 16 162/102 96 09/29/23 17:51 98.4 F 72 16 147/103 96 09/29/23 15:49 16 09/29/23 15:04 97.9 F 93 16 117/74 95 Intake and Output 09/29/23 09/30/23 09/30/23 22:59 06:59 14:59 Output Total 1050 300 Balance -1050 -300 Output: Urine 1050 300 Other: Voiding Method Urinal Urinal Weight 70.307 kg General appearance: The patient is alert, oriented, appears in no acute distress. HET: Head is normocephalic and atraumatic. Conjunctiva pink. Sclera anicteric. Neck: Supple without lymphadenopathy. Trachea midline. Scarring along left side of neck. Heart: Regular. Lungs: Equal expansion, normal respiratory effort. Abdomen: Soft, nontender, nondistended. PEG tube in place. Skin: No rashes. No jaundice. Extremities: Normal skin color and turgor. No pedal edema. Neurological: No focal deficits. Alert and oriented x3. Results CBC & Chem 7: 09/30/23 05:10 09/30/23 05:10 Labs: Abnormal Lab Results - Last 24 Hours (Table) 09/29/23 09/29/23 09/30/23 Range/Units 17:12 17:12 05:10 RBC 3.74 L (4.30-5.90) m/uL Hgb 10.2 L (13.0-17.5) gm/dL Hct 31.8 L (39.0-53.0) % MCHC (31.0-37.0) g/dL RDW 17.1 H (11.5-15.5) % Plt Count 470 H (150-450) k/uL D-Dimer 0.76 H (<0.60) mg/L FEU Sodium 135 L (137-145) mmol/L Chloride 94 L (98-107) mmol/L Carbon Dioxide 36 H (22-30) mmol/L BUN 49 H (9-20) mg/dL Creatinine 0.64 L (0.66-1.25) mg/dL Lipase 3234 H (23-300) U/L 09/30/23 09/30/23 Range/Units 05:10 05:10 RBC 3.76 L (4.30-5.90) m/uL Hgb 9.8 L (13.0-17.5) gm/dL Hct 33.1 L (39.0-53.0) % MCHC 29.6 L (31.0-37.0) g/dL RDW 17.1 H (11.5-15.5) % Plt Count (150-450) k/uL D-Dimer (<0.60) mg/L FEU Sodium (137-145) mmol/L Chloride (98-107) mmol/L Carbon Dioxide (22-30) mmol/L BUN 39 H (9-20) mg/dL Creatinine (0.66-1.25) mg/dL Lipase (23-300) U/L Assessment and Plan (1) Hematemesis Narrative/Plan: 63-year-old male with history of head and neck cancer with dysphagia and PEG tube placement presented to the hospital with complaints of vomiting blood as well as coughing up blood. Patient had a recent hospitalization for pneumonia with discharge on September 07, 2023. Does have anemia as well as elevated BUN which could indicate possible upper GI bleed. Recommend direct visualization to rule out GI bleed. Current Visit: Yes Status: Acute Code(s): K92.0 - HEMATEMESIS SNOMED Code(s): 1069326 (2) Hemoptysis Narrative/Plan: Pulmonology following Current Visit: Yes Status: Acute Code(s): R04.2 - HEMOPTYSIS SNOMED Code(s): 66678722 (3) Presence of externally removable percutaneous endoscopic gastrostomy (PEG) tube Current Visit: Yes Status: Acute Code(s): Z93.1 - GASTROSTOMY STATUS SNOMED Code(s): 655592964 (4) Anemia Current Visit: No Status: Acute Code(s): D64.9 - ANEMIA, UNSPECIFIED SNOMED Code(s): 371488785 (5) H/O malignant neoplasm of head and neck Current Visit: No Status: Acute Code(s): Z85.89 - PERSONAL HISTORY OF MALIGNANT NEOPLASM OF ORGANS AND SYSTEMS SNOMED Code(s): 767295119 Plan: 1. Continue symptomatic and supportive care 2. Daily CBC, transfuse for hemoglobin less than 7 3. Protonix 40 mg daily for GI prophylaxis 4. Keep n.p.o., hold tube feeds after midnight 5. Will plan for upper endoscopy tomorrow 6. Continue with recommendations from pulmonology Thank you for this consultation, we will continue to follow. Dr. Charles Escoto I agree with the dictator's note, documented as a scribe by Elmira Galicia.
[2023-09-30] MEDS: ACETAMINOPHEN TAB 325 MG TAB PO PRN (18:26)
[2023-09-30] MEDS: PANTOPRAZOLE 40 MG/10 ML VIAL IVP SCH (22:42)
--- NOTE | 2023-10-01 10:34 | US ---
EXAMINATION TYPE: US abdomen complete DATE OF EXAM: 10/01/2023 COMPARISON: NONE CLINICAL INDICATION: Male, 63 years old with history of inc lipase; ABN LABS, NO ABD PAIN, PEG TUBE, pt only 100lbs TECHNIQUE: Multiple sonographic images of the abdomen are obtained. FINDINGS: EXAM MEASUREMENTS: Liver Length: 15.6 cm Gallbladder Wall: 0.2 cm CBD: 0.5 cm Spleen: 8.7 cm Right Kidney: 9.2 x 4.2 x 3.5 cm Left Kidney: 9.1 x 4.0 x 5.5 cm Pancreas: wnl Liver: wnl Gallbladder: upper limits of normal for length and AP dimension Evidence for sonographic Finney's sign: no CBD: wnl Spleen: wnl Right Kidney: superior pole cyst = 1.9 x 1.7 x 1.6cm Left Kidney: wnl Upper IVC: wnl Abd Aorta: calcifications seen The liver is homogenous. The intrahepatic portion of the IVC and proximal abdominal aorta are within normal limits. There is no evidence of cholelithiasis. Common bile duct is unremarkable. The visu alized portions of the pancreas are homogenous. The spleen is unremarkable. Kidneys are symmetric a nd free of hydronephrosis. No renal lesions are seen. IMPRESSION: 1. No evidence for acute process. 2. Simple appearing right renal cyst.
[2023-10-01 10:45] LABS: HCT 32.8 % (39.6-50.0); MCH 26.5 pg (27.0-32.0); MCHC 30.5 g/dL (32.0-37.0); MCV 86.8 FL (80.0-97.0); Mean Platelet Volume 10.1 FL (9.5-12.2); NRBC Per 100 WBC 0 X 10*3/uL (0.00-0.01); Platelet Count 402 X 10*3/uL (140-440); RBC 3.78 X 10*6/uL (4.40-5.60); RDW 17.3 % (11.5-14.5); WBC 11.31 X 10*3/uL (4.50-10.00)
[2023-10-01 11:04] LABS: Blood Urea Nitrogen 34.3 mg/dL (9.0-27.0); Calcium 9.9 mg/dL (8.7-10.3); Carbon Dioxide 23.4 mmol/L (21.6-31.8); Chloride 100 mmol/L (96-109); Glucose 94 mg/dL (70-110); Potassium 4.5 mmol/L (3.5-5.5); Sodium 137 mmol/L (135-145)
--- NOTE | 2023-10-01 12:28 | P.PN ---
Subjective Progress Note Date: 10/01/23 This is a 63-year-old male patient with a history of multiple comorbidities including head and neck cancer in 2010, status post PEG tube insertion, thyroid cancer status post thyroidectomy, chronic obstructive pulmonary disease, hypertension anorexia cachexia syndrome, former smoker. He had been here earlier this month for hypotension and altered mental status, recovered and discharged on 09/07/2023. He was brought into the emergency room yesterday for what initially was thought to be hematemesis. Upon further evaluation there was concern for hemoptysis. He is seen today in consultation on the regular medical floor. He is sitting up in bed. Awake and alert in no acute distress. His caretakers at the bedside who provides most of the information. His basin does show some dark red blood that they believe he is coughing up now. He does have a PEG tube in place and was negative for blood upon withdrawal of stomach contents. White count 7.1. Hemoglobin 9.8. Platelets 418. Sodium 137. Potassium 4.6. Bicarb 28. BUN 39. Creatinine 0.69. Hyperinflation compatible with COPD possible bas ilar infiltrate/atelectasis. He is currently stable and maintaining good O2 saturations in the 90s on room air. He has been afebrile. Hemodynamically stable. He is currently on DuoNeb inhalations and Zosyn. The patient is seen today October 01, 2023 in follow-up on the regular medical floor. He is currently sitting up in bed. Awake and alert in no acute distress. He does continue to have some blood-tinged sputum. He is maintaining good O2 saturations in the 90s on 3 L/min per nasal cannula. White count 11.3. Hemoglobin 10.0. Platelets 402. Sodium 137. Potassium 4.5. Bicarb 23. BUN 34. Creatinine 1.0. Lipase 3301. Abdominal ultrasound revealed no acute process. He is continued on DuoNeb inhalations. Remains on Zosyn. Plan is for bronchoscopy today. Objective - Vital Signs Vital signs: Vital Signs Temp 98.3 F 10/01/23 07:00 Pulse 89 10/01/23 09:06 Resp 18 10/01/23 07:00 BP 93/59 10/01/23 07:00 Pulse Ox 97 10/01/23 08:57 FiO2 Intake & Output 09/30/23 10/01/23 10/01/23 18:59 06:59 18:59 Output Total 700 475 250 Balance -700 -475 -250 Weight 46.7 kg Output: Urine 700 475 250 - Exam GENERAL EXAM: Alert, frail, cachectic 63-year-old male, on 3 L nasal cannula, comfortable in no apparent distress. HEAD: Normocephalic. Evidence of previous radiation to the left head and neck. EYES: Normal reaction of pupils, equal size. NOSE: Clear with pink turbinates. THROAT: No erythema or exudates. NECK: No masses, no JVD. CHEST: No chest wall deformity. LUNGS: Equal air entry with no crackles, wheeze, rhonchi or dullness. CVS: S1 and S2 normal with no audible murmur, regular rhythm. ABDOMEN: PEG tube exit site clean and dry. No hepatosplenomegaly, normal bowel sounds, no guarding or rigidity. SPINE: No scoliosis or deformity SKIN: No rashes CENTRAL NERVOUS SYSTEM: No focal deficits, tone is normal in all 4 extremities. EXTREMITIES: There is no peripheral edema. No clubbing, no cyanosis. Peripheral pulses are intact. - Labs CBC & Chem 7: 10/01/23 06:27 10/01/23 06:27 Labs: Abnormal Lab Results - Last 24 Hours (Table) 09/30/23 10/01/23 10/01/23 Range/Units 05:10 06:27 06:27 WBC 11.31 H (4.50-10.00) X 10*3/uL RBC 3.78 L (4.40-5.60) X 10*6/uL Hgb 10.0 L (13.0-17.0) g/dL Hct 32.8 L (39.6-50.0) % MCH 26.5 L (27.0-32.0) pg MCHC 30.5 L (32.0-37.0) g/dL RDW 17.3 H (11.5-14.5) % Anion Gap 13.60 H (4.00-12.00) mmol/L BUN 34.3 H (9.0-27.0) mg/dL BUN/Creatinine Ratio 34.30 H (12.00-20.00) Ratio Lipase 384 H (23-300) U/L 10/01/23 Range/Units 06:27 WBC (4.50-10.00) X 10*3/uL RBC (4.40-5.60) X 10*6/uL Hgb (13.0-17.0) g/dL Hct (39.6-50.0) % MCH (27.0-32.0) pg MCHC (32.0-37.0) g/dL RDW (11.5-14.5) % Anion Gap (4.00-12.00) mmol/L BUN (9.0-27.0) mg/dL BUN/Creatinine Ratio (12.00-20.00) Ratio Lipase 3301 H (23-300) U/L Assessment and Plan Assessment: Hemoptysis of unclear etiology. No significant findings on chest x-ray. CT angiogram ruled out pulmonary embolus. There is COPD with minimal emphysema. Prominent dependent secretions and debris within the trachea extending throughout the right-sided bronchial tree. Extensive tree-in-bud opacities throughout the right mid and lower lobe, consider infectious bronchiolitis or aspiration. Chronic volume loss, consolidation and bronchiectasis involving the entire left lower lobe. Plan is for bronchoscopy today Recent discharge September 07, 2023 following an admission for hypotension and altered mental status History of head and neck cancer in 2010 graft chronic obstructive pulmonary dis ease, PEG tube in place Former smoker History of hypertension Hypothyroidism following previous thyroidectomy Elevated lipase, ultrasound of the abdomen revealed no acute process Plan: The patient was seen and evaluated CT angiogram, labs and medications reviewed Ultrasound of the abdomen reviewed Bronchoscopy to be performed today Continue bronchodilators, Zosyn This patient was seen independently by the pulmonary nurse practitioner addressing pulmonary issues I have personally seen and examined the patient, performed the documentation and the assessment and plan as written. Number of minutes spent on the visit: 25.
[2023-10-01] MEDS ORDERED: LIDOCAINE 1% INJ 10MG/ML (20 ML MDV) ONE (13:06)
[2023-10-01] MEDS ORDERED: PROPOFOL 10 MG/ML 20 ML VIAL IV ONE (13:06)
[2023-10-01] MEDS ORDERED: MIDAZOLAM 2 MG/2 ML VIAL ONE (13:06)
[2023-10-01] MEDS: IV FLUID CONTINUATION 1,000 ML IV ONE ×2 (13:09→13:46)
[2023-10-01] MEDS: LIDOCAINE 2% INJ 20 MG/ML INTRATRACH ONE (13:44)
--- NOTE | 2023-10-01 15:03 | OP ---
OPERATIVE REPORT DATE OF SERVICE : PROCEDURES PERFORMED: Bronchoscopy and bronchoalveolar lavage of the left lower lobe, bronchoalveolar lavage of the right lower lobe. PREOPERATIVE DIAGNOSIS: Hemoptysis. POSTOPERATIVE DIAGNOSIS: Hemoptysis secondary to bronchiectasis. ANESTHESIA USED: IV conscious sedation. DESCRIPTION OF PROCEDURE: The patient was placed in a supine position, O2 was applied via Ventimask, a bite block was applied. We monitored his O2 saturation continuously. Blood pressure was intermittently monitored, cardiac rhythm was continuously monitored. After adequate IV conscious sedation, the bronchoscope was advanced through the bite block down to the area of the vocal cords. The vocal cords were patent, there was some blood noted on the mucosa, but no active bleeding noted in the upper airways. Then, lidocaine was applied over the vocal cords and the bronchoscope was advanced further down. There was significant amount of old blood clots noted on the posterior wall of the trachea, and noted also in the right mainstem bronchus as well as in the left mainstem bronchus mixed with purulent secretions. These were suctioned until completely cleared, then I was able to do a thorough examination further down. I examined the right upper lobe, right middle lobe, right lower lobe, left upper lobe, lingula, and left lower lobe. There was evidence of significant amount of blood noted mostly in the left lower lobe with bronchiectatic findings noted in the distal airways. The patient had bronchoalveolar lavage of the left lower lobe, and the fluid was sent for different diagnostic studies. Until the blood was completely cleared, there was no active bleeding noted at that time. The same was done on the right lower lobe, but it seems to me that the active bleeding is more so coming from the left lower lobe. The fluid sent for diagnostic studies from the left lower lobe, blood was suctioned from the airways in the right lower lobe, no endobronchial tumors, and no active bleeding noted. The procedure was well tolerated, no complications. MMODL / IJN: [id number] /
--- NOTE | 2023-10-01 16:11 | P.PN ---
Subjective Progress Note Date: 10/01/23 Principal diagnosis: Hematemesis This is a pleasant 63-year-old male with a history of head and neck cancer status post radiation therapy in 2010, recent hospitalization with pneumonia and elevated D-dimer, PEG tube, thyroid cancer status post thyroidectomy, prior nicotine dependence, COPD, and hypertension. He was admitted with complaints of coughing up blood and clots x 1 day accompanied by dizziness and cachectic appearance. Apparently while he was in the emergency department he he reportedly vomited blood x 3. Gastroenterology was consulted for hematemesis. Patient is very poor historian and not giving much information. Daughter is at the bedside states that he is mostly coughing up the blood but patient did state that he did recall vomiting once yesterday at home. they reported as bright red small to moderate amounts. He denies any NSAID use, no anticoagulation. Hemoglobin on admission 10.2 with a repeat today of 9.8 and elevated BUN. Patient was also noted to have elevated lipase on admission of 30-34 with a repeat today of 384 with normal LFTs. 10/01/2023 Patient seen and examined this morning as a follow-up. He denies any nausea or vomiting, no abdominal pain. States he is still coughing up some bright red blood. He is scheduled for bronchoscopy today with pulmonology. Hemoglobin 10.0 up from 9.8 patient with noted elevated lipase 3301 Objective - Vital Signs Vital signs: Vital Signs Temp 98.3 F 10/01/23 07:00 Pulse 63 10/01/23 07:00 Resp 18 10/01/23 07:00 BP 93/59 10/01/23 07:00 Pulse Ox 96 10/01/23 07:00 FiO2 Intake & Output 09/30/23 10/01/23 10/01/23 18:59 06:59 18:59 Output Total 700 475 Balance -700 -475 Weight 46.7 kg Output: Urine 700 475 - Exam General appearance: The patient is alert, oriented, appears in no acute distress. HET: Head is normocephalic and atraumatic. Conjunctiva pink. Sclera anicteric. Neck: Supple without lymphadenopathy. Abdomen: Soft, nontender, nondistended with bowel sounds. No guarding or rigidity. Extremities: Normal skin color and turgor. No pedal edema Skin: No rashes, no jaundice Neurological: No focal deficits. Alert and oriented. - Labs CBC & Chem 7: 10/01/23 06:27 10/01/23 06:27 Labs: Abnormal Lab Results - Last 24 Hours (Table) 09/30/23 09/30/23 09/30/23 Range/Units 05:10 05:10 05:10 RBC 3.76 L (4.30-5.90) m/uL Hgb 9.8 L (13.0-17.5) gm/dL Hct 33.1 L (39.0-53.0) % MCHC 29.6 L (31.0-37.0) g/dL RDW 17.1 H (11.5-15.5) % BUN 39 H (9-20) mg/dL Lipase 384 H (23-300) U/L Assessment and Plan (1) Hematemesis Narrative/Plan: 63-year-old male with history of head and neck cancer with dysphagia and PEG tube placement presented to the hospital with complaints of vomiting blood as well as coughing up blood. Patient had a recent hospitalization for pneumonia with discharge on September 07, 2023. Does have anemia as well as elevated BUN which could indicate possible upper GI bleed, however patient had a CT angiogram of the chest that reported prominent dependent secretions and debris within the trachea extending throughout the right-sided bronchial tree and pulmonology planned for bronchoscopy with findings of old blood throughout the bronchial tubes likely mostly oozing from bronchiectasis and not likely GI bleed. No plans for endoscopic evaluation. Current Visit: Yes Status: Acute Code(s): K92.0 - HEMATEMESIS SNOMED Code(s): 4804251 (2) Hemoptysis Narrative/Plan: Pulmonology following Current Visit: Yes Status: Acute Code(s): R04.2 - HEMOPTYSIS SNOMED Code(s): 84225191 (3) Presence of externally removable percutaneous endoscopic gastrostomy (PEG) tube Current Visit: Yes Status: Acute Code(s): Z93.1 - GASTROSTOMY STATUS SNOMED Code(s): 616049937 (4) Anemia Current Visit: No Status: Acute Code(s): D64.9 - ANEMIA, UNSPECIFIED SNOMED Code(s): 724528233 (5) H/O malignant neoplasm of head and neck Current Visit: No Status: Acute Code(s): Z85.89 - PERSONAL HISTORY OF MALIGNANT NEOPLASM OF ORGANS AND SYSTEMS SNOMED Code(s): 771209601 (6) Elevated lipase Narrative/Plan: Patient with elevated lipase without any abdominal pain, no imaging performed. Possible pancreatitis of unknown etiology however patient is asymptomatic. No further workup indicated at this time. Can follow-up with gastroenterology as needed. Current Visit: Yes Status: Acute Code(s): R74.8 - ABNORMAL LEVELS OF OTHER SERUM ENZYMES SNOMED Code(s): 432458634 Plan: 1. Continue symptomatic and supportive care 2. Patient underwent bronchoscopy today with noted old blood in trachea and right mainstem bronchus as well as left mainstem bronchus with purulent secretions. Was significant amount of blood in left lower lobe with bronchie ctatic findings 3. No plans for endoscopic evaluation 4. No no plans on workup for elevated lipase at this time. Patient is asymptomatic. Patient can follow-up with gastroenterology if needed 5. Continue with medical management per primary medical team Thank you for this consultation, we will sign off at this time. Dr. Charles Escoto I agree with the dictator's note, documented as a scribe by Elmira Galicia.
--- NOTE | 2023-10-01 17:01 | P.PN ---
Subjective Progress Note Date: 10/01/23 H&P Date: 09/30/23 Chief Complaint: Coughing up blood This is a 63-year-old gentleman, recently hospitalized with pneumonia, elevated D-dimer, CTA of chest in progress, admitted with complaints of coughing up blood with clots x 1 day accompanied by dizziness in a cachexic patient, with past medical history significant for head and neck cancer 2010, PEG tube with replacement multiple times ,thyroid cancer status post thyroidectomy, prior nicotine dependence, COPD, hypertension and multiple other medical issues.No bleeding from PEG tube site. Denies rectal bleeding. Currently PEG tube capped ,n.p.o., receiving gentle IV fluid hydration afebrile, WBC 7.1. Maintaining O2 sats in the 90s on 3 L nasal cannula- which patient wears at home. Hemodynam ically stable. hemoglobin 9.8, platelets 418, electrolytes within normal limits, bicarb 28, BUN 39, creatinine 0.69 chest x-ray reporting hyperinflation compatible with COPD,basilar infiltrates difficult to exclude. vague historian, questionable GI bleed, PPI in place. 10/01/2023 maintained on Zosyn and nebulized bronchodilators. NPO for bronchoscopy today. CBC stable. Denies further coughing up blood since yesterday. Denies nausea, vomiting .denies abdominal pain. Denies chest pain, palpitations or shortness of breath. Maintaining O2 sats in the 90s on 3 L nasal cannula. Lipase 3301. Objective - Vital Signs Vital signs: Vital Signs Temp 98.3 F 10/01/23 07:00 Pulse 89 10/01/23 09:06 Resp 18 10/01/23 07:00 BP 93/59 10/01/23 07:00 Pulse Ox 97 10/01/23 08:57 FiO2 Intake & Output 09/30/23 10/01/23 10/01/23 18:59 06:59 18:59 Output Total 700 475 Balance -700 -475 Weight 46.7 kg Output: Urine 700 475 - Exam GENERAL: Alert and oriented x 3, Cachexic male,Sitting up in bed, no acute distress HEENT: Normocephalic, normal pupils. Sclera anicteric NECK: Supple, no JVD. CARDIOVASCULAR: S1, S2 regular. No murmur RESPIRATION: Unlabored, equal air entry, coarse breath sounds,diminished in the bases. ABDOMEN: Soft, nontender, nondistended. No guarding. no masses palpable. Bowel sounds heard. PEG tube capped. LEGS: No edema. no swelling NERVOUS SYSTEM: Cranial N 2-12 grossly normal. No focal deficits. Skin: Warm and dry - Labs CBC & Chem 7: 10/01/23 06:27 10/01/23 06:27 Labs: Abnormal Lab Results - Last 24 Hours (Table) 09/30/23 09/30/23 09/30/23 Range/Units 05:10 05:10 05:10 RBC 3.76 L (4.30-5.90) m/uL Hgb 9.8 L (13.0-17.5) gm/dL Hct 33.1 L (39.0-53.0) % MCHC 29.6 L (31.0-37.0) g/dL RDW 17.1 H (11.5-15.5) % BUN 39 H (9-20) mg/dL Lipase 384 H (23-300) U/L Assessment and Plan Assessment: Hemoptysis, etiology unclear, CTA ruled out PE. Bronchoscopy pending Elevated lipase, etiology unclear, abdominal ultrasound pending Recently discharged on 09/07/2023 with sepsis, altered mental status, suspected aspiration pneumonia, hypotension. Hypothyroidism status post thyroidectomy History of head, neck cancer 2010 PEG tube History of hypertension COPD, history of Prior nicotine dependence Moderate protein calorie malnutrition, BMI 14.4 Plan: Continue on current medication resume ,monitoring and symptomatic treatment. NPO for bronchoscopy. maintain PPI. Stool for occult blood ordered. Elevated lipase- ultrasound of abdomen ordered . Labs pending. Continue aggressive pulmonary toileting with nebulized bronchodilators , Zosyn. The impression and plan of care has been dictated as directed. : I performed a history and examination of this patient, discussed the same with the dictator. I agree with the dictator's note ,documented as a scribe. Any additional findings or plans will be noted.
[2023-10-02 05:38] LABS: Appearance,BF Bloody (Clear); RBC, Body Fluid 23000 /UL (0-2000)
[2023-10-02 09:09] LABS: Anisocytosis Slight; HCT 29.5 % (39.0-53.0); HGB 9.1 gm/dL (13.0-17.5); Hypochromasia Marked; MCH 26.8 pg (25.0-35.0); MCHC 30.9 g/dL (31.0-37.0); MCV 86.7 fL (80.0-100.0); Mean Platelet Volume 7.9; Platelet Count 365 k/uL (150-450); RDW 17.3 % (11.5-15.5); WBC 16.7 k/uL (3.8-10.6)
[2023-10-02 09:44] LABS: African American GFR (CKD) 88 (>60 ml/min/1.73 sqM); Anion Gap 6 mmol/L; Blood Urea Nitrogen 39 mg/dL (9-20); Calcium 9.5 mg/dL (8.4-10.2); Carbon Dioxide 26 mmol/L (22-30); Chloride 104 mmol/L (98-107); Glucose 87 mg/dL (74-99); Lipase 37 U/L (23-300); Non-African American GFR(CKD) 76 (>60 ml/min/1.73 sqM); Potassium 4.3 mmol/L (3.5-5.1); Sodium 136 mmol/L (137-145)
--- NOTE | 2023-10-02 12:08 | P.PN ---
Subjective Progress Note Date: 10/02/23 This is a 63-year-old male patient with a history of multiple comorbidities including head and neck cancer in 2010, status post PEG tube insertion, thyroid cancer status post thyroidectomy, chronic obstructive pulmonary disease, hypertension anorexia cachexia syndrome, former smoker. He had been here earlier this month for hypotension and altered mental status, recovered and discharged on 09/07/2023. He was brought into the emergency room yesterday for what initially was thought to be hematemesis. Upon further evaluation there was concern for hemoptysis. He is seen today in consultation on the regular medical floor. He is sitting up in bed. Awake and alert in no acute distress. His caretakers at the bedside who provides most of the information. His basin does show some dark red blood that they believe he is coughing up now. He does have a PEG tube in place and was negative for blood upon withdrawal of stomach contents. White count 7.1. Hemoglobin 9.8. Platelets 418. Sodium 137. Potassium 4.6. Bicarb 28. BUN 39. Creatinine 0.69. Hyperinflation compatible with COPD possible bas ilar infiltrate/atelectasis. He is currently stable and maintaining good O2 saturations in the 90s on room air. He has been afebrile. Hemodynamically stable. He is currently on DuoNeb inhalations and Zosyn. The patient is seen today October 01, 2023 in follow-up on the regular medical floor. He is currently sitting up in bed. Awake and alert in no acute distress. He does continue to have some blood-tinged sputum. He is maintaining good O2 saturations in the 90s on 3 L/min per nasal cannula. White count 11.3. Hemoglobin 10.0. Platelets 402. Sodium 137. Potassium 4.5. Bicarb 23. BUN 34. Creatinine 1.0. Lipase 3301. Abdominal ultrasound revealed no acute process. He is continued on DuoNeb inhalations. Remains on Zosyn. Plan is for bronchoscopy today. The patient is seen today October 02, 2023 in follow-up on the regular medical floor. He is awake and alert in no acute distress. He is maintaining good O2 saturations in the mid 90s on 3 L/min per nasal cannula. He is afebrile. Hemodynamically stable. He did undergo bronchoscopy with BAL and suctioning of a significant amount of old blood from the left lower lobe. Noted bronchiectasis. No further hemoptysis. White count 16.7. Hemoglobin 9.1. Platelets 365. Sodium 136. Potassium 4.3. Bicarb 26. BUN 39. Creatinine 1.04. There is pending. He is currently on Zosyn. Remains on bronchodilators. Normal saline at KVO. Objective - Vital Signs Vital signs: Vital Signs Temp 97.9 F 10/02/23 07:05 Pulse 100 10/02/23 09:42 Resp 16 10/02/23 07:05 BP 102/74 10/02/23 07:05 Pulse Ox 95 10/02/23 09:27 FiO2 Intake & Output 10/01/23 10/02/23 10/02/23 18:59 06:59 18:59 Intake Total 200 Output Total 250 400 100 Balance -50 -400 -100 Intake: IV 100 Intake, IV Titration 100 Amount Piperacillin-Tazobactam 3 100 .375 gm In Sodium Chloride 0.9% 100 ml @ 25 mls/hr IVPB Q8H PENDING SALE TO [facility] Rx#: [id number] Output: Urine 250 400 100 Other: Voiding Method Urinal - Exam GENERAL EXAM: Alert, cachectic 63-year-old male, on 3 L nasal cannula, in no apparent distress. HEAD: Normocephalic. Evidence of previous radiation to the left head and neck. EYES: Normal reaction of pupils, equal size. NOSE: Clear with pink turbinates. THROAT: No erythema or exudates. NECK: No masses, no JVD. CHEST: No chest wall deformity. LUNGS: Equal air entry with no crackles, wheeze, rhonchi or dullness. CVS: S1 and S2 normal with no audible murmur, regular rhythm. ABDOMEN: PEG tube exit site clean and dry. No hepatosplenomegaly, normal bowel sounds, no guarding or rigidity. SPINE: No scoliosis or deformity SKIN: No rashes CENTRAL NERVOUS SYSTEM: No focal deficits, tone is normal in all 4 extremities. EXTREMITIES: There is no peripheral edema. No clubbing, no cyanosis. Peripheral pulses are intact. - Labs CBC & Chem 7: 10/02/23 08:57 10/02/23 08:57 Labs: Abnormal Lab Results - Last 24 Hours (Table) 10/01/23 10/02/23 10/02/23 Range/Units 13:30 08:57 08:57 WBC 16.7 H (3.8-10.6) k/uL RBC 3.40 L (4.30-5.90) m/uL Hgb 9.1 L (13.0-17.5) gm/dL Hct 29.5 L (39.0-53.0) % MCHC 30.9 L (31.0-37.0) g/dL RDW 17.3 H (11.5-15.5) % Sodium 136 L (137-145) mmol/L BUN 39 H (9-20) mg/dL Fluid Appearance Bloody A (Clear) Microbiology - Last 24 Hours (Table) 10/01/23 13:30 Gram Stain - Preliminary Bronchoalviolar Lavage - Left Assessment and Plan Assessment: Hemoptysis of unclear etiology. No significant findings on chest x-ray. CT angiogram ruled out pulmonary embolus. There is COPD with minimal emphysema. Prominent dependent secretions and debris within the trachea extending throughout the right-sided bronchial tree. Extensive tree-in-bud opacities throughout the right mid and lower lobe, consider infectious bronchiolitis or aspiration. Chronic volume loss, consolidation and bronchiectasis involving the entire left lower lobe. Bronchoscopy performed 10/01/2023 with a significant amou nt of old blood removed from the left lower lobe. Noted bronchial changes of bronchiectasis Recent discharge September 07, 2023 following an admission for hypotension and altered mental status History of head and neck cancer in 2010 graft chronic obstructive pulmonary disease, PEG tube in place Former smoker History of hypertension Hypothyroidism following previous thyroidectomy Elevated lipase, ultrasound of the abdomen revealed no acute process Plan: The patient was seen and evaluated Labs and medications reviewed No further hemoptysis Bronchoscopy performed yesterday Cleared for discharge from the pulmonary standpoint Continue DuoNeb inhalations Recommend a 10-day course of Levaquin Follow-up in our office in 1 week This patient was seen independently by the pulmonary nurse practitioner addressing pulmonary issues I have personally seen and examined the patient, performed the documentation and the assessment and plan as written. Number of minutes spent on the visit: 23.
[2023-10-02 12:36] LABS: INR 1.1 (<1.2); Prothrombin Time 11.6 sec (10.0-12.5)
--- NOTE | 2023-10-02 15:07 | P.DS ---
Providers Date of admission: 09/30/23 18:12 Expected date of discharge: 10/02/23 Attending physician: Quique Umaña Consults: 09/30/23 10:09 Consult Physician Urgent Consulting Provider: Santa Powell Consult Reason/Comments: coughing up bright red blood elevated ddimer 0.76 Do you want consulting provider notified?: Yes Primary care physician: Quique Umaña Hospital Course: Final diagnoses Hemoptysis, etiology unclear, CTA ruled out PE. Status post bronchoscopy with significant amount of old blood removed from the left lower lobe, noted bronchial changes of bronchiectasis Elevated lipase, etiology unclear, abdominal ultrasound pending Recently discharged on 09/07/2023 with sepsis, altered mental status, suspected aspiration pneumonia, hypotension. Hypothyroidism status post thyroidectomy History of head, neck cancer 2010 PEG tube History of hypertension COPD, history of Prior nicotine dependence Moderate protein calorie malnutrition, BMI 14.4 Hospital course:This is a 63-year-old gentleman, recently hospitalized with pneumonia, elevated D-dimer, CTA of chest in progress, admitted with complaints of coughing up blood with clots x 1 day accompanied by dizziness in a cachexic patient, with past medical history significant for head and neck cancer 2010, PEG tube with replacement multiple times ,thyroid cancer status post thyroidectomy, prior nicotine dependence, COPD, hypertension and multiple other medical issues.No bleeding from PEG tube site. Denies rectal bleeding. Currently PEG tube capped ,n.p.o., receiving gentle IV fluid hydration afebrile, WBC 7.1. Maintaining O2 sats in the 90s on 3 L nasal cannula- which patient wears at home. Hemodynamically stable. hemoglobin 9.8, platelets 418, electrolytes within normal limits, bicarb 28, BUN 39, creatinine 0.69 chest x- ray reporting hyperinflation compatible with COPD,basilar infiltrates difficult to exclude. vague historian, questionable GI bleed, PPI in place. 10/01/2023 maintained on Zosyn and nebulized bronchodilators. NPO for bronchoscopy today. CBC stable. Denies further coughing up blood since yesterday. Denies nausea, vomiting .denies abdominal pain. Denies chest pain, palpitations or shortness of breath. Maintaining O2 sats in the 90s on 3 L nasal cannula. Lipase 3301. NPO for bronchoscopy. maintain PPI. Stool for occult blood ordered. Elevated lipase- ultrasound of abdomen ordered . Labs pending. Continue aggressive pulmonary toileting with nebulized bronchodilators , Zosyn. 10/02/2023 no further hemoptysis. completed bronchoscopy yesterday with suctioning of significant amount of old blood from left lower lobe, noted bronchiectasis. Continues on IV antibiotics of Zosyn. Afebrile, WBC 16.7, hemoglobin 9.1, platelets 365, electrolytes within normal limits, bicarb 26, BUN 39, creatinine 1.04. Denies chest pain, palpitations or shortness of breath. Maintaining O2 sats in the mid 90s on 3 L nasal cannula. Significant clinical improvement. Patient has been cleared for discharge by pulmonary with recommendations of Levaquin x 10 days continuing nebulized bronchodilator treatments. She will be discharged to [facility] subacute rehab pending insurance authorization today in a stable condition with guarded prognosis. The impression and plan of care has been dictated as directed. : I performed a history and examination of this patient, discussed the same with the dictator. I agree with the dictator's note ,documented as a scribe. Any additional findings or plans will be noted. Patient Condition at Discharge: Stable Plan - Discharge Summary Discharge Rx Participant: No New Discharge Prescriptions: New Ipratropium-Albuterol Nebulize [Duoneb 0.5 mg-3 mg/3 ml Soln] 3 ml INHALATION RT-QID each Levofloxacin Oral Soln [Levaquin Oral Soln] 500 mg PEG/G-TUBE DAILY 10 Days #200 ml Ipratropium-Albuterol Nebulize [Duoneb 0.5 mg-3 mg/3 ml Soln] 3 ml INHALATION Q4H PRN each PRN Reason: Shortness Of Breath Or Wheezing Acetaminophen Tab [Tylenol] 650 mg PO Q6HR PRN tab PRN Reason: Mild Pain Or Fever > 100.5 Continue Levothyroxine Sodium 100 mcg PEG/G-TUBE DAILY #30 tab lisinopriL [Zestril] 2.5 mg PEG/G-TUBE DIRECTED Omeprazole [PriLOSEC] 20 mg PEG/G-TUBE DAILY Metoclopramide [Reglan] 10 mg PEG/G-TUBE AC-BID Discontinued Ipratropium-Albuterol Nebulize [Duoneb 0.5 mg-3 mg/3 ml Soln] 3 ml INHALATION RT-TID PRN PRN Reason: Shortness Of Breath amLODIPine [Norvasc] 10 mg PEG/G-TUBE DIRECTED Ipratropium-Albuterol Nebulize [Duoneb 0.5 mg-3 mg/3 ml Soln] 3 ml INHALATION RT-DAILY Discharge Medication List Omeprazole [PriLOSEC] 20 mg PEG/G-TUBE DAILY 08/27/23 [History] lisinopriL [Zestril] 2.5 mg PEG/G-TUBE DIRECTED 08/27/23 [History] Levothyroxine Sodium 100 mcg PEG/G-TUBE DAILY #30 tab 09/07/23 [Rx] Metoclopramide [Reglan] 10 mg PEG/G-TUBE AC-BID 09/22/23 [History] Acetaminophen Tab [Tylenol] 650 mg PO Q6HR PRN tab 10/02/23 [Rx] Ipratropium-Albuterol Nebulize [Duoneb 0.5 mg-3 mg/3 ml Soln] 3 ml INHALATION Q4H PRN each 10/02/23 [Rx] Ipratropium-Albuterol Nebulize [Duoneb 0.5 mg-3 mg/3 ml Soln] 3 ml INHALATION RT-QID each 10/02/23 [Rx] Levofloxacin Oral Soln [Levaquin Oral Soln] 500 mg PEG/G-TUBE DAILY 10 Days #200 ml 10/02/23 [Rx] Follow up Appointment(s)/Referral(s): Quique Umaña MD [Primary Care Provider] - 3 Days Santa Powell MD [STAFF PHYSICIAN] - 1 Week Activity/Diet/Wound Care/Special Instructions: [facility] CBC, BMP in 3 days Discharge Disposition: TRANSFER TO SNF/ECF
--- NOTE | 2023-10-03 10:27 | P.PN ---
Subjective Progress Note Date: 10/03/23 This is a 63-year-old male patient with a history of multiple comorbidities including head and neck cancer in 2010, status post PEG tube insertion, thyroid cancer status post thyroidectomy, chronic obstructive pulmonary disease, hypertension anorexia cachexia syndrome, former smoker. He had been here earlier this month for hypotension and altered mental status, recovered and discharged on 09/07/2023. He was brought into the emergency room yesterday for what initially was thought to be hematemesis. Upon further evaluation there was concern for hemoptysis. He is seen today in consultation on the regular medical floor. He is sitting up in bed. Awake and alert in no acute distress. His caretakers at the bedside who provides most of the information. His basin does show some dark red blood that they believe he is coughing up now. He does have a PEG tube in place and was negative for blood upon withdrawal of stomach contents. White count 7.1. Hemoglobin 9.8. Platelets 418. Sodium 137. Potassium 4.6. Bicarb 28. BUN 39. Creatinine 0.69. Hyperinflation compatible with COPD possible bas ilar infiltrate/atelectasis. He is currently stable and maintaining good O2 saturations in the 90s on room air. He has been afebrile. Hemodynamically stable. He is currently on DuoNeb inhalations and Zosyn. The patient is seen today October 01, 2023 in follow-up on the regular medical floor. He is currently sitting up in bed. Awake and alert in no acute distress. He does continue to have some blood-tinged sputum. He is maintaining good O2 saturations in the 90s on 3 L/min per nasal cannula. White count 11.3. Hemoglobin 10.0. Platelets 402. Sodium 137. Potassium 4.5. Bicarb 23. BUN 34. Creatinine 1.0. Lipase 3301. Abdominal ultrasound revealed no acute process. He is continued on DuoNeb inhalations. Remains on Zosyn. Plan is for bronchoscopy today. The patient is seen today October 02, 2023 in follow-up on the regular medical floor. He is awake and alert in no acute distress. He is maintaining good O2 saturations in the mid 90s on 3 L/min per nasal cannula. He is afebrile. Hemodynamically stable. He did undergo bronchoscopy with BAL and suctioning of a significant amount of old blood from the left lower lobe. Noted bronchiectasis. No further hemoptysis. White count 16.7. Hemoglobin 9.1. Platelets 365. Sodium 136. Potassium 4.3. Bicarb 26. BUN 39. Creatinine 1.04. There is pending. He is currently on Zosyn. Remains on bronchodilators. Normal saline at [facility]. The patient is seen today October 03, 2023 in follow-up on the regular medical floor. He is sitting up in bed. Awake and alert in no acute distress. He denies any worsening shortness of breath cough or congestion. He has had no further hemoptysis. He is continued on Zosyn. Continued on bronchodilators. Bronchoalveolar lavage cultures pending. Objective - Vital Signs Vital signs: Vital Signs Temp 97.8 F 10/03/23 07:00 Pulse 88 10/03/23 07:00 Resp 18 10/03/23 07:00 BP 134/84 10/03/23 08:55 Pulse Ox 94 L 10/03/23 07:00 FiO2 Intake & Output 10/02/23 10/03/23 10/03/23 18:59 06:59 18:59 Intake Total 100 Output Total 100 500 300 Balance -100 -400 -300 Weight 46.7 kg 43.5 kg Intake: Oral 100 Output: Urine 100 500 300 Other: Voiding Method Urinal - Exam GENERAL EXAM: Alert, cachectic 63-year-old male, up in bed, comfortable, on 3 L nasal cannula, in no apparent distress. HEAD: Normocephalic. Evidence of previous radiation to the left head and neck. EYES: Normal reaction of pupils, equal size. NOSE: Clear with pink turbinates. THROAT: No erythema or exudates. NECK: No masses, no JVD. CHEST: No chest wall deformity. LUNGS: Equal air entry with no crackles, wheeze, rhonchi or dullness. CVS: S1 and S2 normal with no audible murmur, regular rhythm. ABDOMEN: PEG tube exit site clean and dry. No hepatosplenomegaly, normal bowel sounds, no guarding or rigidity. SPINE: No scoliosis or deformity SKIN: No rashes CENTRAL NERVOUS SYSTEM: No focal deficits, tone is normal in all 4 extremities. EXTREMITIES: There is no peripheral edema. No clubbing, no cyanosis. Peripheral pulses are intact. - Labs CBC & Chem 7: 10/02/23 08:57 08/02/24 08:57 Labs: Microbiology - Last 24 Hours (Table) 10/01/23 13:30 Acid Fast Bacilli Smear - Preliminary Bronchoalviolar Lavage - Left 10/01/23 13:30 Gram Stain - Preliminary Bronchoalviolar Lavage - Left Assessment and Plan Assessment: Hemoptysis secondary to left lower lobe bronchiectasis. No significant findings on chest x-ray. CT angiogram ruled out pulmonary embolus. There is COPD with minimal emphysema. Prominent dependent secretions and debris within the trachea extending throughout the right-sided bronchial tree. Extensive tree-in-bud opacities throughout the right mid and lower lobe, consider infectious bronc hiolitis or aspiration. Chronic volume loss, consolidation and bronchiectasis involving the entire left lower lobe. Bronchoscopy performed 10/01/2023 with a significant amount of old blood removed from the left lower lobe. Noted bronchial changes of bronchiectasis Recent discharge September 07, 2023 following an admission for hypotension and altered mental status History of head and neck cancer in 2010 graft chronic obstructive pulmonary disease, PEG tube in place Former smoker History of hypertension Hypothyroidism following previous thyroidectomy Elevated lipase, ultrasound of the abdomen revealed no acute process Plan: The patient was seen and evaluated Medications reviewed Cleared for discharge Continue DuoNeb inhalations Recommend a 10-day course of Levaquin Follow-up in our office in 1 week This patient was seen independently by the pulmonary nurse practitioner addressing pulmonary issues I have personally seen and examined the patient, performed the documentation and the assessment and plan as written. Number of minutes spent on the visit: 24.
[2023-10-03 11:38] LABS: Basophils # (A) 0.03 X 10*3/uL (0.00-0.10); Basophils % (A) 0.3 %; Eosinophils # (A) 0.15 X 10*3/uL (0.04-0.35); Eosinophils % (A) 1.6 %; HCT 31.7 % (39.6-50.0); HGB 9.9 g/dL (13.0-17.0); Lymphocytes # (A) 0.93 X 10*3/uL (0.90-5.00); Lymphocytes % (A) 9.8 %; MCH 27.2 pg (27.0-32.0); MCHC 31.2 g/dL (32.0-37.0); MCV 87.1 FL (80.0-97.0); Mean Platelet Volume 10.2 FL (9.5-12.2); Monocytes % (A) 11.6 %; NRBC Per 100 WBC 0 X 10*3/uL (0.00-0.01); Neutrophils # (A) 7.27 X 10*3/uL (1.80-7.70); Neutrophils % (A) 76.4 %; Platelet Count 336 X 10*3/uL (140-440); RBC 3.64 X 10*6/uL (4.40-5.60); RDW 17.1 % (11.5-14.5); WBC 9.51 X 10*3/uL (4.50-10.00)
--- NOTE | 2023-10-03 13:09 | P.PN ---
Progress Note - Text Patient's discharge was pending acceptance at a facility and insurance approval, these have both been done and he will go to [facility] later today. He is medically stable although an poor overall condition. He will continue on his current medications as reviewed in the medical reconciliation and I will plan on seeing Duc at [facility] on ThursdayOctober 06
[2023-10-03 15:02] VITALS: BP 154/101; PULSE 83; RESP 15; TEMP 97.7
[2023-10-26 14:01] LABS: Nucleated Cells, Body Fluid 2750 /UL
== END 2023-10-03 16:45 | DRG 204 ==
LOC: EC 15:00 → 6NMEDSUR 18:34 → OBSVTOIN 09-30 18:12 → 6NMEDSUR 10-01 17:45
PROVIDERS: ADMIT Family Medicine; ATTEND Family Medicine
PROC: 0B9J8ZX Drainage of Left Lower Lung Lobe, Via Natural or Artificial Opening Endoscopic, Diagnostic (ICD-10-PCS; principal; 2023-10-01 08:15)
DX: R04.2 Hemoptysis (principal); E44.0 Moderate protein-calorie malnutrition; Z68.1 Body mass index [BMI] 19.9 or less, adult; K92.0 Hematemesis; Z85.89 Personal history of malignant neoplasm of other organs and systems; I95.9 Hypotension, unspecified; Z11.52 Encounter for screening for COVID-19; I50.9 Heart failure, unspecified; I11.0 Hypertensive heart disease with heart failure; Z87.891 Personal history of nicotine dependence; J47.9 Bronchiectasis, uncomplicated; D64.9 Anemia, unspecified; Z85.850 Personal history of malignant neoplasm of thyroid; Z87.01 Personal history of pneumonia (recurrent); R42 Dizziness and giddiness; E89.0 Postprocedural hypothyroidism; F41.9 Anxiety disorder, unspecified; Z80.1 Family history of malignant neoplasm of trachea, bronchus and lung; Z80.3 Family history of malignant neoplasm of breast; Z80.42 Family history of malignant neoplasm of prostate; Z92.3 Personal history of irradiation; Z93.1 Gastrostomy status; Z92.21 Personal history of antineoplastic chemotherapy
CPT/HCPCS: 31624; 36415; 71046; 71275; 76700; 80048; 80053; 82272; 83605; 83690; 84484; 85025; 85027; 85379; 85610; 85730; 86900; 86901; 87070; 87102; 87116; 87205; 87206; 89050; 93005; 94640; 94760; 96361; 96374; 96375; 99285

== ENCOUNTER → 2023-10-07 | Outpatient (CLI) | payer MEDICARE | LOC: LABPRL 12:34 | PROVIDERS: ATTEND Family Medicine | DX: D64.9 Anemia, unspecified (principal) | CPT/HCPCS: 80048; 83735; 85025 ==

== ENCOUNTER → 2023-11-11 | Outpatient (CLI) | payer MEDICARE ==
--- NOTE | 2023-11-11 14:32 | XR ---
EXAMINATION TYPE: XR chest 2V DATE OF EXAM: 11/11/2023 2:23 PM CLINICAL INDICATION: Male, 63 years old with history of Z99.81 DEPENDENCE ON SUPP OXYGEN,R06.00 DYSPN EA; [facility] COMPARISON: None TECHNIQUE: XR chest 2V Frontal view of the chest. FINDINGS: Lungs/Pleura: There is flattening of the diaphragm with increased lucency of the lungs. No evidence o f pneumothorax, pleural effusion or focal consolidation. Pulmonary vascularity: Unremarkable. Heart/mediastinum: Cardiomediastinal silhouette is unremarkable. Musculoskeletal: No acute osseous pathology. IMPRESSION: 1. No acute cardiopulmonary disease process. 2. COPD changes.
== END | disposition home or self-care (01) ==
LOC: RADXRMAIN 14:08
PROVIDERS: ATTEND Family Medicine
DX: J44.9 Chronic obstructive pulmonary disease, unspecified (principal); Z99.81 Dependence on supplemental oxygen
CPT/HCPCS: 71046

== ENCOUNTER → 2023-11-26 | Outpatient (CLI) | payer MEDICARE ==
--- NOTE | 2023-11-26 08:34 | CT ---
EXAMINATION TYPE: CT brain wo con DATE OF EXAM: 11/26/2023 COMPARISON: 04/03/2023 HISTORY: seizures CT DLP: 1159 mGycm Automated exposure control for dose reduction was used. FINDINGS: Craniocervical junction is maintained. Sella turcica has a normal appearance. Orbits are symmetric. C alvarium is intact. Sinuses are clear. Mild generalized degenerative change. No evidence of acute hemorrhage or mass effect. No midline shif t. There is a noted faint hypoattenuation in the white matter stable likely reflecting minimal remote microvascular ischemic changes. IMPRESSION: NO ACUTE PROCESS IF SYMPTOMS PERSIST CONSIDER MRI. [facility], , 11/26/2023 8:32 AM
--- NOTE | 2023-11-27 23:31 | EEG ---
ELECTROENCEPHALOGRAM REPORT CLINICAL HISTORY: This is a 63-year-old gentleman with a reported syncopal episode. The video EEG is obtained to evaluate for seizure epileptiform activity. RELEVANT MEDICATION: Per the process mold technician, the patient is not on any antiseizure medication. EEG TYPE: This is a routine 21-channel EEG with video using the 10/20 electrode placement system. DESCRIPTION: Wakefulness and drowsiness are obtained. During awake state, the posterior- dominant rhythm consists of pus-ak-rzxjeyqj voltage of 9 to 10 hertz activity that is well modulated and well sustained. There is no physiological stage 2 sleep architecture. There is no focal slowing. Interictal and ictal: There is questionable sharply contoured activity over the left temporal (T5 lead). No clear discharges or seizure on the EEG. ACTIVATION PROCEDURE: Photic stimulation did not evoke a posterior driving response. There is no abnormality during the photic stimulation. Hyperventilation is not performed. CLINICAL INTERPRETATION: This is an abnormal routine EEG. The background is normal. There is questionable sharply contoured activity over the left temporal which can cause cortical irritability. Otherwise There is no focal slowing, clear epileptiform discharge, or seizure on the EEG. Recommend a sleep deprived routine EEG or consideration of prolonged EEG. Clinical correlation is recommended. HENRY / NEWTONN: [id number] / [id number]
== END | disposition home or self-care (01) ==
LOC: RADCTMAIN 07:40
PROVIDERS: ATTEND Family Medicine
DX: R56.9 Unspecified convulsions
CPT/HCPCS: 70450; 95812

== ENCOUNTER 2023-12-03 11:56 | Day surgery (SDC) | payer MEDICARE ==
[2023-12-02 12:27] VITALS: BMI 14.2
[2023-12-03 12:32] VITALS: RESP 16; TEMP 97.9
[2023-12-03] MEDS: LIDOCAINE 1% (10MG/ML) FOR IV START INTRADERMA PRN (12:35)
[2023-12-03] MEDS: IV FLUID CONTINUATION 1,000 ML IV ONE (12:35)
[2023-12-03] MEDS: LACTATED RINGERS 1,000 ML IV SCH (12:35)
[2023-12-03] MEDS ORDERED: PROPOFOL 10 MG/ML 20 ML VIAL IV ONE (13:20)
[2023-12-03] MEDS ORDERED: LIDOCAINE 1% INJ 10MG/ML (20 ML MDV) ONE (13:20)
--- NOTE | 2023-12-03 13:42 | P.PCN ---
Date of Procedure: 12/03/23 Procedure(s) Performed: PREOPERATIVE DIAGNOSIS: Malnutrition POSTOPERATIVE DIAGNOSIS: Same PROCEDURE: EGD with PEG tube replacement SURGEON: Daphne EBL: Minimal ANESTHESIA: Sedation COMPLICATIONS: None OPERATIVE PROCEDURE: The patient was placed in the supine position on the endoscopy table. The patient was sedated per anesthesia that time. The Olympus gastroscope was inserted into the oropharynx and passed under direct visualization to the region of the duodenum. No obstruction was seen. The pylorus was widely patent. The stomach was carefully inspected. The stomach was fully insufflated with air. The previous tube was noted to be in the antrum. The fluid was aspirated and the old 18 Kosovan catheter was removed. A new 20 Kosovan 9 balloon catheter was inserted without difficulty. The bolster was tightened slightly. Drain sponges were placed. The appropriate adapters were applied. The visualized esophagus appeared normal. No evidence of obstruction at the duodenum was present. DISPOSITION: Stable to recovery room
[2023-12-03 14:00] VITALS: BP 138/82; PULSE 61
== END 2023-12-03 14:13 | disposition home or self-care (01) ==
LOC: ORWHC2ENDO 11:56
PROVIDERS: ATTEND Surgery
DX: R13.10 Dysphagia, unspecified
CPT/HCPCS: 43246

== ENCOUNTER 2024-02-19 07:43 | Inpatient (IN) | payer MEDICARE ==
--- NOTE | 2024-02-19 08:09 | ED ---
General Adult HPI - General Chief complaint: Shortness of Breath Stated complaint: SOB Time Seen by Provider: 02/19/24 07:55 Source: patient, family, RN notes reviewed, old records reviewed Mode of arrival: wheelchair Limitations: no limitations - History of Present Illness Initial comments: This is a 63-year-old male who presents to the emergency department complaining of having had chest pain this morning. Patient states he had chest pain last about 20 minutes he was short of breath and he was diaphoretic. Patient denies any chest pain currently. Patient has any fever chills or cough. Patient denies any pain at all right now. Patient states he does not feel short of breath but he feels a little weak currently. Patient denies any abdominal pain patient denies nausea vomiting diarrhea. Patient has a PEG tube in place secondary to the fact that he had esophageal cancer. Patient has a history of aspiration pneumonia - Related Data Home Medications Medication Instructions Recorded Confirmed Omeprazole [PriLOSEC] 20 mg PEG/G-TUBE DAILY 08/27/23 12/02/23 Midodrine [ProAmatine] 5 mg PO TID 12/02/23 12/02/23 Ondansetron Odt [Zofran Odt] 8 mg PO Q8HR 12/02/23 12/02/23 Previous Rx's Medication Instructions Recorded Levothyroxine Sodium 100 mcg PEG/G-TUBE DAILY #30 tab 09/07/23 Acetaminophen Tab [Tylenol] 650 mg PO Q6HR PRN tab 10/02/23 Ipratropium-Albuterol Nebulize 3 ml INHALATION RT-QID each 10/02/23 [Duoneb 0.5 mg-3 mg/3 ml Soln] Allergies Allergy/AdvReac Type Severity Reaction Status Date / Time No Known Allergies Allergy Verified 02/19/24 07:44 Review of Systems ROS Statement: Those systems with pertinent positive or pertinent negative responses have been documented in the HPI. ROS Other: All systems not noted in ROS Statement are negative. Past Medical History Past Medical History: Cancer, Heart Failure, COPD, Hypertension, Pneumonia, Seizure Disorder, Thyroid Disorder Additional Past Medical History / Comment(s): Hx neck cancer in 2010, had surgery, chemo and radiation. History of Any Multi-Drug Resistant Organisms: None Reported Past Surgical History: Tonsillectomy Additional Past Surgical History / Comment(s): Lymph node removal, thyroidectomy, radical tonsil dissection. Past Anesthesia/Blood Transfusion Reactions: No Reported Reaction Past Psychological History: Anxiety Smoking Status: Former smoker Past Alcohol Use History: None Reported Past Drug Use History: None Reported - Past Family History Mother Family Medical History: Cancer, Pneumonia Additional Family Medical History / Comment(s): from lung cancer and pneumonia. Father Family Medical History: Cancer, Prostate Disorder Additional Family Medical History / Comment(s): Prostatectomy due to Prostate Cancer. Sister(s) Family Medical History: Cancer Additional Family Medical History / Comment(s): Breast Cancer. Brother(s) Family Medical History: Cancer Additional Family Medical History / Comment(s): 2 BROTHERS FROM CANCER General Exam - General Exam Comments Initial Comments: GENERAL: Patient is well-developed and well-nourished. Patient is nontoxic and well- hydrated and is in no acute distress. ENT: Neck is soft and supple. No significant lymphadenopathy is noted. Oropharynx is clear. Moist mucous membranes. Neck has full range of motion without eliciting any pain. EYES: The sclera were anicteric and conjunctiva were pink and moist. Extraocular movements were intact and pupils were equal round and reactive to light. Eyelids were unremarkable. PULMONARY: Crackles in the bases bilaterally CARDIOVASCULAR: There is a regular rate and rhythm without any murmurs gallops or rubs. ABDOMEN: Soft and nontender with normal bowel sounds. SKIN: Skin is clear with no lesions or rashes and otherwise unremarkable. NEUROLOGIC: Patient is alert and oriented x3. Cranial nerves II through XII are grossly intact. Motor and sensory are also intact. Normal speech, volume and content. Symmetrical smile. MUSCULOSKELETAL: Normal extremities with adequate strength and full range of motion. No lower extremity swelling or edema. No calf tenderness. LYMPHATICS: No significant lymphadenopathy is noted PSYCHIATRIC: Normal psychiatric evaluation. Limitations: no limitations Course Vital Signs 02/19/24 02/19/24 02/19/24 07:45 08:16 09:00 Temperature 98.1 F Pulse Rate 103 H 96 Respiratory 20 18 20 Rate Blood Pressure 167/99 113/79 O2 Sat by Pulse 90 L 96 Oximetry 02/19/24 10:00 Temperature Pulse Rate 96 Respiratory 20 Rate Blood Pressure 114/82 O2 Sat by Pulse 97 Oximetry Medical Decision Making - Medical Decision Making EKG is interpreted by myself but EKG shows a sinus rhythm at 96 bpm WA interval 174 QRS is 93 QT interval 338 QTc is 391. Patient has some ST segment elevation in V2 and V3 as well as V4. This is seen on a previous EKG and probably represents repolarization. Was pt. sent in by a medical professional or institution (, LANG, BRAIN SURGEON, urgent care, hospital, or residential...) When possible be specific @ -No Did you speak to anyone other than the patient for history (EMS, parent, family, police, friend...)? What history was obtained from this source @ -No Did you review nursing and triage notes (agree or disagree)? Why? @ -I reviewed and agree with nursing and triage notes Were old charts reviewed (outside hosp., previous admission, EMS record, old EKG, old radiological studies, urgent care reports/EKG's, residential records)? Report findings @ -No old charts were reviewed Differential Diagnosis? @ -Differential Chest Pain: Stable Angina, Unstable Angina, STEMI, NSTEMI Aortic Dissection, Pneumothorax, M usculoskeletal, Esophageal Spasm GERD, Cholecystitis, Pancreatitis, Zoster, this is not meant to be an all-inclusive list. Differential Dyspnea: Coronary syndrome, arrhythmia, tamponade, asthma, COPD, pulmonary embolism, pneumonia, pneumothorax, pulmonary effusion, anaphylaxis, diabetic ketoacidosis, flailed chest, pulmonary contusion, diaphragmatic rupture, anemia, neuromuscular, this is not meant to be an all-inclusive list. EKG interpreted by me (3pts min.). @ -As above X-rays interpreted by me (1pt min.). @ -Chest x-ray shows opacifications in the base. This is consistent with pneumonia CT interpreted by me (1pt min.). @ -None done U/S interpreted by me (1pt. min.). @ -None done What testing was considered but not performed or refused? (CT, X-rays, U/S, labs)? Why? @ -None What meds were considered but not given or refused? Why? @ -None Did you discuss the management of the patient with other professionals (professionals i.e. LANG Costa, BRAIN SURGEON, lab, RT, psych nurse, social worker aide, transcribing machine operator, teacher, conservation science officer, case operator)? Give summary @ -I spoke with Dr. Caruso he agreed to admit the patient admit the patient and wrote admitting orders Was smoking cessation discussed for >3mins.? @ -No Was critical care preformed (if so, how long)? @ -No Were there social determinants of health that impacted care today? How? (Homelessness, low income, unemployed, alcoholism, drug addiction, transportation, low edu. Level, literacy, decrease access to med. care, prison, rehab)? @ -No Was there de-escalation of care discussed even if they declined (Discuss DNR or withdrawal of care, Hospice)? DNR status @ -No What co-morbidities impacted this encounter? (DM, HTN, Smoking, COPD, CAD, Can cer, CVA, ARF, Chemo, Hep., AIDS, mental health diagnosis, sleep apnea, morbid obesity)? @ -None Was patient admitted / discharged? Hospital course, mention meds given and route, prescriptions, significant lab abnormalities, going to OR and other pertinent info. @ -Patient is had no chest pain while in the emergency department however he did receive Nitropaste and aspirin. Patient will be admitted to Dr. Duffy for pneumonia patient did receive 2 g of Rocephin in the emergency department also b e given medications for aspiration since he has a strong history of aspiration. Patient will also have a cardiology consult. Undiagnosed new problem with uncertain prognosis? @ -No Drug Therapy requiring intensive monitoring for toxicity (Heparin, Nitro, Insulin, Cardizem)? @ -No Were any procedures done? @ -No Diagnosis/symptom? @ -Pneumonia Acute, or Chronic, or Acute on Chronic? @ -Acute Uncomplicated (without systemic symptoms) or Complicated (systemic symptoms)? @ -Complicated Side effects of treatment? @ -No Exacerbation, Progression, or Severe Exacerbation? @ -No Poses a threat to life or bodily function? How? (Chest pain, USA, LA, pneumonia, PE, COPD, DKA, ARF, appy, cholecystitis, CVA, Diverticulitis, Homicidal, Suicidal, threat to staff... and all critical care pts) @ -Yes this can lead to sepsis and endorgan dysfunction Diagnosis/symptom? @ -Chest pain Acute, or Chronic, or Acute on Chronic? @ -Acute Uncomplicated (without systemic symptoms) or Complicated (systemic symptoms)? @ -Complicated Side effects of treatment? @ -None Exacerbation, Progression, or Severe Exacerbation] @ -No Poses a threat to life or bodily function? @ -Yes this can lead to an LA and poor perfusion and endorgan dysfunction - Lab Data Result diagrams: 02/19/24 08:25 02/19/24 08:25 Lab Results 02/19/24 02/19/24 02/19/24 Range/Units 08:25 08:25 08:25 WBC 17.3 H (3.8-10.6) k/uL RBC 3.81 L (4.30-5.90) m/uL Hgb 10.4 L (13.0-17.5) gm/dL Hct 32.7 L (39.0-53.0) % MCV 85.7 (80.0-100.0) fL MCH 27.1 (25.0-35.0) pg MCHC 31.7 (31.0-37.0) g/dL RDW 16.8 H (11.5-15.5) % Plt Count 431 (150-450) k/uL MPV 7.3 Neutrophils % 83 % Lymphocytes % 9 % Monocytes % 6 % Eosinophils % 1 % Basophils % 0 % Neutrophils # 14.4 H (1.3-7.7) k/uL Lymphocytes # 1.6 (1.0-4.8) k/uL Monocytes # 1.0 (0-1.0) k/uL Eosinophils # 0.1 (0-0.7) k/uL Basophils # 0.0 (0-0.2) k/uL Anisocytosis Slight PT 10.8 (10.0-12.5) sec INR 1.0 (<1.2) APTT 27.6 (22.0-30.0) sec Sodium 134 L (137-145) mmol/L Potassium 5.6 H (3.5-5.1) mmol/L Chloride 93 L (98-107) mmol/L Carbon Dioxide 35 H (22-30) mmol/L Anion Gap 6 mmol/L BUN 25 H (9-20) mg/dL Creatinine 0.77 (0.66-1.25) mg/dL Est GFR (CKD-EPI)AfAm >90 (>60 ml/min/1.73 sqM) Est GFR (CKD-EPI)NonAf >90 (>60 ml/min/1.73 sqM) Glucose 95 (74-99) mg/dL Plasma Lactic Acid Amador (0.7-2.0) mmol/L Calcium 9.7 (8.4-10.2) mg/dL Magnesium 2.3 (1.6-2.3) mg/dL Total Bilirubin 0.5 (0.2-1.3) mg/dL AST 20 (17-59) U/L ALT 14 (4-49) U/L Alkaline Phosphatase 86 (38-126) U/L Troponin I (0.000-0.034) ng/mL NT-Pro-B Natriuret Pep 475 pg/mL Total Protein 7.8 (6.3-8.2) g/dL Albumin 4.4 (3.5-5.0) g/dL 02/19/24 02/19/24 Range/Units 08:25 09:36 WBC (3.8-10.6) k/uL RBC (4.30-5.90) m/uL Hgb (13.0-17.5) gm/dL Hct (39.0-53.0) % MCV (80.0-100.0) fL MCH (25.0-35.0) pg MCHC (31.0-37.0) g/dL RDW (11.5-15.5) % Plt Count (150-450) k/uL MPV Neutrophils % % Lymphocytes % % Monocytes % % Eosinophils % % Basophils % % Neutrophils # (1.3-7.7) k/uL Lymphocytes # (1.0-4.8) k/uL Monocytes # (0-1.0) k/uL Eosinophils # (0-0.7) k/uL Basophils # (0-0.2) k/uL Anisocytosis PT (10.0-12.5) sec INR (<1.2) APTT (22.0-30.0) sec Sodium (137-145) mmol/L Potassium (3.5-5.1) mmol/L Chloride (98-107) mmol/L Carbon Dioxide (22-30) mmol/L Anion Gap mmol/L BUN (9-20) mg/dL Creatinine (0.66-1.25) mg/dL Est GFR (CKD-EPI)AfAm (>60 ml/min/1.73 sqM) Est GFR (CKD-EPI)NonAf (>60 ml/min/1.73 sqM) Glucose (74-99) mg/dL Plasma Lactic Acid Amador 0.7 (0.7-2.0) mmol/L Calcium (8.4-10.2) mg/dL Magnesium (1.6-2.3) mg/dL Total Bilirubin (0.2-1.3) mg/dL AST (17-59) U/L ALT (4-49) U/L Alkaline Phosphatase (38-126) U/L Troponin I <0.012 (0.000-0.034) ng/mL NT-Pro-B Natriuret Pep pg/mL Total Protein (6.3-8.2) g/dL Albumin (3.5-5.0) g/dL Disposition Clinical Impression: Pneumonia, Chest pain Disposition: ADMITTED IP TO THIS HOSP Referrals: Suman Ortiz Jr, [Primary Care Provider] - 1-2 days Time of Disposition: 10:53
[2024-02-19] MEDS: ASPIRIN 81 MG PO STA (08:30)
[2024-02-19 08:35] LABS: Anisocytosis Slight; Basophils % (A) 0 %; Eosinophils # (A) 0.1 k/uL (0-0.7); Eosinophils % (A) 1 %; HCT 32.7 % (39.0-53.0); HGB 10.4 gm/dL (13.0-17.5); Lymphocytes # (A) 1.6 k/uL (1.0-4.8); Lymphocytes % (A) 9 %; MCH 27.1 pg (25.0-35.0); MCHC 31.7 g/dL (31.0-37.0); MCV 85.7 fL (80.0-100.0); Mean Platelet Volume 7.3; Monocytes % (A) 6 %; Neutrophils # (A) 14.4 k/uL (1.3-7.7); Neutrophils % (A) 83 %; Platelet Count 431 k/uL (150-450); RBC 3.81 m/uL (4.30-5.90); RDW 16.8 % (11.5-15.5); WBC 17.3 k/uL (3.8-10.6)
[2024-02-19 09:05] LABS: ALT 14 U/L (4-49); AST 20 U/L (17-59); African American GFR (CKD) >90 (>60 ml/min/1.73 sqM); Albumin 4.4 g/dL (3.5-5.0); Alkaline Phosphatase 86 U/L (38-126); Anion Gap 6 mmol/L; Blood Urea Nitrogen 25 mg/dL (9-20); Calcium 9.7 mg/dL (8.4-10.2); Carbon Dioxide 35 mmol/L (22-30); Chloride 93 mmol/L (98-107); Glucose 95 mg/dL (74-99); Magnesium 2.3 mg/dL (1.6-2.3); Non-African American GFR(CKD) >90 (>60 ml/min/1.73 sqM); Potassium 5.6 mmol/L (3.5-5.1); Sodium 134 mmol/L (137-145); Total Bilirubin 0.5 mg/dL (0.2-1.3); Total Protein 7.8 g/dL (6.3-8.2)
[2024-02-19 09:09] LABS: Partial Thromboplastin Time 27.6 sec (22.0-30.0); Prothrombin Time 10.8 sec (10.0-12.5)
[2024-02-19 09:13] LABS: NT-Pro-B-Type Natriuretic Pept 475 pg/mL
--- NOTE | 2024-02-19 09:14 | XR ---
EXAMINATION TYPE: XR chest 2V DATE OF EXAM: 02/19/2024 8:50 AM COMPARISON: Chest radiographs from 11/11/2023 CLINICAL INDICATION: Male, 63 years old with history of Chest Pain; TECHNIQUE: XR chest 2V Frontal and lateral views of the chest. FINDINGS: Lungs/Pleura: Airspace opacities projecting over the spine on lateral view. There is no evidence of p leural effusion, focal consolidation, or pneumothorax. Pulmonary vascularity: Unremarkable. Heart/mediastinum: Cardiomediastinal silhouette is unremarkable. Musculoskeletal: No acute osseous pathology. IMPRESSION: Airspace opacities over the spine lateral view correlate for pneumonia. [facility], , 02/19/2024 9:12 AM
[2024-02-19] MEDS: cefTRIAXone IN SWFI 1,000 MG/10 ML SYRINGE IVP STA (10:20)
[2024-02-19] MEDS ORDERED: PNEUMONIA PROTOCOL UTILIZED 1 EACH MISC PO PRN (11:04)
[2024-02-19] MEDS ORDERED: NITROGLYCERIN SL TABS 0.4 MG TAB SUBLINGUAL PRN (11:04)
[2024-02-19] MEDS: ONDANSETRON 4 MG/2 ML VIAL IVP STA (11:17)
[2024-02-19] MEDS: AZITHROMYCIN 500 MG in SODIUM CHLORIDE 0.9% 250 ML IVPB STA (11:21)
[2024-02-19] MEDS: NITROGLYCERIN OINT 1 INCH/GM PACKET TOPICAL SCH (11:22)
[2024-02-19] MEDS: metroNIDAZOLE-NS PMX 500 MG in SALINE 1 100ML.BAG IVPB SCH (16:25)
[2024-02-19] MEDS: ACETAMINOPHEN TAB 325 MG TAB PO PRN (21:19)
--- NOTE | 2024-02-20 08:03 | XR ---
EXAMINATION TYPE: XR chest 1V portable DATE OF EXAM: 02/20/2024 4:26 AM COMPARISON: Chest radiographs from 02/19/2024 CLINICAL INDICATION: Male, 63 years old with history of pneumonia; TECHNIQUE: XR chest 1V portable Frontal view of the chest. FINDINGS: Lungs/Pleura: Prominent interstitial lung markings are seen scattered throughout the lungs with blanquita ening of the diaphragm and increased lucency of the lung apices. No evidence of focal consolidation, pneumothorax or pleural effusion. Pulmonary vascularity: Unremarkable. Heart/mediastinum: Cardiomediastinal silhouette is unremarkable. Musculoskeletal: No acute osseous pathology. IMPRESSION: Stable exam with interstitial lung markings bilaterally. COPD. [facility], , 02/20/2024 8:00 AM
[2024-02-20] MEDS: ONDANSETRON 4 MG/2 ML VIAL IVP PRN (09:36)
[2024-02-20] MEDS: ASPIRIN 325 MG TAB PO SCH (09:38)
[2024-02-20 12:24] LABS: Chol/HDL Ratio 3.51 Ratio; LDL Cholesterol,Calculated 101.9 mg/dL (0.0-131.0)
--- NOTE | 2024-02-20 13:23 | P.HPIM ---
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 patient is an obligate tube feeder, patient has a history of recurrent aspi ration pneumonia secondary to inability to guard his airway has a history of sneaking oral liquids including coffee and water when his ice chips melt he likes to swallow water and he aspirates I suspect this is what happened recently he started getting short of breath and having gurgling type respirations approximately 2 days ago he presented last night to the emergency room with a O2 sat in the high 80s low 90s with a consolidation auscultation to the right Review of Systems Constitutional: Reports anorexia, Reports fever, Reports lethargy (significant deformity of neck secondary to procedure) Ears, nose, mouth and throat: Reports as per HPI Cardiovascular: Reports as per HPI, Reports lightheadedness, Reports shortness of breath Respiratory: Reports congestion, Reports cough, Reports cough with sputum, Reports home oxygen, Reports respiratory infections Gastrointestinal: Reports as per HPI Genitourinary: Reports as per HPI Musculoskeletal: Reports as per HPI Integumentary: Reports as per HPI Neurological: Reports as per HPI Psychiatric: Reports as per HPI Past Medical History Past Medical History: Cancer, Heart Failure, COPD, Hypertension, Pneumonia, Seizure Disorder, Thyroid Disorder Additional Past Medical History / Comment(s): Hx neck cancer in 2010, had surgery, chemo and radiation. History of Any Multi-Drug Resistant Organisms: None Reported Past Surgical History: Tonsillectomy Additional Past Surgical History / Comment(s): Lymph node removal, thyroidectomy, radical tonsil dissection. Past Anesthesia/Blood Transfusion Reactions: No Reported Reaction Past Psychological History: Anxiety Smoking Status: Former smoker Past Alcohol Use History: None Reported Past Drug Use History: None Reported - Past Family History Mother Family Medical History: Cancer, Pneumonia Additional Family Medical History / Comment(s): from lung cancer and pneumonia. Father Family Medical History: Cancer, Prostate Disorder Additional Family Medical History / Comment(s): Prostatectomy due to Prostate Cancer. Sister(s) Family Medical History: Cancer Additional Family Medical History / Comment(s): Breast Cancer. Brother(s) Family Medical History: Cancer Additional Family Medical History / Comment(s): 2 BROTHERS FROM CANCER Medications and Allergies Home Medications Medication Instructions Recorded Confirmed Type Levothyroxine Sodium 100 mcg PEG/G-TUBE DAILY #30 tab 09/07/23 02/19/24 Rx Ipratropium-Albuterol Nebulize 3 ml INHALATION RT-QID each 10/02/23 02/19/24 Rx [Duoneb 0.5 mg-3 mg/3 ml Soln] Midodrine [ProAmatine] 5 mg PEG/G-TUBE TID 12/02/23 02/19/24 History Ondansetron Odt [Zofran Odt] 8 mg PEG/G-TUBE TID 12/02/23 02/19/24 History Metoclopramide [Reglan] 10 mg PEG/G-TUBE TID 02/19/24 02/19/24 History levETIRAcetam [Keppra] 250 mg PEG/G-TUBE Q12HR 02/19/24 02/19/24 History Allergies Allergy/AdvReac Type Severity Reaction Status Date / Time No Known Allergies Allergy Verified 02/19/24 19:58 Physical Exam Osteopathic Statement: *. No significant issues noted on an osteopathic structural exam other than those noted in the History and Physical/Consult. Vitals: Vital Signs Temp Pulse Pulse Resp BP BP Pulse Ox 02/20/24 12:13 98.2 F 95 16 104/65 98 02/20/24 11:03 98 19 91/73 95 02/20/24 09:39 88 18 173/116 96 02/20/24 07:58 93 19 169/109 100 02/20/24 07:08 91 18 132/89 94 L 02/20/24 04:51 82 18 108/68 97 02/19/24 23:58 97.6 F 75 15 97/66 97 02/19/24 20:08 98.5 F 95 16 124/92 02/19/24 16:14 98.1 F 92 19 107/78 98 02/19/24 13:59 98 F 90 16 107/79 96 Intake and Output 02/19/24 02/20/24 02/20/24 22:59 06:59 14:59 Output Total 150 300 Balance -150 -300 Output: Urine 150 300 General: [Patient awake, alert and oriented times 3. Patient in no acute distress.significant cachexia HEENT: [PERRL. EOMI. No pharyngeal erythema or exudate. Neck: post commando procedure of the neck with 6 significant distortion of cervical anatomy Cardiac: [Heart regular in rate and rhythm. No S3. No S4. No clicks, rubs. No murmur.] Lungs: [Clear to auscultation bilaterally.] Abdomen: [No mass. No organomegaly. Bowel sounds presnt and normoactive in all 4 quadrants.] Extremes: [No edema no cyanosis no claudication normal pulses] : normal male genitalia Musculoskeletal: [No joint erythema, edema or tenderness.] Skin: [No rash.] Neurologic: [No lateralizing deficits. CN II - XII grossly intact.] Lymphatic: [No adenopathy.] Results CBC & Chem 7: 02/19/24 08:25 02/19/24 08:25 Labs: Abnormal Lab Results - Last 24 Hours (Table) 02/20/24 Range/Units 06:03 Triglycerides 163.00 H (0.00-149.00) mg/dL Assessment and Plan (1) Chest pain Current Visit: Yes Status: Acute Code(s): R07.9 - CHEST PAIN, UNSPECIFIED SNOMED Code(s): 12213526 (2) Pneumonia Current Visit: Yes Status: Acute Code(s): J18.9 - PNEUMONIA, UNSPECIFIED ORGANISM SNOMED Code(s): 713931488 (3) Anemia Current Visit: No Status: Acute Code(s): D64.9 - ANEMIA, UNSPECIFIED SNOMED Code(s): 277959895 (4) Aspiration pneumonia Current Visit: No Status: Acute Code(s): J69.0 - PNEUMONITIS DUE TO INHALATION OF FOOD AND VOMIT SNOMED Code(s): 283817427 (5) COPD (chronic obstructive pulmonary disease) Current Visit: No Status: Acute Code(s): J44.9 - CHRONIC OBSTRUCTIVE PULMONARY DISEASE, UNSPECIFIED SNOMED Code(s): 65094605 (6) Dysphagia Current Visit: No Status: Acute Code(s): R13.10 - DYSPHAGIA, UNSPECIFIED SNOMED Code(s): 02969594 (7) Essential (primary) hypertension Current Visit: No Status: Acute Code(s): I10 - ESSENTIAL (PRIMARY) HYPERTENS ION SNOMED Code(s): 55061687 Plan: IV antibiotic therapy Oxygen support Tube feeds Consultation with pulmonary medicine Consultation with infectious disease We'll continue to follow closely Time with Patient: Greater than 30
[2024-02-20] MEDS: LEVOTHYROXINE 100 MCG TAB PEG/G-TUBE SCH (14:20)
[2024-02-20] MEDS ORDERED: NITROGLYCERIN SL TABS 0.4 MG TAB SUBLINGUAL PRN (14:37)
--- NOTE | 2024-02-20 14:46 | P.CRDCN ---
History of Present Illness Consult date: 02/20/24 History of present illness: HISTORY OF PRESENTING ILLNESS Patient is a 63-year-old male with advanced dementia, Omoto procedure of next secondary to squamous cell cancer, feeding tube dependent, history of recurrent aspiration pneumonias. He is under palliative care. History is mostly obtained from the medical advocate who is present at the bedside. Patient was brought to the hospital because his blood pressure was fluctuating and there was some concerns of substernal chest pressure. It is apparent that patient's chest pain is corresponding to him having high blood pressures. He was here in the hospital few days ago when he was noticed to be on lisinopril and amlodipine for his blood pressure control but never started because he was having low blood pressure. He was instead started on midodrine. He has been on midodrine which has been used on as-needed basis. Yesterday prior coming to the hospital it was noted that his systolic blood pres sure was in 200s and this corresponded with him feeling having symptoms of substernal chest pressure. On admission his ECG shows sinus rhythm with no significant ST-T wave changes. His telemetry does not show any concerns of arrhythmias or atrial fibrillation. chest x-ray does not show any acute cardiopulmonary process. REVIEW OF SYSTEMS 14 point review of system is negative except what is mentioned above in HPI. PHYSICAL EXAMINATION Vital signs reviewed. Head: Normocephalic. Eyes: Sclerae nonicteric. Neck: Brisk carotid upstroke, no jugular venous distention. Lungs: Clear to auscultation. Heart: Regular rate and rhythm, S1-S2, no S3, mild systolic murmur audible, Abdomen: Soft nontender, positive bowel sounds. Extremities: No edema, intact distal pulses. Neuro: Detailed neuro exam was not performed. Cachexia ASSESSMENT Substernal chest pressure, likely related to high blood pressure Labile blood pressure, alternating between highs and lows. Status post squamous cell cancer and neck status post, surgery Feeding tube dependent Aspiration pneumonia Advanced dementia Protein calorie energy malnutrition Debility and frailty PLAN ACS has been ruled out with negative troponin and ECG. Chest pain symptoms resolved as patient's blood pressure improved. Recommend starting low-dose antihypertensive to reduce fluctuation in the blood pressure. Start losartan 12.5 mg daily. Use sublingual nitroglycerin 0.4 mg on as-needed basis if SBP is more than 160 and along with it if patient is having chest pain. Use midodrine only as needed if SBP is less than 90 mmHg. Obtain echo If patient's hemodynamics and blood pressure is optimally controlled and no recurrent Chest pain until tomorrow, patient can be cleared to be discharged from cardiac standpoint tomorrow. Yannick Guy MD, FAC, RPVI Thank you for allowing [facility] to participate in t his patient's care. Feel free to reach out in case of any followup questions. Past Medical History Past Medical History: Cancer, Heart Failure, COPD, Hypertension, Pneumonia, Seizure Disorder, Thyroid Disorder Additional Past Medical History / Comment(s): Hx neck cancer in 2010, had surgery, chemo and radiation. History of Any Multi-Drug Resistant Organisms: None Reported Past Surgical History: Tonsillectomy Additional Past Surgical History / Comment(s): Lymph node removal, thyroidectomy, radical tonsil dissection. Past Anesthesia/Blood Transfusion Reactions: No Reported Reaction Past Psychological History: Anxiety Smoking Status: Former smoker Past Alcohol Use History: None Reported Additional Past Alcohol Use History / Comment(s): Quit smoking April 2021. Past Drug Use History: None Reported Additional Drug Use History / Comment(s): Smokes 2-3 joints of Marijuana daily - Past Family History Mother Family Medical History: Cancer, Pneumonia Additional Family Medical History / Comment(s): from lung cancer and pneumonia. Father Family Medical History: Cancer, Prostate Disorder Additional Family Medical History / Comment(s): Prostatectomy due to Prostate Cancer. Sister(s) Family Medical History: Cancer Additional Family Medical History / Comment(s): Breast Cancer. Brother(s) Family Medical History: Cancer Additional Family Medical History / Comment(s): 2 BROTHERS FROM CANCER Medications and Allergies Home Medications Medication Instructions Recorded Confirmed Type Levothyroxine Sodium 100 mcg PEG/G-TUBE DAILY #30 tab 09/07/23 02/19/24 Rx Ipratropium-Albuterol Nebulize 3 ml INHALATION RT-QID each 10/02/23 02/19/24 Rx [Duoneb 0.5 mg-3 mg/3 ml Soln] Midodrine [ProAmatine] 5 mg PEG/G-TUBE TID 12/02/23 02/19/24 History Ondansetron Odt [Zofran Odt] 8 mg PEG/G-TUBE TID 12/02/23 02/19/24 History Metoclopramide [Reglan] 10 mg PEG/G-TUBE TID 02/19/24 02/19/24 History levETIRAcetam [Keppra] 250 mg PEG/G-TUBE Q12HR 02/19/24 02/19/24 History Allergies Allergy/AdvReac Type Severity Reaction Status Date / Time No Known Allergies Allergy Verified 02/19/24 19:58 Physical Exam Vitals: Vital Signs Temp Pulse Pulse Resp BP BP Pulse Ox 02/20/24 12:13 98.2 F 95 16 104/65 98 02/20/24 11:03 98 19 91/73 95 02/20/24 09:39 88 18 173/116 96 02/20/24 07:58 93 19 169/109 100 02/20/24 07:08 91 18 132/89 94 L 02/20/24 04:51 82 18 108/68 97 02/19/24 23:58 97.6 F 75 15 97/66 97 02/19/24 20:08 98.5 F 95 16 124/92 02/19/24 16:14 98.1 F 92 19 107/78 98 Intake and Output 02/19/24 02/20/24 02/20/24 22:59 06:59 14:59 Output Total 150 300 Balance -150 -300 Output: Urine 150 300 Other: Weight 50.349 kg Results 02/19/24 08:25 02/19/24 08:25 Cardiac Enzymes 02/19/24 Range/Units 14:38 Troponin I <0.012 (0.000-0.034) ng/mL Lipids 02/20/24 Range/Units 06:03 Triglycerides 163.00 H (0.00-149.00) mg/dL Cholesterol 188.00 (0.00-200.00) mg/dL HDL Cholesterol 53.50 (40.00-60.00) mg/dL Cholesterol/HDL Ratio 3.51 Ratio Current Medications Generic Name Dose Route Start Last Admin Trade Name Freq PRN Reason Stop Dose Admin Acetaminophen 650 mg 02/19/24 19:30 02/20/24 12:45 Acetaminophen Tab 325 Mg Tab PO 650 mg Q6HR PRN Administration Fever and/ or Pain Albuterol/Ipratropium 3 ml 02/20/24 16:00 Ipratropium-Albuterol 3 Ml Neb INHALATION RT-QID [facility] Aspirin 81 mg 02/21/24 09:00 Aspirin 81 Mg PO DAILY [facility] Ceftriaxone Sodium 2 gm/ 50 mls @ 100 mls/hr 02/20/24 09:00 02/20/24 09:36 Sodium Chloride IVPB 02/23/24 09:29 100 mls/hr Q24HR [facility] Administration Protocol Metronidazole 500 mg/ IV 100 mls @ 100 mls/hr 02/19/24 16:00 02/20/24 08:26 Solution IVPB 100 mls/hr Q8HR [facility] Administration Protocol Levetiracetam 250 mg 02/20/24 21:00 Levetiracetam 250 Mg Tab PEG/G-TUBE Q12HR [facility] Levothyroxine Sodium 100 mcg 02/20/24 14:15 02/20/24 14:20 Levothyroxine 100 Mcg Tab PEG/G-TUBE Not Given DAILY@0630 [facility] Losartan Potassium 12.5 mg 02/20/24 14:45 Losartan 25 Mg Tab PO DAILY [facility] Metoclopramide HCl 10 mg 02/20/24 16:00 Metoclopramide 10 Mg Tab PEG/G-TUBE TID [facility] Midodrine 5 mg 02/20/24 16:00 Midodrine 5 Mg Tab PEG/G-TUBE TID [facility] Miscellaneous Information 1 each 02/19/24 11:04 Pneumonia Protocol Utilized 1 Each Misc PO ONCE PRN Per Protocol Nitroglycerin 1 inch 02/19/24 12:00 02/20/24 12:55 Nitroglycerin Oint 1 Inch/Gm Packet TOPICAL 1 inch Q6HR [id number] Administration Nitroglycerin 0.4 mg 02/20/24 14:37 Nitroglycerin Sl Tabs 0.4 Mg Tab SUBLINGUAL Q10M PRN Chest Pain Ondansetron HCl 4 mg 02/20/24 09:04 02/20/24 09:36 Ondansetron 4 Mg/2 Ml Vial IVP 4 mg Q6HR PRN Administration Nausea And Vomiting Intake and Output 02/19/24 02/20/24 02/20/24 22:59 06:59 14:59 Output Total 150 300 Balance -150 -300 Output: Urine 150 300 Other: Weight 50.349 kg Patient Weight 02/21/24 06:59 Weight 50.349 kg 02/19/24 08:25 02/19/24 08:25
[2024-02-20] MEDS: LOSARTAN 25 MG TAB PO SCH (15:26)
[2024-02-20] MEDS: METOCLOPRAMIDE 10 MG TAB PEG/G-TUBE SCH (15:26)
[2024-02-20] MEDS: MIDODRINE 5 MG TAB PEG/G-TUBE SCH (15:27)
[2024-02-20] MEDS: IPRATROPIUM-ALBUTEROL 3 ML NEB INHALATION SCH (16:33)
--- NOTE | 2024-02-20 16:36 | P.CNPUL ---
History of Present Illness Consult date: 02/20/24 Reason for consult: dyspnea History of present illness: On 02/20/2024, the patient is being seen in consultation for shortness of breath. 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 The patient has received radiation therapy to his neck and his developed as a result complications of recurrent aspiration due to swallowing dysfunction and difficulties in performing appropriate pulmonary toileting. He is known also to have COPD. The patient came into the emergency department because of chest pain and he also had shortness of breath and diaphoresis. He denied having any fever or chills. No nausea vomiting or abdominal pain. He has a PEG tube in place. The white cell count was at 17 with a hemoglobin 10.4 and a platelet count of 431. BUN is 25 with a creatinine of 0.7 and sodium is at 135 and a potassium level is at 5.6. The Legionella urinary antigen was negative. Viral screen has not been done. Troponins x 3 have been negative. LFTs are normal. Chest x-ray was noted from the emergency department and it shows COPD, hyperinflation, and increased interstitial markings bilaterally. No airspace disease. No consolidation. The patient is currently on a combination of antibiotics including Rocephin and Flagyl. He is also on oxygen at 4 L with a pulse ox of 94%. Past Medical History Past Medical History: Cancer, Heart Failure, COPD, Hypertension, Pneumonia, Seizure Disorder, Thyroid Disorder Additional Past Medical History / Comment(s): Hx neck cancer in 2010, had surgery, chemo and radiation. History of Any Multi-Drug Resistant Organisms: None Reported Past Surgical History: Tonsillectomy Additional Past Surgical History / Comment(s): Lymph node removal, thyroidectomy, radical tonsil dissection. Past Anesthesia/Blood Transfusion Reactions: No Reported Reaction Past Psychological History: Anxiety Smoking Status: Former smoker Past Alcohol Use History: None Reported Past Drug Use History: None Reported - Past Family History Mother Family Medical History: Cancer, Pneumonia Additional Family Medical History / Comment(s): from lung cancer and pneumonia. Father Family Medical History: Cancer, Prostate Disorder Additional Family Medical History / Comment(s): Prostatectomy due to Prostate Cancer. Sister(s) Family Medical History: Cancer Additional Family Medical History / Comment(s): Breast Cancer. Brother(s) Family Medical History: Cancer Additional Family Medical History / Comment(s): 2 BROTHERS FROM CANCER Medications and Allergies Home Medications Medication Instructions Recorded Confirmed Type Levothyroxine Sodium 100 mcg PEG/G-TUBE DAILY #30 tab 09/07/23 02/19/24 Rx Ipratropium-Albuterol Nebulize 3 ml INHALATION RT-QID each 10/02/23 02/19/24 Rx [Duoneb 0.5 mg-3 mg/3 ml Soln] Midodrine [ProAmatine] 5 mg PEG/G-TUBE TID 12/02/23 02/19/24 History Ondansetron Odt [Zofran Odt] 8 mg PEG/G-TUBE TID 12/02/23 02/19/24 History Metoclopramide [Reglan] 10 mg PEG/G-TUBE TID 02/19/24 02/19/24 History levETIRAcetam [Keppra] 250 mg PEG/G-TUBE Q12HR 02/19/24 02/19/24 History Allergies Allergy/AdvReac Type Severity Reaction Status Date / Time No Known Allergies Allergy Verified 02/19/24 19:58 Physical Exam Vitals: Vital Signs Temp Pulse Pulse Resp BP BP Pulse Ox 02/20/24 12:13 98.2 F 95 16 104/65 98 02/20/24 11:03 98 19 91/73 95 02/20/24 09:39 88 18 173/116 96 02/20/24 07:58 93 19 169/109 100 02/20/24 07:08 91 18 132/89 94 L 02/20/24 04:51 82 18 108/68 97 02/19/24 23:58 97.6 F 75 15 97/66 97 02/19/24 20:08 98.5 F 95 16 124/92 02/19/24 16:14 98.1 F 92 19 107/78 98 02/19/24 13:59 98 F 90 16 107/79 96 Intake and Output 02/19/24 02/20/24 02/20/24 22:59 06:59 14:59 Output Total 150 300 Balance -150 -300 Output: Urine 150 300 GENERAL EXAM: Alert, thin, 63-year-old male, resting in bed, on 4 L nasal cannula, in no apparent distress. HEAD: Normocephalic. EYES: Normal reaction of pupils, equal size. NOSE: Clear with pink turbinates. THROAT: No erythema or exudates. NECK: No masses, no JVD. CHEST: No chest wall deformity. LUNGS: Equal air entry with no crackles, wheeze, rhonchi or dullness. CVS: S1 and S2 normal with no audible murmur, regular rhythm. ABDOMEN: PEG tube exit site clean and dry. No hepatosplenomegaly, normal bowel sounds, no guarding or rigidity. SPINE: No scoliosis or deformity SKIN: No rashes CENTRAL NERVOUS SYSTEM: No focal deficits, tone is normal in all 4 extremities. EXTREMITIES: There is no peripheral edema. No clubbing, no cyanosis. Peripheral pulses are intact. Results - Laboratory Findings CBC and BMP: 02/19/24 08:25 02/19/24 08:25 PT/INR, D-dimer PT 10.8 sec (10.0-12.5) 02/19/24 08:25 INR 1.0 (<1.2) 02/19/24 08:25 Abnormal lab findings: Abnormal Labs 02/19/24 02/19/24 02/20/24 08:25 08:25 06:03 WBC 17.3 H RBC 3.81 L Hgb 10.4 L Hct 32.7 L RDW 16.8 H Neutrophils # 14.4 H Sodium 134 L Potassium 5.6 H Chloride 93 L Carbon Dioxide 35 H BUN 25 H Triglycerides 163.00 H - Diagnostic Findings Chest x-ray: image reviewed Assessment and Plan Plan: COPD. No clear indication for pneumonia at this point in time. Chest pain, left posterior chest wall. The patient is known to have chronic atelectasis/volume loss involving the posterior/superior segment of the left lower lobe. CAT scan of the chest from 09/30/2023 was consistent with COPD and prominent secretions and debris's in the trachea extending to the right-sided bronchial tree raising the concern for aspiration. The patient also has chronic volume loss, consolidation and atelectatic changes of the left lower lobe posterior segment/superior segment. This was present on previous CAT scan images from 2021. History of squamous cell carcinoma of the head and neck diagnosed back in 2010, treated with chemoradiation therapy and the patient has a chronically inserted PEG tube for enteral feeding additional support History of thyroid cancer with a previous thyroidectomy Hypertension Former smoker Acute leukocytosis Anemia of chronic disease, normocytic Plan Echocardiogram Obtain a follow-up CAT scan of the chest Titrate oxygen flow to maintain saturation above 90% Continue same antibiotic coverage and the patient is currently on a combination of Rocephin and Flagyl Resume home medication including thyroid hormone replacement and Keppra DuoNeb nebulized treatments [id number] Check viral screen We will continue to follow.
--- NOTE | 2024-02-20 17:30 | CT ---
EXAMINATION TYPE: CT chest wo con DATE OF EXAM: 02/20/2024 5:20 PM COMPARISON: Previous CT chest study 09/30/2023. CLINICAL INDICATION: Male, 63 years old with history of Left posterior chest pain; PHH, Chest pain TECHNIQUE: Multiple axial images were obtained through the chest. Sagittal and coronal reformats were created for review. MIP was performed on a separate workstation. CT DLP: 277.9 mGycm, Automated exposure control for dose reduction was used. FINDINGS: Heart size within normal limits. No pericardial effusion. Coronary artery calcifications. Calcified a therosclerotic disease of the thoracic aorta without aneurysmal dilatation. No pathologic mediastinal or hilar lymphadenopathy. No definite pathologic axillary lymphadenopathy. Imaging through the lungs demonstrates emphysema. Complete collapse of the left lower lobe with bronc hiectasis again visualized. Lower lobe mucous plugging and bronchial wall thickening with scattered t ree in bud nodularity, similar to prior study. No sizable pleural effusion. No pneumothorax. Spiculat ed groundglass nodular opacity in the left upper lobe measuring 15 mm (series 75 image 29). Additiona l patchy groundglass opacities in the left upper lobe and right middle lobe. Partially visualized upper abdomen infiltrates no acute pathology. Study limited overall due to strea k artifact from overlying extremities. No acute osseous abnormality. IMPRESSION: 1. Patchy groundglass nodular opacities, most pronounced in the left upper lobe, new from prior stud y and possibly infectious or inflammatory related. Consider short-term follow-up CT chest in 3-6 alberto hs to confirm resolution and exclude other developing etiologies. 2. Chronic mucous plugging with bronchial wall thickening and bronchial ectasis in the lower lobes w ith near complete collapse/atelectasis of the left lower lobe, similar to prior study. 3. Emphysema. [facility], , 02/20/2024 5:28 PM
[2024-02-20] MEDS: levETIRAcetam 250 MG TAB PEG/G-TUBE SCH (19:59)
[2024-02-21] MEDS: ASPIRIN 81 MG PO SCH (08:37)
--- NOTE | 2024-02-21 12:30 | P.PN ---
Subjective Progress Note Date: 02/21/24 On 02/20/2024, the patient is being seen in consultation for shortness of breath. 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 The patient has received radiation therapy to his neck and his developed as a result complications of recurrent aspiration due to swallowing dysfunction and difficulties in performing appropriate pulmonary toileting. He is known also to have COPD. The patient came into the emergency department because of chest pain and he also had shortness of breath and diaphoresis. He denied having any fever or chills. No nausea vomiting or ab dominal pain. He has a PEG tube in place. The white cell count was at 17 with a hemoglobin 10.4 and a platelet count of 431. BUN is 25 with a creatinine of 0.7 and sodium is at 135 and a potassium level is at 5.6. The Legionella urinary antigen was negative. Viral screen has not been done. Troponins x 3 have been negative. LFTs are normal. Chest x-ray was noted from the emergency department and it shows COPD, hyperinflation, and increased interstitial markings bilaterally. No airspace disease. No consolidation. The patient is currently on a combination of antibiotics including Rocephin and Flagyl. He is also on oxygen at 4 L with a pulse ox of 94%. On 02/21/2024, patient is being seen for a follow-up. No new complaints. Declined his CAT scan of the chest yesterday. Oxygenation remains unchanged and stable and the patient remains on 2 L of oxygen by nasal cannula with a pulse ox of 99%. No new complaints otherwise for now. No reported aspiration the patient continues to receive enteral feeding for nutritional support. Objective - Vital Signs Vital signs: Vital Signs Temp 98.1 F 02/21/24 04:00 Pulse 92 02/21/24 07:58 Resp 19 02/21/24 04:00 BP 118/76 02/21/24 04:00 Pulse Ox 98 02/21/24 07:48 FiO2 Intake & Output 02/20/24 02/21/24 02/21/24 18:59 06:59 18:59 Intake Total 980 Output Total 300 Balance 680 Weight 50.349 kg 47.4 kg Intake: IV 20 Invasive Line 1 20 Tube Feeding 960 Output: Urine 300 Other: Voiding Method Urinal Toilet Urinal # Voids 1 - Exam GENERAL EXAM: Alert, thin, 63-year-old male, resting in bed, on 4 L nasal cannula, in no apparent distress. HEAD: Normocephalic. EYES: Normal reaction of pupils, equal size. NOSE: Clear with pink turbinates. THROAT: No erythema or exudates. NECK: No masses, no JVD. CHEST: No chest wall deformity. LUNGS: Equal air entry with no crackles, wheeze, rhonchi or dullness. CVS: S1 and S2 normal with no audible murmur, regular rhythm. ABDOMEN: PEG tube exit site clean and dry. No hepatosplenomegaly, normal bowel sounds, no guarding or rigidity. SPINE: No scoliosis or deformity SKIN: No rashes CENTRAL NERVOUS SYSTEM: No focal deficits, tone is normal in all 4 extremities. EXTREMITIES: There is no peripheral edema. No clubbing, no cyanosis. Peripheral pulses are intact. - Labs CBC & Chem 7: 02/19/24 08:25 02/19/24 08:25 Labs: Abnormal Lab Results - Last 24 Hours (Table) 02/20/24 Range/Units 06:03 Triglycerides 163.00 H (0.00-149.00) mg/dL Microbiology - Last 24 Hours (Table) 02/19/24 10:15 Blood Culture - Preliminary Blood 02/19/24 10:10 Blood Culture - Preliminary Blood Assessment and Plan Plan: COPD. No clear indication for pneumonia at this point in time. Chest pain, left posterior chest wall. The patient is known to have chronic atelectasis/volume loss involving the posterior/superior segment of the left l ower lobe. CAT scan of the chest from 09/30/2023 was consistent with COPD and prominent secretions and debris's in the trachea extending to the right-sided bronchial tree raising the concern for aspiration. The patient also has chronic volume loss, consolidation and atelectatic changes of the left lower lobe posterior segment/superior segment. This was present on previous CAT scan images from 2021. History of squamous cell carcinoma of the head and neck diagnosed back in 2010, treated with chemoradiation therapy and the patient has a chronically inserted PEG tube for enteral feeding additional support History of thyroid cancer with a previous thyroidectomy Hypertension Former smoker Acute leukocytosis Anemia of chronic disease, normocytic Plan Echocardiogram was done yesterday and the results are still pending Declined CAT scan of the chest Titrate oxygen flow to maintain saturation above 90% Suggest a course of Augmentin for the next 7 days and the rest of antibiotics can be discontinued Resume home medication including thyroid hormone replacement and Keppra DuoNeb nebulized treatments [id number] Check viral screen We will continue to follow.
--- NOTE | 2024-02-21 17:54 | CA ---
Transthoracic Echo Report Name: Duc Knapp Age: 63 Gender: M : 1960 Exam Date: 02/20/2024 16:05 Exam Location: [place] [facility] Ht (in): 71 Wt (lb): 111 Ordering Physician: Yannick Guy MD Attending/Referring Phys: [employer] Operator Nalini Gold RDCS Procedure CPT: Indications: Chest pain, cardiomyopathy Cardiac Hx: Technical Quality: Fair Contrast 1: Total Dose (mL): Contrast 2: Total Dose (mL): MEASUREMENTS (Male / Female) Normal Values 2D ECHO LV Diastolic Diameter PLAX 3.7 cm 4.2 - 5.9 / 3.9 - 5.3 cm LV Systolic Diameter PLAX 2.4 cm IVS Diastolic Thickness 0.9 cm 0.6 - 1.0 / 0.6 - 0.9 cm LVPW Diastolic Thickness 1.1 cm 0.6 - 1.0 / 0.6 - 0.9 cm LV Relative Wall Thickness 0.6 RV Internal Dim ED PLAX 3.3 cm LVOT Diameter 2.0 cm M-MODE Aortic Root Diameter MM 3.5 cm LA Systolic Diameter MM 2.3 cm LA Ao Ratio MM 0.7 DOPPLER AV Peak Velocity 108.5 cm/s AV Peak Gradient 4.7 mmHg AV Mean Velocity 84.0 cm/s AV Mean Gradient 3.0 mmHg AV Velocity Time Integral 19.4 cm LVOT Peak Velocity 106.5 cm/s LVOT Peak Gradient 4.5 mmHg LVOT Velocity Time Integral 23.9 cm LVOT Stroke Volume 71.3 cm??? LVOT Stroke Volume Index 43.4 ml/m??? LVOT Cardiac Index 3599.1 cm???/min???m??? AV Area Cont Eq vti 3.7 cm??? AV Area Cont Eq pk 2.9 cm??? Mitral E Point Velocity 44.5 cm/s Mitral A Point Velocity 68.3 cm/s Mitral E to A Ratio 0.7 MV Deceleration Time 208.1 ms MV E' Velocity 5.3 cm/s Mitral E to MV E' Ratio 8.5 FINDINGS Left Ventricle Mildly increased left ventricular wall thickness. Left ventricular cavity size normal. Normal left ventricular systolic function. No obvious regional wall motion abnormalities. Left ventricular ejection fraction is estimated at 55 %. Grade 1 diastolic dysfunction. Right Ventricle Normal right ventricular size and function. Right ventricular systolic pressure within normal limits. Right Atrium Normal right atrial size. Left Atrium Normal left atrial size. Mitral Valve Structurally normal mitral valve. Mitral valve thickened. Mild mitral annular calcification. Mild mitral regurgitation. Aortic Valve Trileaflet aortic valve. No aortic valve stenosis or regurgitation. Aortic valve sclerosis. Tricuspid Valve Structurally normal tricuspid valve. Mild tricuspid regurgitation. Pulmonic Valve Structurally normal pulmonic valve. Pericardium No pericardial effusion. Aorta Normal size aortic root and proximal ascending aorta. CONCLUSIONS Left ventricular ejection fraction is estimated at 55 %. Grade 1 diastolic dysfunction. No obvious regional wall motion abnormalities. Normal right ventricular size and function. Mild mitral regurgitation. Aortic valve sclerosis. Mild tricuspid regurgitation. Previewed by: Dr Yannick Guy (Electronically Signed) Final Date: 21 February 2024 17:53
--- NOTE | 2024-02-21 23:18 | P.PN ---
Subjective Progress Note Date: 02/21/24 HISTORY OF PRESENTING ILLNESS Patient is a 63-year-old male with advanced dementia, Omoto procedure of next secondary to squamous cell cancer, feeding tube dependent, history of recurrent aspiration pneumonias. He is under palliative care. History is mostly obtained from the medical advocate who is present at the bedside. Patient was brought to the hospital because his blood pressure was fluctuating and there was some concerns of substernal chest pressure. It is apparent that patient's chest pain is corresponding to him having high blood pressures. He was here in the hospital few days ago when he was noticed to be on lisinopril and amlodipine for his blood pressure control but never started because he was having low blood pressure. He was instead started on midodrine. He has been on midodrine which has been used on as-needed basis. Yesterday prior coming to the hospital it was noted that his systolic blood pressure was in 200s and this corresponded with him feeling having symptoms of substernal chest pressure. On admission his ECG shows sinus rhythm with no significant ST-T wave changes. His telemetry does not show any concerns of arrhythmias or atrial fibrillation. chest x-ray does not show any acute cardiopulmonary process. Progress note 02/21/2024 BP 142/81, heart rate 82, LDL 101, NT-proBNP 475, PHYSICAL EXAMINATION Vital signs reviewed. Head: Normocephalic. Eyes: Sclerae nonicteric. Neck: Brisk carotid upstroke, no jugular venous distention. Lungs: Clear to auscultation. Heart: Regular rate and rhythm, S1-S2, no S3, mild systolic murmur audible, Abdomen: Soft nontender, positive bowel sounds. Extremities: No edema, intact distal pulses. Neuro: Detailed neuro exam was not performed. Cachexia ASSESSMENT Substernal chest pressure, likely related to high blood pressure Labile blood pressure, alternating between highs and lows. Status post squamous cell cancer and neck status post, surgery Feeding tube dependent Aspiration pneumonia Advanced dementia Protein calorie energy malnutrition Debility and frailty Cardiac testing Echocardiogram: EF 55%, grade 1 diastolic function, no wall motion abnormality, mild aortic valve sclerosis, mild mitral regurgitation PLAN ACS has been ruled out with negative troponin and ECG. Chest pain symptoms resolved as patient's blood pressure improved. Recommend starting low-dose antihypertensive to reduce fluctuation in the blood pressure. Start losartan 12.5 mg daily. Use sublingual nitroglycerin 0.4 mg on as-needed basis if SBP is more than 160 and along with it if patient is having chest pain. Use midodrine only as needed if SBP is less than 90 mmHg. If patient's hemodynamics and blood pressure is optimally controlled and no recurrent Chest pain until tomorrow, patient can be cleared to be discharged from cardiac standpoint tomorrow. Cardiology team will sign off today Objective - Vital Signs Vital signs: Vital Signs Temp 99.1 F 02/21/24 23:13 Pulse 95 02/21/24 23:13 Resp 18 02/21/24 23:13 BP 108/72 02/21/24 23:13 Pulse Ox 94 L 02/21/24 23:13 FiO2 Intake & Output 02/21/24 02/21/24 02/22/24 06:59 18:59 06:59 Intake Total 980 2700 10 Output Total 300 200 Balance 680 2500 10 Weight 47.4 kg Intake: IV 20 1450 10 0.9 1200 Invasive Line 1 20 10 cefTRIAXone 2 gm In 50 Sodium Chloride 0.9% 50 ml @ 100 mls/hr IVPB Q24HR IMTIAZ Rx#:[id number] metroNIDAZOLE-NS PMX 500 200 mg In Saline 1 100ml.bag @ 100 mls/hr IVPB Q8HR IMTIAZ Rx#:[id number] Tube Feeding 960 1250 Output: Urine 300 200 Other: Voiding Method Toilet Toilet Toilet Urinal Urinal Urinal # Voids 1 3 # Bowel Movements 1 - Labs CBC & Chem 7: 02/19/24 08:25 02/19/24 08:25 Labs: Microbiology - Last 24 Hours (Table) 02/19/24 10:15 Blood Culture - Preliminary Blood 02/19/24 10:10 Blood Culture - Preliminary Blood
[2024-02-22 03:57] VITALS: RESP 16
[2024-02-22 10:31] VITALS: BP 92/56
[2024-02-22 11:40] VITALS: BMI 22.1
[2024-02-22 13:20] VITALS: PULSE 80; TEMP 98.3
--- NOTE | 2024-02-22 13:53 | P.PN ---
Subjective Progress Note Date: 02/22/24 On 02/20/2024, the patient is being seen in consultation for shortness of breath. 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 The patient has received radiation therapy to his neck and his developed as a result complications of recurrent aspiration due to swallowing dysfunction and difficulties in performing appropriate pulmonary toileting. He is known also to have COPD. The patient came into the emergency department because of chest pain and he also had shortness of breath and diaphoresis. He denied having any fever or chills. No nausea vomiting or abd ominal pain. He has a PEG tube in place. The white cell count was at 17 with a hemoglobin 10.4 and a platelet count of 431. BUN is 25 with a creatinine of 0.7 and sodium is at 135 and a potassium level is at 5.6. The Legionella urinary antigen was negative. Viral screen has not been done. Troponins x 3 have been negative. LFTs are normal. Chest x-ray was noted from the emergency department and it shows COPD, hyperinflation, and increased interstitial markings bilaterally. No airspace disease. No consolidation. The patient is currently on a combination of antibiotics including Rocephin and Flagyl. He is also on oxygen at 4 L with a pulse ox of 94%. On 02/21/2024, patient is being seen for a follow-up. No new complaints. Declined his CAT scan of the chest yesterday. Oxygenation remains unchanged and stable and the patient remains on 2 L of oxygen by nasal cannula with a pulse ox of 99%. No new complaints otherwise for now. No reported aspiration the patient continues to receive enteral feeding for nutritional support. The patient is seen today February 22, 2024 in follow-up on the selective care unit. He is currently resting comfortably in bed. Awake and alert in no acute distress. Maintaining O2 saturations in the 90s on 2 L/min per nasal cannula. He is afebrile. Hemodynamically stable. Blood cultures revealed no growth. He is continued on DuoNeb and elations. Antibiotics in the form of ceftriaxone. Maintained on Flagyl. He is being nourished with Jevity tube feedings. Objective - Vital Signs Vital signs: Vital Signs Temp 98.3 F 02/22/24 12:00 Pulse 72 02/22/24 12:48 Resp 16 02/22/24 12:00 BP 92/56 02/22/24 08:25 Pulse Ox 97 02/22/24 12:00 FiO2 Intake & Output 02/21/24 02/22/24 02/22/24 18:59 06:59 18:59 Intake Total 2700 20 10 Output Total 200 Balance 2500 20 10 Weight 71.8 kg 71.8 kg Intake: IV 1450 20 10 0.9 1200 Invasive Line 1 20 10 cefTRIAXone 2 gm In 50 Sodium Chloride 0.9% 50 ml @ 100 mls/hr IVPB Q24HR IMTIAZ Rx#:[id number] metroNIDAZOLE-NS PMX 500 200 mg In Saline 1 100ml.bag @ 100 mls/hr IVPB Q8HR IMTIAZ Rx#:[id number] Tube Feeding 1250 Output: Urine 200 Other: Voiding Method Toilet Toilet Toilet Urinal Urinal Urinal # Voids 3 2 # Bowel Movements 1 - Exam GENERAL EXAM: Alert, thin, 63-year-old male, resting in bed, on 2 L nasal cannula, in no apparent distress. HEAD: Normocephalic. EYES: Normal reaction of pupils, equal size. NOSE: Clear with pink turbinates. THROAT: No erythema or exudates. NECK: No masses, no JVD. CHEST: No chest wall deformity. LUNGS: Equal air entry with no crackles, wheeze, rhonchi or dullness. CVS: S1 and S2 normal with no audible murmur, regular rhythm. ABDOMEN: PEG tube exit site clean and dry. No hepatosplenomegaly, normal bowel sounds, no guarding or rigidity. SPINE: No scoliosis or deformity SKIN: No rashes CENTRAL NERVOUS SYSTEM: No focal deficits, tone is normal in all 4 extremities. EXTREMITIES: There is no peripheral edema. No clubbing, no cyanosis. Peripheral pulses are intact. - Labs CBC & Chem 7: 02/19/24 08:25 02/19/24 08:25 Labs: Microbiology - Last 24 Hours (Table) 02/19/24 10:15 Blood Culture - Preliminary Blood 02/19/24 10:10 Blood Culture - Preliminary Blood Assessment and Plan Assessment: COPD. No clear indication for pneumonia at this point in time. Chest pain, left posterior chest wall. The patient is known to have chronic atelectasis/volume loss involving the posterior/superior segment of the left lower lobe. CAT scan of the chest from 09/30/2023 was consistent with COPD and prominent secretions and debris's in the trachea extending to the right-sided bronchial tree raising the concern for aspiration. The patient also has chronic volume loss, consolidation and atelectatic changes of the left lower lobe posterior segment/superior segment. This was present on previous CAT scan images from 2021. History of squamous cell carcinoma of the head and neck diagnosed back in 2010, treated with chemoradiation therapy and the patient has a chronically inserted PEG tube for enteral feeding additional support History of thyroid cancer with a previous thyroidectomy Hypertension Former smoker Acute leukocytosis Anemia of chronic disease, normocytic Plan: The patient was seen and evaluated Labs and medications reviewed Stable on 2 L nasal cannula Anxious to go home Stable for discharge from the pulmonary standpoint Follow-up with Dr. Powell in our office in 1 week I have personally seen and examined the patient, performed the documentation and the assessment and plan as written. Number of minutes spent on the visit: 10 Dictation was produced using [employer] dictation software. Please excuse any grammatical, word or spelling errors.
--- NOTE | 2024-02-22 15:34 | P.DS ---
Providers Date of admission: 02/19/24 11:04 Expected date of discharge: 02/22/24 Attending physician: Suman Ortiz Consults: 02/20/24 11:53 Consult Physician Routine Consulting Provider: Vladimir Murillo Consult Reason/Comments: aspiration pneumonia Do you want consulting provider notified?: Yes Primary care physician: Suman Ortiz - Discharge Diagnosis(es) (1) Chest pain Current Visit: Yes Status: Acute (2) Pneumonia Current Visit: Yes Status: Acute (3) Anemia Current Visit: No Status: Acute (4) Aspiration pneumonia Current Visit: No Status: Acute (5) COPD (chronic obstructive pulmonary disease) Current Visit: No Status: Acute (6) Dysphagia Current Visit: No Status: Acute (7) Essential (primary) hypertension Current Visit: No Status: Acute Hospital Course: General: [Patient awake, alert and oriented times 3. Patient in no acute distress.] HEENT: [PERRL. EOMI. No pharyngeal erythema or exudate.] Neck: [No adenopathy.] Cardiac: [Heart regular in rate and rhythm. No S3. No S4. No clicks, rubs. No murmur.] Lungs: [Clear to auscultation bilaterally.] Abdomen: [No mass. No organomegaly. Bowel sounds presnt and normoactive in all 4 quadrants. permanent J-tube for feeding Extremes: [No edema no cyanosis no claudication normal pulses] Musculoskeletal: [No joint erythema, edema or tenderness.] Skin: [No rash.] Neurologic: [No lateralizing deficits. CN II - XII grossly intact.] Lymphatic: [No adenopathy.] Patient Condition at Discharge: Stable Plan - Discharge Summary Discharge Rx Participant: No New Discharge Prescriptions: New Amoxic-Pot Clav 500-125 mg [Augmentin 500-125 mg] 1 tab PO Q12HR #14 tab No Action RX: Levothyroxine Sodium 100 mcg PEG/G-TUBE DAILY #30 tab RX: Ipratropium-Albuterol Nebulize [Duoneb 0.5 mg-3 mg/3 ml Soln] 3 ml INHALATION RT-QID each Midodrine [ProAmatine] 5 mg PEG/G-TUBE TID Ondansetron Odt [Zofran Odt] 8 mg PEG/G-TUBE TID levETIRAcetam [Keppra] 250 mg PEG/G-TUBE Q12HR Metoclopramide [Reglan] 10 mg PEG/G-TUBE TID Discharge Medication List RX: Levothyroxine Sodium 100 mcg PEG/G-TUBE DAILY #30 tab 09/07/23 [Rx] RX: Ipratropium-Albuterol Nebulize [Duoneb 0.5 mg-3 mg/3 ml Soln] 3 ml INHALATION RT-QID each 10/02/23 [Rx] Midodrine [ProAmatine] 5 mg PEG/G-TUBE TID 12/02/23 [History] Ondansetron Odt [Zofran Odt] 8 mg PEG/G-TUBE TID 12/02/23 [History] Metoclopramide [Reglan] 10 mg PEG/G-TUBE TID 02/19/24 [History] levETIRAcetam [Keppra] 250 mg PEG/G-TUBE Q12HR 02/19/24 [History] Amoxic-Pot Clav 500-125 mg [Augmentin 500-125 mg] 1 tab PO Q12HR #14 tab 02/22/24 [Rx] Follow up Appointment(s)/Referral(s): Santa Powell MD [STAFF PHYSICIAN] - 1 Week Suman Ortiz Jr, DO [Primary Care Provider] - 1-2 days
== END 2024-02-22 17:03 | disposition home or self-care (01) | DRG 178 ==
LOC: EC 07:43 → 3SCARD 11:04
PROVIDERS: ADMIT Family Medicine; ATTEND Family Medicine
DX: J69.0 Pneumonitis due to inhalation of food and vomit (principal); E46 Unspecified protein-calorie malnutrition; J44.0 Chronic obstructive pulmonary disease with (acute) lower respiratory infection; Z85.01 Personal history of malignant neoplasm of esophagus; D63.8 Anemia in other chronic diseases classified elsewhere; Z68.22 Body mass index [BMI] 22.0-22.9, adult; I11.0 Hypertensive heart disease with heart failure; Z66 Do not resuscitate; G40.909 Epilepsy, unspecified, not intractable, without status epilepticus; R13.10 Dysphagia, unspecified; F03.90 Unspecified dementia, unspecified severity, without behavioral disturbance, psychotic disturbance, mood disturbance, and anxiety; Z51.5 Encounter for palliative care; Z79.899 Other long term (current) drug therapy; Z87.891 Personal history of nicotine dependence; Z92.3 Personal history of irradiation; Z93.1 Gastrostomy status; Z85.850 Personal history of malignant neoplasm of thyroid
CPT/HCPCS: 36415; 71045; 71046; 71250; 80053; 80061; 83605; 83735; 83880; 84484; 85025; 85610; 85730; 87040; 87449; 87636; 93005; 93306; 94640; 94667; 94760; 96365; 96366; 96367; 96368; 96375; 96376; 99285

== ENCOUNTER 2024-05-11 07:05 | Emergency (ER) | payer MEDICARE ==
[2024-05-11 07:10] VITALS: RESP 18
--- NOTE | 2024-05-11 07:20 | ED ---
General Adult HPI - General Chief complaint: Recheck/Abnormal Lab/Rx Stated complaint: feeding tube issue Time Seen by Provider: 05/11/24 07:10 Source: patient, RN notes reviewed, old records reviewed Mode of arrival: ambulatory Limitations: no limitations - History of Present Illness Initial comments: This is a 63-year-old male who presents to the emergency department with feeding tube. Patient states he caught it on something and actually pulled the feeding tube out today. Patient states that this particular feeding tube has been in about 9 months but he has had a feeding tube approximately 3 years. Patient has no abdominal pain has been a little bleeding around the site. Patient denies any other problems at this time. - Related Data Home Medications Medication Instructions Recorded Confirmed Midodrine [ProAmatine] 5 mg PEG/G-TUBE TID 12/02/23 02/19/24 Ondansetron Odt [Zofran Odt] 8 mg PEG/G-TUBE TID 12/02/23 02/19/24 Metoclopramide [Reglan] 10 mg PEG/G-TUBE TID 02/19/24 02/19/24 levETIRAcetam [Keppra] 250 mg PEG/G-TUBE Q12HR 02/19/24 02/19/24 Previous Rx's Medication Instructions Recorded Levothyroxine Sodium 100 mcg PEG/G-TUBE DAILY #30 tab 09/07/23 Ipratropium-Albuterol Nebulize 3 ml INHALATION RT-QID each 10/02/23 [Duoneb 0.5 mg-3 mg/3 ml Soln] Amoxic-Pot Clav 500-125 mg 1 tab PO Q12HR #14 tab 02/22/24 [Augmentin 500-125 mg] Allergies Allergy/AdvReac Type Severity Reaction Status Date / Time No Known Allergies Allergy Verified 05/11/24 07:10 Review of Systems ROS Statement: Those systems with pertinent positive or pertinent negative responses have been documented in the HPI. ROS Other: All systems not noted in ROS Statement are negative. Past Medical History Past Medical History: Cancer, Heart Failure, COPD, Hypertension, Pneumonia, Seizure Disorder, Thyroid Disorder Additional Past Medical History / Comment(s): Hx neck cancer in 2010, had surgery, chemo and radiation. History of Any Multi-Drug Resistant Organisms: None Reported Past Surgical History: Tonsillectomy Additional Past Surgical History / Comment(s): Lymph node removal, thyroidectomy, radical tonsil dissection. Past Anesthesia/Blood Transfusion Reactions: No Reported Reaction Past Psychological History: Anxiety Smoking Status: Former smoker Past Alcohol Use History: None Reported Past Drug Use History: None Reported - Past Family History Mother Family Medical History: Cancer, Pneumonia Additional Family Medical History / Comment(s): from lung cancer and pneumonia. Father Family Medical History: Cancer, Prostate Disorder Additional Family Medical History / Comment(s): Prostatectomy due to Prostate Cancer. Sister(s) Family Medical History: Cancer Additional Family Medical History / Comment(s): Breast Cancer. Brother(s) Family Medical History: Cancer Additional Family Medical History / Comment(s): 2 BROTHERS FROM CANCER General Exam - General Exam Comments Initial Comments: GENERAL: Patient is well-developed and well-nourished. Patient is nontoxic and well- hydrated and is in no acute distress. ENT: Neck is soft and supple. No significant lymphadenopathy is noted. Oropharynx is clear. Moist mucous membranes. Neck has full range of motion without eliciting any pain. EYES: The sclera were anicteric and conjunctiva were pink and moist. Extraocular movements were intact and pupils were equal round and reactive to light. Ey elids were unremarkable. ABDOMEN: Soft and nontender with normal bowel sounds. The orifice where the feeding tube is has some minimal bleeding that appears to have stopped SKIN: Skin is clear with no lesions or rashes and otherwise unremarkable. NEUROLOGIC: Patient is alert and oriented x3. Cranial nerves II through XII are grossly intact. Motor and sensory are also intact. Normal speech, volume and content. Symmetrical smile. MUSCULOSKELETAL: Normal extremities with adequate strength and full range of motion. No lower extremity swelling or edema. No calf tenderness. LYMPHATICS: No significant lymphadenopathy is noted PSYCHIATRIC: Normal psychiatric evaluation. Limitations: no limitations Course Vital Signs 05/11/24 07:08 Temperature 97 F L Pulse Rate 100 Respiratory 18 Rate Blood Pressure 137/95 O2 Sat by Pulse 91 L Oximetry Procedures - Feeding Tube Replacement Reason for Replacement: fell out Initial Tube Inserted: greater than 2 weeks Type of Tube: gastrostomy Use of Tube: medications and feeding Insertion Site Prior to Procedure: clean Tube Used for Reinsertion: other (We supplied the patient with a PEG tube) Verification of Placement: gastrografin injection Tube Secured by: tape/dressing Patient Tolerated Procedure: well Medical Decision Making - Medical Decision Making Was pt. sent in by a medical professional or institution (LANG Costa, PUMPER HELPER, urgent care, hospital, or care home...) When possible be specific @ -No Did you speak to anyone other than the patient for history (EMS, parent, family, police, friend...)? What history was obtained from this source @ -No Did you review nursing and triage notes (agree or disagree)? Why? @ -I reviewed and agree with nursing and triage notes Were old charts reviewed (outside hosp., previous admission, EMS record, old EKG, old radiological studies, urgent care reports/EKG's, care home records)? Report findings @ -No old charts were reviewed Differential Diagnosis? @ -PEG tube dislodgment, PEG tube malfunction, this is not an all-inclusive list EKG interpreted by me (3pts min.). @ -As above X-rays interpreted by me (1pt min.). @ -KUB shows good placement of the PEG tube with the Gastrografin CT interpreted by me (1pt min.). @ -None done U/S interpreted by me (1pt. min.). @ -None done What testing was considered but not performed or refused? (CT, X-rays, U/S, labs)? Why? @ -None What meds were considered but not given or refused? Why? @ -None Did you discuss the management of the patient with other professionals (professionals i.e. LANG Costa, PUMPER HELPER, lab, RT, psych nurse, social sciences instructor, facility planner, teacher, sanitation officer, showcase maker)? Give summary @ -No Was smoking cessation discussed for >3mins.? @ -No Was critical care preformed (if so, how long)? @ -No Were there social determinants of health that impacted care today? How? (Homelessness, low income, unemployed, alcoholism, drug addiction, transportation, low edu. Level, literacy, decrease access to med. care, alf, rehab)? @ -No Was there de-escalation of care discussed even if they declined (Discuss DNR or withdrawal of care, Hospice)? DNR status @ -No What co-morbidities impacted this encounter? (DM, HTN, Smoking, COPD, CAD, Cancer, CVA, ARF, Chemo, Hep., AIDS, mental health diagnosis, sleep apnea, morbid obesity)? @ -None Was patient admitted / discharged? Hospital course, mention meds given and route, prescriptions, significant lab abnormalities, going to OR and other pertinent info. @ -I replaced the PEG tube and checked its placement with x-ray and Gastrografin and the tube was in place Undiagnosed new problem with uncertain prognosis? @ -No Drug Therapy requiring intensive monitoring for toxicity (Heparin, Nitro, Insulin, Cardizem)? @ -No Were any procedures done? @ -No Diagnosis/symptom? @ -PEG tube replacement Acute, or Chronic, or Acute on Chronic? @ -Acute Uncomplicated (without systemic symptoms) or Complicated (systemic symptoms)? @ -Uncomplicated Side effects of treatment? @ -No Exacerbation, Progression, or Severe Exacerbation? @ -No Poses a threat to life or bodily function? How? (Chest pain, USA, MS, pneumonia, PE, COPD, DKA, ARF, appy, cholecystitis, CVA, Diverticulitis, Homicidal, Suic idal, threat to staff... and all critical care pts) @ -No Disposition Clinical Impression: PEG (percutaneous endoscopic gastrostomy) adjustment/replacement/removal Disposition: HOME SELF-CARE Condition: Good Is patient prescribed a controlled substance at d/c from ED?: No Referrals: Suman Ortiz Jr, DO [Primary Care Provider] - 1-2 days Time of Disposition: 08:11
--- NOTE | 2024-05-11 08:00 | XR ---
EXAMINATION TYPE: XR abdomen 1V DATE OF EXAM: 05/11/2024 7:55 AM CLINICAL INDICATION: Male, 63 years old with history of PEG patency, pain TECHNIQUE: 1 view of the abdomen images obtained after injecting 100 mL of Isovue-370. COMPARISON: CT abdomen and pelvis September 04, 2023. FINDINGS: Contrast is opacifying the gastric body and fundus consistent with satisfactory patency and position of PEG tube. No contrast extravasation seen. Elevated left hemidiaphragm is noted. IMPRESSION: As above. [facility], , 05/11/2024 7:58 AM
[2024-05-11 08:19] VITALS: BP 119/90; PULSE 86; TEMP 98.2
== END 2024-05-11 08:18 | disposition home or self-care (01) ==
LOC: EC 07:05
DX: Z46.59 Encounter for fitting and adjustment of other gastrointestinal appliance and device (principal); Z87.891 Personal history of nicotine dependence
CPT/HCPCS: 74018; 99283; 43762; Q9967

== ENCOUNTER 2024-05-17 10:35 | Day surgery (SDC) | payer MEDICARE ==
[2024-05-16 12:25] VITALS: BMI 16.2
[2024-05-17] MEDS: IV FLUID CONTINUATION 1,000 ML IV ONE (11:10)
[2024-05-17] MEDS: LIDOCAINE 1% (10MG/ML) FOR IV START INTRADERMA STA (11:10)
[2024-05-17] MEDS: LACTATED RINGERS 1,000 ML IV SCH (11:10)
[2024-05-17] MEDS ORDERED: PROPOFOL 10 MG/ML 20 ML VIAL IV ONE (11:16)
[2024-05-17] MEDS ORDERED: LIDOCAINE 2% (PF) 20 MG/ML 5 ML VIAL ONE (11:16)
[2024-05-17 11:18] VITALS: TEMP 98.1
--- NOTE | 2024-05-17 11:33 | P.PCN ---
Date of Procedure: 05/17/24 Procedure(s) Performed: Preoperative Dx: Malnutrition, malfunctioning PEG tube Postoperative Dx: Mild gastritis, PEG tube replacement Procedure: EGD with PEG tube replacement Anesthesia: Sedation Endoscopist: Dr. Serna Specimens: None Endoscopic Procedure: The patient was on the endoscopy table in the left decubitus position. The Olympus gastroscope was inserted into the oropharynx and passed under direct visualization to the region of the third portion of the duodenum. From that point the scope was slowly withdrawn inspecting all surfaces carefully. There were no neoplastic inflammatory or polypoid lesions throughout the duodenum. The pylorus was widely patent. The stomach was carefully inspected. There was the previous PEG tube that was removed without difficulty. A new nonballoon 20 Romanian tube was placed without difficulty. The bolster was tightened. The esophagus was then carefully examined. There were no neoplastic inflammatory or polypoid lesions throughout the visualized esophagus. The patient was then taken to the recovery room in stable condition per anesthesia guidelines. Recommendations: Resume tube feeds.
[2024-05-17 12:04] VITALS: BP 139/82; PULSE 79; RESP 18
== END 2024-05-17 12:08 | disposition home or self-care (01) ==
LOC: ORWHC2ENDO 10:35
PROVIDERS: ATTEND Surgery
DX: K94.23 Gastrostomy malfunction (principal); E46 Unspecified protein-calorie malnutrition; K29.70 Gastritis, unspecified, without bleeding; I50.9 Heart failure, unspecified; J44.9 Chronic obstructive pulmonary disease, unspecified; E03.9 Hypothyroidism, unspecified; F03.90 Unspecified dementia, unspecified severity, without behavioral disturbance, psychotic disturbance, mood disturbance, and anxiety; Z99.81 Dependence on supplemental oxygen; Z79.890 Hormone replacement therapy; Z79.899 Other long term (current) drug therapy; Z85.01 Personal history of malignant neoplasm of esophagus; Z68.1 Body mass index [BMI] 19.9 or less, adult; Z98.890 Other specified postprocedural states; Y83.8 Other surgical procedures as the cause of abnormal reaction of the patient, or of later complication, without mention of misadventure at the time of the procedure
CPT/HCPCS: 43246; J2704; J2003

== ENCOUNTER 2024-05-18 09:58 | Emergency (ER) | payer MEDICARE ==
--- NOTE | 2024-05-18 10:25 | ED ---
Recheck HPI - General Chief Complaint: Recheck/Abnormal Lab/Rx Stated Complaint: feeding tube came out Time Seen by Provider: 05/18/24 10:24 Source: patient, family, RN notes reviewed Mode of arrival: wheelchair Limitations: no limitations - History of Present Illness Initial Comments: 63-year-old male presented the ER for evaluation of PEG tube dysfunction. Patient's grandson accidentally pulled on the tube causing it to dislodge prior to arrival. Patient has had a PEG tube for approximately 3 years due to esophageal cancer. He had tube replaced yesterday by Dr. Serna. Patient denies any current pain or other complaints at this time. - Related Data Home Medications Medication Instructions Recorded Confirmed Midodrine [ProAmatine] 5 mg PEG/G-TUBE TID 12/02/23 05/16/24 Ondansetron Odt [Zofran Odt] 8 mg PEG/G-TUBE TID 12/02/23 05/16/24 Metoclopramide [Reglan] 10 mg PEG/G-TUBE TID 02/19/24 05/16/24 levETIRAcetam [Keppra] 250 mg PEG/G-TUBE Q12HR 02/19/24 05/16/24 Previous Rx's Medication Instructions Recorded Levothyroxine Sodium 100 mcg PEG/G-TUBE DAILY #30 tab 09/07/23 Ipratropium-Albuterol Nebulize 3 ml INHALATION RT-QID each 10/02/23 [Duoneb 0.5 mg-3 mg/3 ml Soln] Amoxic-Pot Clav 500-125 mg 1 tab PO Q12HR #14 tab 02/22/24 [Augmentin 500-125 mg] Allergies Allergy/AdvReac Type Severity Reaction Status Date / Time No Known Allergies Allergy Verified 05/18/24 10:08 Review of Systems ROS Statement: Those systems with pertinent positive or pertinent negative responses have been documented in the HPI. ROS Other: All systems not noted in ROS Statement are negative. Past Medical History Past Medical History: Cancer, Heart Failure, COPD, Hypertension, Memory Impairment, Pneumonia, Seizure Disorder, Thyroid Disorder Additional Past Medical History / Comment(s): currently on palliative care now, lives with son and dtr n law, A & O x3,signs own consents but asks dtr n law to help sign or to sign for him at times. Hx neck cancer in 2010, had surgery, chemo and radiation, peg tube place 2021 for difficulty w/ swallowing and aspiration pneumonia,last seizure months ago-dtr n law not sure of exact date,hypotensive now no longer hypertensive,uses O2 @ 3 L NC ATC, uses walker History of Any Multi-Drug Resistant Organisms: None Reported Past Surgical History: Tonsillectomy Additional Past Surgical History / Comment(s): Lymph node removal, thyroidectomy, radical tonsil dissection. peg tube Past Anesthesia/Blood Transfusion Reactions: No Reported Reaction Additional Past Anesthesia/Blood Transfusion Reaction / Comment(s): no hx blood transfusion Past Psychological History: Anxiety Smoking Status: Former smoker Past Alcohol Use History: None Reported Past Drug Use History: None Reported - Past Family History Mother Family Medical History: Cancer, Pneumonia Additional Family Medical History / Comment(s): from lung cancer and pneumonia. Father Family Medical History: Cancer, Prostate Disorder Additional Family Medical History / Comment(s): Prostatectomy due to Prostate Cancer. Sister(s) Family Medical History: Cancer Additional Family Medical History / Comment(s): Breast Cancer. Brother(s) Family Medical History: Cancer Additional Family Medical History / Comment(s): 2 BROTHERS FROM CANCER General Exam Limitations: no limitations General appearance: alert, in no apparent distress Respiratory exam: Present: normal lung sounds bilaterally. Absent: respiratory distress, wheezes, rales, rhonchi, stridor Cardiovascular Exam: Present: regular rate, normal rhythm, normal heart sounds. Absent: systolic murmur, diastolic murmur, rubs, gallop, clicks GI/Abdominal exam: Present: soft, normal bowel sounds. Absent: distended, tenderness, guarding, rebound, rigid Neurological exam: Present: alert, oriented X3, CN II-XII intact Skin exam: Present: warm, dry, intact, normal color. Absent: rash Course Vital Signs 05/18/24 05/18/24 05/18/24 10:04 13:06 13:27 Temperature 97.6 F 97.8 F Pulse Rate 89 89 91 Respiratory 20 19 18 Rate Blood Pressure 92/67 139/87 127/103 O2 Sat by Pulse 93 L 95 94 L Oximetry - Reevaluation(s) Reevaluation #1: 05/18/24 11:[address] Serna. He states he will contact endoscopy and have them evaluate patient to decide next steps in tube placement. 05/18/24 11:45 Dr. Serna advised on silvestre PEG tube placement and close outpatient follow-up. Procedures - Feeding Tube Replacement Reason for Replacement: fell out Initial Tube Inserted: greater than 2 weeks Type of Tube: gastrostomy Use of Tube: medications and feeding Insertion Site Prior to Procedure: clean Tube Used for Reinsertion: Silvestre Verification of Placement: KUB (with contrast) Tube Secured by: tape/dressing Patient Tolerated Procedure: well Medical Decision Making - Medical Decision Making Was pt. sent in by a medical professional or institution (, PA, WARBLE SAW OPERATOR, urgent care, hospital, or half-way...) When possible be specific @ -No Did you speak to anyone other than the patient for history (EMS, parent, family, police, friend...)? What history was obtained from this source @ -Patient's daughter, at bedside, aiding in HPI and past medical history. Did you review nursing and triage notes (agree or disagree)? Why? @ -I reviewed and agree with nursing and triage notes Were old charts reviewed (outside hosp., previous admission, EMS record, old EKG, old radiological studies, urgent care reports/EKG's, half-way records)? Report findings @ -Yes, I reviewed procedure note from 05-17-2024. Patient had none balloon PEG tube placed by Dr. Serna. Differential Diagnosis (chest pain, altered mental status, abdominal pain women, abdominal pain men, vaginal bleeding, weakness, fever, dyspnea, syncope, headache, dizziness, GI bleed, back pain, seizure, CVA, palpatations, mental health, musculoskeletal)? @ -PEG tube dysfunction, GI bleed, bowel obstruction... This list is not meant to be all-inclusive EKG interpreted by me (3pts min.). @ -None done X-rays interpreted by me (1pt min.). @ -KUB performed to ensure PEG tube placement showing no evidence of extravasation. PEG tube appears to be in appropriate position. No evidence of acute process. CT interpreted by me (1pt min.). @ -None done U/S interpreted by me (1pt. min.). @ -None done What testing was considered but not performed or refused? (CT, X-rays, U/S, labs)? Why? @ -None What meds were considered but not given or refused? Why? @ -None Did you discuss the management of the patient with other professionals (professionals i.e. DrObi, PA, WARBLE SAW OPERATOR, lab, RT, psych nurse, social media designer, tripe finisher, teacher, sba business development officer, correctional case manager)? Give summary @ -Yes, case was discussed with Dr. Serna. He advised on Silvestre PEG tube placement with adapter provided by endoscopy. He will follow patient closely outpatient. Was smoking cessation discussed for >3mins.? @ -No Was critical care preformed (if so, how long)? @ -No Were there social determinants of health that impacted care today? How? (Homelessness, low income, unemployed, alcoholism, drug addiction, transportation, low edu. Level, literacy, decrease access to med. care, fci, rehab)? @ -No Was there de-escalation of care discussed even if they declined (Discuss DNR or withdrawal of care, Hospice)? DNR status @ -No What co-morbidities impacted this encounter? (DM, HTN, Smoking, COPD, CAD, Cancer, CVA, ARF, Chemo, Hep., AIDS, mental health diagnosis, sleep apnea, morbid obesity)? @ -None Was patient admitted / discharged? Hospital course, mention meds given and route, prescriptions, significant lab abnormalities, going to OR and other pertinent info. @ -Discharge. 63-year-old male presented the ER for evaluation of PEG tube dislodgment. Vitals within acceptable limits. Given patient has a nonballoon PEG tube placement yesterday case was discussed with patient's surgeon, Dr. Serna. He advised on Silvestre PEG tube placement and close outpatient follow-up for repeated endoscopy placement of nonballoon PEG tube. PEG tube placed, see note above. KUB showing appropriate placement of tube. No extravasation or other acute process. Patient denying any other acute complaints. Patient is stable for discharge at this time. Strict return parameters discussed. Patient discharged stable condition with follow-up to Dr. Serna. Patient verbally expressed understanding agree with care plan. Case discussed with ED attending, Dr. Velázquez. Undiagnosed new problem with uncertain prognosis? @ -No Drug Therapy requiring intensive monitoring for toxicity (Heparin, Nitro, Insulin, Cardizem)? @ -No Were any procedures done? @ -Yes Diagnosis/symptom? @ -PEG tube replacement Acute, or Chronic, or Acute on Chronic? @ -Acute Uncomplicated (without systemic symptoms) or Complicated (systemic symptoms)? @ -Uncomplicated Side effects of treatment? @ -No Exacerbation, Progression, or Severe Exacerbation? @ -No Poses a threat to life or bodily function? How? (Chest pain, USA, MD, pneumonia, PE, COPD, DKA, ARF, appy, cholecystitis, CVA, Diverticulitis, Homicidal, Suicidal, threat to staff... and all critical care pts) @ -No - Radiology Data Radiology results: report reviewed, image reviewed Disposition Clinical Impression: PEG (percutaneous endoscopic gastrostomy) adjustment/replacement/removal Disposition: HOME SELF-CARE Condition: Stable Instructions (If sedation given, give patient instructions): How to Use and Care for Your PEG Tube (ED) Additional Instructions: Follow-up closely with Dr. Serna. Return to the ER for any new or worsening symptoms. Is patient prescribed a controlled substance at d/c from ED?: No Referrals: Suman Ortiz Jr, DO [Primary Care Provider] - 1-2 days Christian Serna MD [Medical Doctor] - 1-2 days Time of Disposition: 13:11
--- NOTE | 2024-05-18 12:57 | XR ---
EXAMINATION TYPE: XR abdomen 1V DATE OF EXAM: 05/18/2024 12:52 PM COMPARISON: 05/11/2024 CLINICAL INDICATION: Male, 63 years old with history of peg tube placement; [facility] TECHNIQUE: One radiographic view of the abdomen was obtained. FINDINGS: PEG tube patency check demonstrates PEG tube injection without evidence of extravasation. T he bowel gas pattern is nonspecific without dilated loops of small or large bowel. . Fecal material a nd gas are demonstrated throughout the colon and rectum. There is no evidence for organomegaly or pne umoperitoneum. No acute osseous process. No abnormal calcifications are present. IMPRESSION: 1. No evidence of extravasation. PEG tube appears in appropriate position on this single view. 2. Nonspecific bowel gas pattern without radiographic evidence for acute process. [facility], , 05/18/2024 12:54 PM
[2024-05-18 13:40] VITALS: BP 127/103; PULSE 91; RESP 18; TEMP 97.8
== END 2024-05-18 13:40 | disposition home or self-care (01) ==
LOC: EC 09:58
DX: K94.23 Gastrostomy malfunction (principal); Z87.891 Personal history of nicotine dependence
CPT/HCPCS: 74018; 99283; 43762; Q9967

== ENCOUNTER 2024-05-27 18:40 | Emergency (ER) | payer MEDICARE ==
[2024-05-27 18:47] VITALS: RESP 20
[2024-05-27 19:02] LABS: Glucose,Whole Blood 113 mg/dL (70-110)
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
[2024-05-27 19:27] LABS: Basophils % (A) 0 %; Eosinophils # (A) 0.1 k/uL (0-0.7); Eosinophils % (A) 1 %; HCT 35.3 % (39.0-53.0); HGB 10.9 gm/dL (13.0-17.5); Hypochromasia Slight; Lymphocytes # (A) 2.1 k/uL (1.0-4.8); Lymphocytes % (A) 23 %; MCH 27.2 pg (25.0-35.0); MCHC 30.9 g/dL (31.0-37.0); MCV 87.9 fL (80.0-100.0); Mean Platelet Volume 8.5; Monocytes # (A) 0.5 k/uL (0-1.0); Monocytes % (A) 6 %; Neutrophils # (A) 6.1 k/uL (1.3-7.7); Neutrophils % (A) 68 %; Platelet Count 359 k/uL (150-450); RBC 4.01 m/uL (4.30-5.90); RDW 15.4 % (11.5-15.5)
[2024-05-27 19:29] LABS: ALT 16 U/L (4-49); AST 25 U/L (17-59); African American GFR (CKD) 88 (>60 ml/min/1.73 sqM); Alcohol <10 mg/dL; Alkaline Phosphatase 84 U/L (38-126); Anion Gap 12 mmol/L; Blood Urea Nitrogen 47 mg/dL (9-20); Calcium 10.5 mg/dL (8.4-10.2); Carbon Dioxide 37 mmol/L (22-30); Chloride 90 mmol/L (98-107); Glucose 111 mg/dL (74-99); INR 0.9 (<1.2); Non-African American GFR(CKD) 76 (>60 ml/min/1.73 sqM); Partial Thromboplastin Time 26.1 sec (22.0-30.0); Potassium 4.8 mmol/L (3.5-5.1); Prothrombin Time 10.3 sec (10.0-12.5); Sodium 139 mmol/L (137-145); Total Bilirubin 0.3 mg/dL (0.2-1.3); Total Protein 9.1 g/dL (6.3-8.2)
[2024-05-27 19:30] LABS: ABG Base Excess 9.1 mmol/L; ABG HCO3 36 mmol/L (21-25); ABG Oxygen Saturation 93.6 % (94-97); ABG PCO2 61 mmHg (35-45); ABG PH 7.38 (7.35-7.45); ABG PO2 70 mmHg (83-108); ABG TCO2 38 mmol/L (19-24); Allen Test Performed? Yes
[2024-05-27] MEDS: LACTATED RINGERS 1,000 ML IV ONE (19:38)
[2024-05-27] MEDS: DIPH,PERTUS(ACELL)TETVAC-LF 0.5 ML VIAL IM ONE (19:42)
[2024-05-27] MEDS: fentaNYL (PF) 50 MCG/ML 2 ML AMP IVP STA (19:43)
[2024-05-27] MEDS: hydrALAZINE HCL 20 MG/ML 1 ML VIAL IVP STA ×2 (19:44→20:00)
[2024-05-27 19:47] VITALS: PULSE 114
[2024-05-27] MEDS: IPRATROPIUM-ALBUTEROL 3 ML NEB INHALATION STA (19:52)
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
[2024-05-27] MEDS: ROCURONIUM 10 MG/ML (5 ML VIAL) IV STA (21:41)
[2024-05-27] MEDS: ETOMIDATE 2 MG/ML 10 ML VIAL IVP STA (21:41)
[2024-05-27 21:47] VITALS: BP 228/126; TEMP 98.2
== END 2024-05-27 20:22 | disposition other institution (70) ==
LOC: EC 18:40
DX: T20.16XA Burn of first degree of forehead and cheek, initial encounter (principal); T20.14XA Burn of first degree of nose (septum), initial encounter; J44.9 Chronic obstructive pulmonary disease, unspecified; R00.0 Tachycardia, unspecified; Z23 Encounter for immunization; Z87.891 Personal history of nicotine dependence; X08.8XXA Exposure to other specified smoke, fire and flames, initial encounter
CPT/HCPCS: 36415; 94640; 36600; 93005; 86900; 86901; 80053; 82805; 83605; 84484; 85025; 85610; 85730; 86850; 80320; 71045; 90715; 99285; 96374; 96375; 90471; J0360; J3010

== ENCOUNTER → 2024-06-15 | Outpatient (CLI) | payer MEDICARE ==
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
== END | disposition home or self-care (01) ==
LOC: RADMRIMAIN 14:26
PROVIDERS: ATTEND Psychiatry & Neurology Neurology
DX: G40.009 Localization-related (focal) (partial) idiopathic epilepsy and epileptic syndromes with seizures of localized onset, not intractable, without status epilepticus (principal); G43.909 Migraine, unspecified, not intractable, without status migrainosus; J34.89 Other specified disorders of nose and nasal sinuses
CPT/HCPCS: 70553; A9585

== ENCOUNTER 2024-07-01 22:15 | Inpatient (IN) | payer MEDICARE ==
[2024-07-01 22:43] LABS: Glucose,Whole Blood 140 mg/dL (70-110)
--- NOTE | 2024-07-01 22:52 | ED ---
SOB HPI - General Chief Complaint: Shortness of Breath Stated Complaint: CAMPOS Time Seen by Provider: 07/01/24 22:28 Source: family Mode of arrival: wheelchair Limitations: physical limitation - History of Present Illness Initial Comments: This patient is a 63-year-old man, the medical record indicates he has history of squamous cell carcinoma of the head and neck, COPD, congestive heart failure, and other conditions. He has had a couple of days of worsening cough and shortness of breath. The patient reportedly went to see Dr. Bruce in the clinic today, was told that he has an atypical pneumonia and there was a concern about whether he was developing sepsis. The patient did not want to go directly to the hospital, but arrives now because he is feeling worse. MD Complaint: shortness of breath, cough, chest pain Onset/Timin -: days(s) Severity: moderate Quality: aching Consistency: constant Improves With: nothing Worsens With: nothing Known History Of: COPD, congestive heart failure, aspiration pneumonia Associated Symptoms: chest pain, fever, cough, sputum production, nausea/vomiting Treatments Prior to Arrival: oxygen, bronchodilator - Related Data Home Oxygen Therapy: Yes Home Oxygen Amount: 2 Liters Home Medications Medication Instructions Recorded Confirmed Metoclopramide [Reglan] 10 mg PEG/G-TUBE TID 02/19/24 07/02/24 levETIRAcetam [Keppra] 250 mg PEG/G-TUBE Q12HR 02/19/24 07/02/24 Calcium Phos/D3/Magnesium/Zinc 1 tab PEG/G-TUBE DAILY 07/02/24 07/02/24 [Xqgokgp-Vbo-Rtvv-Vitamin D3] Folic Acid 1 mg PEG/G-TUBE DAILY 07/02/24 07/02/24 Saliva Stimulant Comb. No.3 1 spray MUCOUS MEM DAILY PRN 07/02/24 07/02/24 [Biotene Moisturizing Mouth] Sodium Chloride [Barbour Candor] 1 spray EA NOSTRIL DAILY PRN 07/02/24 07/02/24 Vitamin B Complex 1 cap PEG/G-TUBE DAILY 07/02/24 07/02/24 predniSONE 5 mg PEG/G-TUBE DAILY 07/02/24 07/02/24 Previous Rx's Medication Instructions Recorded Levothyroxine Sodium 100 mcg PEG/G-TUBE DAILY #30 tab 09/07/23 Acetaminophen Tab [Tylenol] 650 mg PEG/G-TUBE Q6HR PRN tab 07/06/24 Budesonide [Pulmicort] 0.5 mg INHALATION BID 30 Days #60 07/06/24 ml Ipratropium-Albuterol Nebulize 3 ml INHALATION RT-QID #120 each 07/06/24 [Duoneb 0.5 mg-3 mg/3 ml Soln] Pantoprazole Sodium [Protonix] 40 mg PEG/G-TUBE DAILY #30 tab 07/06/24 Piperacillin-Tazobactam [Zosyn] 3.375 gm IVPB Q8H #21 each 07/06/24 amLODIPine [Norvasc] 5 mg PEG/G-TUBE DAILY 30 Days #30 07/06/24 tab hydrALAZINE HCL 25 mg PEG/G-TUBE Q6H PRN 30 Days 07/06/24 #30 tab Hydrophilic Cream [Triad (Kerodex 1 applic TOPICAL QID #71 gm 07/07/24 geq)] Allergies Allergy/AdvReac Type Severity Reaction Status Date / Time No Known Allergies Allergy Verified 07/02/24 10:34 Review of Systems ROS Statement: Those systems with pertinent positive or pertinent negative responses have been documented in the HPI. ROS Other: All systems not noted in ROS Statement are negative. Constitutional: Reports: fever, weakness Respiratory: Reports: cough, dyspnea, wheezes. Denies: hemoptysis Cardiovascular: Reports: chest pain. Denies: palpitations, edema, syncope Gastrointestinal: Reports: nausea, vomiting. Denies: abdominal pain, diarrhea, hematemesis Genitourinary: Denies: dysuria, hematuria Musculoskeletal: Denies: back pain Skin: Denies: rash Past Medical History Past Medical History: Cancer, Heart Failure, COPD, Hypertension, Memory Impairment, Pneumonia, Seizure Disorder, Thyroid Disorder Additional Past Medical History / Comment(s): currently on palliative care now, lives with son and dtr n law, A & O x3,signs own consents but asks dtr n law to help sign or to sign for him at times. Hx neck cancer in 2010, had surgery, chemo and radiation, peg tube place 2021 for difficulty w/ swallowing and aspiration pneumonia,last seizure months ago-dtr n law not sure of exact date,hypotensive now no longer hypertensive,uses O2 @ 3 L NC ATC, uses walker History of Any Multi-Drug Resistant Organisms: None Reported Past Surgical History: Tonsillectomy Additional Past Surgical History / Comment(s): Lymph node removal, thyroidectomy, radical tonsil dissection. peg tube Past Anesthesia/Blood Transfusion Reactions: No Reported Reaction Additional Past Anesthesia/Blood Transfusion Reaction / Comment(s): no hx blood transfusion Past Psychological History: Anxiety Smoking Status: Former smoker Past Alcohol Use History: None Reported Past Drug Use History: None Reported - Past Family History Mother Family Medical History: Cancer, Pneumonia Additional Family Medical History / Comment(s): from lung cancer and pneumonia. Father Family Medical History: Cancer, Prostate Disorder Additional Family Medical History / Comment(s): Prostatectomy due to Prostate Cancer. Sister(s) Family Medical History: Cancer Additional Family Medical History / Comment(s): Breast Cancer. Brother(s) Family Medical History: Cancer Additional Family Medical History / Comment(s): 2 BROTHERS FROM CANCER General Exam General appearance: alert, in distress, cachectic Head exam: Present: atraumatic, normocephalic Eye exam: Present: normal appearance. Absent: scleral icterus, conjunctival injection ENT exam: Present: mucous membranes dry Neck exam: Absent: tenderness, meningismus, full ROM Respiratory exam: Present: respiratory distress, wheezes, rales, rhonchi. Absent: stridor, accessory muscle use, prolonged expiratory Cardiovascular Exam: Present: tachycardia, systolic murmur. Absent: diastolic murmur, rubs, gallop GI/Abdominal exam: Present: soft. Absent: distended, tenderness, guarding, rebound, rigid, mass Extremities exam: Present: normal inspection, normal capillary refill. Absent: pedal edema, calf tenderness Back exam: Present: normal inspection. Absent: CVA tenderness (R), CVA tenderness (L) Neurological exam: Present: alert Skin exam: Present: warm, dry, intact, normal color. Absent: rash Course Vital Signs 07/01/24 07/01/24 07/01/24 22:16 22:36 22:50 Temperature 98.2 F Pulse Rate 150 H 140 H Respiratory 30 H 20 24 Rate Blood Pressure 110/72 136/101 O2 Sat by Pulse 77 L 96 Oximetry 07/01/24 07/01/24 07/02/24 23:06 23:43 03:38 Temperature Pulse Rate 137 H 126 H 106 H Respiratory 17 17 17 Rate Blood Pressure 92/64 97/64 130/84 O2 Sat by Pulse 90 L 92 L 99 Oximetry 07/02/24 07/02/24 07/02/24 05:28 10:00 12:00 Temperature 97.8 F Pulse Rate 98 105 H 95 Respiratory 17 18 20 Rate Blood Pressure 106/61 115/57 117/70 O2 Sat by Pulse 99 98 99 Oximetry 07/02/24 13:48 Temperature 98 F Pulse Rate 96 Respiratory 22 Rate Blood Pressure 127/79 O2 Sat by Pulse 97 Oximetry Medical Decision Making - Medical Decision Making The patient had chest x-ray that I interpreted as showing presence of infiltrate consistent with pneumonia. No pneumothorax or congestive heart failure Was pt. sent in by a medical professional or institution ([facility], M[employer] COMM[employer]ICATION[employer] PROFESSOR, urgent care, hospital, or usp...) When possible be specific @ -[No] Did you speak to anyone other than the patient for history (EMS, parent, family, police, friend...)? What history was obtained from this source @ -[No] Did you review nursing and triage notes (agree or disagree)? Why? @ -[I reviewed and agree with nursing and triage notes] Were old charts reviewed (outside hosp., previous admission, EMS record, old EKG, old radiological studies, urgent care reports/EKG's, usp records)? Report findings @ -[No old charts were reviewed] Differential Diagnosis (chest pain, altered mental status, abdominal pain women, abdominal pain men, vaginal bleeding, weakness, fever, dyspnea, syncope, headache, dizziness, GI bleed, back pain, seizure, CVA, palpatations, mental health, musculoskeletal)? @ -[not applicable] EKG interpreted by me (3pts min.). @ -[I interpreted as above] X-rays interpreted by me (1pt min.). @ -[I interpreted as above CT interpreted by me (1pt min.). @ -[None done] U/S interpreted by me (1pt. min.). @ -[None done] What testing was considered but not performed or refused? (CT, X-rays, U/S, labs)? Why? @ -[None] What meds were considered but not given or refused? Why? @ -[None] Did you discuss the management of the patient with other professionals (professionals i.e. , PA, MASS COMMUNICATIONS PROFESSOR, lab, RT, psych nurse, social work therapist, edge molder, teacher, fundraising officer, case filler)? Give summary @ -[Case discussed with admitting physician and treatment recommendations are incorporated Was smoking cessation discussed for >3mins.? @ -[No] Was critical care preformed (if so, how long)? @ -[No] Were there social determinants of health that impacted care today? How? (Homelessness, low income, unemployed, alcoholism, drug addiction, t ransportation, low edu. Level, literacy, decrease access to med. care, fpc, rehab)? @ -[No] Was there de-escalation of care discussed even if they declined (Discuss DNR or withdrawal of care, Hospice)? DNR status @ -[No] What co-morbidities impacted this encounter? (DM, HTN, Smoking, COPD, CAD, C ancer, CVA, ARF, Chemo, Hep., AIDS, mental health diagnosis, sleep apnea, morbid obesity)? @ -[Underlying cancer Was patient admitted / discharged? Hospital course, mention meds given and route, prescriptions, significant lab abnormalities, going to OR and other pertinent info. @ -[Patient is admitted to have further antibiotic therapy and fluids. Also to have medical consultation. Patient started on antibiotics and sepsis fluids Undiagnosed new problem with uncertain prognosis? @ -[No] Drug Therapy requiring intensive monitoring for toxicity (Heparin, Nitro, Insulin, Cardizem)? @ -[No] Were any procedures done? @ -[No] Diagnosis/symptom? @ -[Acute pneumonia Sepsis Renal failure Lactic acidosis Acute, or Chronic, or Acute on Chronic? @ -[Acute Uncomplicated (without systemic symptoms) or Complicated (systemic symptoms)? @ -[default] Side effects of treatment? @ -[No] Exacerbation, Progression, or Severe Exacerbation? @ -[No] Poses a threat to life or bodily function? How? (Chest pain, [place], [place], pneumonia, PE, COPD, DKA, ARF, appy, cholecystitis, CVA, Diverticulitis, Homicidal, Suicidal, threat to staff... and all critical care pts) @ -[Yes there is significant risk of morbidity and mortality associated with sepsis and pneumonia All treatments are based on ideal body weight as in ED triage - Lab Data Result diagrams: 07/07/24 08:25 07/07/24 08:25 Lab Results 07/01/24 07/01/24 07/01/24 Range/Units 22:42 22:45 22:45 WBC 34.86 H (4.50-10.00) 10*3/uL RBC 3.30 L (4.40-5.60) 10*6/uL Hgb 9.1 L (13.0-17.0) g/dL Hct 28.4 L (39.6-50.0) % MCV 86.1 (80.0-97.0) fL MCH 27.6 (27.0-32.0) pg MCHC 32.0 (32.0-37.0) g/dL Plt Count 449 H (140-440) 10*3/uL MPV 10.3 (9.5-12.2) fL Immature Gran % (Auto) 1.5 % Neutrophils % (Manual) 91 % Band Neuts % (Manual) 1 % Lymphocytes % (Manual) 4 % Monocytes % (Manual) 4 % Eosinophils % (Manual) 1 % Immature Gran # 0.53 H (0.00-0.04) 10*3/uL Neutrophils # (Manual) 32.07 H (1.3-7.7) k/uL Lymphocytes # (Manual) 1.39 (1.0-4.8) k/uL Monocytes # (Manual) 1.39 H (0-1.0) k/uL Eosinophils # (Manual) 0.35 (0-0.7) k/uL Nucleated RBCs 0 (0-0) /100 WBC Manual Slide Review Performed RBC Morphology Normal PT 10.7 (10.0-12.5) sec INR 1.0 (<1.2) APTT 22.2 (22.0-30.0) sec D-Dimer 1.04 H (<0.60) mg/L FEU Sodium (137-145) mmol/L Potassium (3.5-5.1) mmol/L Chloride (98-107) mmol/L Carbon Dioxide (22-30) mmol/L Anion Gap mmol/L BUN (9-20) mg/dL Creatinine (0.66-1.25) mg/dL Est GFR (CKD-EPI)AfAm (>60 ml/min/1.73 sqM) Est GFR (CKD-EPI)NonAf (>60 ml/min/1.73 sqM) Glucose (74-99) mg/dL POC Glucose (mg/dL) 140 H (70-110) mg/dL POC Glu Geropsychologist ID Karen Ortiz Lactic Ac Sepsis Rflx Plasma Lactic Acid Amador (0.7-2.0) mmol/L Calcium (8.4-10.2) mg/dL Magnesium (1.6-2.3) mg/dL Total Bilirubin (0.2-1.3) mg/dL AST (17-59) U/L ALT (4-49) U/L Alkaline Phosphatase (38-126) U/L Troponin I (0.000-0.034) ng/mL NT-Pro-B Natriuret Pep pg/mL Total Protein (6.3-8.2) g/dL Albumin (3.5-5.0) g/dL Influenza Type A (PCR) (Not Detectd) Influenza Type B (PCR) (Not Detectd) RSV (PCR) (Not Detectd) SARS-CoV-2 (PCR) (Not Detectd) 07/01/24 07/01/24 07/01/24 Range/Units 22:45 22:45 22:45 WBC (4.50-10.00) 10*3/uL RBC (4.40-5.60) 10*6/uL Hgb (13.0-17.0) g/dL Hct (39.6-50.0) % MCV (80.0-97.0) fL MCH (27.0-32.0) pg MCHC (32.0-37.0) g/dL Plt Count (140-440) 10*3/uL MPV (9.5-12.2) fL Immature Gran % (Auto) % Neutrophils % (Manual) % Band Neuts % (Manual) % Lymphocytes % (Manual) % Monocytes % (Manual) % Eosinophils % (Manual) % Immature Gran # (0.00-0.04) 10*3/uL Neutrophils # (Manual) (1.3-7.7) k/uL Lymphocytes # (Manual) (1.0-4.8) k/uL Monocytes # (Manual) (0-1.0) k/uL Eosinophils # (Manual) (0-0.7) k/uL Nucleated RBCs (0-0) /100 WBC Manual Slide Review RBC Morphology PT (10.0-12.5) sec INR (<1.2) APTT (22.0-30.0) sec D-Dimer (<0.60) mg/L FEU Sodium 139 (137-145) mmol/L Potassium 4.1 (3.5-5.1) mmol/L Chloride 81 L (98-107) mmol/L Carbon Dioxide 42 H* (22-30) mmol/L Anion Gap 16 mmol/L BUN 104 H* (9-20) mg/dL Creatinine 3.30 H (0.66-1.25) mg/dL Est GFR (CKD-EPI)AfAm 22 (>60 ml/min/1.73 sqM) Est GFR (CKD-EPI)NonAf 19 (>60 ml/min/1.73 sqM) Glucose 125 H (74-99) mg/dL POC Glucose (mg/dL) (70-110) mg/dL POC Glu Geropsychologist ID Lactic Ac Sepsis Rflx Plasma Lactic Acid Amador 3.4 H* (0.7-2.0) mmol/L Calcium 13.0 H (8.4-10.2) mg/dL Magnesium 3.1 H (1.6-2.3) mg/dL Total Bilirubin 0.4 (0.2-1.3) mg/dL AST 24 (17-59) U/L ALT 14 (4-49) U/L Alkaline Phosphatase 75 (38-126) U/L Troponin I <0.012 (0.000-0.034) ng/mL NT-Pro-B Natriuret Pep 843 pg/mL Total Protein 8.0 (6.3-8.2) g/dL Albumin 4.3 (3.5-5.0) g/dL Influenza Type A (PCR) (Not Detectd) Influenza Type B (PCR) (Not Detectd) RSV (PCR) (Not Detectd) SARS-CoV-2 (PCR) (Not Detectd) 07/01/24 07/01/24 Range/Units 22:45 23:30 WBC (4.50-10.00) 10*3/uL RBC (4.40-5.60) 10*6/uL Hgb (13.0-17.0) g/dL Hct (39.6-50.0) % MCV (80.0-97.0) fL MCH (27.0-32.0) pg MCHC (32.0-37.0) g/dL Plt Count (140-440) 10*3/uL MPV (9.5-12.2) fL Immature Gran % (Auto) % Neutrophils % (Manual) % Band Neuts % (Manual) % Lymphocytes % (Manual) % Monocytes % (Manual) % Eosinophils % (Manual) % Immature Gran # (0.00-0.04) 10*3/uL Neutrophils # (Manual) (1.3-7.7) k/uL Lymphocytes # (Manual) (1.0-4.8) k/uL Monocytes # (Manual) (0-1.0) k/uL Eosinophils # (Manual) (0-0.7) k/uL Nucleated RBCs (0-0) /100 WBC Manual Slide Review RBC Morphology PT (10.0-12.5) sec INR (<1.2) APTT (22.0-30.0) sec D-Dimer (<0.60) mg/L FEU Sodium (137-145) mmol/L Potassium (3.5-5.1) mmol/L Chloride (98-107) mmol/L Carbon Dioxide (22-30) mmol/L Anion Gap mmol/L BUN (9-20) mg/dL Creatinine (0.66-1.25) mg/dL Est GFR (CKD-EPI)AfAm (>60 ml/min/1.73 sqM) Est GFR (CKD-EPI)NonAf (>60 ml/min/1.73 sqM) Glucose (74-99) mg/dL POC Glucose (mg/dL) (70-110) mg/dL POC Glu Geropsychologist ID Lactic Ac Sepsis Rflx Y Plasma Lactic Acid Amador (0.7-2.0) mmol/L Calcium (8.4-10.2) mg/dL Magnesium (1.6-2.3) mg/dL Total Bilirubin (0.2-1.3) mg/dL AST (17-59) U/L ALT (4-49) U/L Alkaline Phosphatase (38-126) U/L Troponin I (0.000-0.034) ng/mL NT-Pro-B Natriuret Pep pg/mL Total Protein (6.3-8.2) g/dL Albumin (3.5-5.0) g/dL Influenza Type A (PCR) Not Detected (Not Detectd) Influenza Type B (PCR) Not Detected (Not Detectd) RSV (PCR) Not Detected (Not Detectd) SARS-CoV-2 (PCR) Not Detected (Not Detectd) Disposition Clinical Impression: Pneumonia Disposition: ADMITTED IP TO THIS HOSP Condition: Stable
[2024-07-01] MEDS: LACTATED RINGERS 1,000 ML IV SCH ×2 (23:01→23:03)
[2024-07-01 23:15] LABS: ALT 14 U/L (4-49); AST 24 U/L (17-59); African American GFR (CKD) 22 (>60 ml/min/1.73 sqM); Albumin 4.3 g/dL (3.5-5.0); Alkaline Phosphatase 75 U/L (38-126); Chloride 81 mmol/L (98-107); Glucose 125 mg/dL (74-99); Magnesium 3.1 mg/dL (1.6-2.3); Non-African American GFR(CKD) 19 (>60 ml/min/1.73 sqM); Potassium 4.1 mmol/L (3.5-5.1); Sodium 139 mmol/L (137-145); Total Bilirubin 0.4 mg/dL (0.2-1.3)
[2024-07-01 23:16] LABS: Partial Thromboplastin Time 22.2 sec (22.0-30.0); Prothrombin Time 10.7 sec (10.0-12.5)
[2024-07-01 23:21] LABS: Anion Gap 16 mmol/L
[2024-07-01 23:23] LABS: NT-Pro-B-Type Natriuretic Pept 843 pg/mL
[2024-07-01 23:28] LABS: HCT 28.4 % (39.6-50.0); HGB 9.1 g/dL (13.0-17.0); MCH 27.6 pg (27.0-32.0); MCV 86.1 fL (80.0-97.0); Mean Platelet Volume 10.3 fL (9.5-12.2); Platelet Count 449 10*3/uL (140-440); RDW 14.9 % (11.5-14.5); WBC 34.86 10*3/uL (4.50-10.00)
[2024-07-01 23:29] LABS: Blood Urea Nitrogen 104 mg/dL (9-20); Carbon Dioxide 42 mmol/L (22-30)
[2024-07-01 23:38] LABS: Influenza A Not Detected (Not Detectd); Influenza B Not Detected (Not Detectd); RSV Not Detected (Not Detectd)
--- NOTE | 2024-07-01 23:51 | XR ---
EXAM: XR Chest, 1 View CLINICAL HISTORY: ITS.REASON XR Reason: dyspnea TECHNIQUE: Frontal view of the chest. COMPARISON: May 27, 2024 FINDINGS: Lungs: Mild airspace consolidation in the RIGHT midlung field, concerning for pneumonia. This is new when compared to May 27, 2024. This should be followed up to resolution. Improving RIGHT middle lobe pneumonia identified on May 27, 2024. Atelectasis at the LEFT lung base. Pleural space: Unremarkable. No pneumothorax. Heart: Unremarkable. No cardiomegaly. Mediastinum: Unremarkable. Bones/joints: Unremarkable. IMPRESSION: 1. Mild airspace consolidation in the RIGHT midlung field, concerning for pneumonia. New when compared to May 27, 2024. This should be followed up to resolution. 2. Improving RIGHT middle lobe pneumonia identified on May 27, 2024.
[2024-07-02] MEDS: PIPERACILLIN-TAZOBACTAM 3.375 GM in SODIUM CHLORIDE 0.9% 100 ML IVPB SCH ×2 (00:15→00:23)
[2024-07-02 01:37] LABS: Band Neutrophils % 1 %; Eosinophils # (M) 0.35 k/uL (0-0.7); Lymphocytes # (M) 1.39 k/uL (1.0-4.8); Monocytes # (M) 1.39 k/uL (0-1.0); Neutrophils # (M) 32.07 k/uL (1.3-7.7); Neutrophils % (M) 91 %; Nucleated Red Blood Cells 0 /100 WBC (0-0); Total Cells Counted 200
[2024-07-02 01:41] LABS: RBC Morphology Normal
[2024-07-02 03:51] LABS: Appearance,Urine Clear (Clear); Bacteria,Urine Rare /hpf; Bilirubin,Urine Negative (Negative); Blood,Urine Negative (Negative); Color,Urine Colorless; Glucose,Urine (UA) Negative (Negative); Hyaline Casts,Urine 15 /lpf (0-2); Ketones,Urine Negative (Negative); Leukocyte Esterase,Urine Negative (Negative); Mucus,Urine Rare /hpf; Nitrite,Urine Negative (Negative); Protein,Urine 1+ (Negative); RBC,Urine 1 /hpf (0-5); Specific Gravity,Urine 1.011 (1.001-1.035); Squamous Epithelial Cell,Urine <1 /hpf (0-4); Urobilinogen,Urine <2.0 mg/dL (<2.0); WBC,Urine 10 /hpf (0-5)
[2024-07-02] MEDS ORDERED: AZITHROMYCIN 500 MG in SODIUM CHLORIDE 0.9% 250 ML IVPB SCH (09:00)
[2024-07-02] MEDS: PANTOPRAZOLE 40 MG/10 ML VIAL IV SCH (12:17)
--- NOTE | 2024-07-02 14:34 | P.CNPUL ---
History of Present Illness Consult date: 07/02/24 Requesting physician: Suman Ortiz Jr Reason for consult: dyspnea, cough Chief complaint: Shortness of breath, patient has been falling at home. History of present illness: This is a 63-year-old white male with known history of squamous cell carcinoma of the head and neck, history of congestive heart failure, recent history of pneumonia treated on outpatient basis,, his sputum was positive for Pseudomonas pneumonia, and he received treatment in the form of Levaquin on outpatient basis. However the patient was brought into the ER yesterday with mostly symptoms of cough, congestion, shortness of breath, and his chest x-ray showed evidence of resolving a right lower lobe infiltrate, actually improved compared to a chest x-ray he had a week ago. But not completely resolved. Considering his symptoms and considering his clinical history, patient is being admitted, and I saw him in consultation. Reviewed sensitivity on his Pseudomonas, and I suggested we treat the patient with Zosyn. Patient was noted to have leukocytosis with WBC count of 34.86 hemoglobin 9.1 his PMNs were 91%, patient had relatively normal electrolytes except for bicarb of 42 which is related to chronic hypercapnia BUN 104 and creatinine 3.30 worsening creatinine compared to recent creatinine of 2.6 and baseline only few months ago was 1.05. Obviously the patient is developing acute kidney disease/acute kidney injury. Patient had negative screen for influenza RSV and COVID-19. Review of Systems REVIEW OF SYSTEMS: CONSTITUTIONAL: Positive weight loss EYES: Denies change in vision. EARS, NOSE, MOUTH, THROAT: Denies headaches, denies sore throat. CARDIOVASCULAR: Denies chest pain, palpitations or syncopal episodes. RESPIRATORY: As noted in HPI GASTROINTESTINAL: Denies change in appetite, denies abdominal pain GENITOURINARY: Denies hematuria, denies infections. MUSKULOSKELETAL: Denies pain, denies swelling. INTEGUMENTARY: Denies rash, denies eczema. NEUROLOGICAL: Denies recent memory loss, no recent seizure activity. PSYCHIATRIC: Denies anxiety, denies depression. HEMATOLOGIC/LYMPHATIC: Denies anemia, denies enlarged lymph nodes. Past Medical History Past Medical History: Cancer, Heart Failure, COPD, Hypertension, Memory Impairment, Pneumonia, Seizure Disorder, Thyroid Disorder Additional Past Medical History / Comment(s): currently on palliative care now, lives with son and dtr n law, A & O x3,signs own consents but asks dtr n law to help sign or to sign for him at times. Hx neck cancer in 2010, had surgery, chemo and radiation, peg tube place 2021 for difficulty w/ swallowing and aspira tion pneumonia,last seizure months ago-dtr n law not sure of exact date,hypotensive now no longer hypertensive,uses O2 @ 3 L [place] ATC, uses walker History of Any Multi-Drug Resistant Organisms: None Reported Past Surgical History: Tonsillectomy Additional Past Surgical History / Comment(s): Lymph node removal, thyroidectomy, radical tonsil dissection. peg tube Past Anesthesia/Blood Transfusion Reactions: No Reported Reaction Additional Past Anesthesia/Blood Transfusion Reaction / Comment(s): no hx blood transfusion Past Psychological History: Anxiety Smoking Status: Former smoker Past Alcohol Use History: None Reported Past Drug Use History: None Reported - Past Family History Mother Family Medical History: Cancer, Pneumonia Additional Family Medical History / Comment(s): from lung cancer and pneumonia. Father Family Medical History: Cancer, Prostate Disorder Additional Family Medical History / Comment(s): Prostatectomy due to Prostate Cancer. Sister(s) Family Medical History: Cancer Additional Family Medical History / Comment(s): Breast Cancer. Brother(s) Family Medical History: Cancer Additional Family Medical History / Comment(s): 2 BROTHERS FROM CANCER Medications and Allergies Home Medications Medication Instructions Recorded Confirmed Type Levothyroxine Sodium 100 mcg PEG/G-TUBE DAILY #30 tab 09/07/23 07/02/24 Rx Metoclopramide [Reglan] 10 mg PEG/G-TUBE TID 02/19/24 07/02/24 History levETIRAcetam [Keppra] 250 mg PEG/G-TUBE Q12HR 02/19/24 07/02/24 History Azithromycin [Zithromax] 250 mg PEG/G-TUBE DIRECTED 07/02/24 07/02/24 History Calcium Phos/D3/Magnesium/Zinc 1 tab PEG/G-TUBE DAILY 07/02/24 07/02/24 History [Ovghsua-Ocy-Odtg-Vitamin D3] Folic Acid 1 mg PEG/G-TUBE DAILY 07/02/24 07/02/24 History Midodrine HCl 2.5 mg PEG/G-TUBE Q8H 07/02/24 07/02/24 History Saliva Stimulant Comb. No.3 1 spray MUCOUS MEM DAILY PRN 07/02/24 07/02/24 History [Biotene Moisturizing Mouth] Sodium Chloride [[place]] 1 spray EA NOSTRIL DAILY PRN 07/02/24 07/02/24 History Vitamin B Complex 1 cap PEG/G-TUBE DAILY 07/02/24 07/02/24 History predniSONE 5 mg PEG/G-TUBE DAILY 07/02/24 07/02/24 History Allergies Allergy/AdvReac Type Severity Reaction Status Date / Time No Known Allergies Allergy Verified 07/02/24 10:34 Physical Exam Vitals: Vital Signs Temp Pulse Resp BP Pulse Ox 07/02/24 13:48 98 F 96 22 127/79 97 07/02/24 12:00 95 20 117/70 99 07/02/24 10:00 105 H 18 115/57 98 07/02/24 05:28 97.8 F 98 17 106/61 99 07/02/24 03:38 106 H 17 130/84 99 07/01/24 23:43 126 H 17 97/64 92 L 07/01/24 23:06 137 H 17 92/64 90 L 07/01/24 22:50 140 H 24 136/101 96 07/01/24 22:36 20 07/01/24 22:16 98.2 F 150 H 30 H 110/72 77 L Intake and Output 07/01/24 07/02/24 07/02/24 22:59 06:59 14:59 Other: Weight 51.256 kg GENERAL EXAM: 63-year-old male, resting in bed, on 3 L nasal cannula, O2 sat is 97% HEAD: Normocephalic. EYES: Normal reaction of pupils, equal size. NOSE: Clear with pink turbinates. THROAT: No erythema or exudates. NECK: No masses, no JVD. CHEST: No chest wall deformity. LUNGS: Crackles at the bases no rhonchi or wheezes CVS: S1 and S2 normal with no audible murmur, regular rhythm. ABDOMEN: PEG tube exit site clean and dry. No hepatosplenomegaly, normal bowel sounds, no guarding or rigidity. SKIN: No rashes CENTRAL NERVOUS SYSTEM: Alert and oriented x 3 no gross focal deficits EXTREMITIES: No clubbing, edema or cyanosis. Results - Laboratory Findings CBC and BMP: 07/01/24 22:45 07/01/24 22:45 PT/INR, D-dimer PT 10.7 sec (10.0-12.5) 07/01/24 22:45 INR 1.0 (<1.2) 07/01/24 22:45 D-Dimer 1.04 mg/L FEU (<0.60) H 07/01/24 22:45 Abnormal lab findings: Abnormal Labs 07/01/24 07/01/24 07/01/24 22:42 22:45 22:45 WBC 34.86 H RBC 3.30 L Hgb 9.1 L Hct 28.4 L Plt Count 449 H Immature Gran # 0.53 H Neutrophils # (Manual) 32.07 H Monocytes # (Manual) 1.39 H D-Dimer 1.04 H Chloride Carbon Dioxide BUN Creatinine Glucose POC Glucose (mg/dL) 140 H Plasma Lactic Acid Amador Calcium Magnesium Urine Protein Urine WBC Urine Bacteria Hyaline Casts Urine Mucus 07/01/24 07/01/24 07/02/24 22:45 22:45 01:46 WBC RBC Hgb Hct Plt Count Immature Gran # Neutrophils # (Manual) Monocytes # (Manual) D-Dimer Chloride 81 L Carbon Dioxide 42 H* BUN 104 H* Creatinine 3.30 H Glucose 125 H POC Glucose (mg/dL) Plasma Lactic Acid Amador 3.4 H* 3.3 H* Calcium 13.0 H Magnesium 3.1 H Urine Protein Urine WBC Urine Bacteria Hyaline Casts Urine Mucus 07/02/24 07/02/24 03:32 06:19 WBC RBC Hgb Hct Plt Count Immature Gran # Neutrophils # (Manual) Monocytes # (Manual) D-Dimer Chloride Carbon Dioxide BUN Creatinine Glucose POC Glucose (mg/dL) Plasma Lactic Acid Amador 2.2 H* Calcium Magnesium Urine Protein 1+ H Urine WBC 10 H Urine Bacteria Rare H Hyaline Casts 15 H Urine Mucus Rare H - Diagnostic Findings Chest x-ray: image reviewed (As noted in HPI suspicious for right lower lobe pneumonia however improving compared to chest x-ray done a week ago.) Assessment and Plan Assessment: Impression: Acute right lower lobe pneumonia secondary to Pseudomonas aeruginosa Leukocytosis secondary to above Benign essential hypertension History of thyroid cancer/previous thyroidectomy Anemia of chronic disease Acute kidney injury, most likely medications induced History of head and neck cancer in 2010 History of underlying COPD Former smoker Benign essential hypertension Recommendation: Continue antibiotics/Zosyn Infectious disease consultation is pending Continue GI prophylaxis Discontinue Rocephin since we are ready now that the patient clearly has pseudomonal infection based on recent sputum culture, Pseudomonas was sensitive to Zosyn, sensitive to Levaquin and ciprofloxacin but resistant to other antibiotics. DuoNeb updrafts 4 times daily and as needed Avoid nephrotoxic drugs Nephrology to see in consultation Will continue to follow Time with Patient: Greater than 30
[2024-07-02] MEDS: predniSONE 5 MG TAB PO SCH (15:32)
[2024-07-02] MEDS: IPRATROPIUM-ALBUTEROL 3 ML NEB INHALATION SCH (15:47)
[2024-07-02] MEDS ORDERED: SODIUM CHLORIDE 0.65% NASAL SPRAY 44 ML BTL NASAL PRN (15:51)
--- NOTE | 2024-07-02 16:25 | P.HPIM ---
History of Present Illness H&P Date: 07/02/24 Chief Complaint: Shortness of breath., Hypoxia Patient presented to the office on 07/02/2019 complaining of shortness of breath had an elevated White count of 24,000 which was performed yesterday, Pseudomonas was cultured from the sputum. Patient complains of left-sided chest pain and persistent cough question known history of squamous cell carcinoma of the thyroid. Status post commando procedure of the neck patient is unable to regard his airway and is not obligate tube feeder Review of Systems Constitutional: Reports anorexia, Reports malaise, Reports weakness, Reports weight loss Ears, nose, mouth and throat: Reports as per HPI Cardiovascular: Reports as per HPI Respiratory: Reports congestion, Reports cough, Reports cough with sputum, Re ports dyspnea, Reports excessive sputum Gastrointestinal: Reports as per HPI Genitourinary: Reports as per HPI Musculoskeletal: Reports as per HPI (Chest wall psychology and this is why seen population with 7-week genetics genetic there is no government contracts anywhere you go) Integumentary: Reports as per HPI (Manage) Neurological: Reports as per HPI Psychiatric: Reports as per HPI Endocrine: Reports as per HPI, Reports cold intolerance Hematologic/Lymphatic: Reports as per HPI Allergic/Immunologic: Reports as per HPI Past Medical History Past Medical History: Cancer, Heart Failure, COPD, Hypertension, Memory Impairment, Pneumonia, Seizure Disorder, Thyroid Disorder Additional Past Medical History / Comment(s): currently on palliative care now, lives with son and dtr n law, A & O x3,signs own consents but asks dtr n law to help sign or to sign for him at times. Hx neck cancer in 2010, had surgery, chemo and radiation, peg tube place 2021 for difficulty w/ swallowing and aspiration pneumonia,last seizure months ago-dtr n law not sure of exact date,hypotensive now no longer hypertensive,uses O2 @ 3 L [place] ATC, uses walker History of Any Multi-Drug Resistant Organisms: None Reported Past Surgical History: Tonsillectomy Additional Past Surgical History / Comment(s): Lymph node removal, thyroidectomy, radical tonsil dissection. peg tube Past Anesthesia/Blood Transfusion Reactions: No Reported Reaction Additional Past Anesthesia/Blood Transfusion Reaction / Comment(s): no hx blood transfusion Past Psychological History: Anxiety Smoking Status: Former smoker Past Alcohol Use History: None Reported Additional Past Alcohol Use History / Comment(s): Quit smoking April 2021. Past Drug Use History: None Reported Additional Drug Use History / Comment(s): Smokes 2-3 joints of Marijuana daily - Past Family History Mother Family Medical History: Cancer, Pneumonia Additional Family Medical History / Comment(s): from lung cancer and pneumonia. Father Family Medical History: Cancer, Prostate Disorder Additional Family Medical History / Comment(s): Prostatectomy due to Prostate Cancer. Sister(s) Family Medical History: Cancer Additional Family Medical History / Comment(s): Breast Cancer. Brother(s) Family Medical History: Cancer Additional Family Medical History / Comment(s): 2 BROTHERS FROM CANCER Medications and Allergies Home Medications Medication Instructions Recorded Confirmed Type Levothyroxine Sodium 100 mcg PEG/G-TUBE DAILY #30 tab 09/07/23 07/02/24 Rx Metoclopramide [Reglan] 10 mg PEG/G-TUBE TID 02/19/24 07/02/24 History levETIRAcetam [Keppra] 250 mg PEG/G-TUBE Q12HR 02/19/24 07/02/24 History Azithromycin [Zithromax] 250 mg PEG/G-TUBE DIRECTED 07/02/24 07/02/24 History Calcium Phos/D3/Magnesium/Zinc 1 tab PEG/G-TUBE DAILY 07/02/24 07/02/24 History [Rheksvv-Xrr-Fhpz-Vitamin D3] Folic Acid 1 mg PEG/G-TUBE DAILY 07/02/24 07/02/24 History Midodrine HCl 2.5 mg PEG/G-TUBE Q8H 07/02/24 07/02/24 History Saliva Stimulant Comb. No.3 1 spray MUCOUS MEM DAILY PRN 07/02/24 07/02/24 History [Biotene Moisturizing Mouth] Sodium Chloride [[place]] 1 spray EA NOSTRIL DAILY PRN 07/02/24 07/02/24 History Vitamin B Complex 1 cap PEG/G-TUBE DAILY 07/02/24 07/02/24 History predniSONE 5 mg PEG/G-TUBE DAILY 07/02/24 07/02/24 History Allergies Allergy/AdvReac Type Severity Reaction Status Date / Time No Known Allergies Allergy Verified 07/02/24 10:34 Physical Exam Osteopathic Statement: *. No significant issues noted on an osteopathic structural exam other than those noted in the History and Physical/Consult. Vitals: Vital Signs Temp Pulse Resp BP Pulse Ox 07/02/24 15:58 101 H 07/02/24 15:48 100 07/02/24 15:47 103 H 07/02/24 13:48 98 F 96 22 127/79 97 07/02/24 12:00 95 20 117/70 99 07/02/24 10:00 105 H 18 115/57 98 07/02/24 05:28 97.8 F 98 17 106/61 99 07/02/24 03:38 106 H 17 130/84 99 07/01/24 23:43 126 H 17 97/64 92 L 07/01/24 23:06 137 H 17 92/64 90 L 07/01/24 22:50 140 H 24 136/101 96 07/01/24 22:36 20 07/01/24 22:16 98.2 F 150 H 30 H 110/72 77 L Intake and Output 07/02/24 07/02/24 07/02/24 06:59 14:59 22:59 Other: Weight 51.256 kg General: [Patient awake, alert and oriented times 3. Patient in no acute distress.] HEENT: [PERRL. EOMI. No pharyngeal erythema or exudate. Status post commando procedure of the neck Neck: [No adenopathy.] Cardiac: [Heart regular in rate and rhythm. No S3. No S4. No clicks, rubs. No murmur.] Lungs: [Clear to auscultation bilaterally.] Abdomen: [No mass. No organomegaly. Bowel sounds presnt and normoactive in all 4 quadrants. J-tube for feeding Extremes: [No edema no cyanosis no claudication normal pulses] : Normal male genitalia Musculoskeletal: [No joint erythema, edema or tenderness.] Skin: [No rash.] Neurologic: [No lateralizing deficits. CN II - XII grossly intact.] Lymphatic: [No adenopathy.] Results CBC & Chem 7: 07/01/24 22:45 07/01/24 22:45 Labs: Abnormal Lab Results - Last 24 Hours (Table) 07/01/24 07/01/24 07/01/24 Range/Units 22:42 22:45 22:45 WBC 34.86 H (4.50-10.00) 10*3/uL RBC 3.30 L (4.40-5.60) 10*6/uL Hgb 9.1 L (13.0-17.0) g/dL Hct 28.4 L (39.6-50.0) % Plt Count 449 H (140-440) 10*3/uL Immature Gran # 0.53 H (0.00-0.04) 10*3/uL Neutrophils # (Manual) 32.07 H (1.3-7.7) k/uL Monocytes # (Manual) 1.39 H (0-1.0) k/uL D-Dimer 1.04 H (<0.60) mg/L FEU Chloride (98-107) mmol/L Carbon Dioxide (22-30) mmol/L BUN (9-20) mg/dL Creatinine (0.66-1.25) mg/dL Glucose (74-99) mg/dL POC Glucose (mg/dL) 140 H (70-110) mg/dL Plasma Lactic Acid Amador (0.7-2.0) mmol/L Calcium (8.4-10.2) mg/dL Magnesium (1.6-2.3) mg/dL Urine Protein (Negative) Urine WBC (0-5) /hpf Urine Bacteria (None) /hpf Hyaline Casts (0-2) /lpf Urine Mucus (None) /hpf 07/01/24 07/01/24 07/02/24 Range/Units 22:45 22:45 01:46 WBC (4.50-10.00) 10*3/uL RBC (4.40-5.60) 10*6/uL Hgb (13.0-17.0) g/dL Hct (39.6-50.0) % Plt Count (140-440) 10*3/uL Immature Gran # (0.00-0.04) 10*3/uL Neutrophils # (Manual) (1.3-7.7) k/uL Monocytes # (Manual) (0-1.0) k/uL D-Dimer (<0.60) mg/L FEU Chloride 81 L (98-107) mmol/L Carbon Dioxide 42 H* (22-30) mmol/L BUN 104 H* (9-20) mg/dL Creatinine 3.30 H (0.66-1.25) mg/dL Glucose 125 H (74-99) mg/dL POC Glucose (mg/dL) (70-110) mg/dL Plasma Lactic Acid Amador 3.4 H* 3.3 H* (0.7-2.0) mmol/L Calcium 13.0 H (8.4-10.2) mg/dL Magnesium 3.1 H (1.6-2.3) mg/dL Urine Protein (Negative) Urine WBC (0-5) /hpf Urine Bacteria (None) /hpf Hyaline Casts (0-2) /lpf Urine Mucus (None) /hpf 07/02/24 07/02/24 Range/Units 03:32 06:19 WBC (4.50-10.00) 10*3/uL RBC (4.40-5.60) 10*6/uL Hgb (13.0-17.0) g/dL Hct (39.6-50.0) % Plt Count (140-440) 10*3/uL Immature Gran # (0.00-0.04) 10*3/uL Neutrophils # (Manual) (1.3-7.7) k/uL Monocytes # (Manual) (0-1.0) k/uL D-Dimer (<0.60) mg/L FEU Chloride (98-107) mmol/L Carbon Dioxide (22-30) mmol/L BUN (9-20) mg/dL Creatinine (0.66-1.25) mg/dL Glucose (74-99) mg/dL POC Glucose (mg/dL) (70-110) mg/dL Plasma Lactic Acid Amador 2.2 H* (0.7-2.0) mmol/L Calcium (8.4-10.2) mg/dL Magnesium (1.6-2.3) mg/dL Urine Protein 1+ H (Negative) Urine WBC 10 H (0-5) /hpf Urine Bacteria Rare H (None) /hpf Hyaline Casts 15 H (0-2) /lpf Urine Mucus Rare H (None) /hpf Thrombosis Risk Factor Assmnt - DVT/VTE Prophylaxis DVT/VTE Prophylaxis: Pharmacologic Prophylaxis ordered - Choose All That Apply Any of the Below Risk Factors Present?: Yes Each Factor Represents 1 point: Abnormal pulmonary function (COPD) Other Risk Factors: Yes Each Risk Factor Represents 2 Points: Age 61-74 years, Malignancy Other congenital or acquired thrombophilia - If yes, enter type in comment: No Thrombosis Risk Factor Assessment Total Risk Factor Score: 5 Thrombosis Risk Factor Assessment Level: High Risk Assessment and Plan (1) Pneumonia Current Visit: Yes Status: Acute Code(s): J18.9 - PNEUMONIA, UNSPECIFIED ORGANISM SNOMED Code(s): 786865687 (2) Anemia Current Visit: No Status: Acute Code(s): D64.9 - ANEMIA, UNSPECIFIED SNOMED Code(s): 751488367 (3) Aspiration pneumonia Current Visit: No Status: Acute Code(s): J69.0 - PNEUMONITIS DUE TO INHALATION OF FOOD AND VOMIT SNOMED Code(s): 474579600 (4) COPD (chronic obstructive pulmonary disease) Current Visit: No Status: Acute Code(s): J44.9 - CHRONIC OBSTRUCTIVE PULMONARY DISEASE, UNSPECIFIED SNOMED Code(s): 40238694 (5) Chest pain Current Visit: No Status: Acute Code(s): R07.9 - CHEST PAIN, UNSPECIFIED SNOMED Code(s): 32327991 (6) Dysphagia Current Visit: No Status: Acute Code(s): R13.10 - DYSPHAGIA, UNSPECIFIED SNOMED Code(s): 67440593 (7) Elevated lipase Current Visit: No Status: Acute Code(s): R74.8 - ABNORMAL LEVELS OF OTHER SERUM ENZYMES SNOMED Code(s): 136896590 (8) Essential (primary) hypertension Current Visit: No Status: Acute Code(s): I10 - ESSENTIAL (PRIMARY) HYPERTENSION SNOMED Code(s): 08231448 (9) H/O malignant neoplasm of head and neck Current Visit: No Status: Acute Code(s): Z85.89 - PERSONAL HISTORY OF MALIGNANT NEOPLASM OF ORGANS AND SYSTEMS SNOMED Code(s): 012889069 Plan: Continue Zosyn Infectious disease consultation Pulmonary medicine consultation Continue GI prophylaxis Antibiotics per pulmonary and/or infectious disease Duomed updrafts 4 times daily Avoid nephrotoxic drugs Nephrology consultation Time with Patient: Greater than 30
[2024-07-02 17:22] LABS: Glucose,Whole Blood 116 mg/dL (70-110)
[2024-07-02] MEDS: MIDODRINE 5 MG TAB PEG/G-TUBE SCH (17:29)
[2024-07-02] MEDS: METOCLOPRAMIDE 10 MG TAB PEG/G-TUBE SCH (17:29)
--- NOTE | 2024-07-02 17:35 | NM ---
EXAMINATION TYPE: NM pul perfusion DATE OF EXAM: 07/02/2024 COMPARISON: NONE CLINICAL INDICATION: Male, 63 years old with history of SOB, + d-dimer; Following administration of 5.2 mCi Tc 99m MAA. Images obtained post injection. FINDINGS: Homogeneous distribution of radiotracer on this perfusion only study. IMPRESSION: Very low probability for pulmonary embolism. [facility], , 07/02/2024 5:33 PM
[2024-07-02] MEDS: levETIRAcetam 250 MG TAB PEG/G-TUBE SCH (21:19)
--- NOTE | 2024-07-02 22:57 | P.CONS ---
History of Present Illness - Reason for Consult Consult date: 07/02/24 Sepsis Requesting physician: Ganesh Camara - Chief Complaint Shortness of breath and cough x few days - History of Present Illness Patient is a 63-year-old male with a past medical history significant for squamous cell cancer of the head and neck, Heart Failure, COPD, Hypertension, Memory Impairment, Pneumonia, Seizure Disorder, Thyroid Disorder presented to the hospital for evaluation of worsening shortness of breath and cough that apparently has been getting worse for the last few days patient complaining of shortness of breath on minimal exertion even at rest patient also have a cough which is moderate intensity and is bringing up some sputum denies a ny hemoptysis or pleuritic chest pain patient recently did have a culture done in the outpatient setting that was positive for Pseudomonas with concern for possible developing sepsis the patient is advised to go to the hospital on arrival to the ER the patient was afebrile no fever have been recorded subsequently patient was mildly tachycardic but not hypotensive he is hypoxic currently on 3 L nasal cannula oxygen patient did have morning of 34.86 creatinine 3.30 liver enzymes normal urine has been negative patient did have a chest x-ray airspace consolidation in the right midlung patient was started on Zosyn he also received Rocephin and Zithromax in the ER infectious disease was consulted for further management of antibiotic therapy Review of Systems Positive point and negatives has been mentioned in the HPI, complete review of systems was performed and all other systems are negative Past Medical History Past Medical History: Cancer, Heart Failure, COPD, Hypertension, Memory Impairment, Pneumonia, Seizure Disorder, Thyroid Disorder Additional Past Medical History / Comment(s): currently on palliative care now, lives with son and dtr n law, A & O x3,signs own consents but asks dtr n law to help sign or to sign for him at times. Hx neck cancer in 2010, had surgery, chemo and radiation, peg tube place 2021 for difficulty w/ swallowing and aspiration pneumonia,last seizure months ago-dtr n law not sure of exact date,hypotensive now no longer hypertensive,uses O2 @ 3 L NC ATC, uses walker History of Any Multi-Drug Resistant Organisms: None Reported Past Surgical History: Tonsillectomy Additional Past Surgical History / Comment(s): Lymph node removal, thyroidectomy, radical tonsil dissection. peg tube Past Anesthesia/Blood Transfusion Reactions: No Reported Reaction Additional Past Anesthesia/Blood Transfusion Reaction / Comm: no hx blood transfusion Past Psychological History: Anxiety Smoking Status: Former smoker Past Alcohol Use History: None Reported Past Drug Use History: None Reported - Past Family History Mother Family Medical History: Cancer, Pneumonia Additional Family Medical History / Comment(s): from lung cancer and pneumonia. Father Family Medical History: Cancer, Prostate Disorder Additional Family Medical History / Comment(s): Prostatectomy due to Prostate Cancer. Sister(s) Family Medical History: Cancer Additional Family Medical History / Comment(s): Breast Cancer. Brother(s) Family Medical History: Cancer Additional Family Medical History / Comment(s): 2 BROTHERS FROM CANCER Medications and Allergies Home Medications Medication Instructions Recorded Confirmed Type Levothyroxine Sodium 100 mcg PEG/G-TUBE DAILY #30 tab 09/07/23 07/02/24 Rx Metoclopramide [Reglan] 10 mg PEG/G-TUBE TID 02/19/24 07/02/24 History levETIRAcetam [Keppra] 250 mg PEG/G-TUBE Q12HR 02/19/24 07/02/24 History Azithromycin [Zithromax] 250 mg PEG/G-TUBE DIRECTED 07/02/24 07/02/24 History Calcium Phos/D3/Magnesium/Zinc 1 tab PEG/G-TUBE DAILY 07/02/24 07/02/24 History [Rtwlfor-Gai-Sqew-Vitamin D3] Folic Acid 1 mg PEG/G-TUBE DAILY 07/02/24 07/02/24 History Midodrine HCl 2.5 mg PEG/G-TUBE Q8H 07/02/24 07/02/24 History Saliva Stimulant Comb. No.3 1 spray MUCOUS MEM DAILY PRN 07/02/24 07/02/24 History [Biotene Moisturizing Mouth] Sodium Chloride [[place]] 1 spray EA NOSTRIL DAILY PRN 07/02/24 07/02/24 History Vitamin B Complex 1 cap PEG/G-TUBE DAILY 07/02/24 07/02/24 History predniSONE 5 mg PEG/G-TUBE DAILY 07/02/24 07/02/24 History Allergies Allergy/AdvReac Type Severity Reaction Status Date / Time No Known Allergies Allergy Verified 07/02/24 10:34 Physical Exam Vitals: Vital Signs Temp Pulse Resp BP Pulse Ox 07/02/24 05:28 97.8 F 98 17 106/61 99 07/02/24 03:38 106 H 17 130/84 99 07/01/24 23:43 126 H 17 97/64 92 L 07/01/24 23:06 137 H 17 92/64 90 L 07/01/24 22:50 140 H 24 136/101 96 07/01/24 22:36 20 07/01/24 22:16 98.2 F 150 H 30 H 110/72 77 L Intake and Output 07/01/24 07/01/24 07/02/24 14:59 22:59 06:59 Other: Weight 51.256 kg GENERAL DESCRIPTION: Middle-age male llying in bed, no distress. No tachypnea or accessory muscle of respiration use. HEENT: Shows Pallor , no scleral icterus. Oral mucous membrane is dry. NECK: Trachea central, no thyromegaly. LUNGS: Unlabored breathing. Coarse breath sounds bilaterally HEART: S1, S2, regular rate and rhythm. No loud murmur ABDOMEN: Soft, no tenderness , EXTREMITIES: No edema of feet. SKIN: No rash, no masses palpable. NEUROLOGICAL: The patient is awake, alert, oriented x3, mood and affect normal. Results CBC & Chem 7: 07/01/24 22:45 07/01/24 22:45 Labs: Abnormal Lab Results - Last 24 Hours (Table) 07/01/24 07/01/24 07/01/24 Range/Units 22:42 22:45 22:45 WBC 34.86 H (4.50-10.00) 10*3/uL RBC 3.30 L (4.40-5.60) 10*6/uL Hgb 9.1 L (13.0-17.0) g/dL Hct 28.4 L (39.6-50.0) % Plt Count 449 H (140-440) 10*3/uL Immature Gran # 0.53 H (0.00-0.04) 10*3/uL Neutrophils # (Manual) 32.07 H (1.3-7.7) k/uL Monocytes # (Manual) 1.39 H (0-1.0) k/uL D-Dimer 1.04 H (<0.60) mg/L FEU Chloride (98-107) mmol/L Carbon Dioxide (22-30) mmol/L BUN (9-20) mg/dL Creatinine (0.66-1.25) mg/dL Glucose (74-99) mg/dL POC Glucose (mg/dL) 140 H (70-110) mg/dL Plasma Lactic Acid Amador (0.7-2.0) mmol/L Calcium (8.4-10.2) mg/dL Magnesium (1.6-2.3) mg/dL Urine Protein (Negative) Urine WBC (0-5) /hpf Urine Bacteria (None) /hpf Hyaline Casts (0-2) /lpf Urine Mucus (None) /hpf 07/01/24 07/01/24 07/02/24 Range/Units 22:45 22:45 01:46 WBC (4.50-10.00) 10*3/uL RBC (4.40-5.60) 10*6/uL Hgb (13.0-17.0) g/dL Hct (39.6-50.0) % Plt Count (140-440) 10*3/uL Immature Gran # (0.00-0.04) 10*3/uL Neutrophils # (Manual) (1.3-7.7) k/uL Monocytes # (Manual) (0-1.0) k/uL D-Dimer (<0.60) mg/L FEU Chloride 81 L (98-107) mmol/L Carbon Dioxide 42 H* (22-30) mmol/L BUN 104 H* (9-20) mg/dL Creatinine 3.30 H (0.66-1.25) mg/dL Glucose 125 H (74-99) mg/dL POC Glucose (mg/dL) (70-110) mg/dL Plasma Lactic Acid Amador 3.4 H* 3.3 H* (0.7-2.0) mmol/L Calcium 13.0 H (8.4-10.2) mg/dL Magnesium 3.1 H (1.6-2.3) mg/dL Urine Protein (Negative) Urine WBC (0-5) /hpf Urine Bacteria (None) /hpf Hyaline Casts (0-2) /lpf Urine Mucus (None) /hpf 07/02/24 Range/Units 03:32 WBC (4.50-10.00) 10*3/uL RBC (4.40-5.60) 10*6/uL Hgb (13.0-17.0) g/dL Hct (39.6-50.0) % Plt Count (140-440) 10*3/uL Immature Gran # (0.00-0.04) 10*3/uL Neutrophils # (Manual) (1.3-7.7) k/uL Monocytes # (Manual) (0-1.0) k/uL D-Dimer (<0.60) mg/L FEU Chloride (98-107) mmol/L Carbon Dioxide (22-30) mmol/L BUN (9-20) mg/dL Creatinine (0.66-1.25) mg/dL Glucose (74-99) mg/dL POC Glucose (mg/dL) (70-110) mg/dL Plasma Lactic Acid Amador (0.7-2.0) mmol/L Calcium (8.4-10.2) mg/dL Magnesium (1.6-2.3) mg/dL Urine Protein 1+ H (Negative) Urine WBC 10 H (0-5) /hpf Urine Bacteria Rare H (None) /hpf Hyaline Casts 15 H (0-2) /lpf Urine Mucus Rare H (None) /hpf Assessment and Plan (1) Pseudomonas aeruginosa infection Current Visit: Yes Status: Acute Code(s): A49.8 - OTHER BACTERIAL INFECTIONS OF UNSPECIFIED SITE SNOMED Code(s): 57537555 (2) Pneumonia Current Visit: Yes Status: Acute Code(s): J18.9 - PNEUMONIA, UNSPECIFIED ORGANISM SNOMED Code(s): 379318474 (3) Sepsis Current Visit: Yes Status: Acute Code(s): A41.9 - SEPSIS, UNSPECIFIED ORGANISM SNOMED Code(s): 52709329 Plan: 1patient presented to hospital with sepsis in this patient who did have elevated white count tachycardia meeting criteria for SIRS source is right midlung pneumonia in this patient who recently did have an outpatient culture positive for Pseudomonas aeruginosa to the likely pathogen 2patient with elevated white count more likely related to pneumonia 3elevated creatinine high risk of nephrotoxicity 4patient be treated with Zosyn 3.375 g every 8 hours repeat culture have been requested We will follow on clinical condition and cultures to further adjust medication if needed Thank you for this consultation we will follow the patient along with you Dictation was produced using [employer] software. please excuse any grammatical, word or spelling errors.
[2024-07-03 00:21] LABS: Glucose,Whole Blood 196 mg/dL (70-110)
[2024-07-03] MEDS: LEVOTHYROXINE 100 MCG TAB PEG/G-TUBE SCH (06:02)
[2024-07-03 06:31] LABS: Glucose,Whole Blood 196 mg/dL (70-110)
[2024-07-03 08:34] LABS: African American GFR (CKD) 24 (>60 ml/min/1.73 sqM); Blood Urea Nitrogen 81 mg/dL (9-20); Calcium 11.8 mg/dL (8.4-10.2); Chloride 88 mmol/L (98-107); Glucose 132 mg/dL (74-99); Non-African American GFR(CKD) 21 (>60 ml/min/1.73 sqM); Potassium 3.9 mmol/L (3.5-5.1); Sodium 139 mmol/L (137-145)
[2024-07-03 08:40] LABS: Anion Gap 12 mmol/L
[2024-07-03 08:51] LABS: Carbon Dioxide 39 mmol/L (22-30)
[2024-07-03] MEDS ORDERED: NON FORMULARY DRUG (Calcium Phos/D3/Magnesium/Zinc [Calcium-Mag-Zinc-Vitamin D3] 1 EACH Ta PEG/G-TUBE SCH (09:00)
[2024-07-03] MEDS ORDERED: NON FORMULARY DRUG (Vitamin B Complex [Vitamin B Complex] 1 EACH Capsule) PEG/G-TUBE SCH (09:00)
[2024-07-03] MEDS: FOLIC ACID 1 MG TAB PEG/G-TUBE SCH (09:02)
[2024-07-03 11:51] LABS: Glucose,Whole Blood 134 mg/dL (70-110)
--- NOTE | 2024-07-03 12:33 | P.NPCON ---
History of Present Illness - Reason for Consult Consult date: 07/03/24 acute renal failure - Chief Complaint SOB - History of Present Illness Patient is a 63-year-old man presented to ED with worsening cough and shortness of breath. Patient complains of left-sided chest pain and persistent cough question known history of squamous cell carcinoma of the thyroid. Recently treated for pseudomonas PNA outpatient with Levaquin. Chest x-ray in ED showed evidence of resolving a right lower lobe infiltrate, actually improved compared to a chest x-ray he had a week ago, but not completely resolved. Noted to have LISA and nephrology was consulted. Patient seen bedside, no history of kdiney issues. Nutrition maintained via tube feeding through PEG and patient admits to not keeping up with his feeding and water in PEG lately due to not feeling well. No new complaints. Patient is awake, comfortable, no acute distress Examination of the heart S1 and S2 Examination of the lungs bilateral breath sounds are heard and diminished Abdomen is soft, non-tender, +PEG Examination of lower extremities shows no edema Review of Systems Constitutional: Reports as per HPI Past Medical History Past Medical History: Cancer, Heart Failure, COPD, Hypertension, Memory Impairment, Pneumonia, Seizure Disorder, Thyroid Disorder Additional Past Medical History / Comment(s): currently on palliative care now, lives with son and dtr n law, A & O x3,signs own consents but asks dtr n law to help sign or to sign for him at times. Hx neck cancer in 2010, had surgery, chemo and radiation, peg tube place 2021 for difficulty w/ swallowing and aspiration pneumonia,last seizure months ago-dtr n law not sure of exact date,hypotensive now no longer hypertensive,uses O2 @ 3 L NC ATC, uses walker History of Any Multi-Drug Resistant Organisms: None Reported Past Surgical History: Tonsillectomy Additional Past Surgical History / Comment(s): Lymph node removal, thyroidectomy, radical tonsil dissection. peg tube Past Anesthesia/Blood Transfusion Reactions: No Reported Reaction Additional Past Anesthesia/Blood Transfusion Reaction / Comment(s): no hx blood transfusion Past Psychological History: Anxiety Smoking Status: Former smoker Past Alcohol Use History: None Reported Past Drug Use History: None Reported - Past Family History Mother Family Medical History: Cancer, Pneumonia Additional Family Medical History / Comment(s): from lung cancer and pneumonia. Father Family Medical History: Cancer, Prostate Disorder Additional Family Medical History / Comment(s): Prostatectomy due to Prostate Cancer. Sister(s) Family Medical History: Cancer Additional Family Medical History / Comment(s): Breast Cancer. Brother(s) Family Medical History: Cancer Additional Family Medical History / Comment(s): 2 BROTHERS FROM CANCER Medications and Allergies Home Medications Medication Instructions Recorded Confirmed Type Levothyroxine Sodium 100 mcg PEG/G-TUBE DAILY #30 tab 09/07/23 07/02/24 Rx Metoclopramide [Reglan] 10 mg PEG/G-TUBE TID 02/19/24 07/02/24 History levETIRAcetam [Keppra] 250 mg PEG/G-TUBE Q12HR 02/19/24 07/02/24 History Azithromycin [Zithromax] 250 mg PEG/G-TUBE DIRECTED 07/02/24 07/02/24 History Calcium Phos/D3/Magnesium/Zinc 1 tab PEG/G-TUBE DAILY 07/02/24 07/02/24 History [Usmnkey-Cwe-Obrn-Vitamin D3] Folic Acid 1 mg PEG/G-TUBE DAILY 07/02/24 07/02/24 History Midodrine HCl 2.5 mg PEG/G-TUBE Q8H 07/02/24 07/02/24 History Saliva Stimulant Comb. No.3 1 spray MUCOUS MEM DAILY PRN 07/02/24 07/02/24 History [Biotene Moisturizing Mouth] Sodium Chloride [[place]] 1 spray EA NOSTRIL DAILY PRN 07/02/24 07/02/24 History Vitamin B Complex 1 cap PEG/G-TUBE DAILY 07/02/24 07/02/24 History predniSONE 5 mg PEG/G-TUBE DAILY 07/02/24 07/02/24 History Allergies Allergy/AdvReac Type Severity Reaction Status Date / Time No Known Allergies Allergy Verified 07/02/24 10:34 Physical Exam Vitals: Vital Signs Temp Pulse Pulse Resp BP BP Pulse Ox 07/03/24 08:53 103 H 18 07/03/24 08:46 100 18 93 L 07/03/24 08:00 98.4 F 104 H 20 166/105 91 L 07/03/24 03:23 98.1 F 103 H 19 135/79 93 L 07/03/24 00:00 98.7 F 103 H 18 122/74 96 07/02/24 20:00 98.1 F 100 19 130/77 95 07/02/24 16:00 98 F 100 18 118/71 94 L 07/02/24 15:58 101 H 07/02/24 15:48 100 07/02/24 15:47 103 H 07/02/24 13:48 98 F 96 22 127/79 97 07/02/24 12:00 95 20 117/70 99 Intake and Output 07/02/24 07/03/24 07/03/24 22:59 06:59 14:59 Output Total 800 500 Balance -800 -500 Output: Urine 800 500 Other: Voiding Method Urinal Urinal Urinal # Bowel Movements 1 Results - Lab Results Most recent lab results Calcium 11.8 mg/dL (8.4-10.2) H 07/03/24 06:51 Magnesium 3.1 mg/dL (1.6-2.3) H 07/01/24 22:45 07/01/24 22:45 07/03/24 06:51 Assessment and Plan Assessment: 1. Non-oliguric LISA 2/2 Septic ATN. Baseline creatinine 0.8-1.0, presented 3.3, improved to 3.0 today. UA showed hyaline casts. Likely prerenal component currently on IVF. 2. Hypercalcemia related to dehydration. Ca 13 improved to 11.8 today with IVF. 3. Pseudomonas PNA with sepsis failed outpatient therapy 4. Anemia of chronic disease Plan: Continue IVF, renal function improving Resume tube feedings with FWF Check PVR, strict I/O's, CPK, daily BMP Check PTH, Vit D given hypercalcemia Started on Zosyn, ID following
--- NOTE | 2024-07-03 13:26 | P.PN ---
Subjective Progress Note Date: 07/03/24 Principal diagnosis: Right lower lobe pneumonia, with persistent cough and shortness of breath. Complains of left-sided chest pain recently treated for pneumonia as outpatient with oral Levaquin. Chest x-ray showed improvement from a week ago last GFR was greater than 70 Admission GFR was 24 signifying acute kidney injury, patient admits to not being compliant with his tube feeds or his water in the PEG tube lately Patient is a 63-year-old male known to my practice who developed acute pneumonia with Pseudomonas failed outpatient therapy recently admitted for IV antibiotics recently demonstrating acute kidney injury Objective - Vital Signs Vital signs: Vital Signs Temp 98.6 F 07/03/24 11:01 Pulse 113 H 07/03/24 12:21 Resp 20 07/03/24 11:11 BP 184/95 07/03/24 11:01 Pulse Ox 93 L 07/03/24 12:15 FiO2 Intake & Output 07/02/24 07/03/24 07/03/24 18:59 06:59 18:59 Output Total 800 500 Balance -800 -500 Weight 51.256 kg Output: Urine 800 500 Other: Voiding Method Urinal Urinal # Bowel Movements 1 - Exam General: [Patient awake, alert and oriented times 3. Patient in no acute distress, patient is cachectic HEENT: [PERRL. EOMI. No pharyngeal erythema or exudate Known history of commando procedure of the neck secondary to squamous cell carcinoma of the thyroid Neck: [No adenopathy.] Cardiac: [Heart regular in rate and rhythm. No S3. No S4. No clicks, rubs. No murmur.] Lungs: Consolidation on the right with wheezing bilaterally Abdomen: [No mass. No organomegaly. Bowel sounds presnt and normoactive in all 4 quadrants.] Extremes: [No edema no cyanosis no claudication normal pulses] : Normal male genitalia Musculoskeletal: [No joint erythema, edema or tenderness.] Skin: [No rash.] Neurologic: [No lateralizing deficits. CN II - XII grossly intact.] Lymphatic: [No adenopathy.] - Labs CBC & Chem 7: 07/01/24 22:45 07/03/24 06:51 Labs: Abnormal Lab Results - Last 24 Hours (Table) 07/02/24 07/03/24 07/03/24 Range/Units 17:19 00:19 06:30 Chloride (98-107) mmol/L Carbon Dioxide (22-30) mmol/L BUN (9-20) mg/dL Creatinine (0.66-1.25) mg/dL Glucose (74-99) mg/dL POC Glucose (mg/dL) 116 H 196 H 196 H (70-110) mg/dL Calcium (8.4-10.2) mg/dL 07/03/24 07/03/24 Range/Units 06:51 11:50 Chloride 88 L (98-107) mmol/L Carbon Dioxide 39 H (22-30) mmol/L BUN 81 H (9-20) mg/dL Creatinine 3.05 H (0.66-1.25) mg/dL Glucose 132 H (74-99) mg/dL POC Glucose (mg/dL) 134 H (70-110) mg/dL Calcium 11.8 H (8.4-10.2) mg/dL Microbiology - Last 24 Hours (Table) 07/01/24 23:10 Blood Culture - Preliminary Blood Assessment and Plan (1) Pneumonia Current Visit: Yes Status: Acute Code(s): J18.9 - PNEUMONIA, UNSPECIFIED ORGANISM SNOMED Code(s): 604820250 (2) Anemia Current Visit: No Status: Acute Code(s): D64.9 - ANEMIA, UNSPECIFIED SNOME D Code(s): 776205852 (3) Aspiration pneumonia Current Visit: No Status: Acute Code(s): J69.0 - PNEUMONITIS DUE TO INHALATION OF FOOD AND VOMIT SNOMED Code(s): 442223240 (4) COPD (chronic obstructive pulmonary disease) Current Visit: No Status: Acute Code(s): J44.9 - CHRONIC OBSTRUCTIVE PULMONARY DISEASE, UNSPECIFIED SNOMED Code(s): 26807408 (5) Chest pain Current Visit: No Status: Acute Code(s): R07.9 - CHEST PAIN, UNSPECIFIED SNOMED Code(s): 06487042 (6) Dysphagia Current Visit: No Status: Acute Code(s): R13.10 - DYSPHAGIA, UNSPECIFIED SNOMED Code(s): 72218698 (7) Elevated lipase Current Visit: No Status: Acute Code(s): R74.8 - ABNORMAL LEVELS OF OTHER SERUM ENZYMES SNOMED Code(s): 888604315 (8) Essential (primary) hypertension Current Visit: No Status: Acute Code(s): I10 - ESSENTIAL (PRIMARY) HYPERTENSION SNOMED Code(s): 77760677 (9) H/O malignant neoplasm of head and neck Current Visit: No Status: Acute Code(s): Z85.89 - PERSONAL HISTORY OF MALIGNANT NEOPLASM OF ORGANS AND SYSTEMS SNOMED Code(s): 954988428 Plan: Continue Zosyn Infectious disease consultation Pulmonary medicine consultation Continue GI prophylaxis Antibiotics per pulmonary and/or infectious disease Duomed updrafts 4 times daily Avoid nephrotoxic drugs Nephrology consultation noted Time with Patient: Greater than 30
--- NOTE | 2024-07-03 13:55 | P.PN ---
Subjective Progress Note Date: 07/03/24 Principal diagnosis: Acute right lower lobe pneumonia secondary to Pseudomonas aeruginosa This is a 63-year-old white male with known history of squamous cell carcinoma of the head and neck, history of congestive heart failure, recent history of pneumonia treated on outpatient basis,, his sputum was positive for Pseudomonas pneumonia, and he received treatment in the form of Levaquin on outpatient basis. However the patient was brought into the ER yesterday with mostly sym ptoms of cough, congestion, shortness of breath, and his chest x-ray showed evidence of resolving a right lower lobe infiltrate, actually improved compared to a chest x-ray he had a week ago. But not completely resolved. Considering his symptoms and considering his clinical history, patient is being admitted, and I saw him in consultation. Reviewed sensitivity on his Pseudomonas, and I suggested we treat the patient with Zosyn. Patient was noted to have leukocytosis with WBC count of 34.86 hemoglobin 9.1 his PMNs were 91%, patient had relatively normal electrolytes except for bicarb of 42 which is related to chronic hypercapnia BUN 104 and creatinine 3.30 worsening creatinine compared to recent creatinine of 2.6 and baseline only few months ago was 1.05. Obviously the patient is developing acute kidney disease/acute kidney injury. Patient had negative screen for influenza RSV and COVID-19. Patient was seen today on 07/03/2024, continues to have intermittent cough, cough is productive, thick purulent secretions noted, no hemoptysis, patient had increase in his FiO2 requirement up to 8 L, O2 saturation is marginal specially with him coughing and sometimes seems to have difficulty clearing his secretions. Patient remains on Zosyn, he is on bronchodilators, his overall pulmonary status is marginal at best. If no improvement in the next 24 hours, patient may have to be considered for bronchoscopy and BAL. Labs today including electrolytes were reviewed his BUN is up to 81 creatinine 3.05, slightly improved compared to creatinine on 07/01, Objective - Vital Signs Vital signs: Vital Signs Temp 98.6 F 07/03/24 11:01 Pulse 113 H 07/03/24 12:21 Resp 20 07/03/24 11:11 BP 184/95 07/03/24 11:01 Pulse Ox 93 L 07/03/24 12:15 FiO2 Intake & Output 05/03/25 05/04/25 05/04/25 18:59 06:59 18:59 Output Total 800 500 Balance -800 -500 Weight 51.256 kg Output: Urine 800 500 Other: Voiding Method Urinal Urinal # Bowel Movements 1 - Exam GENERAL EXAM: 63-year-old male, resting in bed, on 8 L nasal cannula HEAD: Normocephalic. EYES: Normal reaction of pupils, equal size. NOSE: Clear with pink turbinates. THROAT: No erythema or exudates. NECK: No masses, no JVD. CHEST: No chest wall deformity. LUNGS: Crackles and rhonchi noted bilaterally more so at the right base CVS: S1 and S2 normal with no audible murmur, regular rhythm. ABDOMEN: PEG tube exit site clean and dry. No hepatosplenomegaly, normal bowel sounds, no guarding or rigidity. SKIN: No rashes CENTRAL NERVOUS SYSTEM: Alert and oriented x 3 no gross focal deficits EXTREMITIES: No clubbing, edema or cyanosis. - Labs CBC & Chem 7: 07/01/24 22:45 07/03/24 06:51 Labs: Abnormal Lab Results - Last 24 Hours (Table) 07/02/24 07/03/24 07/03/24 Range/Units 17:19 00:19 06:30 Chloride (98-107) mmol/L Carbon Dioxide (22-30) mmol/L BUN (9-20) mg/dL Creatinine (0.66-1.25) mg/dL Glucose (74-99) mg/dL POC Glucose (mg/dL) 116 H 196 H 196 H (70-110) mg/dL Calcium (8.4-10.2) mg/dL 07/03/24 07/03/24 Range/Units 06:51 11:50 Chloride 88 L (98-107) mmol/L Carbon Dioxide 39 H (22-30) mmol/L BUN 81 H (9-20) mg/dL Creatinine 3.05 H (0.66-1.25) mg/dL Glucose 132 H (74-99) mg/dL POC Glucose (mg/dL) 134 H (70-110) mg/dL Calcium 11.8 H (8.4-10.2) mg/dL Microbiology - Last 24 Hours (Table) 07/01/24 23:10 Blood Culture - Preliminary Blood Assessment and Plan Assessment: Impression: Acute right lower lobe pneumonia secondary to Pseudomonas aeruginosa Leukocytosis secondary to above Benign essential hypertension History of thyroid cancer/previous thyroidectomy Anemia of chronic disease Acute kidney injury, most likely medications induced History of head and neck cancer in 2011 History of underlying COPD Former smoker Benign essential hypertension Recommendation: Continue antibiotics/Zosyn Continue GI prophylaxis DuoNeb updrafts 4 times daily and as needed Avoid nephrotoxic drugs Nephrology to see in consultation Will continue to follow Time with Patient: Less than 30
--- NOTE | 2024-07-03 16:51 | P.PN ---
Subjective Progress Note Date: 07/03/24 Principal diagnosis: Reason for follow-up is pneumonia Patient is a 63-year-old male with a past medical history significant for squamous cell cancer of the head and neck, Heart Failure, COPD, Hypertension, Memory Impairment, Pneumonia, Seizure Disorder, Thyroid Disorder presented to the hospital for evaluation of worsening shortness of breath and cough has been diagnosed with pneumonia with recent outpatient culture positive for Pseudomonas. On today's evaluation that is 07/03/2024, Patient is afebrile this morning patient breathing slightly comfortably denies any chest pain or worsening cough no abdominal pain or diarrhea. Patient did have a creatinine of 3.05 no CBC was done today sputum and blood cultures are pending Objective - Vital Signs Vital signs: Vital Signs Temp 98.8 F 07/03/24 15:39 Pulse 99 07/03/24 16:21 Resp 20 07/03/24 16:21 BP 162/92 07/03/24 15:39 Pulse Ox 96 07/03/24 16:10 FiO2 Intake & Output 07/02/24 07/03/24 07/03/24 18:59 06:59 18:59 Output Total 800 900 Balance -800 -900 Weight 51.256 kg Output: Urine 800 900 Other: Voiding Method Urinal Urinal # Bowel Movements 1 - Exam GENERAL DESCRIPTION: Middle-age male lying in bed in no distress RESPIRATORY SYSTEM: Unlabored breathing , decreased breath sounds at bases HEART: S1 S2 regular rate and rhythm , ABDOMEN: Soft , no tenderness EXTREMITIES: No edema feet - Labs CBC & Chem 7: 07/01/24 22:45 07/03/24 06:51 Labs: Abnormal Lab Results - Last 24 Hours (Table) 07/02/24 07/03/24 07/03/24 Range/Units 17:19 00:19 06:30 Chloride (98-107) mmol/L Carbon Dioxide (22-30) mmol/L BUN (9-20) mg/dL Creatinine (0.66-1.25) mg/dL Glucose (74-99) mg/dL POC Glucose (mg/dL) 116 H 196 H 196 H (70-110) mg/dL Calcium (8.4-10.2) mg/dL Procalcitonin (0.02-0.50) ng/mL 05/04/25 05/04/25 05/04/25 Range/Units 06:51 06:51 11:50 Chloride 88 L (98-107) mmol/L Carbon Dioxide 39 H (22-30) mmol/L BUN 81 H (9-20) mg/dL Creatinine 3.05 H (0.66-1.25) mg/dL Glucose 132 H (74-99) mg/dL POC Glucose (mg/dL) 134 H (70-110) mg/dL Calcium 11.8 H (8.4-10.2) mg/dL Procalcitonin 19.50 H (0.02-0.50) ng/mL Microbiology - Last 24 Hours (Table) 07/01/24 23:10 Blood Culture - Preliminary Blood Assessment and Plan (1) Pseudomonas aeruginosa infection Current Visit: Yes Status: Acute Code(s): A49.8 - OTHER BACTERIAL INFECTIONS OF UNSPECIFIED SITE SNOMED Code(s): 45574947 (2) Pneumonia Current Visit: Yes Status: Acute Code(s): J18.9 - PNEUMONIA, UNSPECIFIED ORGANISM SNOMED Code(s): 991091578 (3) Sepsis Current Visit: Yes Status: Acute Code(s): A41.9 - SEPSIS, UNSPECIFIED ORGANISM SNOMED Code(s): 75535617 Plan: 1patient presented to hospital with sepsis in this patient who did have elevated white count tachycardia meeting criteria for SIRS source is right midlung pneumonia in this patient who recently did have an outpatient culture positive for Pseudomonas aeruginosa to the likely pathogen 2patient with elevated white count more likely related to pneumonia, no CBC was done today we will repeat his CBC with a.m. lab 3patient will continue with Zosyn 3.375 g every 8 hours and monitor clinical course closely Dictation was produced using [employer] dictation software. please excuse any grammatical, word or spelling errors. Time with Patient: Less than 30
[2024-07-03 17:49] LABS: Glucose,Whole Blood 137 mg/dL (70-110)
[2024-07-03] MEDS: FORMOTEROL FUMARATE 20 MCG/2 ML NEBU INHALATION SCH (20:46)
[2024-07-03] MEDS: BUDESONIDE 0.5 MG/2 ML NEBU INHALATION SCH (20:46)
[2024-07-03] MEDS: DRY MOUTH SPRAY 59 SPRAY/59 ML SPRAY MUCOUS MEM PRN (23:39)
[2024-07-03] MEDS: amLODIPine 5 MG TAB PO SCH (23:39)
[2024-07-04 00:04] LABS: Glucose,Whole Blood 114 mg/dL (70-110)
[2024-07-04 05:56] LABS: Glucose,Whole Blood 144 mg/dL (70-110)
[2024-07-04 07:06] LABS: ALT 12 U/L (4-49); AST 21 U/L (17-59); African American GFR (CKD) 29 (>60 ml/min/1.73 sqM); Albumin 3.6 g/dL (3.5-5.0); Alkaline Phosphatase 60 U/L (38-126); Anion Gap 12 mmol/L; Blood Urea Nitrogen 64 mg/dL (9-20); Carbon Dioxide 38 mmol/L (22-30); Chloride 90 mmol/L (98-107); Glucose 109 mg/dL (74-99); Non-African American GFR(CKD) 25 (>60 ml/min/1.73 sqM); Potassium 3.4 mmol/L (3.5-5.1); Sodium 140 mmol/L (137-145); Total Bilirubin 0.5 mg/dL (0.2-1.3)
[2024-07-04 07:12] LABS: Basophils # (A) 0.04 10*3/uL (0.00-0.10); Basophils % (A) 0.2 %; Eosinophils # (A) 0.04 10*3/uL (0.04-0.35); Eosinophils % (A) 0.2 %; HCT 24.4 % (39.6-50.0); Lymphocytes # (A) 0.91 10*3/uL (0.90-5.00); Lymphocytes % (A) 5.6 %; MCH 27.5 pg (27.0-32.0); MCHC 31.1 g/dL (32.0-37.0); MCV 88.4 fL (80.0-97.0); Mean Platelet Volume 9.9 fL (9.5-12.2); Monocytes # (A) 1.49 10*3/uL (0.20-1.00); Monocytes % (A) 9.1 %; Neutrophils # (A) 13.76 10*3/uL (1.80-7.70); Platelet Count 322 10*3/uL (140-440); RBC 2.76 10*6/uL (4.40-5.60); RDW 14.9 % (11.5-14.5); WBC 16.38 10*3/uL (4.50-10.00)
[2024-07-04 07:21] LABS: HGB 7.6 g/dL (13.0-17.0)
[2024-07-04 07:27] LABS: C Reactive Protein 26.3 mg/dL (<1.0)
--- NOTE | 2024-07-04 10:11 | P.PN ---
Subjective Patient is seen in follow-up for acute kidney injury. Renal function improving. Receiving IV fluids. NPO. Tube feeds to be resumed. Vital signs are stable. General: No acute distress. HEENT: Head exam is unremarkable. On nasal cannula. LUNGS: No audible rhonchi or wheezes. HEART: Rate and Rhythm are regular. ABDOMEN: Nontender. EXTREMITITES: No edema. Objective - Vital Signs Vital signs: Vital Signs Temp 97.8 F 07/03/24 23:02 Pulse 102 H 07/04/24 09:18 Resp 16 07/04/24 04:31 BP 178/91 07/04/24 03:43 Pulse Ox 96 07/04/24 08:54 FiO2 Intake & Output 07/03/24 07/04/24 07/04/24 18:59 06:59 18:59 Output Total 1075 200 350 Balance -1075 -200 -350 Weight 51.5 kg Output: Urine 1075 200 350 Other: Voiding Method Urinal Urinal # Bowel Movements 1 - Labs CBC & Chem 7: 07/04/24 06:19 07/04/24 06:19 Labs: Abnormal Lab Results - Last 24 Hours (Table) 07/03/24 07/03/24 07/03/24 Range/Units 06:51 11:50 17:47 WBC (4.50-10.00) 10*3/uL RBC (4.40-5.60) 10*6/uL Hgb (13.0-17.0) g/dL Hct (39.6-50.0) % MCHC (32.0-37.0) g/dL Immature Gran # (0.00-0.04) 10*3/uL Neutrophils # (1.80-7.70) 10*3/uL Monocytes # (0.20-1.00) 10*3/uL Potassium (3.5-5.1) mmol/L Chloride (98-107) mmol/L Carbon Dioxide (22-30) mmol/L BUN (9-20) mg/dL Creatinine (0.66-1.25) mg/dL Glucose (74-99) mg/dL POC Glucose (mg/dL) 134 H 137 H (70-110) mg/dL Calcium (8.4-10.2) mg/dL C-Reactive Protein (<1.0) mg/dL Procalcitonin 19.50 H (0.02-0.50) ng/mL 07/04/24 07/04/24 07/04/24 Range/Units 00:02 05:52 06:19 WBC (4.50-10.00) 10*3/uL RBC (4.40-5.60) 10*6/uL Hgb (13.0-17.0) g/dL Hct (39.6-50.0) % MCHC (32.0-37.0) g/dL Immature Gran # (0.00-0.04) 10*3/uL Neutrophils # (1.80-7.70) 10*3/uL Monocytes # (0.20-1.00) 10*3/uL Potassium 3.4 L (3.5-5.1) mmol/L Chloride 90 L (98-107) mmol/L Carbon Dioxide 38 H (22-30) mmol/L BUN 64 H (9-20) mg/dL Creatinine 2.60 H (0.66-1.25) mg/dL Glucose 109 H (74-99) mg/dL POC Glucose (mg/dL) 114 H 144 H (70-110) mg/dL Calcium 12.0 H (8.4-10.2) mg/dL C-Reactive Protein 26.3 H (<1.0) mg/dL Procalcitonin (0.02-0.50) ng/mL 07/04/24 Range/Units 06:19 WBC 16.38 H (4.50-10.00) 10*3/uL RBC 2.76 L (4.40-5.60) 10*6/uL Hgb 7.6 L D (13.0-17.0) g/dL Hct 24.4 L (39.6-50.0) % MCHC 31.1 L (32.0-37.0) g/dL Immature Gran # 0.14 H (0.00-0.04) 10*3/uL Neutrophils # 13.76 H (1.80-7.70) 10*3/uL Monocytes # 1.49 H (0.20-1.00) 10*3/uL Potassium (3.5-5.1) mmol/L Chloride (98-107) mmol/L Carbon Dioxide (22-30) mmol/L BUN (9-20) mg/dL Creatinine (0.66-1.25) mg/dL Glucose (74-99) mg/dL POC Glucose (mg/dL) (70-110) mg/dL Calcium (8.4-10.2) mg/dL C-Reactive Protein (<1.0) mg/dL Procalcitonin (0.02-0.50) ng/mL Microbiology - Last 24 Hours (Table) 07/01/24 23:10 Blood Culture - Preliminary Blood Assessment and Plan Plan: Assessment: 1. Acute kidney injury secondary to septic ATN. Baseline creatinine near 1 and peaked at 3.3 this admission. It is improved to 2.6 today. 2. Hypercalcemia secondary to volume contraction. Also component of malignancy. Calcium 12.0 today. 3. History of head and neck cancer. 4. Pseudomonas pneumonia on antibiotics. Infectious disease following. 5. Hypokalemia from poor intake and hypercalcemia induced diuresis. Magnesium normal. Plan: Maintain IV fluids. Tube feeds to be resumed. Replace potassium. Check further workup for hypercalcemia. Zoledronic acid x 1 dose today. Discontinue midodrine. Add as needed hydralazine for
[2024-07-04] MEDS: POTASSIUM CHLORIDE 20 MEQ in WATER FOR INJECTION 1 100ML.BAG IVPB SCH (11:25)
[2024-07-04 11:39] LABS: Glucose,Whole Blood 111 mg/dL (70-110)
--- NOTE | 2024-07-04 12:04 | P.PN ---
Subjective Progress Note Date: 07/04/24 H&P Date: 07/02/24 Chief Complaint: Shortness of breath., Hypoxia Patient presented to the office on 07/02/2019 complaining of shortness of breath had an elevated White count of 24,000 which was performed yesterday, Pseudomonas was cultured from the sputum. Patient complains of left-sided chest pain and persistent cough question known history of squamous cell carcinoma of the thyroid. Status post commando procedure of the neck patient is unable to regard his airway and is not obligate tube feeder 07/03/24 Right lower lobe pneumonia, with persistent cough and shortness of breath. Complains of left-sided chest pain recently treated for pneumonia as outpatient with oral Levaquin. Chest x-ray showed improvement from a week ago last GFR was greater than 70 Admission GFR was 24 signifying acute kidney injury, patient admits to not being compliant with his tube feeds or his water in the PEG tube lately Patient is a 63-year-old male known to my practice who developed acute pneumonia with Pseudomonas failed outpatient therapy recently admitted for IV antibiotics recently demonstrating acute kidney injury. 07/04/2024 maintained on Zosyn, nebulized bronchodilators. O2 sat on 5 L nasal cannula 96%. Mild tachycardia. Elevated CRP and procalcitonin. Staff reported -earlier this morning patient put the call light on, oxygen was off, desatted, had a short self-limited spastic shaking less than half a minute, spontaneously resolved with reapplication of oxygen. Telemetry sinus tachycardia. Hypertensive, midodrine discontinued.Keppra level ordered. Afebrile, WBC decreased to 16.38. Hemoglobin decreased to 7.6, platelets 322. Renal function improved, bicarb 38, BUN 64, creatinine 2.6. Calcium 12. Potassium 3.4, magnes ium 2.2. Objective - Vital Signs Vital signs: Vital Signs Temp 97.8 F 07/03/24 23:02 Pulse 102 H 07/04/24 09:18 Resp 16 07/04/24 04:31 BP 178/91 07/04/24 03:43 Pulse Ox 96 07/04/24 08:54 FiO2 Intake & Output 07/03/24 07/04/24 07/04/24 18:59 06:59 18:59 Output Total 1075 200 575 Balance -1075 -200 -575 Weight 51.5 kg Output: Urine 1075 200 575 Other: Voiding Method Urinal Urinal # Bowel Movements 1 - Exam General: [Cachectic ,awake, alert and oriented times 3. No acute distress. HEENT: [PERRL. EOMI. No pharyngeal erythema or exudate Known history of commando procedure of the neck secondary to squamous cell carcinoma of the thyroid Neck: Supple, no JVD Cardiac: Regular S1S2. Mild Tachycardia, No S3. No S4. No clicks, rubs. No murmur.] Lungs: Equal air entry, diminished with right sided fine basilar crackles. Abdomen: [Soft, nontender, no organomegaly appreciated. PEG tube present with minimal dark crusties encircling it,+BS] Extremes: [No edema no cyanosis no claudication normal pulses] Skin: [Warm and dry, no rash,reddened sacral/coccyx area.] Neurologic: CN II - XII grossly intact. - Labs CBC & Chem 7: 07/04/24 06:19 07/04/24 06:19 Labs: Abnormal Lab Results - Last 24 Hours (Table) 07/03/24 07/03/24 07/03/24 Range/Units 06:51 11:23 11:50 WBC (4.50-10.00) 10*3/uL RBC (4.40-5.60) 10*6/uL Hgb (13.0-17.0) g/dL Hct (39.6-50.0) % MCHC (32.0-37.0) g/dL Immature Gran # (0.00-0.04) 10*3/uL Neutrophils # (1.80-7.70) 10*3/uL Monocytes # (0.20-1.00) 10*3/uL Potassium (3.5-5.1) mmol/L Chloride (98-107) mmol/L Carbon Dioxide (22-30) mmol/L BUN (9-20) mg/dL Creatinine (0.66-1.25) mg/dL Glucose (74-99) mg/dL POC Glucose (mg/dL) 134 H (70-110) mg/dL Calcium (8.4-10.2) mg/dL C-Reactive Protein (<1.0) mg/dL Procalcitonin 19.50 H (0.02-0.50) ng/mL PTH Intact 10.1 L (14.0-72.0) pg/mL 07/03/24 07/04/24 07/04/24 Range/Units 17:47 00:02 05:52 WBC (4.50-10.00) 10*3/uL RBC (4.40-5.60) 10*6/uL Hgb (13.0-17.0) g/dL Hct (39.6-50.0) % MCHC (32.0-37.0) g/dL Immature Gran # (0.00-0.04) 10*3/uL Neutrophils # (1.80-7.70) 10*3/uL Monocytes # (0.20-1.00) 10*3/uL Potassium (3.5-5.1) mmol/L Chloride (98-107) mmol/L Carbon Dioxide (22-30) mmol/L BUN (9-20) mg/dL Creatinine (0.66-1.25) mg/dL Glucose (74-99) mg/dL POC Glucose (mg/dL) 137 H 114 H 144 H (70-110) mg/dL Calcium (8.4-10.2) mg/dL C-Reactive Protein (<1.0) mg/dL Procalcitonin (0.02-0.50) ng/mL PTH Intact (14.0-72.0) pg/mL 07/04/24 07/04/24 Range/Units 06:19 06:19 WBC 16.38 H (4.50-10.00) 10*3/uL RBC 2.76 L (4.40-5.60) 10*6/uL Hgb 7.6 L D (13.0-17.0) g/dL Hct 24.4 L (39.6-50.0) % MCHC 31.1 L (32.0-37.0) g/dL Immature Gran # 0.14 H (0.00-0.04) 10*3/uL Neutrophils # 13.76 H (1.80-7.70) 10*3/uL Monocytes # 1.49 H (0.20-1.00) 10*3/uL Potassium 3.4 L (3.5-5.1) mmol/L Chloride 90 L (98-107) mmol/L Carbon Dioxide 38 H (22-30) mmol/L BUN 64 H (9-20) mg/dL Creatinine 2.60 H (0.66-1.25) mg/dL Glucose 109 H (74-99) mg/dL POC Glucose (mg/dL) (70-110) mg/dL Calcium 12.0 H (8.4-10.2) mg/dL C-Reactive Protein 26.3 H (<1.0) mg/dL Procalcitonin (0.02-0.50) ng/mL PTH Intact (14.0-72.0) pg/mL Microbiology - Last 24 Hours (Table) 07/01/24 23:10 Blood Culture - Preliminary Blood Assessment and Plan Assessment: Sepsis secondary to right lower lobe pseudomonas pneumonia. Leukocytosis secondary to the above Acute kidney injury, related to sepsis, infection Hypercalcemia History of malignant neoplasm of head and neck Dysphagia Anemia of chronic disease COPD Former nicotine dependence Essential hypertension History of seizure disorder Hypokalemia Plan: Continue on current medication regime ,monitoring and symptomatic treatment. CODE STATUS discussed with both patient and daughter at bedside -as patient was palliative care outpatient. Patient expressed he wishes to remain a full code. triad barrier cream to coccyx /sacral area. Tube feeds resumed -12 hours on/12 hours off ; 12 hours on- to be during the daytime not during the night.aggressive pulmonary toileting with nebulized bronchodilators, a ntibiotics/Zosyn. Keppra level pending. Potassium supplements ordered .avoiding nephrotoxic drugs. Close monitoring of renal function, electrolytes, hemoglobin with repeat labs ordered for tomorrow. The impression and plan of care has been dictated as directed. : I performed a history and examination of this patient, discussed the same with the dictator. I agree with the dictator's note ,documented as a scribe. Any additional findings or plans will be noted.
[2024-07-04] MEDS ORDERED: ZINC OXIDE PASTE (Z-GUARD) 1 APPLIC TOPICAL PRN (12:57)
--- NOTE | 2024-07-04 13:38 | P.PN ---
Subjective Progress Note Date: 07/04/24 Principal diagnosis: Pneumonia. This is a 63-year-old white male with known history of squamous cell carcinoma of the head and neck, history of congestive heart failure, recent history of pneumonia treated on outpatient basis,, his sputum was positive for Pseudomonas pneumonia, and he received treatment in the form of Levaquin on outpatient basis. However the patient was brought into the ER yesterday with mostly symptoms of cough, congestion, shortness of breath, and his chest x-ray showed evidence of resolving a right lower lobe infiltrate, actually improved compared to a chest x-ray he had a week ago. But not completely resolved. Considering his symptoms and considering his clinical history, patient is being admitted, and I saw him in consultation. Reviewed sensitivity on his Pseudomonas, and I suggested we treat the patient with Zosyn. Patient was noted to have leukocytosis with WBC count of 34.86 hemoglobin 9.1 his PMNs were 91%, patient had relatively normal electrolytes except for bicarb of 42 which is related to chronic hypercapnia BUN 104 and creatinine 3.30 worsening creatinine compared to recent creatinine of 2.6 and baseline only few months ago was 1.05. Obviously the patient is developing acute kidney disease/acute kidney injury. Patient had negative screen for influenza RSV and COVID-19. Patient was seen today on 07/03/2024, continues to have intermittent cough, cough is productive, thick purulent secretions noted, no hemoptysis, patient had increase in his FiO2 requirement up to 8 L, O2 saturation is marginal specially with him coughing and sometimes seems to have difficulty clearing his secretions. Patient remains on Zosyn, he is on bronchodilators, his overall pulmonary status is marginal at best. If no improvement in the next 24 hours, patient may have to be considered for bronchoscopy and BAL. Labs today including electrolytes were reviewed his BUN is up to 81 creatinine 3.05, slightly improved compared to creatinine on 07/01, Progress note dated July 02, 2024. 63-year-old male seen today in room 377. He is currently on 5 L nasal cannula. He is getting lactated Ringer's at 130 cc an hour. Chest x-ray revealed a right lower lobe pneumonia, positive for Pseudomonas. He is currently on Zosyn. He complains of shortness of breath, cough, and some phlegm production. He does feel better today, and his oxygen requirements have come down from 8 L, to 5. Current laboratory data includes a white count of 16.4, hemoglobin 7.6, hematocrit 24.4, and a platelet count of 322,000. Sodium 140, potassium 3.4, chlorides 90, CO2 38, BUN 64, creatinine 2.60. Glucose is 111. Albumin is 3.6. Calcium is 12. Blood cultures are negative. Chest x-ray revealed a right midlung pneumonia. Objective - Vital Signs Vital signs: Vital Signs Temp 98.4 F 07/04/24 08:00 Pulse 106 H 07/04/24 12:46 Resp 16 07/04/24 08:00 BP 149/83 07/04/24 12:00 Pulse Ox 94 L 07/04/24 12:00 FiO2 Intake & Output 07/03/24 07/04/24 07/04/24 18:59 06:59 18:59 Output Total 1075 200 775 Balance -1075 -200 -775 Weight 51.5 kg 51.5 kg Output: Urine 1075 200 775 Other: Voiding Method Urinal Urinal Urinal # Bowel Movements 1 - Exam No acute distress, oriented 3. Currently on 5 L. HEENT examination is grossly unremarkable. Mucous membranes are moist. No oral lesions. Neck supple. Full range of motion. No adenopathy thyromegaly or neck vein distention. Cardiovascular examination reveals regular rhythm rate. S1-S2 normal. No S3 or S4. No discernible murmur noted. Lungs reveal slightly diminished breath sounds, bilaterally, worse on the right than on the left. Scattered rhonchi and crackles appreciated on the right. Abdomen soft bowel sounds are heard. No masses or tenderness. PEG tube noted. Extremities are intact. No cyanosis clubbing or edema. Skin is without rash or lesion. Neurologic examination is brief but nonfocal. - Labs CBC & Chem 7: 07/04/24 06:19 07/04/24 06:19 Labs: Abnormal Lab Results - Last 24 Hours (Table) 07/03/24 07/03/24 07/03/24 Range/Units 06:51 11:23 17:47 WBC (4.50-10.00) 10*3/uL RBC (4.40-5.60) 10*6/uL Hgb (13.0-17.0) g/dL Hct (39.6-50.0) % MCHC (32.0-37.0) g/dL Immature Gran # (0.00-0.04) 10*3/uL Neutrophils # (1.80-7.70) 10*3/uL Monocytes # (0.20-1.00) 10*3/uL Potassium (3.5-5.1) mmol/L Chloride (98-107) mmol/L Carbon Dioxide (22-30) mmol/L BUN (9-20) mg/dL Creatinine (0.66-1.25) mg/dL Glucose (74-99) mg/dL POC Glucose (mg/dL) 137 H (70-110) mg/dL Calcium (8.4-10.2) mg/dL C-Reactive Protein (<1.0) mg/dL Procalcitonin 19.50 H (0.02-0.50) ng/mL PTH Intact 10.1 L (14.0-72.0) pg/mL 07/04/24 07/04/24 07/04/24 Range/Units 00:02 05:52 06:19 WBC (4.50-10.00) 10*3/uL RBC (4.40-5.60) 10*6/uL Hgb (13.0-17.0) g/dL Hct (39.6-50.0) % MCHC (32.0-37.0) g/dL Immature Gran # (0.00-0.04) 10*3/uL Neutrophils # (1.80-7.70) 10*3/uL Monocytes # (0.20-1.00) 10*3/uL Potassium 3.4 L (3.5-5.1) mmol/L Chloride 90 L (98-107) mmol/L Carbon Dioxide 38 H (22-30) mmol/L BUN 64 H (9-20) mg/dL Creatinine 2.60 H (0.66-1.25) mg/dL Glucose 109 H (74-99) mg/dL POC Glucose (mg/dL) 114 H 144 H (70-110) mg/dL Calcium 12.0 H (8.4-10.2) mg/dL C-Reactive Protein 26.3 H (<1.0) mg/dL Procalcitonin (0.02-0.50) ng/mL PTH Intact (14.0-72.0) pg/mL 07/04/24 07/04/24 Range/Units 06:19 11:33 WBC 16.38 H (4.50-10.00) 10*3/uL RBC 2.76 L (4.40-5.60) 10*6/uL Hgb 7.6 L D (13.0-17.0) g/dL Hct 24.4 L (39.6-50.0) % MCHC 31.1 L (32.0-37.0) g/dL Immature Gran # 0.14 H (0.00-0.04) 10*3/uL Neutrophils # 13.76 H (1.80-7.70) 10*3/uL Monocytes # 1.49 H (0.20-1.00) 10*3/uL Potassium (3.5-5.1) mmol/L Chloride (98-107) mmol/L Carbon Dioxide (22-30) mmol/L BUN (9-20) mg/dL Creatinine (0.66-1.25) mg/dL Glucose (74-99) mg/dL POC Glucose (mg/dL) 111 H (70-110) mg/dL Calcium (8.4-10.2) mg/dL C-Reactive Protein (<1.0) mg/dL Procalcitonin (0.02-0.50) ng/mL PTH Intact (14.0-72.0) pg/mL Microbiology - Last 24 Hours (Table) 07/01/24 23:10 Blood Culture - Preliminary Blood Assessment and Plan Assessment: Acute right lower lobe pneumonia, secondary to Pseudomonas aeruginosa. Leukocytosis, secondary to pneumonia. Benign essential hypertension. History of thyroid cancer/previous thyroidectomy. Anemia of chronic disease. Acute kidney injury. History of head and neck cancer, 2010. History of COPD. Former tobacco use. Plan: Plan dated July 04, 2024. The patient was seen today in room 377. His oxygen requirements have come down from 8 L to 5. He feels improved, but he still having cough and shortness of breath. He continues on Zosyn as an antibiotic. He also continues on updrafts, as well as GI prophylaxis. We will continue to follow make recommendations along the way. All labs, x-rays, and medications are reviewed. Prognosis is guarded. Dictation was produced using [employer] software. Please excuse any grammatical, word or spelling errors. Time with Patient: Less than 30
[2024-07-04 13:55] LABS: Glucose,Whole Blood 106 mg/dL (70-110)
--- NOTE | 2024-07-04 14:17 | XR ---
EXAMINATION TYPE: XR chest 1V portable DATE OF EXAM: 07/04/2024 2:11 PM COMPARISON: 07/01/2024 CLINICAL INDICATION: Male, 63 years old with history of Resp distress, , FINDINGS: Heart upper limits of normal in size. Diffuse medium and coarse interstitial opacities persist. There is worsening focal air space opacity right midlung and retrocardiac left base with small left pleura l effusion. Hyperinflation. IMPRESSION: COPD with ongoing interstitial lung disease now with the development of right midlung and left basila r airspace disease. Small left pleural effusion. Consider multifocal pneumonia or sequela of CHF. [facility], Workstation: [email or web address], 07/04/2024 2:15 PM
[2024-07-04 16:58] LABS: Glucose,Whole Blood 110 mg/dL (70-110)
[2024-07-04] MEDS: LORazepam 0.5 MG TAB PEG/G-TUBE PRN (17:42)
[2024-07-04] MEDS: ONDANSETRON 4 MG/2 ML VIAL IVP PRN (17:42)
[2024-07-04 18:09] LABS: Protein, Total 6.8 g/dL (6.2-8.2)
[2024-07-04] MEDS: ZOLEDRONIC ACID 4 MG in SODIUM CHLORIDE 0.9% 100 ML IV ONE (20:53)
[2024-07-04] MEDS: hydrALAZINE HCL 20 MG/ML 1 ML VIAL IVP PRN (23:24)
[2024-07-05 00:11] LABS: Glucose,Whole Blood 133 mg/dL (70-110)
[2024-07-05 06:20] LABS: Glucose,Whole Blood 120 mg/dL (70-110)
[2024-07-05 07:13] LABS: Basophils # (A) 0.04 10*3/uL (0.00-0.10); Basophils % (A) 0.3 %; Eosinophils # (A) 0.07 10*3/uL (0.04-0.35); Eosinophils % (A) 0.6 %; HCT 24.4 % (39.6-50.0); HGB 7.4 g/dL (13.0-17.0); Lymphocytes # (A) 1.16 10*3/uL (0.90-5.00); Lymphocytes % (A) 9.8 %; MCHC 30.3 g/dL (32.0-37.0); MCV 89.1 fL (80.0-97.0); Mean Platelet Volume 9.8 fL (9.5-12.2); Monocytes # (A) 1.31 10*3/uL (0.20-1.00); Monocytes % (A) 11.1 %; Neutrophils # (A) 9.17 10*3/uL (1.80-7.70); Neutrophils % (A) 77.4 %; Platelet Count 307 10*3/uL (140-440); RBC 2.74 10*6/uL (4.40-5.60); RDW 14.8 % (11.5-14.5); WBC 11.84 10*3/uL (4.50-10.00)
[2024-07-05 07:31] LABS: African American GFR (CKD) 30 (>60 ml/min/1.73 sqM); Albumin 3.5 g/dL (3.5-5.0); Blood Urea Nitrogen 47 mg/dL (9-20); Calcium 11.1 mg/dL (8.4-10.2); Chloride 92 mmol/L (98-107); Glucose 114 mg/dL (74-99); Magnesium 2.1 mg/dL (1.6-2.3); Non-African American GFR(CKD) 26 (>60 ml/min/1.73 sqM); Potassium 3.6 mmol/L (3.5-5.1); Sodium 141 mmol/L (137-145)
[2024-07-05 07:39] LABS: Anion Gap 10 mmol/L; Carbon Dioxide 39 mmol/L (22-30)
--- NOTE | 2024-07-05 09:00 | P.PN ---
Subjective Progress Note Date: 07/05/24 H&P Date: 07/02/24 Chief Complaint: Shortness of breath., Hypoxia Patient presented to the office on 07/02/2019 complaining of shortness of breath had an elevated White count of 24,000 which was performed yesterday, Pseudomonas was cultured from the sputum. Patient complains of left-sided chest pain and persistent cough question known history of squamous cell carcinoma of the thyroid. Status post commando procedure of the neck patient is unable to regard his airway and is not obligate tube feeder 07/03/24 Right lower lobe pneumonia, with persistent cough and shortness of breath. Complains of left-sided chest pain recently treated for pneumonia as outpatient with oral Levaquin. Chest x-ray showed improvement from a week ago last GFR was greater than 70 Admission GFR was 24 signifying acute kidney injury, patient admits to not being compliant with his tube feeds or his water in the PEG tube lately Patient is a 63-year-old male known to my practice who developed acute pneumonia with Pseudomonas failed outpatient therapy recently admitted for IV antibiotics recently demonstrating acute kidney injury. 07/04/2024 maintained on Zosyn, nebulized bronchodilators. O2 sat on 5 L nasal cannula 96%. Mild tachycardia. Elevated CRP and procalcitonin. Staff reported -earlier this morning patient put the call light on, oxygen was off, desatted, had a short self-limited spastic shaking less than half a minute, spontaneously resolved with reapplication of oxygen. Telemetry sinus tachycardia. Hypertensive, midodrine discontinued.Keppra level ordered. Afebrile, WBC decreased to 16.38. Hemoglobin decreased to 7.6, platelets 322. Renal function improved, bicarb 38, BUN 64, creatinine 2.6. Calcium 12. Potassium 3.4, magnesium 2.2. 07/05/2024 continues on IV fluid hydration, tube feeds,nebulized bronchodilators, Zosyn. Afebrile, WBC continues trending down currently 11.84. Preliminary blood cultures reporting no growth after 72 hours. maintaining O2 sats in the high 90s on 6 L high flow nasal cannula which can be weaned further down. hemoglobin 7.4, platelets 307. Potassium 3.6, magnesium 2.1, bicarb 39 BUN 47, creatinine 2.57. Received a dose of zoledronic acid yesterday, calcium decreased to 11.1. blood sugars controlled. Telemetry sinus. Denies chest pain, palpitations. Objective - Vital Signs Vital signs: Vital Signs Temp 97.6 F 07/04/24 19:50 Pulse 97 07/05/24 04:00 Resp 20 07/05/24 04:00 BP 120/76 07/05/24 04:00 Pulse Ox 97 07/05/24 04:00 FiO2 Intake & Output 07/04/24 07/05/24 07/05/24 18:59 06:59 18:59 Intake Total 120 Output Total 925 300 200 Balance -925 -180 -200 Weight 51.5 kg 56.5 kg Intake: Tube Feeding 120 Output: Urine 925 300 200 Other: Voiding Method Urinal Urinal # Voids 2 - Exam General: [Cachectic ,awake, alert and oriented times 3. No acute distress. HEENT: [PERRL. EOMI. Known history of commando procedure of the neck secondary to squamous cell carcinoma of the thyroid Neck: Supple, no JVD Cardiac: Regular S1S2. No S3. No S4. No clicks, rubs. No murmur.] Lungs: Equal air entry, diminished with right sided fine basilar crackles. Abdomen: [Soft, nontender, no organomegaly appreciated. PEG tube present ,+BS] Extremes: [No edema no cyanosis no claudication normal pulses] Skin: [Warm and dry, no rash,reddened sacral/coccyx area.] Neurologic: CN II - XII grossly intact. Microbiology 07/01/24 23:10 Blood Blood Culture - Preliminary - Labs CBC & Chem 7: 07/05/24 06:34 07/05/24 06:34 Labs: Abnormal Lab Results - Last 24 Hours (Table) 07/03/24 07/04/24 07/05/24 Range/Units 11:23 11:33 00:09 WBC (4.50-10.00) 10*3/uL RBC (4.40-5.60) 10*6/uL Hgb (13.0-17.0) g/dL Hct (39.6-50.0) % MCHC (32.0-37.0) g/dL Immature Gran # (0.00-0.04) 10*3/uL Neutrophils # (1.80-7.70) 10*3/uL Monocytes # (0.20-1.00) 10*3/uL Chloride (98-107) mmol/L Carbon Dioxide (22-30) mmol/L BUN (9-20) mg/dL Creatinine (0.66-1.25) mg/dL Glucose (74-99) mg/dL POC Glucose (mg/dL) 111 H 133 H (70-110) mg/dL Calcium (8.4-10.2) mg/dL PTH Intact 10.1 L (14.0-72.0) pg/mL 07/05/24 07/05/24 07/05/24 Range/Units 06:19 06:34 06:34 WBC 11.84 H (4.50-10.00) 10*3/uL RBC 2.74 L (4.40-5.60) 10*6/uL Hgb 7.4 L (13.0-17.0) g/dL Hct 24.4 L (39.6-50.0) % MCHC 30.3 L (32.0-37.0) g/dL Immature Gran # 0.09 H (0.00-0.04) 10*3/uL Neutrophils # 9.17 H (1.80-7.70) 10*3/uL Monocytes # 1.31 H (0.20-1.00) 10*3/uL Chloride 92 L (98-107) mmol/L Carbon Dioxide 39 H (22-30) mmol/L BUN 47 H (9-20) mg/dL Creatinine 2.57 H (0.66-1.25) mg/dL Glucose 114 H (74-99) mg/dL POC Glucose (mg/dL) 120 H (70-110) mg/dL Calcium 11.1 H (8.4-10.2) mg/dL PTH Intact (14.0-72.0) pg/mL Microbiology - Last 24 Hours (Table) 07/01/24 23:10 Blood Culture - Preliminary Blood Assessment and Plan Assessment: Sepsis secondary to right lower lobe pseudomonas pneumonia. Leukocytosis secondary to the above Acute kidney injury, related to sepsis, infection Hypercalcemia History of malignant neoplasm of head and neck Dysphagia Anemia of chronic disease Chronic COPD Former nicotine dependence Essential hypertension History of seizure disorder Hypokalemia Severe protein calorie malnutrition, BMI 17.4 Plan: Continue on current medication regime ,monitoring and symptomatic treatment. Titrate O2 to parameters established by pulmonary. transfer to [facility]. Tube feeds with strict aspiration precautions. Maintain aggressive pulmonary toileting with nebulized bronchodilators,Zosyn. Potassium replacement.hypercalcemia workup in progress. avoid nephrotoxic drugs. Close monitoring of renal function, electrolytes, hemoglobin with repeat labs ordered for tomorrow. The impression and plan of care has been dictated as directed. : I performed a history and examination of this patient, discussed the same with the dictator. I agree with the dictator's note ,documented as a scribe. Any additional findings or plans will be noted.
[2024-07-05] MEDS ORDERED: POTASSIUM CHLORIDE 20 MEQ in WATER FOR INJECTION 1 100ML.BAG IVPB STA (10:01)
--- NOTE | 2024-07-05 10:03 | P.PN ---
Subjective Patient is seen in follow-up for acute kidney injury. Renal function fairly stable. Receiving IV fluids. NPO. Also receiving tube feeds now. Vital signs are stable. General: No acute distress. HEENT: Head exam is unremarkable. On nasal cannula. LUNGS: No audible rhonchi or wheezes. HEART: Rate and Rhythm are regular. ABDOMEN: Nontender. EXTREMITITES: No edema. Objective - Vital Signs Vital signs: Vital Signs Temp 97.5 F L 07/05/24 09:33 Pulse 103 H 07/05/24 09:33 Resp 16 07/05/24 09:33 BP 146/84 07/05/24 09:33 Pulse Ox 99 07/05/24 09:33 FiO2 Intake & Output 07/04/24 07/05/24 07/05/24 18:59 06:59 18:59 Intake Total 120 Output Total 925 300 200 Balance -925 -180 -200 Weight 51.5 kg 56.5 kg Intake: Tube Feeding 120 Output: Urine 925 300 200 Other: Voiding Method Urinal Urinal # Voids 2 - Labs CBC & Chem 7: 07/05/24 06:34 07/05/24 06:34 Labs: Abnormal Lab Results - Last 24 Hours (Table) 07/03/24 07/04/24 07/05/24 Range/Units 11:23 11:33 00:09 WBC (4.50-10.00) 10*3/uL RBC (4.40-5.60) 10*6/uL Hgb (13.0-17.0) g/dL Hct (39.6-50.0) % MCHC (32.0-37.0) g/dL Immature Gran # (0.00-0.04) 10*3/uL Neutrophils # (1.80-7.70) 10*3/uL Monocytes # (0.20-1.00) 10*3/uL Chloride (98-107) mmol/L Carbon Dioxide (22-30) mmol/L BUN (9-20) mg/dL Creatinine (0.66-1.25) mg/dL Glucose (74-99) mg/dL POC Glucose (mg/dL) 111 H 133 H (70-110) mg/dL Calcium (8.4-10.2) mg/dL PTH Intact 10.1 L (14.0-72.0) pg/mL 07/05/24 07/05/24 07/05/24 Range/Units 06:19 06:34 06:34 WBC 11.84 H (4.50-10.00) 10*3/uL RBC 2.74 L (4.40-5.60) 10*6/uL Hgb 7.4 L (13.0-17.0) g/dL Hct 24.4 L (39.6-50.0) % MCHC 30.3 L (32.0-37.0) g/dL Immature Gran # 0.09 H (0.00-0.04) 10*3/uL Neutrophils # 9.17 H (1.80-7.70) 10*3/uL Monocytes # 1.31 H (0.20-1.00) 10*3/uL Chloride 92 L (98-107) mmol/L Carbon Dioxide 39 H (22-30) mmol/L BUN 47 H (9-20) mg/dL Creatinine 2.57 H (0.66-1.25) mg/dL Glucose 114 H (74-99) mg/dL POC Glucose (mg/dL) 120 H (70-110) mg/dL Calcium 11.1 H (8.4-10.2) mg/dL PTH Intact (14.0-72.0) pg/mL Microbiology - Last 24 Hours (Table) 07/01/24 23:10 Blood Culture - Preliminary Blood Assessment and Plan Plan: Assessment: 1. Acute kidney injury secondary to septic ATN. Baseline creatinine near 1 and peaked at 3.3 this admission -2.57 today. 2. Hypercalcemia secondary to volume contraction. Also component of malignancy. Calcium 11.1 today. PTH suppressed at 10.1. Vitamin D level 90.2. 3. History of head and neck cancer. 4. Pseudomonas pneumonia on antibiotics. Infectious disease following. 5. Hypokalemia from poor intake and hypercalcemia induced diuresis. Magnesium normal. Plan: Maintain IV fluids. Decrease rate to 75 cc an hour. Maintain tube feeds. Replace potassium. Follow-up pending workup for hypercalcemia. Zoledronic acid x 1 dose given July 04, 2024.
[2024-07-05 11:02] LABS: Free Kappa Lt Chain Qnt, Serum 9.35 mg/dL (0.33-1.94); Free Lambda Lt Chain Qnt, Seru 4.7 mg/dL (0.57-2.63)
[2024-07-05] MEDS: POTASSIUM CHLORIDE 10 MEQ in WATER FOR INJECTION 1 100ML.BAG IVPB SCH (11:38)
--- NOTE | 2024-07-05 11:49 | P.PN ---
Subjective Progress Note Date: 07/05/24 Principal diagnosis: Pneumonia. This is a 63-year-old white male with known history of squamous cell carcinoma of the head and neck, history of congestive heart failure, recent history of pneumonia treated on outpatient basis,, his sputum was positive for Pseudomonas pneumonia, and he received treatment in the form of Levaquin on outpatient basis. However the patient was brought into the ER yesterday with mostly symptoms of cough, congestion, shortness of breath, and his chest x-ray showed evidence of resolving a right lower lobe infiltrate, actually improved compared to a chest x-ray he had a week ago. But not completely resolved. Considering his symptoms and considering his clinical history, patient is being admitted, and I saw him in consultation. Reviewed sensitivity on his Pseudomonas, and I suggested we treat the patient with Zosyn. Patient was noted to have leukocytosis with WBC count of 34.86 hemoglobin 9.1 his PMNs were 91%, patient had relatively normal electrolytes except for bicarb of 42 which is related to chronic hypercapnia BUN 104 and creatinine 3.30 worsening creatinine compared to recent creatinine of 2.6 and baseline only few months ago was 1.05. Obviously the patient is developing acute kidney disease/acute kidney injury. Patient had negative screen for influenza RSV and COVID-19. Patient was seen today on 07/03/2024, continues to have intermittent cough, cough is productive, thick purulent secretions noted, no hemoptysis, patient had increase in his FiO2 requirement up to 8 L, O2 saturation is marginal specially with him coughing and sometimes seems to have difficulty clearing his secretions. Patient remains on Zosyn, he is on bronchodilators, his overall pulmonary status is marginal at best. If no improvement in the next 24 hours, patient may have to be considered for bronchoscopy and BAL. Labs today including electrolytes were reviewed his BUN is up to 81 creatinine 3.05, slightly improved compared to creatinine on 07/01, Progress note dated July 04, 2024. 63-year-old male seen today in room 377. He is currently on 5 L nasal cannula. He is getting lactated Ringer's at 130 cc an hour. Chest x-ray revealed a right lower lobe pneumonia, positive for Pseudomonas. He is currently on Zosyn. He complains of shortness of breath, cough, and some phlegm production. He does feel better today, and his oxygen requirements have come down from 8 L, to 5. Current laboratory data includes a white count of 16.4, hemoglobin 7.6, hematocrit 24.4, and a platelet count of 322,000. Sodium 140, potassium 3.4, chlorides 90, CO2 38, BUN 64, creatinine 2.60. Glucose is 111. Albumin is 3.6. Calcium is 12. Blood cultures are negative. Chest x-ray revealed a right midlung pneumonia. Progress note dated July 05, 2024. 63-year-old male seen today in room 377. Currently, the patient is on 7 L high flow nasal cannula. His saturations are 99%. Oxygen can be titrated down. He is getting LR at 75 cc an hour. The patient continues on Zosyn. The patient appears chronically ill, and very frail. He is not in any respiratory distress. Current labs include a white count 11.8, hemoglobin 7.4, hematocrit 24.4, and a normal platelet count. Sodium 141, potassium 3.6, chlorides 92, CO2 39, anion gap 10, BUN 47, creatinine 2.57. Calcium is 11.1. No chest x-ray today. Objective - Vital Signs Vital signs: Vital Signs Temp 97.5 F L 07/05/24 09:33 Pulse 103 H 07/05/24 09:33 Resp 16 07/05/24 09:33 BP 146/84 07/05/24 09:33 Pulse Ox 99 07/05/24 09:33 FiO2 Intake & Output 07/04/24 07/05/24 07/05/24 18:59 06:59 18:59 Intake Total 120 Output Total 925 300 200 Balance -925 -180 -200 Weight 51.5 kg 56.5 kg Intake: Tube Feeding 120 Output: Urine 925 300 200 Other: Voiding Method Urinal Urinal Urinal # Voids 2 - Exam No acute distress, oriented 3. Currently on 7 L. HEENT examination is grossly unremarkable. Mucous membranes are moist. No oral lesions. Neck supple. Full range of motion. No adenopathy thyromegaly or neck vein distention. Cardiovascular examination reveals regular rhythm rate. S1-S2 normal. No S3 or S4. No discernible murmur noted. Lungs reveal slightly diminished breath sounds, bilaterally, worse on the right than on the left. Scattered rhonchi and crackles appreciated on the right. Abdomen soft bowel sounds are heard. No masses or tenderness. PEG tube noted. Extremities are intact. No cyanosis clubbing or edema. Skin is without rash or lesion. Neurologic examination is brief but nonfocal. - Labs CBC & Chem 7: 07/05/24 06:34 07/05/24 06:34 Labs: Abnormal Lab Results - Last 24 Hours (Table) 07/04/24 07/05/24 07/05/24 Range/Units 06:19 00:09 06:19 WBC (4.50-10.00) 10*3/uL RBC (4.40-5.60) 10*6/uL Hgb (13.0-17.0) g/dL Hct (39.6-50.0) % MCHC (32.0-37.0) g/dL Immature Gran # (0.00-0.04) 10*3/uL Neutrophils # (1.80-7.70) 10*3/uL Monocytes # (0.20-1.00) 10*3/uL Chloride (98-107) mmol/L Carbon Dioxide (22-30) mmol/L BUN (9-20) mg/dL Creatinine (0.66-1.25) mg/dL Glucose (74-99) mg/dL POC Glucose (mg/dL) 133 H 120 H (70-110) mg/dL Calcium (8.4-10.2) mg/dL Free [place] LC, Quant 9.35 H (0.33-1.94) mg/dL Free [place] LC, Quant 4.70 H (0.57-2.63) mg/dL 07/05/24 07/05/24 Range/Units 06:34 06:34 WBC 11.84 H (4.50-10.00) 10*3/uL RBC 2.74 L (4.40-5.60) 10*6/uL Hgb 7.4 L (13.0-17.0) g/dL Hct 24.4 L (39.6-50.0) % MCHC 30.3 L (32.0-37.0) g/dL Immature Gran # 0.09 H (0.00-0.04) 10*3/uL Neutrophils # 9.17 H (1.80-7.70) 10*3/uL Monocytes # 1.31 H (0.20-1.00) 10*3/uL Chloride 92 L (98-107) mmol/L Carbon Dioxide 39 H (22-30) mmol/L BUN 47 H (9-20) mg/dL Creatinine 2.57 H (0.66-1.25) mg/dL Glucose 114 H (74-99) mg/dL POC Glucose (mg/dL) (70-110) mg/dL Calcium 11.1 H (8.4-10.2) mg/dL Free [place] LC, Quant (0.33-1.94) mg/dL Free [place]ambda LC, Quant (0.57-2.63) mg/dL Microbiology - Last 24 Hours (Table) 07/01/24 23:10 Blood Culture - Preliminary Blood Assessment and Plan Assessment: Acute right lower lobe pneumonia, secondary to Pseudomonas aeruginosa. Leukocytosis, secondary to pneumonia. Benign essential hypertension. History of thyroid cancer/previous thyroidectomy. Anemia of chronic disease. Acute kidney injury. History of head and neck cancer, 2010. History of COPD. Former tobacco use. Plan: Plan dated July 04, 2024. The patient was seen today in room 377. His oxygen requirements have come down from 8 L to 5. He feels improved, but he still having cough and shortness of breath. He continues on Zosyn as an antibiotic. He also continues on updrafts, as well as GI prophylaxis. We will continue to follow make recommendations along the way. All labs, x-rays, and medications are reviewed. Prognosis is guarded. Dictation was produced using [employer] software. Please excuse any grammatical, word or spelling errors. Plan dated July 05, 2024. The patient is seen today in room 377. He is currently on 7 L oxygen. Saturations are 99%. Oxygen can be titrated down. All labs, x-rays, me dications are reviewed. We will continue to follow. The patient continues on Zosyn. He remains a full code. CODE STATUS should be addressed. No additional recommendations are made. We will continue to follow. Dictation was produced using [employer] software. Please excuse any grammatical, word or spelling errors. Time with Patient: Less than 30
[2024-07-05 11:57] LABS: Glucose,Whole Blood 136 mg/dL (70-110)
[2024-07-05] MEDS ORDERED: ACETAMINOPHEN TAB 325 MG TAB PEG/G-TUBE PRN (12:22)
--- NOTE | 2024-07-05 16:29 | P.PN ---
Subjective Progress Note Date: 07/04/24 Principal diagnosis: Reason for follow-up is pneumonia Patient is a 63-year-old male with a past medical history significant for squamous cell cancer of the head and neck, Heart Failure, COPD, Hypertension, Memory Impairment, Pneumonia, Seizure Disorder, Thyroid Disorder presented to the hospital for evaluation of worsening shortness of breath and cough has been diagnosed with pneumonia with recent outpatient culture positive for Pseudomonas. On today's evaluation that is 07/04/2024,the patient denies any fever or any chills, patient is breathing slightly comfortably on 6 L nasal cannula oxygen the patient denies chest pain or worsening cough, patient denies abdominal pain, no nausea vomiting or diarrhea. Patient white count is down to 16.38 creatinine is 2.60 Objective - Vital Signs Vital signs: Vital Signs Temp 98.4 F 07/04/24 08:00 Pulse 106 H 07/04/24 12:46 Resp 16 07/04/24 08:00 BP 149/83 07/04/24 12:00 Pulse Ox 94 L 07/04/24 12:00 FiO2 Intake & Output 07/03/24 07/04/24 07/04/24 18:59 06:59 18:59 Output Total 1075 200 775 Balance -1075 -200 -775 Weight 51.5 kg 51.5 kg Output: Urine 1075 200 775 Other: Voiding Method Urinal Urinal Urinal # Bowel Movements 1 - Exam GENERAL DESCRIPTION: Middle-age male lying in bed in no distress RESPIRATORY SYSTEM: Unlabored breathing , decreased breath sounds at bases HEART: S1 S2 regular rate and rhythm , ABDOMEN: Soft , no tenderness EXTREMITIES: No edema feet - Labs CBC & Chem 7: 07/05/24 06:34 07/05/24 06:34 Labs: Abnormal Lab Results - Last 24 Hours (Table) 07/03/24 07/03/24 07/03/24 Range/Units 06:51 11:23 17:47 WBC (4.50-10.00) 10*3/uL RBC (4.40-5.60) 10*6/uL Hgb (13.0-17.0) g/dL Hct (39.6-50.0) % MCHC (32.0-37.0) g/dL Immature Gran # (0.00-0.04) 10*3/uL Neutrophils # (1.80-7.70) 10*3/uL Monocytes # (0.20-1.00) 10*3/uL Potassium (3.5-5.1) mmol/L Chloride (98-107) mmol/L Carbon Dioxide (22-30) mmol/L BUN (9-20) mg/dL Creatinine (0.66-1.25) mg/dL Glucose (74-99) mg/dL POC Glucose (mg/dL) 137 H (70-110) mg/dL Calcium (8.4-10.2) mg/dL C-Reactive Protein (<1.0) mg/dL Procalcitonin 19.50 H (0.02-0.50) ng/mL PTH Intact 10.1 L (14.0-72.0) pg/mL 07/04/24 07/04/24 07/04/24 Range/Units 00:02 05:52 06:19 WBC (4.50-10.00) 10*3/uL RBC (4.40-5.60) 10*6/uL Hgb (13.0-17.0) g/dL Hct (39.6-50.0) % MCHC (32.0-37.0) g/dL Immature Gran # (0.00-0.04) 10*3/uL Neutrophils # (1.80-7.70) 10*3/uL Monocytes # (0.20-1.00) 10*3/uL Potassium 3.4 L (3.5-5.1) mmol/L Chloride 90 L (98-107) mmol/L Carbon Dioxide 38 H (22-30) mmol/L BUN 64 H (9-20) mg/dL Creatinine 2.60 H (0.66-1.25) mg/dL Glucose 109 H (74-99) mg/dL POC Glucose (mg/dL) 114 H 144 H (70-110) mg/dL Calcium 12.0 H (8.4-10.2) mg/dL C-Reactive Protein 26.3 H (<1.0) mg/dL Procalcitonin (0.02-0.50) ng/mL PTH Intact (14.0-72.0) pg/mL 07/04/24 07/04/24 Range/Units 06:19 11:33 WBC 16.38 H (4.50-10.00) 10*3/uL RBC 2.76 L (4.40-5.60) 10*6/uL Hgb 7.6 L D (13.0-17.0) g/dL Hct 24.4 L (39.6-50.0) % MCHC 31.1 L (32.0-37.0) g/dL Immature Gran # 0.14 H (0.00-0.04) 10*3/uL Neutrophils # 13.76 H (1.80-7.70) 10*3/uL Monocytes # 1.49 H (0.20-1.00) 10*3/uL Potassium (3.5-5.1) mmol/L Chloride (98-107) mmol/L Carbon Dioxide (22-30) mmol/L BUN (9-20) mg/dL Creatinine (0.66-1.25) mg/dL Glucose (74-99) mg/dL POC Glucose (mg/dL) 111 H (70-110) mg/dL Calcium (8.4-10.2) mg/dL C-Reactive Protein (<1.0) mg/dL Procalcitonin (0.02-0.50) ng/mL PTH Intact (14.0-72.0) pg/mL Microbiology - Last 24 Hours (Table) 07/01/24 23:10 Blood Culture - Preliminary Blood Assessment and Plan (1) Pseudomonas aeruginosa infection Current Visit: Yes Status: Acute Code(s): A49.8 - OTHER BACTERIAL INFECTIONS OF UNSPECIFIED SITE SNOMED Code(s): 94339211 (2) Pneumonia Current Visit: Yes Status: Acute Code(s): J18.9 - PNEUMONIA, UNSPECIFIED ORGANISM SNOMED Code(s): 158210992 (3) Sepsis Current Visit: Yes Status: Acute Code(s): A41.9 - SEPSIS, UNSPECIFIED ORGANISM SNOMED Code(s): 63845791 Plan: 1patient presented to hospital with sepsis in this patient who did have elevated white count tachycardia meeting criteria for SIRS source is right midlung pneumonia in this patient who recently did have an outpatient culture positive for Pseudomonas aeruginosa to the likely pathogen 2patient with elevated white count more likely related to pneumonia, patient white count is trending down down to 16,000 3patient will continue with Zosyn 3.375 g every 8 hours and continue supportive care Dictation was produced using [employer] dictation software. please excuse any grammatical, word or spelling errors. Time with Patient: Less than 30
--- NOTE | 2024-07-05 16:30 | P.PN ---
Subjective Progress Note Date: 07/05/24 Principal diagnosis: Reason for follow-up is pneumonia Patient is a 63-year-old male with a past medical history significant for squamous cell cancer of the head and neck, Heart Failure, COPD, Hypertension, Memory Impairment, Pneumonia, Seizure Disorder, Thyroid Disorder presented to the hospital for evaluation of worsening shortness of breath and cough has been diagnosed with pneumonia with recent outpatient culture positive for Pseudomonas. On today's evaluation that is 07/05/2024,the patient remains to be afebrile, patient is on 4 L nasal cannula supplemental oxygen and mention breathing slightly comfortably, denies chest pain or worsening cough.Patient denies having any nausea or vomiting, no abdominal pain and no diarrhea has been reported. Patient white count is 11.84, creatinine is 2.57 blood culture have been negative Objective - Vital Signs Vital signs: Vital Signs Temp 97.5 F L 07/05/24 09:33 Pulse 100 07/05/24 16:24 Resp 16 07/05/24 15:37 BP 134/79 07/05/24 13:13 Pulse Ox 98 07/05/24 15:37 FiO2 Intake & Output 07/04/24 07/05/24 07/05/24 18:59 06:59 18:59 Intake Total 120 Output Total 925 300 400 Balance -925 -180 -400 Weight 51.5 kg 56.5 kg Intake: Tube Feeding 120 Output: Urine 925 300 400 Other: Voiding Method Urinal Urinal Urinal # Voids 2 # Bowel Movements 1 - Exam GENERAL DESCRIPTION: Middle-age male lying in bed in no distress RESPIRATORY SYSTEM: Unlabored breathing , decreased breath sounds at bases HEART: S1 S2 regular rate and rhythm , ABDOMEN: Soft , no tenderness EXTREMITIES: No edema feet - Labs CBC & Chem 7: 07/05/24 06:34 07/05/24 06:34 Labs: Abnormal Lab Results - Last 24 Hours (Table) 07/04/24 07/05/24 07/05/24 Range/Units 06:19 00:09 06:19 WBC (4.50-10.00) 10*3/uL RBC (4.40-5.60) 10*6/uL Hgb (13.0-17.0) g/dL Hct (39.6-50.0) % MCHC (32.0-37.0) g/dL Immature Gran # (0.00-0.04) 10*3/uL Neutrophils # (1.80-7.70) 10*3/uL Monocytes # (0.20-1.00) 10*3/uL Chloride (98-107) mmol/L Carbon Dioxide (22-30) mmol/L BUN (9-20) mg/dL Creatinine (0.66-1.25) mg/dL Glucose (74-99) mg/dL POC Glucose (mg/dL) 133 H 120 H (70-110) mg/dL Calcium (8.4-10.2) mg/dL Free [place] LC, Quant 9.35 H (0.33-1.94) mg/dL Free Lambda LC, Quant 4.70 H (0.57-2.63) mg/dL 07/05/24 07/05/24 07/05/24 Range/Units 06:34 06:34 11:40 WBC 11.84 H (4.50-10.00) 10*3/uL RBC 2.74 L (4.40-5.60) 10*6/uL Hgb 7.4 L (13.0-17.0) g/dL Hct 24.4 L (39.6-50.0) % MCHC 30.3 L (32.0-37.0) g/dL Immature Gran # 0.09 H (0.00-0.04) 10*3/uL Neutrophils # 9.17 H (1.80-7.70) 10*3/uL Monocytes # 1.31 H (0.20-1.00) 10*3/uL Chloride 92 L (98-107) mmol/L Carbon Dioxide 39 H (22-30) mmol/L BUN 47 H (9-20) mg/dL Creatinine 2.57 H (0.66-1.25) mg/dL Glucose 114 H (74-99) mg/dL POC Glucose (mg/dL) 136 H (70-110) mg/dL Calcium 11.1 H (8.4-10.2) mg/dL Free [place] LC, Quant (0.33-1.94) mg/dL Free Lambda LC, Quant (0.57-2.63) mg/dL Microbiology - Last 24 Hours (Table) 07/01/24 23:10 Blood Culture - Preliminary Blood Assessment and Plan (1) Pseudomonas aeruginosa infection Current Visit: Yes Status: Acute Code(s): A49.8 - OTHER BACTERIAL INFECTIONS OF UNSPECIFIED SITE SNOMED Code(s): 63338114 (2) Pneumonia Current Visit: Yes Status: Acute Code(s): J18.9 - PNEUMONIA, UNSPECIFIED ORGANISM SNOMED Code(s): 790599225 (3) Sepsis Current Visit: Yes Status: Acute Code(s): A41.9 - SEPSIS, UNSPECIFIED ORGANISM SNOMED Code(s): 57136873 Plan: 1patient presented to hospital with sepsis in this patient who did have elevated white count tachycardia meeting criteria for SIRS source is right midlung pneumonia in this patient who recently did have an outpatient culture positive for Pseudomonas aeruginosa to the likely pathogen 2patient with elevated white count more likely related to pneumonia, patient white count is trending down down to 11,000 3patient will continue with Zosyn 3.375 g every 8 hours and will do midline and outpatient IV Zosyn at discharge this was discussed with the case preparer and liner Dictation was produced using [employer] dictation software. please excuse any grammatical, word or spelling errors.
[2024-07-05 17:09] LABS: Glucose,Whole Blood 136 mg/dL (70-110)
[2024-07-05 23:49] LABS: Glucose,Whole Blood 134 mg/dL (70-110)
[2024-07-06 05:47] LABS: Glucose,Whole Blood 142 mg/dL (70-110)
[2024-07-06 08:01] LABS: African American GFR (CKD) 34 (>60 ml/min/1.73 sqM); Anion Gap 8 mmol/L; Blood Urea Nitrogen 39 mg/dL (9-20); Calcium 10.5 mg/dL (8.4-10.2); Carbon Dioxide 38 mmol/L (22-30); Chloride 91 mmol/L (98-107); Glucose 119 mg/dL (74-99); Magnesium 2.1 mg/dL (1.6-2.3); Non-African American GFR(CKD) 29 (>60 ml/min/1.73 sqM); Potassium 3.5 mmol/L (3.5-5.1); Sodium 137 mmol/L (137-145)
[2024-07-06 08:08] LABS: Basophils # (A) 0.04 10*3/uL (0.00-0.10); Basophils % (A) 0.3 %; Eosinophils # (A) 0.16 10*3/uL (0.04-0.35); Eosinophils % (A) 1.1 %; HCT 23.6 % (39.6-50.0); HGB 7.3 g/dL (13.0-17.0); Lymphocytes # (A) 0.82 10*3/uL (0.90-5.00); Lymphocytes % (A) 5.8 %; MCHC 30.9 g/dL (32.0-37.0); MCV 87.4 fL (80.0-97.0); Mean Platelet Volume 9.4 fL (9.5-12.2); Monocytes # (A) 1.27 10*3/uL (0.20-1.00); Neutrophils # (A) 11.77 10*3/uL (1.80-7.70); Neutrophils % (A) 83.2 %; Platelet Count 278 10*3/uL (140-440); RDW 14.6 % (11.5-14.5); WBC 14.15 10*3/uL (4.50-10.00)
--- NOTE | 2024-07-06 09:50 | P.PN ---
Subjective Patient is seen in follow-up for acute kidney injury. Renal function better. Receiving IV fluids. NPO. Also receiving tube feeds. Vital signs are stable. General: No acute distress. HEENT: Head exam is unremarkable. On nasal cannula. LUNGS: No audible rhonchi or wheezes. HEART: Rate and Rhythm are regular. ABDOMEN: Nontender. EXTREMITITES: No edema. Objective - Vital Signs Vital signs: Vital Signs Temp 98 F 07/06/24 03:09 Pulse 110 H 07/06/24 08:55 Resp 21 07/06/24 03:09 BP 146/81 07/06/24 03:09 Pulse Ox 92 L 07/06/24 03:09 FiO2 Intake & Output 07/05/24 07/06/24 07/06/24 18:59 06:59 18:59 Intake Total 260 Output Total 900 1200 350 Balance -900 -940 -350 Weight 56 kg Intake: IV 20 Invasive Line 2 10 Invasive Line 3 10 Oral 240 Output: Urine 900 1200 350 Other: Voiding Method Urinal Urinal # Bowel Movements 1 1 - Labs CBC & Chem 7: 07/06/24 07:22 07/06/24 07:22 Labs: Abnormal Lab Results - Last 24 Hours (Table) 07/04/24 07/05/24 07/05/24 Range/Units 06:19 11:40 16:45 WBC (4.50-10.00) 10*3/uL RBC (4.40-5.60) 10*6/uL Hgb (13.0-17.0) g/dL Hct (39.6-50.0) % MCHC (32.0-37.0) g/dL MPV (9.5-12.2) fL Immature Gran # (0.00-0.04) 10*3/uL Neutrophils # (1.80-7.70) 10*3/uL Lymphocytes # (0.90-5.00) 10*3/uL Monocytes # (0.20-1.00) 10*3/uL Chloride (98-107) mmol/L Carbon Dioxide (22-30) mmol/L BUN (9-20) mg/dL Creatinine (0.66-1.25) mg/dL Glucose (74-99) mg/dL POC Glucose (mg/dL) 136 H 136 H (70-110) mg/dL Calcium (8.4-10.2) mg/dL Free [place] LC, Quant 9.35 H (0.33-1.94) mg/dL Free Lambda LC, Quant 4.70 H (0.57-2.63) mg/dL 07/05/24 07/06/24 07/06/24 Range/Units 23:48 05:46 07:22 WBC (4.50-10.00) 10*3/uL RBC (4.40-5.60) 10*6/uL Hgb (13.0-17.0) g/dL Hct (39.6-50.0) % MCHC (32.0-37.0) g/dL MPV (9.5-12.2) fL Immature Gran # (0.00-0.04) 10*3/uL Neutrophils # (1.80-7.70) 10*3/uL Lymphocytes # (0.90-5.00) 10*3/uL Monocytes # (0.20-1.00) 10*3/uL Chloride 91 L (98-107) mmol/L Carbon Dioxide 38 H (22-30) mmol/L BUN 39 H (9-20) mg/dL Creatinine 2.30 H (0.66-1.25) mg/dL Glucose 119 H (74-99) mg/dL POC Glucose (mg/dL) 134 H 142 H (70-110) mg/dL Calcium 10.5 H (8.4-10.2) mg/dL Free [place] LC, Quant (0.33-1.94) mg/dL Free Lambda LC, Quant (0.57-2.63) mg/dL 07/06/24 Range/Units 07:22 WBC 14.15 H (4.50-10.00) 10*3/uL RBC 2.70 L (4.40-5.60) 10*6/uL Hgb 7.3 L (13.0-17.0) g/dL Hct 23.6 L (39.6-50.0) % MCHC 30.9 L (32.0-37.0) g/dL MPV 9.4 L (9.5-12.2) fL Immature Gran # 0.09 H (0.00-0.04) 10*3/uL Neutrophils # 11.77 H (1.80-7.70) 10*3/uL Lymphocytes # 0.82 L (0.90-5.00) 10*3/uL Monocytes # 1.27 H (0.20-1.00) 10*3/uL Chloride (98-107) mmol/L Carbon Dioxide (22-30) mmol/L BUN (9-20) mg/dL Creatinine (0.66-1.25) mg/dL Glucose (74-99) mg/dL POC Glucose (mg/dL) (70-110) mg/dL Calcium (8.4-10.2) mg/dL Free [place] LC, Quant (0.33-1.94) mg/dL Free Lambda LC, Quant (0.57-2.63) mg/dL Assessment and Plan Plan: Assessment: 1. Acute kidney injury secondary to septic ATN. Baseline creatinine near 1 and peaked at 3.3 this admission -2.3 today. 2. Hypercalcemia secondary to volume contraction. Also component of malignancy. Calcium 10.5 today. PTH suppressed at 10.1. Vitamin D level 90.2. Calcitriol level 51. [place] light chains 9.3 and lambda light chains 4.7. Ratio not significantly elevated. 3. History of head and neck cancer. 4. Pseudomonas pneumonia on antibiotics. Infectious disease following. 5. Hypokalemia from poor intake and hypercalcemia induced diuresis. Magnesium normal. Plan: Maintain IV fluids. Maintain tube feeds. Replace potassium. Follow-up pending workup for hypercalcemia. Zoledronic acid x 1 dose given July 04, 2024. Avoid calcium and vitamin D supplements for now.
--- NOTE | 2024-07-06 10:22 | P.PN ---
Subjective Progress Note Date: 07/06/24 H&P Date: 07/02/24 Chief Complaint: Shortness of breath., Hypoxia Patient presented to the office on 07/02/2019 complaining of shortness of breath had an elevated White count of 24,000 which was performed yesterday, Pseudomonas was cultured from the sputum. Patient complains of left-sided chest pain and persistent cough question known history of squamous cell carcinoma of the thyroid. Status post commando procedure of the neck patient is unable to regard his airway and is not obligate tube feeder 07/03/24 Right lower lobe pneumonia, with persistent cough and shortness of breath. Complains of left-sided chest pain recently treated for pneumonia as outpatient with oral Levaquin. Chest x-ray showed improvement from a week ago last GFR was greater than 70 Admission GFR was 24 signifying acute kidney injury, patient admits to not being compliant with his tube feeds or his water in the PEG tube lately Patient is a 63-year-old male known to my practice who developed acute pneumonia with Pseudomonas failed outpatient therapy recently admitted for IV antibiotics recently demonstrating acute kidney injury. 07/04/2024 maintained on Zosyn, nebulized bronchodilators. O2 sat on 5 L nasal cannula 96%. Mild tachycardia. Elevated CRP and procalcitonin. Staff reported -earlier this morning patient put the call light on, oxygen was off, desatted, had a short self-limited spastic shaking less than half a minute, spontaneously resolved with reapplication of oxygen. Telemetry sinus tachycardia. Hypertensive, midodrine discontinued.Keppra level ordered. Afebrile, WBC decreased to 16.38. Hemoglobin decreased to 7.6, platelets 322. Renal function improved, bicarb 38, BUN 64, creatinine 2.6. Calcium 12. Potassium 3.4, magnesium 2.2. 07/05/2024 continues on IV fluid hydration, tube feeds,nebulized bronchodilators, Zosyn. Afebrile, WBC continues trending down currently 11.84. Preliminary blood cultures reporting no growth after 72 hours. maintaining O2 sats in the high 90s on 6 L high flow nasal cannula which can be weaned further down. hemoglobin 7.4, platelets 307. Potassium 3.6, magnesium 2.1, bicarb 39 BUN 47, creatinine 2.57. Received a dose of zoledronic acid yesterday, calcium decreased to 11.1. blood sugars controlled. Telemetry sinus. Denies chest pain, palpitations. 07/06/2024 FiO2 titrated down, maintaining O2 sats in the 90s on 4 L nasal cannula. Maintained on Zosyn, afebrile,labs pending. Infectious recommending midline cath placement for DC IV antibiotics .NPO,continues on tube feeds, blood sugars controlled. Objective - Vital Signs Vital signs: Vital Signs Temp 98 F 07/06/24 03:09 Pulse 109 H 07/06/24 03:09 Resp 21 07/06/24 03:09 BP 146/81 07/06/24 03:09 Pulse Ox 92 L 07/06/24 03:09 FiO2 Intake & Output 07/05/24 07/06/24 07/06/24 18:59 06:59 18:59 Intake Total 260 Output Total 900 1200 350 Balance -900 -940 -350 Weight 56 kg Intake: IV 20 Invasive Line 2 10 Invasive Line 3 10 Oral 240 Output: Urine 900 1200 350 Other: Voiding Method Urinal Urinal # Bowel Movements 1 1 - Exam General: [Cachectic , sitting up in bed watching TV ,alert and oriented times 3. No acute distress. HEENT: [PERRL. EOMI. Known history of commando procedure of the neck secondary to squamous cell carcinoma of the thyroid Neck: Supple, no JVD Cardiac: Regular S1S2. No S3. No S4. No clicks, rubs. No murmur.] Lungs: Equal air entry, diminished. Abdomen: [Soft, nontender, no organomegaly appreciated. PEG tube present ,+BS] Extremes: [No edema no cyanosis no claudication normal pulses] Skin: [Warm and dry, no rash.] Neurologic: CN II - XII grossly intact. - Labs CBC & Chem 7: 07/06/24 07:22 07/06/24 07:22 Labs: Abnormal Lab Results - Last 24 Hours (Table) 07/04/24 07/05/24 07/05/24 Range/Units 06:19 11:40 16:45 WBC (4.50-10.00) 10*3/uL RBC (4.40-5.60) 10*6/uL Hgb (13.0-17.0) g/dL Hct (39.6-50.0) % MCHC (32.0-37.0) g/dL MPV (9.5-12.2) fL Immature Gran # (0.00-0.04) 10*3/uL Neutrophils # (1.80-7.70) 10*3/uL Lymphocytes # (0.90-5.00) 10*3/uL Monocytes # (0.20-1.00) 10*3/uL Chloride (98-107) mmol/L Carbon Dioxide (22-30) mmol/L BUN (9-20) mg/dL Creatinine (0.66-1.25) mg/dL Glucose (74-99) mg/dL POC Glucose (mg/dL) 136 H 136 H (70-110) mg/dL Calcium (8.4-10.2) mg/dL Free [place] LC, Quant 9.35 H (0.33-1.94) mg/dL Free Lambda LC, Quant 4.70 H (0.57-2.63) mg/dL 07/05/24 07/06/24 07/06/24 Range/Units 23:48 05:46 07:22 WBC (4.50-10.00) 10*3/uL RBC (4.40-5.60) 10*6/uL Hgb (13.0-17.0) g/dL Hct (39.6-50.0) % MCHC (32.0-37.0) g/dL MPV (9.5-12.2) fL Immature Gran # (0.00-0.04) 10*3/uL Neutrophils # (1.80-7.70) 10*3/uL Lymphocytes # (0.90-5.00) 10*3/uL Monocytes # (0.20-1.00) 10*3/uL Chloride 91 L (98-107) mmol/L Carbon Dioxide 38 H (22-30) mmol/L BUN 39 H (9-20) mg/dL Creatinine 2.30 H (0.66-1.25) mg/dL Glucose 119 H (74-99) mg/dL POC Glucose (mg/dL) 134 H 142 H (70-110) mg/dL Calcium 10.5 H (8.4-10.2) mg/dL Free [place] C [place] LC, Quant (0.33-1.94) mg/dL Free [place]ambda LC, Quant (0.57-2.63) mg/dL 07/06/24 Range/Units 07:22 WBC 14.15 H (4.50-10.00) 10*3/uL RBC 2.70 L (4.40-5.60) 10*6/uL Hgb 7.3 L (13.0-17.0) g/dL Hct 23.6 L (39.6-50.0) % MCHC 30.9 L (32.0-37.0) g/dL MPV 9.4 L (9.5-12.2) fL Immature Gran # 0.09 H (0.00-0.04) 10*3/uL Neutrophils # 11.77 H (1.80-7.70) 10*3/uL Lymphocytes # 0.82 L (0.90-5.00) 10*3/uL Monocytes # 1.27 H (0.20-1.00) 10*3/uL Chloride (98-107) mmol/L Carbon Dioxide (22-30) mmol/L BUN (9-20) mg/dL Creatinine (0.66-1.25) mg/dL Glucose (74-99) mg/dL POC Glucose (mg/dL) (70-110) mg/dL Calcium (8.4-10.2) mg/dL Free [place] C [place] LC, Quant (0.33-1.94) mg/dL Free [place]ambda LC, Quant (0.57-2.63) mg/dL Microbiology - Last 24 Hours (Table) 07/01/24 23:10 Blood Culture - Preliminary Blood Assessment and Plan Assessment: Sepsis secondary to right lower lobe pseudomonas pneumonia. Leukocytosis secondary to the above Acute kidney injury, related to sepsis, infection Hypercalcemia History of malignant neoplasm of head and neck Dysphagia Anemia of chronic disease Chronic COPD Former nicotine dependence Essential hypertension History of seizure disorder Hypokalemia Severe protein calorie malnutrition, BMI 17.4 Plan: Continue on current medication regime ,monitoring and symptomatic treatment. Continues on tube feeds, maintain strict aspiration precautions.Continue titrating O2 to parameters established by pulmonary. [facility]. Aggressive pulmonary toileting with nebulized bronchodilators,Zosyn. Electrolyte replacements. avoid nephrotoxic drugs. Close monitoring of renal function, electrolytes, hemoglobin with repeat labs ordered for tomorrow. Discharge planning in progress, pending midline placement, final DC recommendations and clearance as per pulmonary, ID and nephr ology. The impression and plan of care has been dictated as directed. : I performed a history and examination of this patient, discussed the same with the dictator. I agree with the dictator's note ,documented as a scribe. Any additional findings or plans will be noted.
[2024-07-06] MEDS: POTASSIUM CHLORIDE 20 MEQ in WATER FOR INJECTION 1 100ML.BAG IVPB SCH (10:31)
[2024-07-06 11:52] LABS: Glucose,Whole Blood 151 mg/dL (70-110)
--- NOTE | 2024-07-06 12:04 | P.PN ---
Subjective Progress Note Date: 07/06/24 Principal diagnosis: Pneumonia. This is a 63-year-old white male with known history of squamous cell carcinoma of the head and neck, history of congestive heart failure, recent history of pneumonia treated on outpatient basis,, his sputum was positive for Pseudomonas pneumonia, and he received treatment in the form of Levaquin on outpatient basis. However the patient was brought into the ER yesterday with mostly symptoms of cough, congestion, shortness of breath, and his chest x-ray showed evidence of resolving a right lower lobe infiltrate, actually improved compared to a chest x-ray he had a week ago. But not completely resolved. Considering his symptoms and considering his clinical history, patient is being admitted, and I saw him in consultation. Reviewed sensitivity on his Pseudomonas, and I suggested we treat the patient with Zosyn. Patient was noted to have leukocytosis with WBC count of 34.86 hemoglobin 9.1 his PMNs were 91%, patient had relatively normal electrolytes except for bicarb of 42 which is related to chronic hypercapnia BUN 104 and creatinine 3.30 worsening creatinine compared to recent creatinine of 2.6 and baseline only few months ago was 1.05. Obviously the patient is developing acute kidney disease/acute kidney injury. Patient had negative screen for influenza RSV and COVID-19. Patient was seen today on 07/03/2024, continues to have intermittent cough, cough is productive, thick purulent secretions noted, no hemoptysis, patient had increase in his FiO2 requirement up to 8 L, O2 saturation is marginal specially with him coughing and sometimes seems to have difficulty clearing his secretions. Patient remains on Zosyn, he is on bronchodilators, his overall pulmonary status is marginal at best. If no improvement in the next 24 hours, patient may have to be considered for bronchoscopy and BAL. Labs today including electrolytes were reviewed his BUN is up to 81 creatinine 3.05, slightly improved compared to creatinine on 07/01, Progress note dated July 04, 2024. 63-year-old male seen today in room 377. He is currently on 5 L nasal cannula. He is getting lactated Ringer's at 130 cc an hour. Chest x-ray revealed a right lower lobe pneumonia, positive for Pseudomonas. He is currently on Zosyn. He complains of shortness of breath, cough, and some phlegm production. He does feel better today, and his oxygen requirements have come down from 8 L, to 5. Current laboratory data includes a white count of 16.4, hemoglobin 7.6, hematocrit 24.4, and a platelet count of 322,000. Sodium 140, potassium 3.4, chlorides 90, CO2 38, BUN 64, creatinine 2.60. Glucose is 111. Albumin is 3.6. Calcium is 12. Blood cultures are negative. Chest x-ray revealed a right midlung pneumonia. Progress note dated July 05, 2024. 63-year-old male seen today in room 377. Currently, the patient is on 7 L high flow nasal cannula. His saturations are 99%. Oxygen can be titrated down. He is getting LR at 75 cc an hour. The patient continues on Zosyn. The patient appears chronically ill, and very frail. He is not in any respiratory distress. Current labs include a white count 11.8, hemoglobin 7.4, hematocrit 24.4, and a normal platelet count. Sodium 141, potassium 3.6, chlorides 92, CO2 39, anion gap 10, BUN 47, creatinine 2.57. Calcium is 11.1. No chest x-ray today. Progress note dated July 06, 2024. 63-year-old male seen today in room 377. The patient continues on oxygen, with 4 L, providing him with a saturation of 96%. He continues on Jevity, at 50 cc an hour, and lactated Ringer's at 75 cc an hour. The patient is currently on Zosyn. A midline will be placed. Current laboratory data includes a white count of 14.2, hemoglobin 7.3, hematocrit 23.6, and a normal platelet count. Sodium 137, potassium 3.5, chlorides 91, CO2 38, BUN 39, and creatinine 2.30. Glucose is 151. Calcium is 10.5. No chest x-ray today. Objective - Vital Signs Vital signs: Vital Signs Temp 98.0 F 07/06/24 09:45 Pulse 105 H 07/06/24 09:45 Resp 18 07/06/24 09:45 BP 120/75 07/06/24 09:45 Pulse Ox 96 07/06/24 09:45 FiO2 Intake & Output 07/05/24 07/06/24 07/06/24 18:59 06:59 18:59 Intake Total 260 10 Output Total 900 1200 625 Balance -900 -180 -832 Weight 56 kg 56 kg Intake: IV 20 10 Invasive Line 2 10 Invasive Line 3 10 10 Oral 240 Output: Urine 900 1200 625 Other: Voiding Method Urinal Urinal Urinal # Bowel Movements 1 1 - Exam No acute distress, oriented 3. Currently on 4 L. HEENT examination is grossly unremarkable. Mucous membranes are moist. No oral lesions. Neck supple. Full range of motion. No adenopathy thyromegaly or neck vein distention. Cardiovascular examination reveals regular rhythm rate. S1-S2 normal. No S3 or S4. No discernible murmur noted. Lungs reveal slightly diminished breath sounds, bilaterally, worse on the right than on the left. Scattered rhonchi and crackles appreciated on the right. Abdomen soft bowel sounds are heard. No masses or tenderness. PEG tube noted. Extremities are intact. No cyanosis clubbing or edema. Skin is without rash or lesion. Neurologic examination is brief but nonfocal. - Labs CBC & Chem 7: 07/06/24 07:22 07/06/24 07:22 Labs: Abnormal Lab Results - Last 24 Hours (Table) 07/05/24 07/05/24 07/06/24 Range/Units 16:45 23:48 05:46 WBC (4.50-10.00) 10*3/uL RBC (4.40-5.60) 10*6/uL Hgb (13.0-17.0) g/dL Hct (39.6-50.0) % MCHC (32.0-37.0) g/dL MPV (9.5-12.2) fL Immature Gran # (0.00-0.04) 10*3/uL Neutrophils # (1.80-7.70) 10*3/uL Lymphocytes # (0.90-5.00) 10*3/uL Monocytes # (0.20-1.00) 10*3/uL Chloride (98-107) mmol/L Carbon Dioxide (22-30) mmol/L BUN (9-20) mg/dL Creatinine (0.66-1.25) mg/dL Glucose (74-99) mg/dL POC Glucose (mg/dL) 136 H 134 H 142 H (70-110) mg/dL Calcium (8.4-10.2) mg/dL 07/06/24 07/06/24 07/06/24 Range/Units 07:22 07:22 11:48 WBC 14.15 H (4.50-10.00) 10*3/uL RBC 2.70 L (4.40-5.60) 10*6/uL Hgb 7.3 L (13.0-17.0) g/dL Hct 23.6 L (39.6-50.0) % MCHC 30.9 L (32.0-37.0) g/dL MPV 9.4 L (9.5-12.2) fL Immature Gran # 0.09 H (0.00-0.04) 10*3/uL Neutrophils # 11.77 H (1.80-7.70) 10*3/uL Lymphocytes # 0.82 L (0.90-5.00) 10*3/uL Monocytes # 1.27 H (0.20-1.00) 10*3/uL Chloride 91 L (98-107) mmol/L Carbon Dioxide 38 H (22-30) mmol/L BUN 39 H (9-20) mg/dL Creatinine 2.30 H (0.66-1.25) mg/dL Glucose 119 H (74-99) mg/dL POC Glucose (mg/dL) 151 H (70-110) mg/dL Calcium 10.5 H (8.4-10.2) mg/dL Assessment and Plan Assessment: Acute right lower lobe pneumonia, secondary to Pseudomonas aeruginosa. Leukocytosis, secondary to pneumonia. Benign essential hypertension. History of thyroid cancer/previous thyroidectomy. Anemia of chronic disease. Acute kidney injury. History of head and neck cancer, 2010. History of COPD. Former tobacco use. Plan: Plan dated July 04, 2024. The patient was seen today in room 377. His oxygen requirements have come down from 8 L to 5. He feels improved, but he still having cough and shortness of breath. He continues on Zosyn as an antibiotic. He also continues on updrafts, as well as GI prophylaxis. We will continue to follow make recommendations along the way. All labs, x-rays, and medications are reviewed. Prognosis is guarded. Dictation was produced using [employer] software. Please excuse any grammatical, word or spelling errors. Plan dated July 05, 2024. The patient is seen today in room 377. He is currently on 7 L oxygen. Saturations are 99%. Oxygen can be titrated down. All labs, x-rays, medications are reviewed. We will continue to follow. The patient continues on Zosyn. He remains a full code. CODE STATUS should be addressed. No additional recommendations are made. We will continue to follow. Dictation was produced using [employer] software. Please excuse any grammatical, word or spelling errors. Plan dated July 06, 2024. The patient is again seen today in room 377. He remains on nasal O2 at 4 L. Saturations are 96%. He is getting Jevity at 50 cc an hour, and lactated Ringer's at 75 cc an hour. He continues on Zosyn. The plan is to place a PICC line. According to the family member at the bedside, the patient will come home with her. Labs, x-rays, and medications are reviewed. Prognosis is certainly guarded. Dictation was produced using [employer] software. Please excuse any grammatical, word or spelling errors. Time with Patient: Less than 30
[2024-07-06 13:11] LABS: Albumin 3.07 g/dL (3.80-4.90); Gamma Globulin 1.01 g/dL (0.70-1.50)
[2024-07-06 17:17] LABS: Glucose,Whole Blood 154 mg/dL (70-110)
[2024-07-07] LABS: Glucose,Whole Blood 121 mg/dL (70-110)
[2024-07-07 05:50] LABS: Glucose,Whole Blood 143 mg/dL (70-110)
[2024-07-07 09:22] LABS: Basophils # (A) 0.02 10*3/uL (0.00-0.10); Basophils % (A) 0.2 %; Eosinophils # (A) 0.11 10*3/uL (0.04-0.35); Eosinophils % (A) 0.9 %; HCT 20.7 % (39.6-50.0); Lymphocytes # (A) 1.19 10*3/uL (0.90-5.00); Lymphocytes % (A) 9.3 %; MCH 27.1 pg (27.0-32.0); MCHC 30.9 g/dL (32.0-37.0); MCV 87.7 fL (80.0-97.0); Mean Platelet Volume 9.5 fL (9.5-12.2); Monocytes # (A) 1.19 10*3/uL (0.20-1.00); Monocytes % (A) 9.3 %; Neutrophils # (A) 10.19 10*3/uL (1.80-7.70); Neutrophils % (A) 79.7 %; Platelet Count 272 10*3/uL (140-440); RBC 2.36 10*6/uL (4.40-5.60); WBC 12.78 10*3/uL (4.50-10.00)
[2024-07-07 09:40] LABS: African American GFR (CKD) 31 (>60 ml/min/1.73 sqM); Anion Gap 6 mmol/L; Blood Urea Nitrogen 35 mg/dL (9-20); Calcium 10.5 mg/dL (8.4-10.2); Carbon Dioxide 40 mmol/L (22-30); Chloride 94 mmol/L (98-107); Glucose 113 mg/dL (74-99); Non-African American GFR(CKD) 27 (>60 ml/min/1.73 sqM); Sodium 140 mmol/L (137-145)
[2024-07-07 09:45] LABS: HGB 6.4 g/dL (13.0-17.0)
--- NOTE | 2024-07-07 10:07 | P.PN ---
Subjective Patient is seen in follow-up for acute kidney injury. Renal function fairly stable. Hemoglobin 6.4. Denies any active bleeding. Receiving IV fluids. NPO. Also receiving tube feeds. Vital signs are stable. General: No acute distress. HEENT: Head exam is unremarkable. On nasal cannula. LUNGS: No audible rhonchi or wheezes. HEART: Rate and Rhythm are regular. ABDOMEN: Nontender. EXTREMITITES: No edema. Objective - Vital Signs Vital signs: Vital Signs Temp 98.0 F 07/07/24 07:49 Pulse 101 H 07/07/24 09:15 Resp 18 07/07/24 07:49 BP 138/85 07/07/24 07:49 Pulse Ox 98 07/07/24 08:55 FiO2 Intake & Output 07/06/24 07/07/24 07/07/24 18:59 06:59 18:59 Intake Total 78 10 10 Output Total 1475 1000 325 Balance -1397 -990 -315 Weight 56 kg 54.5 kg Intake: IV 20 10 10 Invasive Line 3 10 10 Invasive Line 5 10 10 Tube Feeding 58 Output: Urine 1475 1000 325 Other: Voiding Method Urinal Urinal Urinal # Bowel Movements 1 1 - Labs CBC & Chem 7: 07/07/24 08:25 07/07/24 08:25 Labs: Abnormal Lab Results - Last 24 Hours (Table) 07/04/24 07/06/24 07/06/24 Range/Units 06:19 11:48 16:54 WBC (4.50-10.00) 10*3/uL RBC (4.40-5.60) 10*6/uL Hgb (13.0-17.0) g/dL Hct (39.6-50.0) % MCHC (32.0-37.0) g/dL Immature Gran # (0.00-0.04) 10*3/uL Neutrophils # (1.80-7.70) 10*3/uL Monocytes # (0.20-1.00) 10*3/uL Chloride (98-107) mmol/L Carbon Dioxide (22-30) mmol/L BUN (9-20) mg/dL Creatinine (0.66-1.25) mg/dL Glucose (74-99) mg/dL POC Glucose (mg/dL) 151 H 154 H (70-110) mg/dL Calcium (8.4-10.2) mg/dL Albumin (PEP) 3.07 L (3.80-4.90) g/dL Pzymz-0-Siyhisswl 0.77 H (0.10-0.40) g/dL Hlpdh-1-Gctnhotgs 1.06 H (0.60-1.00) g/dL 07/06/24 07/07/24 07/07/24 Range/Units 23:58 05:49 08:25 WBC (4.50-10.00) 10*3/uL RBC (4.40-5.60) 10*6/uL Hgb (13.0-17.0) g/dL Hct (39.6-50.0) % MCHC (32.0-37.0) g/dL Immature Gran # (0.00-0.04) 10*3/uL Neutrophils # (1.80-7.70) 10*3/uL Monocytes # (0.20-1.00) 10*3/uL Chloride 94 L (98-107) mmol/L Carbon Dioxide 40 H (22-30) mmol/L BUN 35 H (9-20) mg/dL Creatinine 2.47 H (0.66-1.25) mg/dL Glucose 113 H (74-99) mg/dL POC Glucose (mg/dL) 121 H 143 H (70-110) mg/dL Calcium 10.5 H (8.4-10.2) mg/dL Albumin (PEP) (3.80-4.90) g/dL Pxddt-5-Leodaknna (0.10-0.40) g/dL Jmzud-9-Dsfuhlble (0.60-1.00) g/dL 07/07/24 Range/Units 08:25 WBC 12.78 H (4.50-10.00) 10*3/uL RBC 2.36 L (4.40-5.60) 10*6/uL Hgb 6.4 L* (13.0-17.0) g/dL Hct 20.7 L (39.6-50.0) % MCHC 30.9 L (32.0-37.0) g/dL Immature Gran # 0.08 H (0.00-0.04) 10*3/uL Neutrophils # 10.19 H (1.80-7.70) 10*3/uL Monocytes # 1.19 H (0.20-1.00) 10*3/uL Chloride (98-107) mmol/L Carbon Dioxide (22-30) mmol/L BUN (9-20) mg/dL Creatinine (0.66-1.25) mg/dL Glucose (74-99) mg/dL POC Glucose (mg/dL) (70-110) mg/dL Calcium (8.4-10.2) mg/dL Albumin (PEP) (3.80-4.90) g/dL Yfmem-9-Fszmbcxkb (0.10-0.40) g/dL Rgvjh-6-Zlsewndyf (0.60-1.00) g/dL Microbiology - Last 24 Hours (Table) 07/01/24 23:10 Blood Culture - Final Blood Assessment and Plan Plan: Assessment: 1. Acute kidney injury secondary to septic ATN. Baseline creatinine near 1 and peaked at 3.3 this admission - 2.47 stable at today. 2. Hypercalcemia secondary to volume contraction. Also component of malignancy. Calcium 10.5 today. PTH suppressed at 10.1. Vitamin D level 90.2. Calcitriol level 51. [place] light chains 9.3 and lambda light chains 4.7. Ratio not significantly elevated. 3. History of head and neck cancer. 4. Pseudomonas pneumonia on antibiotics. Infectious disease following. 5. Hypokalemia from poor intake and hypercalcemia induced diuresis. Magnesium normal. Replaced. Better. Plan: Maintain IV fluids. Maintain tube feeds. Replace potassium as needed. Follow-up pending workup for hypercalcemia. Zoledronic acid x 1 dose given July 04, 2024. Avoid calcium and vitamin D supplements for now. Scheduled to receive a unit of blood today.
--- NOTE | 2024-07-07 10:31 | P.DS ---
Providers Date of admission: 07/02/24 00:01 Expected date of discharge: 07/07/24 Attending physician: Suman Ortiz Consults: 07/02/24 00:02 Consult Physician Routine Consulting Provider: Santa Powell Consult Reason/Comments: Pneumonia. Sepsis Do you want consulting provider notified?: Yes 07/02/24 00:03 Consult Physician Routine Consulting Provider: Precious Fuentes Consult Reason/Comments: sepsis Do you want consulting provider notified?: Yes 07/02/24 14:35 Consult Physician Routine Consulting Provider: Virginia Nowak Consult Reason/Comments: josie Do you want consulting provider notified?: Yes Primary care physician: [facility] Course: Final Diagnosis: Sepsis secondary to right lower lobe pseudomonas pneumonia. Leukocytosis secondary to the above, in addition to being on steroids Acute kidney injury, related to sepsis, infection Hypercalcemia History of malignant neoplasm of head and neck Dysphagia Anemia of chronic disease Chronic COPD Former nicotine dependence Essential hypertension History of seizure disorder Hypokalemia Severe protein calorie malnutrition, BMI 17.4 Hospital course: Patient presented to the office on 07/02/2019 complaining of shortness of breath had an elevated White count of 24,000 which was performed yesterday, Pseudomonas was cultured from the sputum. Patient complains of left- sided chest pain and persistent cough question known history of squamous cell carcinoma of the thyroid. Status post commando procedure of the neck patient is unable to regard his airway and is not obligate tube feeder 07/03/24 Right lower lobe pneumonia, with persistent cough and shortness of breath. Complains of left-sided chest pain recently treated for pneumonia as outpatient with oral Levaquin. Chest x-ray showed improvement from a week ago last GFR was greater than 70 Admission GFR was 24 signifying acute kidney injury, patient admits to not being compliant with his tube feeds or his water in the PEG tube lately Patient is a 63-year-old male known to my practice who developed acute pneumonia with Pseudomonas failed outpatient therapy recently admitted for IV antibiotics recently demonstrating acute kidney injury. 07/04/2024 maintained on Zosyn, nebulized bronchodilators. O2 sat on 5 L nasal cannula 96%. Mild tachycardia. Elevated CRP and procalcitonin. Staff reported -earlier this morning patient put the call light on, oxygen was off, desatted, had a short self-limited spastic shaking less than half a minute, spontaneously resolved with reapplication of oxygen. Telemetry sinus tachycardia. Hyperte nsive, midodrine discontinued.Keppra level ordered. Afebrile, WBC decreased to 16.38. Hemoglobin decreased to 7.6, platelets 322. Renal function improved, bicarb 38, BUN 64, creatinine 2.6. Calcium 12. Potassium 3.4, magnesium 2.2. 07/05/2024 continues on IV fluid hydration, tube feeds,nebulized bronchodilators, Zosyn. Afebrile, WBC continues trending down currently 11.84. Preliminary blood cultures reporting no growth after 72 hours. maintaining O2 sats in the high 90s on 6 L high flow nasal cannula which can be weaned further down. hemoglobin 7.4, platelets 307. Potassium 3.6, magnesium 2.1, bicarb 39 BUN 47, creatinine 2.57. Received a dose of zoledronic acid yesterday, calcium decreased to 11.1. blood sugars controlled. Telemetry sinus. Denies chest pain, palpitations. 07/06/2024 FiO2 titrated down, maintaining O2 sats in the 90s on 4 L nasal cannula. Maintained on Zosyn, afebrile,labs pending. Infectious recommending midline cath placement for DC IV antibiotics .NPO,continues on tube feeds, blood sugars controlled. Continues on tube feeds, maintain strict aspiration precautions.Continue titrating O2 to parameters established by pulmonary. Transfer for [facility]. pending. Aggressive pulmonary toileting with nebulized bronchodilators,Zosyn. Electrolyte replacements. avoid nephrotoxic drugs. Close monitoring of renal function, electrolytes, hemoglobin with repeat labs ordered for tomorrow. Discharge planning in progress, pending midline placement, final DC recommendations and clearance as per pulmonary, ID and nephrology. 07/07/2024 bicarb 40, BUN 35, creatinine 2.47. Midline catheter placed with IV antibiotics of Zosyn ordered for DC as per ID. Hemoglobin 6.4, platelets 272 .denies active bleeding.patient will be discharged home with home care today after receiving 1 unit of packed RBCs followed by Lasix 20 mg IV push x 1, in a stable condition with guarded prognosis pending final DC recommendations and clearance per pulmonary and nephrology. The impression and plan of care has been dictated as directed. : I performed a history and examination of this patient, discussed the same with the dictator. I agree with the dictator's note ,documented as a scribe. Any additional findings or plans will be noted. Patient Condition at Discharge: Stable Plan - Discharge Summary Discharge Rx Participant: No New Discharge Prescriptions: New Piperacillin-Tazobactam [Zosyn] 3.375 gm IVPB Q8H #21 each Ipratropium-Albuterol Nebulize [Duoneb 0.5 mg-3 mg/3 ml Soln] 3 ml INHALATION RT-QID #120 each Budesonide [Pulmicort] 0.5 mg INHALATION BID 30 Days #60 ml Pantoprazole Sodium [Protonix] 40 mg PEG/G-TUBE DAILY #30 tab hydrALAZINE HCL 25 mg PEG/G-TUBE Q6H PRN 30 Days #30 tab PRN Reason: Hypertension Acetaminophen Tab [Tylenol] 650 mg PEG/G-TUBE Q6HR PRN tab PRN Reason: Fever And/ Or Pain amLODIPine [Norvasc] 5 mg PEG/G-TUBE DAILY 30 Days #30 tab Hydrophilic Cream [Triad (Kerodex geq)] 1 applic TOPICAL QID #71 gm Continue Levothyroxine Sodium 100 mcg PEG/G-TUBE DAILY #30 tab levETIRAcetam [Keppra] 250 mg PEG/G-TUBE Q12HR Metoclopramide [Reglan] 10 mg PEG/G-TUBE TID Folic Acid 1 mg PEG/G-TUBE DAILY Calcium Phos/D3/Magnesium/Zinc [Egvqatu-Lmj-Hxvk-Vitamin D3] 1 tab PEG/G-TUBE DAILY Vitamin B Complex 1 cap PEG/G-TUBE DAILY Sodium Chloride [Pendroy Cooter] 1 spray EA NOSTRIL DAILY PRN PRN Reason: DRY NOSE Saliva Stimulant Comb. No.3 [Biotene Moisturizing Mouth] 1 spray MUCOUS MEM DAILY PRN PRN Reason: Dry Mouth predniSONE 5 mg PEG/G-TUBE DAILY Discontinued Midodrine HCl 2.5 mg PEG/G-TUBE Q8H Azithromycin [Zithromax] 250 mg PEG/G-TUBE DIRECTED Discharge Medication List Levothyroxine Sodium 100 mcg PEG/G-TUBE DAILY #30 tab 09/07/23 [Rx] Metoclopramide [Reglan] 10 mg PEG/G-TUBE TID 02/19/24 [History] levETIRAcetam [Keppra] 250 mg PEG/G-TUBE Q12HR 02/19/24 [History] Calcium Phos/D3/Magnesium/Zinc [Wrngxmj-Cce-Ftsf-Vitamin D3] 1 tab PEG/G-TUBE DAILY 07/02/24 [History] Folic Acid 1 mg PEG/G-TUBE DAILY 07/02/24 [History] Saliva Stimulant Comb. No.3 [Biotene Moisturizing Mouth] 1 spray MUCOUS MEM DAILY PRN 07/02/24 [History] Sodium Chloride [Pendroy Cooter] 1 spray EA NOSTRIL DAILY PRN 07/02/24 [History] Vitamin B Complex 1 cap PEG/G-TUBE DAILY 07/02/24 [History] predniSONE 5 mg PEG/G-TUBE DAILY 07/02/24 [History] Acetaminophen Tab [Tylenol] 650 mg PEG/G-TUBE Q6HR PRN tab 07/06/24 [Rx] Budesonide [Pulmicort] 0.5 mg INHALATION BID 30 Days #60 ml 07/06/24 [Rx] Ipratropium-Albuterol Nebulize [Duoneb 0.5 mg-3 mg/3 ml Soln] 3 ml INHALATION RT-QID #120 each 07/06/24 [Rx] Pantoprazole Sodium [Protonix] 40 mg PEG/G-TUBE DAILY #30 tab 07/06/24 [Rx] Piperacillin-Tazobactam [Zosyn] 3.375 gm IVPB Q8H #21 each 07/06/24 [Rx] amLODIPine [Norvasc] 5 mg PEG/G-TUBE DAILY 30 Days #30 tab 07/06/24 [Rx] hydrALAZINE HCL 25 mg PEG/G-TUBE Q6H PRN 30 Days #30 tab 07/06/24 [Rx] Hydrophilic Cream [Triad (Kerodex geq)] 1 applic TOPICAL QID #71 gm 07/07/24 [Rx] Follow up Appointment(s)/Referral(s): Suman Ortiz Jr, DO [Primary Care Provider] - 3 Days [facility], [NON-STAFF] - Care,[facility] [NON-STAFF] - [facility], [REFERRING] - Ambulatory/Diagnostic Orders: Complete Blood Count w/diff [LAB.AMB] Time Frame: 3 Days, Location: None Selected Activity/Diet/Wound Care/Special Instructions: Strict aspiration precautions CBC, BMP, magnesium in 3 days Discharge/Stand Alone Forms: Who Do I Call? Discharge Disposition: HOME WITH HOME HEALTH SERVICES
--- NOTE | 2024-07-07 12:05 | P.PN ---
Subjective Progress Note Date: 07/07/24 Principal diagnosis: Pneumonia. This is a 63-year-old white male with known history of squamous cell carcinoma of the head and neck, history of congestive heart failure, recent history of pneumonia treated on outpatient basis,, his sputum was positive for Pseudomonas pneumonia, and he received treatment in the form of Levaquin on outpatient basis. However the patient was brought into the ER yesterday with mostly symptoms of cough, congestion, shortness of breath, and his chest x-ray showed evidence of resolving a right lower lobe infiltrate, actually improved compared to a chest x-ray he had a week ago. But not completely resolved. Considering his symptoms and considering his clinical history, patient is being admitted, and I saw him in consultation. Reviewed sensitivity on his Pseudomonas, and I suggested we treat the patient with Zosyn. Patient was noted to have leukocytosis with WBC count of 34.86 hemoglobin 9.1 his PMNs were 91%, patient had relatively normal electrolytes except for bicarb of 42 which is related to chronic hypercapnia BUN 104 and creatinine 3.30 worsening creatinine compared to recent creatinine of 2.6 and baseline only few months ago was 1.05. Obviously the patient is developing acute kidney disease/acute kidney injury. Patient had negative screen for influenza RSV and COVID-19. Patient was seen today on 07/03/2024, continues to have intermittent cough, cough is productive, thick purulent secretions noted, no hemoptysis, patient had increase in his FiO2 requirement up to 8 L, O2 saturation is marginal specially with him coughing and sometimes seems to have difficulty clearing his secretions. Patient remains on Zosyn, he is on bronchodilators, his overall pulmonary status is marginal at best. If no improvement in the next 24 hours, patient may have to be considered for bronchoscopy and BAL. Labs today including electrolytes were reviewed his BUN is up to 81 creatinine 3.05, slightly improved compared to creatinine on 07/01, Progress note dated July 04, 2024. 63-year-old male seen today in room 377. He is currently on 5 L nasal cannula. He is getting lactated Ringer's at 130 cc an hour. Chest x-ray revealed a right lower lobe pneumonia, positive for Pseudomonas. He is currently on Zosyn. He complains of shortness of breath, cough, and some phlegm production. He does feel better today, and his oxygen requirements have come down from 8 L, to 5. Current laboratory data includes a white count of 16.4, hemoglobin 7.6, hematocrit 24.4, and a platelet count of 322,000. Sodium 140, potassium 3.4, chlorides 90, CO2 38, BUN 64, creatinine 2.60. Glucose is 111. Albumin is 3.6. Calcium is 12. Blood cultures are negative. Chest x-ray revealed a right midlung pneumonia. Progress note dated July 05, 2024. 63-year-old male seen today in room 377. Currently, the patient is on 7 L high flow nasal cannula. His saturations are 99%. Oxygen can be titrated down. He is getting LR at 75 cc an hour. The patient continues on Zosyn. The patient appears chronically ill, and very frail. He is not in any respiratory distress. Current labs include a white count 11.8, hemoglobin 7.4, hematocrit 24.4, and a normal platelet count. Sodium 141, potassium 3.6, chlorides 92, CO2 39, anion gap 10, BUN 47, creatinine 2.57. Calcium is 11.1. No chest x-ray today. Progress note dated July 06, 2024. 63-year-old male seen today in room 377. The patient continues on oxygen, with 4 L, providing him with a saturation of 96%. He continues on Jevity, at 50 cc an hour, and lactated Ringer's at 75 cc an hour. The patient is currently on Zosyn. A midline will be placed. Current laboratory data includes a white count of 14.2, hemoglobin 7.3, hematocrit 23.6, and a normal platelet count. Sodium 137, potassium 3.5, chlorides 91, CO2 38, BUN 39, and creatinine 2.30. Glucose is 151. Calcium is 10.5. No chest x-ray today. Progress note dated July 07, 2024. 63-year-old male seen today in room 377. The patient has been here in the hospital for 5 days. He continues on nasal O2 at 4 L. He is getting Jevity 1.5 at 58 cc an hour. No IV fluids. He will get 1 unit of packed red blood cells. The primary service is planning to discharge this patient, sometime later today. Current labs include a white count of 12.8, hemoglobin 6.4, hematocrit 20.7, and a platelet count of 272,000. Sodium 140, potassium 4, chlorides 94, CO2 40, anion gap 6, BUN 35, and creatinine 2.47. Objective - Vital Signs Vital signs: Vital Signs Temp 98.0 F 07/07/24 07:49 Pulse 101 H 07/07/24 09:15 Resp 18 07/07/24 07:49 BP 138/85 07/07/24 07:49 Pulse Ox 98 07/07/24 08:55 FiO2 Intake & Output 07/06/24 07/07/24 07/07/24 18:59 06:59 18:59 Intake Total 78 10 10 Output Total 1475 1000 325 Balance -5377 -990 -315 Weight 56 kg 54.5 kg Intake: IV 20 10 10 Invasive Line 3 10 10 Invasive Line 5 10 10 Tube Feeding 58 Output: Urine 1475 1000 325 Other: Voiding Method Urinal Urinal Urinal # Bowel Movements 1 1 - Exam No acute distress, oriented 3. Currently on 4 L. HEENT examination is grossly unremarkable. Mucous membranes are moist. No oral lesions. Neck supple. Full range of motion. No adenopathy thyromegaly or neck vein distention. Cardiovascular examination reveals regular rhythm rate. S1-S2 normal. No S3 or S4. No discernible murmur noted. Lungs reveal slightly diminished breath sounds, bilaterally, worse on the right than on the left. Scattered rhonchi and crackles appreciated on the right. Abdomen soft bowel sounds are heard. No masses or tenderness. PEG tube noted. Extremities are intact. No cyanosis clubbing or edema. Skin is without rash or lesion. Neurologic examination is brief but nonfocal. - Labs CBC & Chem 7: 07/07/24 08:25 07/07/24 08:25 Labs: Abnormal Lab Results - Last 24 Hours (Table) 07/04/24 07/06/24 07/06/24 Range/Units 06:19 16:54 23:58 WBC (4.50-10.00) 10*3/uL RBC (4.40-5.60) 10*6/uL Hgb (13.0-17.0) g/dL Hct (39.6-50.0) % MCHC (32.0-37.0) g/dL Immature Gran # (0.00-0.04) 10*3/uL Neutrophils # (1.80-7.70) 10*3/uL Monocytes # (0.20-1.00) 10*3/uL Chloride (98-107) mmol/L Carbon Dioxide (22-30) mmol/L BUN (9-20) mg/dL Creatinine (0.66-1.25) mg/dL Glucose (74-99) mg/dL POC Glucose (mg/dL) 154 H 121 H (70-110) mg/dL Calcium (8.4-10.2) mg/dL Albumin (PEP) 3.07 L (3.80-4.90) g/dL Lgdjo-8-Mgsqyeuad 0.77 H (0.10-0.40) g/dL Uvnma-8-Yqiplxtgf 1.06 H (0.60-1.00) g/dL 07/07/24 07/07/24 07/07/24 Range/Units 05:49 08:25 08:25 WBC 12.78 H (4.50-10.00) 10*3/uL RBC 2.36 L (4.40-5.60) 10*6/uL Hgb 6.4 L* (13.0-17.0) g/dL Hct 20.7 L (39.6-50.0) % MCHC 30.9 L (32.0-37.0) g/dL Immature Gran # 0.08 H (0.00-0.04) 10*3/uL Neutrophils # 10.19 H (1.80-7.70) 10*3/uL Monocytes # 1.19 H (0.20-1.00) 10*3/uL Chloride 94 L (98-107) mmol/L Carbon Dioxide 40 H (22-30) mmol/L BUN 35 H (9-20) mg/dL Creatinine 2.47 H (0.66-1.25) mg/dL Glucose 113 H (74-99) mg/dL POC Glucose (mg/dL) 143 H (70-110) mg/dL Calcium 10.5 H (8.4-10.2) mg/dL Albumin (PEP) (3.80-4.90) g/dL Kgmnz-0-Udrwosent (0.10-0.40) g/dL Mkppp-6-Bmtflzlro (0.60-1.00) g/dL Microbiology - Last 24 Hours (Table) 05/02/25 23:10 Blood Culture - Final Blood Assessment and Plan Assessment: Acute right lower lobe pneumonia, secondary to Pseudomonas aeruginosa. Leukocytosis, secondary to pneumonia. Benign essential hypertension. History of thyroid cancer/previous thyroidectomy. Anemia of chronic disease. Acute kidney injury. History of head and neck cancer, 2010. History of COPD. Former tobacco use. Plan: Plan dated July 04, 2024. The patient was seen today in room 377. His oxygen requirements have come down from 8 L to 5. He feels improved, but he still having cough and shortness of breath. He continues on Zosyn as an antibiotic. He also continues on updrafts, as well as GI prophylaxis. We will continue to follow make recommendations along the way. All labs, x-rays, and medications are reviewed. Prognosis is guarded. Dictation was produced using [employer] software. Please excuse any grammatical, word or spelling errors. Plan dated July 05, 2024. The patient is seen today in room 377. He is currently on 7 L oxygen. Saturations are 99%. Oxygen can be titrated down. All labs, x-rays, medications are reviewed. We will continue to follow. The patient continues on Zosyn. He remains a full code. CODE STATUS should be addressed. No additional recommendations are made. We will continue to follow. Dictation was produced using [employer] software. Please excuse any grammatical, word or spelling errors. Plan dated July 06, 2024. The patient is again seen today in room 377. He remains on nasal O2 at 4 L. Saturations are 96%. He is getting Jevity at 50 cc an hour, and lactated Ringer's at 75 cc an hour. He continues on Zosyn. The plan is to place a PICC line. According to the family member at the bedside, the patient will come home with her. Labs, x-rays, and medications are reviewed. Prognosis is certainly guarded. Dictation was produced using [employer] software. Please excuse any grammatical, word or spelling errors. Plan dated July 07, 2024. The patient is seen again in room 377. He appears very stable. He is lying in bed. He continues on nasal O2 at 4 L. The patient will receive 1 unit of PRBCs, for hemoglobin less than 7. The patient is getting Jevity 1.5 at goal, which is 58 cc an hour. The primary service is planning to potentially discharge the patient later today. The patient is not receiving any IV fluids. All labs, x-rays, and medications are reviewed. Prognosis is guarded. Dictation was produced using [employer] dictation software. Please excuse any grammatical, word or spelling errors. Time with Patient: Less than 30
[2024-07-07 12:07] LABS: Glucose,Whole Blood 161 mg/dL (70-110)
[2024-07-07 13:35] VITALS: RESP 20
[2024-07-07 14:25] VITALS: BMI 16.7
--- NOTE | 2024-07-07 15:52 | P.PN ---
Subjective Progress Note Date: 07/06/24 Principal diagnosis: Reason for follow-up is pneumonia Patient is a 63-year-old male with a past medical history significant for squamous cell cancer of the head and neck, Heart Failure, COPD, Hypertension, Memory Impairment, Pneumonia, Seizure Disorder, Thyroid Disorder presented to the hospital for evaluation of worsening shortness of breath and cough has been diagnosed with pneumonia with recent outpatient culture positive for Pseudomonas. On today's evaluation that is 07/06/2024, the patient continues to be afebrile, the patient is on 4 L nasal oxygen and breathing comfortably, the Pt denies having any chest pain or any worsening cough, the patient denies having any abdominal pain no vomiting or any diarrhea has been reported by the nursing staff. Patient white count is slightly up to 14.15 today and creatinine is 2.30 Objective - Vital Signs Vital signs: Vital Signs Temp 98.0 F 07/06/24 09:45 Pulse 105 H 07/06/24 09:45 Resp 18 07/06/24 09:45 BP 120/75 07/06/24 09:45 Pulse Ox 96 07/06/24 09:45 FiO2 Intake & Output 07/05/24 07/06/24 07/06/24 18:59 06:59 18:59 Intake Total 260 10 Output Total 900 1200 625 Balance -900 -940 -055 Weight 56 kg 56 kg Intake: IV 20 10 Invasive Line 2 10 Invasive Line 3 10 10 Oral 240 Output: Urine 900 1200 625 Other: Voiding Method Urinal Urinal Urinal # Bowel Movements 1 1 - Exam GENERAL DESCRIPTION: Middle-age male lying in bed in no distress RESPIRATORY SYSTEM: Unlabored breathing , decreased breath sounds at bases HEART: S1 S2 regular rate and rhythm , ABDOMEN: Soft , no tenderness EXTREMITIES: No edema feet - Labs CBC & Chem 7: 07/07/24 08:25 07/07/24 08:25 Labs: Abnormal Lab Results - Last 24 Hours (Table) 07/05/24 07/05/24 07/05/24 Range/Units 11:40 16:45 23:48 WBC (4.50-10.00) 10*3/uL RBC (4.40-5.60) 10*6/uL Hgb (13.0-17.0) g/dL Hct (39.6-50.0) % MCHC (32.0-37.0) g/dL MPV (9.5-12.2) fL Immature Gran # (0.00-0.04) 10*3/uL Neutrophils # (1.80-7.70) 10*3/uL Lymphocytes # (0.90-5.00) 10*3/uL Monocytes # (0.20-1.00) 10*3/uL Chloride (98-107) mmol/L Carbon Dioxide (22-30) mmol/L BUN (9-20) mg/dL Creatinine (0.66-1.25) mg/dL Glucose (74-99) mg/dL POC Glucose (mg/dL) 136 H 136 H 134 H (70-110) mg/dL Calcium (8.4-10.2) mg/dL 07/06/24 07/06/24 07/06/24 Range/Units 05:46 07:22 07:22 WBC 14.15 H (4.50-10.00) 10*3/uL RBC 2.70 L (4.40-5.60) 10*6/uL Hgb 7.3 L (13.0-17.0) g/dL Hct 23.6 L (39.6-50.0) % MCHC 30.9 L (32.0-37.0) g/dL MPV 9.4 L (9.5-12.2) fL Immature Gran # 0.09 H (0.00-0.04) 10*3/uL Neutrophils # 11.77 H (1.80-7.70) 10*3/uL Lymphocytes # 0.82 L (0.90-5.00) 10*3/uL Monocytes # 1.27 H (0.20-1.00) 10*3/uL Chloride 91 L (98-107) mmol/L Carbon Dioxide 38 H (22-30) mmol/L BUN 39 H (9-20) mg/dL Creatinine 2.30 H (0.66-1.25) mg/dL Glucose 119 H (74-99) mg/dL POC Glucose (mg/dL) 142 H (70-110) mg/dL Calcium 10.5 H (8.4-10.2) mg/dL Assessment and Plan (1) Pseudomonas aeruginosa infection Current Visit: Yes Status: Acute Code(s): A49.8 - OTHER BACTERIAL INFECTIONS OF UNSPECIFIED SITE SNOMED Code(s): 88609878 (2) Pneumonia Current Visit: Yes Status: Acute Code(s): J18.9 - PNEUMONIA, UNSPECIFIED ORGANISM SNOMED Code(s): 796982886 (3) Sepsis Current Visit: Yes Status: Acute Code(s): A41.9 - SEPSIS, UNSPECIFIED ORGANISM SNOMED Code(s): 35984277 Plan: 1patient presented to hospital with sepsis in this patient who did have elevated white count tachycardia meeting criteria for SIRS source is right midlung pneumonia in this patient who recently did have an outpatient culture positive for Pseudomonas aeruginosa to the likely pathogen 2patient with elevated white count more likely related to pneumonia, patient white count is trending slightly up today we will monitor 3midline has been ordered prescription for outpatient Zosyn provided with the disease case manager rn continue with the Zosyn Dictation was produced using [employer] dictation software. please excuse any grammatical, word or spelling errors. Time with Patient: Less than 30
--- NOTE | 2024-07-07 15:53 | P.PN ---
Subjective Progress Note Date: 07/07/24 Principal diagnosis: Reason for follow-up is pneumonia Patient is a 63-year-old male with a past medical history significant for squamous cell cancer of the head and neck, Heart Failure, COPD, Hypertension, Memory Impairment, Pneumonia, Seizure Disorder, Thyroid Disorder presented to the hospital for evaluation of worsening shortness of breath and cough has been diagnosed with pneumonia with recent outpatient culture positive for Pseudomonas. On today's evaluation that is 07/07/2024, Patient is afebrile patient is currently on 4 L nasal cannula oxygen and denies having any shortness of breath, the patient denies any chest pain cough seem to have decrease in intensity the patient denies any nausea vomiting did not have any abdominal pain and no diarrhea. The patient white count is down to 12.78 creatinine is 2.47 Objective - Vital Signs Vital signs: Vital Signs Temp 97.5 F L 07/07/24 12:46 Pulse 96 07/07/24 12:57 Resp 18 07/07/24 12:46 BP 138/90 07/07/24 12:46 Pulse Ox 98 07/07/24 12:46 FiO2 Intake & Output 07/06/24 07/07/24 07/07/24 18:59 06:59 18:59 Intake Total 78 10 10 Output Total 1475 1000 325 Balance -9377 -990 -890 Weight 56 kg 54.5 kg Intake: IV 20 10 10 Invasive Line 3 10 10 Invasive Line 5 10 10 Tube Feeding 58 Output: Urine 1475 1000 325 Other: Voiding Method Urinal Urinal Urinal # Bowel Movements 1 1 - Exam GENERAL DESCRIPTION: Middle-age male lying in bed in no distress RESPIRATORY SYSTEM: Unlabored breathing , decreased breath sounds at bases HEART: S1 S2 regular rate and rhythm , ABDOMEN: Soft , no tenderness EXTREMITIES: No edema feet - Labs CBC & Chem 7: 07/07/24 08:25 07/07/24 08:25 Labs: Abnormal Lab Results - Last 24 Hours (Table) 07/04/24 07/06/24 07/06/24 Range/Units 06:19 16:54 23:58 WBC (4.50-10.00) 10*3/uL RBC (4.40-5.60) 10*6/uL Hgb (13.0-17.0) g/dL Hct (39.6-50.0) % MCHC (32.0-37.0) g/dL Immature Gran # (0.00-0.04) 10*3/uL Neutrophils # (1.80-7.70) 10*3/uL Monocytes # (0.20-1.00) 10*3/uL Chloride (98-107) mmol/L Carbon Dioxide (22-30) mmol/L BUN (9-20) mg/dL Creatinine (0.66-1.25) mg/dL Glucose (74-99) mg/dL POC Glucose (mg/dL) 154 H 121 H (70-110) mg/dL Calcium (8.4-10.2) mg/dL Albumin (PEP) 3.07 L (3.80-4.90) g/dL Ujsqn-6-Qfgeyuczu 0.77 H (0.10-0.40) g/dL Vfwzq-7-Qwqdclfrw 1.06 H (0.60-1.00) g/dL Crossmatch 07/07/24 07/07/24 07/07/24 Range/Units 05:49 08:25 08:25 WBC 12.78 H (4.50-10.00) 10*3/uL RBC 2.36 L (4.40-5.60) 10*6/uL Hgb 6.4 L* (13.0-17.0) g/dL Hct 20.7 L (39.6-50.0) % MCHC 30.9 L (32.0-37.0) g/dL Immature Gran # 0.08 H (0.00-0.04) 10*3/uL Neutrophils # 10.19 H (1.80-7.70) 10*3/uL Monocytes # 1.19 H (0.20-1.00) 10*3/uL Chloride 94 L (98-107) mmol/L Carbon Dioxide 40 H (22-30) mmol/L BUN 35 H (9-20) mg/dL Creatinine 2.47 H (0.66-1.25) mg/dL Glucose 113 H (74-99) mg/dL POC Glucose (mg/dL) 143 H (70-110) mg/dL Calcium 10.5 H (8.4-10.2) mg/dL Albumin (PEP) (3.80-4.90) g/dL Gyhzo-4-Jzsbwqgku (0.10-0.40) g/dL Zuuvl-4-Wjoxsohod (0.60-1.00) g/dL Crossmatch 07/07/24 07/07/24 Range/Units 10:23 12:05 WBC (4.50-10.00) 10*3/uL RBC (4.40-5.60) 10*6/uL Hgb (13.0-17.0) g/dL Hct (39.6-50.0) % MCHC (32.0-37.0) g/dL Immature Gran # (0.00-0.04) 10*3/uL Neutrophils # (1.80-7.70) 10*3/uL Monocytes # (0.20-1.00) 10*3/uL Chloride (98-107) mmol/L Carbon Dioxide (22-30) mmol/L BUN (9-20) mg/dL Creatinine (0.66-1.25) mg/dL Glucose (74-99) mg/dL POC Glucose (mg/dL) 161 H (70-110) mg/dL Calcium (8.4-10.2) mg/dL Albumin (PEP) (3.80-4.90) g/dL Tmjph-1-Rxqnsabna (0.10-0.40) g/dL Qihbo-1-Odfqreufk (0.60-1.00) g/dL Crossmatch See Detail Microbiology - Last 24 Hours (Table) 07/01/24 23:10 Blood Culture - Final Blood Assessment and Plan (1) Pseudomonas aeruginosa infection Current Visit: Yes Status: Acute Code(s): A49.8 - OTHER BACTERIAL INFECTIONS OF UNSPECIFIED SITE SNOMED Code(s): 05788700 (2) Pneumonia Current Visit: Yes Status: Acute Code(s): J18.9 - PNEUMONIA, UNSPECIFIED ORGANISM SNOMED Code(s): 721312870 (3) Sepsis Current Visit: Yes Status: Acute Code(s): A41.9 - SEPSIS, UNSPECIFIED ORGANISM SNOMED Code(s): 28938045 Plan: 1patient presented to hospital with sepsis in this patient who did have elevated white count tachycardia meeting criteria for SIRS source is right midlung pneumonia in this patient who recently did have an outpatient culture positive for Pseudomonas aeruginosa to the likely pathogen 2patient with elevated white count more likely related to pneumonia, patient white count is trending down 3midline has been placed we will keep the patient on Zosyn waiting for placement outpatient IV antibiotic arrangment Dictation was produced using [employer] dictation software. please excuse any grammatical, word or spelling errors. Time with Patient: Less than 30
[2024-07-07 17:26] VITALS: PULSE 107; TEMP 98
[2024-07-07] MEDS: FUROSEMIDE 10 MG/ML 2 ML VIAL IV PRN (17:27)
[2024-07-07 18:03] VITALS: BP 131/77
== END 2024-07-07 18:05 | disposition home health service (06) | DRG 871 ==
LOC: EC 22:15 → 3SCARD 07-02 00:01
PROVIDERS: ADMIT Family Medicine; ATTEND Family Medicine
DX: A41.52 Sepsis due to Pseudomonas (principal); E43 Unspecified severe protein-calorie malnutrition; J15.1 Pneumonia due to Pseudomonas; N17.0 Acute kidney failure with tubular necrosis; J69.0 Pneumonitis due to inhalation of food and vomit; D63.8 Anemia in other chronic diseases classified elsewhere; R13.10 Dysphagia, unspecified; I11.0 Hypertensive heart disease with heart failure; E86.0 Dehydration; J44.0 Chronic obstructive pulmonary disease with (acute) lower respiratory infection; G40.909 Epilepsy, unspecified, not intractable, without status epilepticus; E89.0 Postprocedural hypothyroidism; Z68.1 Body mass index [BMI] 19.9 or less, adult; Z93.1 Gastrostomy status; I50.9 Heart failure, unspecified; E87.6 Hypokalemia; E83.52 Hypercalcemia; R29.6 Repeated falls; R06.89 Other abnormalities of breathing; R54 Age-related physical debility; R09.02 Hypoxemia; J98.4 Other disorders of lung; R74.8 Abnormal levels of other serum enzymes; Z85.89 Personal history of malignant neoplasm of other organs and systems; Z91.81 History of falling; Z87.891 Personal history of nicotine dependence; Z85.850 Personal history of malignant neoplasm of thyroid; Z79.899 Other long term (current) drug therapy; Z87.01 Personal history of pneumonia (recurrent)
CPT/HCPCS: 36410; 36415; 71045; 76937; 78580; 80048; 80053; 80177; 81001; 82040; 82306; 82652; 83605; 83735; 83880; 83883; 83970; 84145; 84165; 84166; 84484; 85025; 85379; 85610; 85730; 86140; 86334; 86850; 86900; 86901; 86920; 87040; 87636; 93005; 94640; 94760; 96361; 96365; 96375; 99285

== ENCOUNTER 2024-09-23 14:04 | Emergency (ER) | payer MEDICARE ==
[2024-09-23 14:12] VITALS: TEMP 97.9
--- NOTE | 2024-09-23 14:28 | ED ---
General Adult HPI - General Chief complaint: Recheck/Abnormal Lab/Rx Stated complaint: shortness of breath Time Seen by Provider: 09/23/24 14:18 Source: patient Mode of arrival: wheelchair Limitations: no limitations - History of Present Illness Initial comments: Patient is a 64 y/o gentleman past medical history of throat cancer s/p resection presenting today for hypoxia. History provided by patient's [id number]. States that over the last 2 days patient has had pulse ox measurements between 60 and 70% on his home 4 L. They called the patient's PCP this morning and directed them to come to the ER. She endorses that patient has been sleeping more throughout the week. Otherwise denies any new symptoms. Patient has a chronic cough but denies worsening of his cough, hemotpysis or new sputum production. He denies any complaints. He denies shortness of breath, lightheadedness or dizziness, chest pain, difficulty breathing, hemoptysis, increased sputum production, fevers, abdominal pain, nausea, vomiting, or leg swelling. He is a prior smoker but no longer. Denies recent travel/surgeries or hospitalizations. Is no longer receiving radiation/chemo for CA and is in remission. Pt is NPO and receives feedings through PEG tube and denies attempting anything by mouth. - Related Data Home Medications Medication Instructions Recorded Confirmed Metoclopramide [Reglan] 10 mg PEG/G-TUBE TID 02/19/24 07/02/24 levETIRAcetam [Keppra] 250 mg PEG/G-TUBE Q12HR 02/19/24 07/02/24 Calcium Phos/D3/Magnesium/Zinc 1 tab PEG/G-TUBE DAILY 07/02/24 07/02/24 [Dnmulro-Eys-Vfcf-Vitamin D3] Folic Acid 1 mg PEG/G-TUBE DAILY 07/02/24 07/02/24 Saliva Stimulant Comb. No.3 1 spray MUCOUS MEM DAILY PRN 07/02/24 07/02/24 [Biotene Moisturizing Mouth] Sodium Chloride [[place]] 1 spray EA NOSTRIL DAILY PRN 07/02/24 07/02/24 Vitamin B Complex 1 cap PEG/G-TUBE DAILY 07/02/24 07/02/24 predniSONE 5 mg PEG/G-TUBE DAILY 07/02/24 07/02/24 Previous Rx's Medication Instructions Recorded Levothyroxine Sodium 100 mcg PEG/G-TUBE DAILY #30 tab 09/07/23 Acetaminophen Tab [Tylenol] 650 mg PEG/G-TUBE Q6HR PRN tab 07/06/24 Budesonide [Pulmicort] 0.5 mg INHALATION BID 30 Days #60 07/06/24 ml Ipratropium-Albuterol Nebulize 3 ml INHALATION RT-QID #120 each 07/06/24 [Duoneb 0.5 mg-3 mg/3 ml Soln] Pantoprazole Sodium [Protonix] 40 mg PEG/G-TUBE DAILY #30 tab 07/06/24 Piperacillin-Tazobactam [Zosyn] 3.375 gm IVPB Q8H #21 each 07/06/24 amLODIPine [Norvasc] 5 mg PEG/G-TUBE DAILY 30 Days #30 07/06/24 tab hydrALAZINE HCL 25 mg PEG/G-TUBE Q6H PRN 30 Days 07/06/24 #30 tab Hydrophilic Cream [Triad (Kerodex 1 applic TOPICAL QID #71 gm 07/07/24 geq)] Amoxic-Pot Clav 875-125Mg 1 tab PEG/G-TUBE Q12HR 1 Days #10 09/23/24 [Augmentin 875-125] tab Azithromycin 500 mg PEG/G-TUBE DIRECTED #100 09/23/24 ml Allergies Allergy/AdvReac Type Severity Reaction Status Date / Time No Known Allergies Allergy Verified 09/23/24 14:12 Review of Systems ROS Statement: Those systems with pertinent positive or pertinent negative responses have been documented in the HPI. ROS Other: All systems not noted in ROS Statement are negative. Past Medical History Past Medical History: Cancer, Heart Failure, COPD, Hypertension, Memory Impairment, Pneumonia, Seizure Disorder, Thyroid Disorder Additional Past Medical History / Comment(s): currently on palliative care now, lives with son and dtr n law, A & O x3,signs own consents but asks dtr n law to help sign or to sign for him at times. Hx neck cancer in 2010, had surgery, chemo and radiation, peg tube place 2021 for difficulty w/ swallowing and aspiration pneumonia,last seizure months ago-dtr n law not sure of exact d ate,hypotensive now no longer hypertensive,uses O2 @ 3 L NC ATC, uses walker History of Any Multi-Drug Resistant Organisms: None Reported Past Surgical History: Tonsillectomy Additional Past Surgical History / Comment(s): Lymph node removal, thyroidectomy, radical tonsil dissection. peg tube Past Anesthesia/Blood Transfusion Reactions: No Reported Reaction Additional Past Anesthesia/Blood Transfusion Reaction / Comment(s): no hx blood transfusion Past Psychological History: Anxiety Smoking Status: Former smoker Past Alcohol Use History: None Reported Past Drug Use History: None Reported - Past Family History Mother Family Medical History: Cancer, Pneumonia Additional Family Medical History / Comment(s): from lung cancer and pneumonia. Father Family Medical History: Cancer, Prostate Disorder Additional Family Medical History / Comment(s): Prostatectomy due to Prostate Cancer. Sister(s) Family Medical History: Cancer Additional Family Medical History / Comment(s): Breast Cancer. Brother(s) Family Medical History: Cancer Additional Family Medical History / Comment(s): 2 BROTHERS FROM CANCER General Exam - General Exam Comments Initial Comments: PE: CONSTITUTIONAL: [no apparent distress, chronically ill-appearing nontoxic] SKIN: [Cool, dry, no jaundice, hives or petechiae] EYES:[ pupils are equally round, extraocular movements intact without nystagmus, clear conjunctiva, non-icteric sclera] HENT: [normocephalic, atraumatic, moist mucus membranes, oropharynx clear without exudates] NECK: , [Full range of motion, normal appearance] PULMONARY: [scant rhonchi/crackles in bilat lung bases though question transmitted upper airway sounds due to chronic mucous production, normal excursion, no accessory muscle use and no stridor] CARDIOVASCULAR:[ regular rate, rhythm, normal S1 and S2. No appreciated murmurs, rubs or gallops. Strong radial pulses with intact distal perfusion. No lower extremity edema] GASTROINTESTINAL: [soft, active bowel sounds throughout, non-tender, non- distended, no palpable masses, no rebound or guarding. No hepatosplenomegaly] GENITOURINARY: MUSCULOSKELETAL: [Extremities have no gross deformity, no edema, redness, or swelling. No calf swelling ] NEUROLOGIC: [_a/o x 3, GCS 15, normal mentation and speech. Moves all extremities x 4 without motor or sensory deficit] PSYCHIATRIC:[ _normal mood and affect, thought process is clear and linear] Limitations: no limitations Course Vital Signs 09/23/24 09/23/24 09/23/24 14:08 14:16 15:07 Temperature 97.9 F Pulse Rate 88 80 Respiratory 22 22 Rate Blood Pressure 94/61 O2 Sat by Pulse 76 L Oximetry 09/23/24 09/23/24 09/23/24 15:15 15:29 19:21 Temperature Pulse Rate 78 84 84 Respiratory 18 Rate Blood Pressure 112/74 O2 Sat by Pulse 98 Oximetry EKG Findings - EKG Comments: EKG Findings:: Sinus rhythm, rate 81 bpm intervals within acceptable limits, no significant ST elevations or depressions no arrhythmia Medical Decision Making - Medical Decision Making Was pt. sent in by a medical professional or institution (, PA, COSTUME DRAPER, urgent care, hospital, or half-way...) When possible be specific @ -No Did you speak to anyone other than the patient for history (EMS, parent, family, police, friend...)? What history was obtained from this source @ -Pt's daughter in law- states she has noted pulse ox 60-70's, was sent in by PCP Did you review nursing and triage notes (agree or disagree)? Why? @ -I reviewed nursing and triage notes Were old charts reviewed (outside hosp., previous admission, EMS record, old EKG, old radiological studies, urgent care reports/EKG's, half-way records)? Report findings @ -Medical records reviewed patient had presented on 07/01/2024 for cough and shortness of breath patient was admitted at that time for antibiotics and fluids Differential Diagnosis (chest pain, altered mental status, abdominal pain women, abdominal pain men, vaginal bleeding, weakness, fever, dyspnea, syncope, headache, dizziness, GI bleed, back pain, seizure, CVA, palpatations, mental health, musculoskeletal)? Differential diagnosis remains broad however top considerations include pneumonia, CHF,PE, ACS, anemia, false pulse ox reading/malfunctioning equiptment, this is not an all inclusive list EKG interpreted by me (3pts min.). @ -As above X-rays interpreted by me (1pt min.). @ -Personally reviewed chest x-ray I see no evidence of pleural effusions or ca rdiomegaly or obvious consolidations, radiologist does comment on possible right lower lobe consolidation versus atelectasis I suspect more likely atelectasis however given patient's past medical history and hypoxia at home we will treat for pneumonia CT interpreted by me (1pt min.). @ -None done U/S interpreted by me (1pt. min.). @ -None done What testing was considered but not performed or refused? (CT, X-rays, U/S, labs)? Why? @ -None What meds were considered but not given or refused? Why? @ -None Did you discuss the management of the patient with other professionals (professionals i.e. , PA, COSTUME DRAPER, lab, RT, psych nurse, social work supervisor, dispensing and measuring optician, teacher, ship officer, disease case manager rn)? Give summary @ -No Was smoking cessation discussed for >3mins.? @ -No Was critical care preformed (if so, how long)? @ -No Were there social determinants of health that impacted care today? How? (Homelessness, low income, unemployed, alcoholism, drug addiction, transportation, low edu. Level, literacy, decrease access to med. care, mcc, rehab)? @ -No Was there de-escalation of care discussed even if they declined (Discuss DNR or withdrawal of care, Hospice)? @ -No What co-morbidities impacted this encounter? (DM, HTN, Smoking, COPD, CAD, Cancer, CVA, ARF, Chemo, Hep., AIDS, mental health diagnosis, sleep apnea, morbid obesity)? Cancer, memory impairment, recurrent pneumonia Was patient admitted / discharged? Hospital course, mention meds given and route, prescriptions, significant lab abnormalities, going to OR and other pertinent info. Discharge-pleasant 64year-old gentleman with complex past medical history family today due to low pulse oximetry readings at home for the last 2 days. Patient's pulse ox was 76% in triage on home 4 L oxygen. Patient was immediately roomed and evaluated by myself. On my assessment he is sitting upright, resting comfortably no acute distress. Patient is currently on 6 L oxygen nasal cannula, I did turn him down to home 4 L during my evaluation in history gathering. Patient had no episodes of difficulty in breathing or hypoxemia while on his home oxygen. He does have scant crackles in the bilateral lung bases however these are potentially secondary to transmitted upper airway sounds due to mucus production. No wheezing noted. No accessory muscle use. No lower extremity edema. Test with patient and efxzhtia-[id number] with plan for labs, c hest x-ray, will administer DuoNeb and reassess. Pt has Well's score 4, so D dimer will be obtained in addition to cardiac enzymes and CBC, metabilic panel and VBG. Of note, pt was borderline hyoptensive on arrival, however MAP 72, pt's DOL states pt alternates between midodrine and hydralazine depending on if he is running hypotensive or hypertensive. Labs are significant for anemia with a hemoglobin of 10.2 however this does appear to be improved from prior visit, no elevated white blood cell count or leukocytosis D-dimer 0.50, VBG does show a CO2 of 57 though I suspect patient is a chronic CO2 retainer due to history of COPD, troponin undetectable, BNP is not elevated viral testing is negative. Chest x-ray was read as possible atelectasis versus right lower lobe pneumonia. Of note did also mention pulmonary nodule in the left lung base. On my reassessment patient has ambulated with home oxygen without episodes of hypoxia and has not had any further episodes of hypoxia while in the ER. I discussed with patient x-ray findings, including questionable pneumonia and incidental pulmonary nodule. We did discuss potential admission for monitoring and IV antibiotics however patien t would very much prefer to be discharged home which I feel is reasonable given his stable vital signs and lack of further symptoms. I did discuss with the patient and his [id number] importance of monitoring closely for any other episodes of hypoxemia, shortness of breath, worsening cough or sputum production, fevers and should be experiencing symptoms or have any further concerns wellbeing or to return to the ER immediately. Patient's [id number] does note that patient has very lengthy oxygen tubing that extends from one of the house to the other and wonders if this could potentially be playing into patient's hypoxemia noted at home. We discussed that this is possible so that when patient is far away from his home oxygen concentrator he should be portable oxygen tank and shorter tubing. Patient will be discharged home with Augmentin and azithromycin out of abundance of caution I suspect chest x-ray is more likely secondary to atelectasis. Additionally, patient and daught er-in-law were instructed to follow-up closely, within the next 1 week with the patient. Provider regarding pulmonary nodule and close monitoring given patient's history of cancer. All questions were answered, patient and [id number] were comfortable with discharge and patient was discharged in stable condition. In my medical judgment there is currently no evidence of an immediate life-thre atening or surgical condition. Discharge is therefore indicated at this time. Discharge treatment instructions, follow up instructions, and appropriate emergency department return precautions were discussed with the patient and/or medical decision maker. Patient and/or medical decision maker expressed understanding of and agreed with the treatment plan, follow up instructions, and emergency department return precaution. All patient's and/or medical decision maker's questions were answered. The patient was advised that a small risk still exists that a serious condition could develop and was therefore instructed to return to the ED for any changes in symptoms, persistent symptoms, inability to obtain proper follow-up or for any further concerns. Patient received verbal and written instructions for this condition. Undiagnosed new problem with uncertain prognosis? @ -No Drug Therapy requiring intensive monitoring for toxicity (Heparin, Nitro, Insulin, Cardizem)? @ -No Were any procedures done? @ -No Diagnosis/symptom? @Pneumonia Acute, or Chronic, or Acute on Chronic? @acute Uncomplicated (without systemic symptoms) or Complicated (systemic symptoms)? @uncomplicated Side effects of treatment? @ -No Exacerbation, Progression, or Severe Exacerbation? @ -No Poses a threat to life or bodily function? How? (Chest pain, [place], [place], pneumonia, PE, COPD, DKA, ARF, appy, cholecystitis, CVA, Diverticulitis, Homicidal, Suicidal, threat to staff... and all critical care pts) @ -[No, not at time of discharge - Lab Data Result diagrams: 09/23/24 14:43 09/23/24 14:43 Lab Results 09/23/24 09/23/24 09/23/24 Range/Units 14:43 14:43 14:43 WBC 8.13 (4.50-10.00) 10*3/uL RBC 3.57 L (4.40-5.60) 10*6/uL Hgb 10.2 L (13.0-17.0) g/dL Hct 31.9 L (39.6-50.0) % MCV 89.4 (80.0-97.0) fL MCH 28.6 (27.0-32.0) pg MCHC 32.0 (32.0-37.0) g/dL Plt Count 338 (140-440) 10*3/uL MPV 10.0 (9.5-12.2) fL Immature Gran % (Auto) 0.1 % Neutrophils % 64.1 % Lymphocytes % 22.9 % Monocytes % 11.2 % Eosinophils % 1.1 % Basophils % 0.6 % Immature Gran # 0.01 (0.00-0.04) 10*3/uL Neutrophils # 5.21 (1.80-7.70) 10*3/uL Lymphocytes # 1.86 (0.90-5.00) 10*3/uL Monocytes # 0.91 (0.20-1.00) 10*3/uL Eosinophils # 0.09 (0.04-0.35) 10*3/uL Basophils # 0.05 (0.00-0.10) 10*3/uL PT 10.7 (10.0-12.5) sec INR 1.0 (<1.2) APTT 28.4 (22.0-30.0) sec D-Dimer 0.50 (<0.60) mg/L FEU VBG pH (7.31-7.41) VBG pCO2 (37-51) mmHg VBG HCO3 (24-28) mmol/L Sodium 136 L (137-145) mmol/L Potassium 4.8 (3.5-5.1) mmol/L Chloride 91 L (98-107) mmol/L Carbon Dioxide 35 H (22-30) mmol/L Anion Gap 10 mmol/L BUN 35 H (9-20) mg/dL Creatinine 0.95 (0.66-1.25) mg/dL Est GFR (CKD-EPI)AfAm >90 (>60 ml/min/1.73 sqM) Est GFR (CKD-EPI)NonAf 85 (>60 ml/min/1.73 sqM) Glucose 120 H (74-99) mg/dL Calcium 10.0 (8.4-10.2) mg/dL Total Bilirubin 0.3 (0.2-1.3) mg/dL AST 24 (17-59) U/L ALT 13 (4-49) U/L Alkaline Phosphatase 80 (38-126) U/L Troponin I (0.000-0.034) ng/mL NT-Pro-B Natriuret Pep 308 pg/mL Total Protein 8.0 (6.3-8.2) g/dL Albumin 4.5 (3.5-5.0) g/dL Influenza Type A (PCR) (Not Detectd) Influenza Type B (PCR) (Not Detectd) RSV (PCR) (Not Detectd) SARS-CoV-2 (PCR) (Not Detectd) 09/23/24 09/23/24 09/23/24 Range/Units 14:43 14:43 15:00 WBC (4.50-10.00) 10*3/uL RBC (4.40-5.60) 10*6/uL Hgb (13.0-17.0) g/dL Hct (39.6-50.0) % MCV (80.0-97.0) fL MCH (27.0-32.0) pg MCHC (32.0-37.0) g/dL Plt Count (140-440) 10*3/uL MPV (9.5-12.2) fL Immature Gran % (Auto) % Neutrophils % % Lymphocytes % % Monocytes % % Eosinophils % % Basophils % % Immature Gran # (0.00-0.04) 10*3/uL Neutrophils # (1.80-7.70) 10*3/uL Lymphocytes # (0.90-5.00) 10*3/uL Monocytes # (0.20-1.00) 10*3/uL Eosinophils # (0.04-0.35) 10*3/uL Basophils # (0.00-0.10) 10*3/uL PT (10.0-12.5) sec INR (<1.2) APTT (22.0-30.0) sec D-Dimer (<0.60) mg/L FEU VBG pH 7.40 (7.31-7.41) VBG pCO2 57 H (37-51) mmHg VBG HCO3 35 H (24-28) mmol/L Sodium (137-145) mmol/L Potassium (3.5-5.1) mmol/L Chloride (98-107) mmol/L Carbon Dioxide (22-30) mmol/L Anion Gap mmol/L BUN (9-20) mg/dL Creatinine (0.66-1.25) mg/dL Est GFR (CKD-EPI)AfAm (>60 ml/min/1.73 sqM) Est GFR (CKD-EPI)NonAf (>60 ml/min/1.73 sqM) Glucose (74-99) mg/dL Calcium (8.4-10.2) mg/dL Total Bilirubin (0.2-1.3) mg/dL AST (17-59) U/L ALT (4-49) U/L Alkaline Phosphatase (38-126) U/L Troponin I <0.012 (0.000-0.034) ng/mL NT-Pro-B Natriuret Pep pg/mL Total Protein (6.3-8.2) g/dL Albumin (3.5-5.0) g/dL Influenza Type A (PCR) Not Detected (Not Detectd) Influenza Type B (PCR) Not Detected (Not Detectd) RSV (PCR) Not Detected (Not Detectd) SARS-CoV-2 (PCR) Not Detected (Not Detectd) Disposition Clinical Impression: Pulmonary nodule, Pneumonia Disposition: HOME SELF-CARE Condition: Good Instructions (If sedation given, give patient instructions): Bacterial Pneumonia (ED), Hypoxia (ED) Additional Instructions: Every disease is a spectrum and a small chance still exists that a serious condition could develop, for this reason, please monitor yourself closely for new, changing or worsening symptoms, worsening symptoms, difficulty in breathing, coughing up thick sputum or blood, swelling in your legs or chest pain, [fever], inability to tolerate/keep down fluids or your medications, inability to follow up with outpatient providers as instructed and should you experience these symptoms or should you have any further concerns for your wellbeing please return to the ED or call 911 immediately. Please take antibiotics as prescribed. Please continue checking pt's oxygen levels as needed and ensure pt's hands are warm when checking. If pt has further episodes of low oxygen (less then 88%) and any of the above symptoms please return to the ER immediately. A pulmonary nodule was noted in the left lung on chest x-ray, please follow-up with your doctor within 1 to 2 weeks to discussed further imaging such as CT scan within the next 3 months. to further evaluation. Please follow-up with your doctor within 1 week regarding today's visit. PLEASE let us know here before you leave if there is anything further we can do to be of any assistance. Take care and feel Better! Prescriptions: Amoxic-Pot Clav 875-125Mg [Augmentin 875-125] 1 tab PEG/G-TUBE Q12HR 1 Days #10 tab Azithromycin 500 mg PEG/G-TUBE DIRECTED #100 ml Is patient prescribed a controlled substance at d/c from ED?: No Referrals: Suman Ortiz Jr, DO [Primary Care Provider] - 1-2 days
[2024-09-23 14:55] LABS: Basophils # (A) 0.05 10*3/uL (0.00-0.10); Basophils % (A) 0.6 %; Eosinophils # (A) 0.09 10*3/uL (0.04-0.35); Eosinophils % (A) 1.1 %; HCT 31.9 % (39.6-50.0); HGB 10.2 g/dL (13.0-17.0); Lymphocytes # (A) 1.86 10*3/uL (0.90-5.00); Lymphocytes % (A) 22.9 %; MCH 28.6 pg (27.0-32.0); MCHC 32.0 g/dL (32.0-37.0); MCV 89.4 fL (80.0-97.0); Monocytes # (A) 0.91 10*3/uL (0.20-1.00); Monocytes % (A) 11.2 %; Neutrophils # (A) 5.21 10*3/uL (1.80-7.70); Neutrophils % (A) 64.1 %; Platelet Count 338 10*3/uL (140-440); RBC 3.57 10*6/uL (4.40-5.60); RDW 15.6 % (11.5-14.5); WBC 8.13 10*3/uL (4.50-10.00)
[2024-09-23] MEDS: ALBUTEROL NEBULIZED 2.5 MG/3 ML INHALATION STA (15:06)
[2024-09-23] MEDS: IPRATROPIUM 0.5 MG/2.5 ML NEBU INHALATION STA (15:07)
[2024-09-23 15:10] LABS: INR 1.0 (<1.2); Partial Thromboplastin Time 28.4 sec (22.0-30.0); Prothrombin Time 10.7 sec (10.0-12.5)
[2024-09-23 15:16] LABS: ALT 13 U/L (4-49); AST 24 U/L (17-59); African American GFR (CKD) >90 (>60 ml/min/1.73 sqM); Albumin 4.5 g/dL (3.5-5.0); Alkaline Phosphatase 80 U/L (38-126); Anion Gap 10 mmol/L; Blood Urea Nitrogen 35 mg/dL (9-20); Calcium 10.0 mg/dL (8.4-10.2); Carbon Dioxide 35 mmol/L (22-30); Chloride 91 mmol/L (98-107); Glucose 120 mg/dL (74-99); Non-African American GFR(CKD) 85 (>60 ml/min/1.73 sqM); Potassium 4.8 mmol/L (3.5-5.1); Sodium 136 mmol/L (137-145); Total Protein 8.0 g/dL (6.3-8.2)
[2024-09-23 15:20] LABS: VBG HCO3 35.0 mmol/L (24-28); VBG PCO2 57.0 mmHg (37-51); VBG PH 7.4 (7.31-7.41)
[2024-09-23 15:23] LABS: NT-Pro-B-Type Natriuretic Pept 308 pg/mL
[2024-09-23 15:30] VITALS: PULSE 84
[2024-09-23 15:31] LABS: RSV Not Detected (Not Detectd)
--- NOTE | 2024-09-23 16:23 | XR ---
EXAMINATION TYPE: XR chest 2V DATE OF EXAM: 09/23/2024 4:12 PM COMPARISON: 07/04/2024, 07/01/2024 CLINICAL INDICATION: Male, 64 years old with history of Difficulty breathing , TECHNIQUE: XR chest 2V view(s) obtained. FINDINGS: The heart size is normal. The pulmonary vasculature is normal. There is a 0.9 cm nodule at the left costophrenic angle. Additional workup recommended. There is some mild infiltrate at the right base. Correlate for atelectasis. Previous left pleural eff usion has resolved. IMPRESSION: 1. Suggestion of subsegmental atelectasis or pneumonia at the right base. 2. 0.9 cm lung nodule left base. Additional workup recommended. [facility], , 09/23/2024 4:20 PM
[2024-09-23] MEDS: AZITHROMYCIN 500 MG in SODIUM CHLORIDE 0.9% 250 ML IVPB STA (17:55)
[2024-09-23] MEDS: AMOXIC-POT CLAV 875-125MG 1 EACH TAB PEG/G-TUBE STA (18:19)
[2024-09-23 19:22] VITALS: BP 112/74; RESP 18
== END 2024-09-23 19:22 | disposition home or self-care (01) ==
LOC: EC 14:04
DX: R91.1 Solitary pulmonary nodule (principal); J18.9 Pneumonia, unspecified organism; Z93.1 Gastrostomy status; Z80.1 Family history of malignant neoplasm of trachea, bronchus and lung; Z11.52 Encounter for screening for COVID-19; Z87.891 Personal history of nicotine dependence
CPT/HCPCS: 36415; 94645; 93005; 85379; 83880; 80053; 82803; 84484; 85025; 85610; 85730; 87636; 71046; 99285; 96365; J0456